=== PATIENT | female | born 1970 | race Caucasian/White ===

== ENCOUNTER 2019-04-02 00:47 | Inpatient (IN) | payer MEDICAID, SELFPAY | END 2019-04-04 20:04 | disposition home or self-care (01) | DRG 885 | LOC: NP 04-04 09:29 | DX: F25.0 Schizoaffective disorder, bipolar type (principal); Z23 Encounter for immunization | CPT/HCPCS: 99232 ==

== ENCOUNTER 2019-04-05 22:06 | Emergency (ER) | payer MEDICAID, SELFPAY ==
[2019-04-05 22:36] VITALS: BP 175/104; PULSE 77; RESP 18; TEMP 36.9; O2SAT 99; BMI 56.1
--- NOTE | 2019-04-06 00:50 | ED_ITS ---
Entered by Juanita Pacheco, acting as scribe for Apr 05, 2019 22:06 HPI - Extremity Problem General: Chief complaint: Extremity Problem,Nontraumatic Stated complaint: back/neck pain/hand pain Time Seen by Provider: 04/06/19 00:49 Source: patient Mode of arrival: ambulatory Limitations: no limitations History of Present Illness: HPI Narrative: 49 yo f came to the er for back, neck and hand pain. Onset was today. MD Complaint: extremity pain Onset (ago): day(s) (today) Pain Consistency: constant Radiation: none Relieving factors: nothing Exacerbating factors: nothing Associated symptoms: Deny chest pain, fever(s) or rash Review of Systems General: Reports: other (negative unless marked) Const: Denies: fever or chills Eyes: Denies: change in vision ENMT: Denies: throat pain or mouth pain Card: Denies: chest pain Resp: Denies: shortness of breath GI: Denies: abdominal pain, nausea, vomiting or diarrhea : Denies: difficulty urinating Musc: Reports: neck pain; Denies: back pain or joint pain Skin/Breast: Denies: rash Neuro: Denies: headache or behavioral changes Psych: Denies: depression Endo: Denies: excessive urination Dominic/Lymph: Denies: easy bruising All/Imm: Denies: hives PFSH ED PFSH: Statuses (acute, chronic, etc) shown below reflect problem list status as previously entered and may not be historically accurate Social History Smoking and tobacco status: former smoker Physical Exam Const: COMMON NORMALS: no apparent distress, oriented x3 and healthy appearing HENMT: COMMON NORMALS: normocephalic and external nose normal HEAD & SCALP: normocephalic NOSE: external nose normal Eye: COMMON NORMALS: PERRL PUPIL: Yes PERRL Neck/C-Spine: COMMON NORMALS: full ROM and no lymphadenopathy OTHER: slight tenderness to posterior neck Chest: COMMONS NORMALS: inspection of chest normal Resp: COMMON NORMALS: normal respiratory effort, no use of accessory muscles and clear to auscultation bilaterally AUSCULTATION: clear to auscultation bilaterally Cardio: COMMON NORMALS: regular rate and regular rhythm RATE: regular rate RHYTHM: regular rhythm GI: COMMON NORMALS: normal to inspection, nondistended, normoactive bowel sounds, soft to palpation, non-tender and no masses PALPATION: Yes soft Back/Pelvis: THORACIC SPINE/UPPER BACK: Yes normal to inspection Extremity: COMMON NORMALS: normal to inspection, full ROM and normal capillary refill Neuro: COMMON NORMALS: oriented x3 Psych: COMMON NORMALS: mental status grossly normal and cooperative Skin: COMMON NORMALS: no rashes or lesions noted GENERAL SKIN EXAM: no ra shes or lesions noted Course Vital Signs: Vital signs: Vital Signs Temperature 98.4 F 04/06/19 01:43 Pulse Rate 72 04/06/19 01:43 Respiratory Rate 18 04/06/19 01:43 Blood Pressure 159/97 04/06/19 01:43 Pulse Oximetry 96 04/06/19 01:43 MDM - Extremity (Nontraumatic) MDM Narrative: Medical decision making narrative: Patient presents here with neck pain is likely muscular. Patient is well-appearing here and is stable for discharge. Patient prescribed Naprosyn along with Robaxin. Discharge Plan Discharge Patient Disposition: Home, Self-Care Clinical Impression: Neck pain Condition: Stable Prescriptions: New EC-Naprosyn 500 mg tablet,delayed release (DR/EC) 500 mg PO BID PRN (Reason: pain) Qty: 20 RF: 0 Robaxin-750 750 mg tablet 750 mg PO Q6H Qty: 30 RF: 0 Discharge Orders: Discharge Order (Routine); Ordered 04/06/19 Ordered By: Jayashree Kirkland Referrals: [facility] [Other] Discharge Diet: Advance as tolerated Discharge Activity: Resume usual activity Patient Instructions: Methocarbamol (By mouth), Naproxen/Esomeprazole (By [facility]), Cervical Radiculopathy (ED) Discharge Date/Time: 04/06/19 01:45 Coding Level of Care Code ED Pen Tester for Chg Fwd The documentation recorded by the Junior gloria Stephanie Lyn, accurately reflects the service I personally performed and the decisions made by Isael ahmadi Korby, MD Apr 05, 2019 22:06
[2019-04-06 00:54] VITALS: BP 162/77; PULSE 90; RESP 18; O2SAT 96
[2019-04-06] MEDS: HYDROcodone-acetaminophen 5-325 mg Tablet 1 TAB PO (01:21)
[2019-04-06 01:43] VITALS: BP 159/97; PULSE 72; RESP 18; TEMP 36.9; O2SAT 96
== END 2019-04-06 01:45 | disposition home or self-care (01) ==
PROVIDERS: Emergency Provider Emergency Medicine
DX: M54.2 Cervicalgia (principal); Z87.891 Personal history of nicotine dependence
CPT/HCPCS: 99281

== ENCOUNTER 2019-04-07 21:53 | Emergency (ER) | payer MEDICAID, SELFPAY | END 2019-04-07 23:49 | disposition home or self-care (01) | LOC: ER 04-08 03:26 | PROVIDERS: Emergency Provider Emergency Medicine | DX: Z53.21 Procedure and treatment not carried out due to patient leaving prior to being seen by health care provider (principal) | CPT/HCPCS: 99281 ==

== ENCOUNTER 2019-04-26 12:51 | Emergency (ER) | payer MEDICAID, SELFPAY ==
[2019-04-25 15:07] VITALS: BP 170/101; BMI 55.8
== END 2019-04-26 15:53 | disposition admitted as inpatient to this hospital (09) ==
LOC: ER 06-28 14:04
PROVIDERS: Emergency Provider Physician Assistant; PCP Nurse Practitioner Family
DX: R45.851 Suicidal ideations (principal); F25.9 Schizoaffective disorder, unspecified; F31.9 Bipolar disorder, unspecified; Z87.891 Personal history of nicotine dependence
CPT/HCPCS: 80053; 80307; 84443; 85025; 96372; 99284; 99285; J1200; J2060; J3486; J3490

== ENCOUNTER 2019-04-26 12:51 | Inpatient (IN) | payer MEDICAID, SELFPAY ==
[2019-04-25 15:07] VITALS: BP 170/101; BMI 55.8
--- NOTE | 2019-04-26 11:55 | W.ED.GENADLT ---
HPI - General Adult General: Chief complaint: Psychiatric Symptoms Stated complaint: OUT OF MEDICATIONS Source: patient Mode of arrival: ambulatory Limitations: no limitations History of Present Illness: HPI narrative: Patient is a 49-year-old female presents to ED today after being brought by EMS for complaints that she is out of her medications; upon arrival patiently is acutely psychotic/manic; her speech is extremely pressured; she seems to bounce from topic to topic; no form of history could be performed due to patient's altered mental status Review of Systems General: Reports: ROS unobtainable due to mental status PFSH ED PFSH: Statuses (acute, chronic, etc) shown below reflect problem list status as previously entered and may not be historically accurate Social History Smoking and tobacco status: former smoker Second hand smoke exposure: Yes Alcohol intake: never Desire information about substance/drug rehabilitation?: No Adopted: No Lives independently: Yes Household members: significant other Marital status: Number of children: 1 Current occupational status: disabled Current gender identity: Female Female Reproductive History: Date of last menstrual period: 04/10/19 Para: 1 Spontaneous abortions: No Physical Exam Const: COMMON NORMALS: no apparent distress, oriented x3 and alert NUTRITIONAL APPEARANCE: obese morbidly obese Neuro: COMMON NORMALS: oriented x3 SENSORIUM/ORIENTATION: Yes alert Psych: APPEARANCE: Yes grossly normal ATTITUDE: Yes uncooperative SPEECH: Yes excessive and Yes pressured MOOD & AFFECT: Yes labile affect THOUGHT PROCESS: flight of ideas, loose associations and racing thoughts ATTENTION/CONCENTRATION: Yes attention grossly impaired and Yes concentration grossly impaired MEMORY/COGNITION: Yes cognition grossly impaired INSIGHT: poor JUDGEMENT: poor Course Consultations: Consultation #1: Dr. Mujica-accepts to NPU Time: 14:00 Vital Signs: Vital signs: Vital Signs Temperature 98.9 F 04/26/19 11:56 Pulse Rate 109 H 04/26/19 11:56 Respiratory Rate 22 H 04/26/19 11:56 Blood Pressure 171/109 04/26/19 11:56 Pulse Oximetry 97 04/26/19 11:56 MDM - General Adult MDM Narrative: Medical decision making narrative: pt arrives acutely psychotic; she was screaming at staff, being verbally assaultive, and tried to elope the ED several times; also tried to lock herself in the bathroom; she was given several medications to help with agitation; she will be admitted to NPU Lab Data: Labs: Lab Results 04/26/19 04/26/19 Range/Units 12:35 12:35 WBC 8.2 (4.0-10.0) 10^3/ uL RBC 4.48 (4.1-5.3) 10^6/u L Hgb 13.1 (11.5-15.3) g/dL Hct 39.7 (37.0-47.0) % MCV 88.6 (81-99) fL MCH 29.2 (28.0-34.0) pg MCHC 33.0 (30.0-36.0) g/dL RDW 12.8 (12.1-15.1) % Plt Count 284 (130-400) 10^3/c mm MPV 9.3 (7.4-10.4) fL Neut % (Auto) 62.0 % Lymph % (Auto) 26.7 % [place] % (Auto) 9.2 % Eos % (Auto) 1.0 % Baso % (Auto) 0.6 % Neut # (Auto) 5.1 (1.8-7.7) 10^3/u L Lymph # (Auto) 2.2 (0.8-4.8) 10^3/u L [place] # (Auto) 0.8 (0.2-0.9) 10^3/u L Eos # (Auto) 0.1 (0.0-0.8) 10^3/u L Baso # (Auto) 0.1 (0.0-0.1) 10^3/u L Nucleated RBC % (a uto) 0 % Nucleated RBCs # 0.0 /100WBC Sodium 137 (136-145) mmol/L Potassium 3.4 L (3.5-5.1) mmol/L Chloride 98 (98-107) mmol/L Carbon Dioxide 22 (22-29) mmol/L Anion Gap 20.4 H (5-19) BUN 13 (6-20) mg/dL Creatinine 0.8 (0.5-0.9) mg/dL GFR Calculation 76.6 L (90-130) mL/min Glucose 149 H (74-109) mg/dL Calcium 10.8 H (8.6-10.0) mg/Dl Total Bilirubin 0.7 (0.15-1.2) mg/dL AST 27 (0-32) U/L ALT 28 (0-33) U/L Alkaline Phosphata se 53 (35-105) IU/L Total Protein 7.7 (6.6-8.7) g/dL Albumin 4.5 (3.5-5.2) g/dL Globulin 3.2 (1.3-4.6) g/dL TSH 2.35 (0.27-4.20) uIU/ mL Salicylates < 0.3 L (3-10) mg/dL Acetaminophen < 5.0 L (10-30) ug/mL Ethyl Alcohol < 10 (0-10) mg/dL Discharge Plan Discharge Patient Disposition: Xfer Psychiatric Hosp Clinical Impression: Acute psychosis Condition: Stable Coding Level of Care Code ED Field Assistant for Mandie Wei Exam Problem Focused
[2019-04-26 11:56] VITALS: BP 171/109; PULSE 109; RESP 22; TEMP 37.2; O2SAT 97; BMI 43.0
[2019-04-26] MEDS: OLANZapine 10 mg VIAL 5 MG IM (12:42)
[2019-04-26 12:53] LABS: Basophils # 0.1 10^3/uL (0.0-0.1); Basophils % 0.6 %; Eosinophils # 0.1 10^3/uL (0.0-0.8); Hematocrit 39.7 % (37.0-47.0); Hemoglobin 13.1 g/dL (11.5-15.3); Lymphocytes # 2.2 10^3/uL (0.8-4.8); Lymphocytes % 26.7 %; Mean Corpuscular Hemoglobin 29.2 pg (28.0-34.0); Mean Corpuscular Volume 88.6 fL (81-99); Mean Platelet Volume 9.3 fL (7.4-10.4); Monocytes # 0.8 10^3/uL (0.2-0.9); Monocytes % 9.2 %; Neutrophils # 5.1 10^3/uL (1.8-7.7); Nucleated Red Blood Cells % 0 %; Platelet Count 284 10^3/cmm (130-400); Red Blood Count 4.48 10^6/uL (4.1-5.3); Red Cell Distribution Width 12.8 % (12.1-15.1); White Blood Count 8.2 10^3/uL (4.0-10.0)
[2019-04-26] MEDS: LORazepam 2 mg/mL INJ 1 mL (13:25)
[2019-04-26] MEDS: ziprasidone 20 mg/mL SDV (13:26)
[2019-04-26 13:36] LABS: Alanine Aminotransferase 28 U/L (0-33); Albumin Level 4.5 g/dL (3.5-5.2); Alkaline Phosphatase 53 IU/L (35-105); Anion Gap 20.4 (5-19); Aspartate Amino Transferase 27 U/L (0-32); Blood Urea Nitrogen 13 mg/dL (6-20); Calcium 10.8 mg/Dl (8.6-10.0); Carbon Dioxide 22 mmol/L (22-29); Chloride 98 mmol/L (98-107); Globulin 3.2 g/dL (1.3-4.6); Glomerular Filtration Rate 76.6 mL/min (90-130); Glucose 149 mg/dL (74-109); Potassium 3.4 mmol/L (3.5-5.1); Sodium 137 mmol/L (136-145); Thyroid Stimulating Hormone 2.35 uIU/mL (0.27-4.20); Total Bilirubin 0.7 mg/dL (0.15-1.2); Total Protein 7.7 g/dL (6.6-8.7)
[2019-04-26] MEDS: diphenhydrAMINE 50 mg/mL SDV 1mL IM (13:43)
[2019-04-26] MEDS: LORazepam 2 mg/mL INJ 1 mL IM ×2 (13:44→21:53)
[2019-04-26 13:49] LABS: Acetaminophen < 5.0 ug/mL (10-30); Alcohol Level < 10 mg/dL (0-10); Salicylate < 0.3 mg/dL (3-10)
[2019-04-26 14:59] VITALS: BP 164/94; PULSE 92; RESP 18; O2SAT 97
[2019-04-26 18:21] VITALS: BP 116/73; PULSE 92; RESP 18; TEMP 36.8
[2019-04-26] MEDS: blistex lip oint 7 gm Tube 1 APPLIC TOPICAL (19:27)
[2019-04-26] MEDS: naproxen 500 mg Tablet PO (19:38)
[2019-04-26] MEDS: amlodipine 10 mg Tablet PO (20:33)
[2019-04-26] MEDS: lurasidone 80 mg Tablet PO (20:33)
--- NOTE | 2019-04-26 22:06 | PC.NURSE ---
BEHAVIOR PT HAS BEEN YELLING AND CRYING AT THE NURSES STATION. SHE STATES NO ONE IS HELPING HER. PT STATES HER DAUGHTER IS HAVING A BABY AND NEEDS TO BE ADMITTED. PT IS HARD TO REDIRECT. PT GIVEN ATIVAN 2 MG LEFT DELTOID. WILL MONITOR FOR MEDICATION EFFECTIVENESS.
--- NOTE | 2019-04-26 23:46 | NUR.SHIFT ---
Nursing shift assessment note: Patient at nurses station yelling, screaming at staff. loud and demanding. insight and judgment is poor. Denied having any pain or discomfort. medication compliant . Denied suicidal ideations, denied feeling depressed, stressed, or wanting to harm self or others. Denied having hallucinations. Insight and judgment is poor. Stated she felt stressed, agitated and angry with her daughter. Took shower ate snack took her meds and went to bed. Will continue to monitor patient per 15 minute checks.
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
[2019-04-27] MEDS: pantoprazole DR 40 mg Tablet PO (09:31)
[2019-04-27] MEDS: hyDROXYzine 25 mg Capsule 50 MG PO (09:59)
--- NOTE | 2019-04-27 10:01 | PC.NURSE ---
PT NOTE: PT C/O FEELING ANXIOUS AND UPSET. PRN VISTARIL 50MG GIVEN FOR ANXIETY.
[2019-04-27 10:09] LABS: Amphetamines Screen Urine Negative (Negative); Barbiturates Screen Urine Negative (Negative); Benzodiazepines Screen Urine Negative (Negative); Cocaine Screen Urine Negative (Negative); Opiate Screen Urine Negative (Negative); PCP Screen Urine Negative (Negative); THC Screen Urine Negative (Negative)
[2019-04-27] MEDS: naproxen 500 mg Tablet PO (11:45)
[2019-04-27] MEDS: lurasidone 20 mg Tablet 40 MG PO (12:34)
[2019-04-27 14:00] VITALS: PULSE 92; RESP 18
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
[2019-04-27] MEDS: LORazepam 2 mg Tablet PO (15:24)
[2019-04-27 16:18] VITALS: BP 139/84; PULSE 97; RESP 20; TEMP 36.7; O2SAT 96
[2019-04-27] MEDS: amlodipine 10 mg Tablet PO (18:05)
[2019-04-27] MEDS: lurasidone 80 mg Tablet PO (19:30)
[2019-04-27] MEDS: acetaminophen 325 mg Tablet 650 MG PO (19:35)
[2019-04-27] MEDS: OLANZapine ODT 5 MG TABLET PO (19:40)
--- NOTE | 2019-04-27 19:48 | PC.NURSE ---
PRN ZYPREXA PT IN ROOM CRYING AND YELLING STATING SHE IS GOING TO FLIP OUT AND HURT SOMEONE. PT GIVEN ZYPREXA ZYDIS 5MG SUBLINGUAL. WILL MONITOR FOR MEDICATION EFFECTIVENESS.
[2019-04-27 21:18] VITALS: BP 136/88; PULSE 107; RESP 19; TEMP 36.9; O2SAT 94
[2019-04-28] MEDS: naproxen 500 mg Tablet PO ×2 (00:04→21:21)
[2019-04-28] MEDS: LORazepam 2 mg/mL INJ 1 mL IM (00:09)
--- NOTE | 2019-04-28 00:10 | PC.NURSE ---
PRN ATIVAN ATIVAN 2 MG IM GIVEN FOR INCREASING AGITATION. WILL MONITOR FOR MEDICATION EFFECTIVENESS.
[2019-04-28 06:17] VITALS: BP 138/94; PULSE 107; RESP 20; TEMP 36.8; O2SAT 93
[2019-04-28] MEDS: amlodipine 10 mg Tablet PO ×2 (08:45→18:10)
[2019-04-28] MEDS: pantoprazole DR 40 mg Tablet PO (08:45)
[2019-04-28] MEDS: lurasidone 80 mg Tablet PO ×2 (09:11→16:43)
[2019-04-28] MEDS: LORazepam 2 mg Tablet PO (09:11)
[2019-04-28 14:00] VITALS: BP 146/95; PULSE 83; RESP 19; TEMP 36.7; O2SAT 96
--- NOTE | 2019-04-28 15:47 | P.PN_ITS ---
Subjective NPU Subjective: Interval history: I want my Latuda. I only take 80 mg in the morning. If I take it with supper, it won't work. I won't take 40 mg. Only 80. That;s the only one that will work. . Medications: Medication Review Details: Mental Status Exam: The patient is an obese slovenly woman who appears older than her stated age. Eye contact is good. Psychomotoric activity is NOTABLY elevated. SHE IS LOUD, DEMANDING AND ILLOGICAL. Appearance: hygiene is Poor; no gross neurological deficits., gait is Waddling; AIMS=0 Speech: Speech is of Pressured rate and rhythm and Often difficult to understand Thought processes: Thought processes are Illogical. Judgment is not adequate for safety. Psychotic processes: There is no indication of guarding or paranoia. There is no attention to the internal stimuli. Auditory and visual hallucinations are denied. Judgment: Insight is fair. Problem solving skills are Not adequate for safety. Orientation: The patient is oriented to person, place time and situation. Memory: no deficits noted in immediate, intermediate, or remote spheres.However they were not formally tested Attention: The patient is alert and interpersonally engaged. Language: Verbalizations are coherent. Fund of knowledge: Fund of knowledge is Poor but adequate. Affect/Mood: Affect is consistent with a Manic mood. She denied suicidal ideation Affective range EXPANSIVE AND VOLATILE Psychosis: perception And reality testing Her severely impaired by her disorganized thinking and racing thoughts. Diagnoses:Bipolar disorder?currently manic Noncompliant Assessment:Patient became manic when she stopped taking her medication. Treatment plan: Due to the psychiatric conditions and treatment listed in the Assessment and Plan - the patient requires continued hospitalization. Will provide a safe and therapeutic environment for patient.. Will continue inpatient treatment to allow for medication adjustment and monitoring. Will continue q15 min safety checks. Patient became manic when she stopped taking her medication. Will Restart Latuda 80 mg at bedtime and monitor for medication side effects. Hospital day #3: Patient is becoming more irritable and demanding. She did not sleep well last night. There have been some staffing issues that resulted in abnormalities and how the medication was given. At this point, will put a loading dose Latuda and provide when necessary dosing of lorazepam and Robaxin. Will also provide doxepin at bedtime to help with sleep. Monitor patient's mood, sleep, appetite, and behavior closely. Encourage patient to participate in individual and group therapeutic sessions on the fleming. Estimated length of stay 5 days The expected benefits and potential side effects of patient's psychiatric medications were discussed with the patient. The patient understands and consents to treatment.CRITERIA FOR DISCHARGE: stable on medications and no l onger an im Vitals/I&O/Wt Last Vital Signs Temp 98.0 F 04/28/19 14:00 Pulse 83 04/28/19 14:00 Resp 19 H 04/28/19 14:00 BP 146/95 04/28/19 14:00 Pulse Ox 96 04/28/19 14:00 Data NPU : 04/26/19 12:35 04/26/19 12:35 Involuntary Hold Information 96 Hour Hold: 96 Hour Involuntary Admission: No Attestations NPU Medical Necessity Statement*: Patient will remain in the hospital another 5-6 nights while Concepcion is addressed Coding Level of Care Code Acute Tool Crib Supervisor for Mandie Wei
[2019-04-28] MEDS: OLANZapine ODT 5 MG TABLET PO (16:44)
[2019-04-28 20:55] VITALS: BP 109/69; PULSE 91; RESP 20; TEMP 37.1; O2SAT 93
[2019-04-28] MEDS: doxepin 50 mg Capsule PO (21:13)
[2019-04-28] MEDS: hyDROXYzine 25 mg Capsule 50 MG PO (21:16)
[2019-04-29] MEDS: pantoprazole DR 40 mg Tablet PO (08:43)
[2019-04-29] MEDS: amlodipine 10 mg Tablet PO ×2 (08:43→17:24)
--- NOTE | 2019-04-29 12:32 | P.PN_ITS ---
Subjective NPU Subjective: Interval history: I feel like I'm doing pretty good. I'm getting ready to go home.. . Medications: Medication Review Details: Mental Status Exam: The patient is an obese Woman with much improved hygiene.. Eye contact is good. Psychomotoric activity Has normalized. SHE IS No longer LOUD, DEMANDING AND ILLOGICAL. Appearance: hygiene is Improved; no gross neurological deficits., gait is Waddling; AIMS=0 Speech: Speech is of Normal rate and rhythm ; She is coherent and logical. Thought processes: Thought processes are logical. Judgment is adequate for safety. Psychotic processes: There is no indication of guarding or paranoia. There is no attention to the internal stimuli. Auditory and visual hallucinations are denied. Judgment: Insight is fair. Problem solving skills are adequate for safety. Orientation: The patient is oriented to person, place time and situation. Memory: no deficits noted in immediate, intermediate, or remote spheres.However they were not formally tested Attention: The patient is alert and interpersonally engaged. Language: Verbalizations are coherent. Fund of knowledge: Fund of knowledge is Poor but adequate. Affect/Mood: Affect is consistent with a Euthymic mood. She denied suicidal ideation Affective range Within normal limits Psychosis: perception And reality testing Her severely impaired Primarily by her concrete thinking and cognitive limitations. Diagnoses:Bipolar disorder?currently manic Noncompliant Assessment:Patient became manic when she stopped taking her medication. Treatment plan: Due to the psychiatric conditions and treatment listed in the Assessment and Plan - the patient requires continued hospitalization. Will provide a safe and therapeutic environment for patient.. Will continue inpatient treatment to allow for medication adjustment and monitoring. Will continue q15 min safety checks. Patient became manic when she stopped taking her medication. Will Restart Latuda 80 mg at bedtime and monitor for medication side effects. Hospital day #3: Patient is becoming more irritable and demanding. She did not sleep well last night. There have been some staffing issues that resulted in abnormalities and how the medication was given. At this point, will put a loading dose Latuda and provide when necessary dosing of lorazepam and Robaxin. Will also provide doxepin at bedtime to help with sleep. Hospital day #4: Patient is doing much better than yesterday. She didn't sleep last night. Manic symptoms have improved considerably. She feels as though she is ready to go home. This seems reasonable though the [place] to discharge successfully is discharge planning and we have no capacity to do that with [facility] staff. Monitor patient's mood, sleep, appetite, and behavior closely. Encourage patient to participate in individual and group therapeutic sessions on the fleming. Estimated length of stay 2 more days The expected benefits and potential side effects of patient's psychiatric medications were discussed with the patient. The patient understands and consents to treatment.CRITERIA FOR DISCHARGE: stable on medications and no longer an im Mental Status Exam Cognition: Patient Appearance: Appropriate Level of Consciousness: Restless Patient Cognition Impaired: Yes Ability to Follow Directions: Good Patient Orientation (long list): Person, Place and Time Comprehension Ability: No Impairment Hallucination Type: None Thought Process: Disorganized Affect: Affect Description: Appropriate Behavior: Patient Behavior: Demanding Speech Pattern: Clear Vitals/I&O/Wt Last Vital Signs Temp 98.7 F 04/28/19 20:55 Pulse 91 04/28/19 20:55 Resp 20 H 04/28/19 20:55 BP 109/69 04/28/19 20:55 Pulse Ox 93 04/28/19 20:55 Data NPU : 04/26/19 12:35 04/26/19 12:35 Involuntary Hold Information 96 Hour Hold: 96 Hour Involuntary Admission: No Attestations NPU Medical Necessity Statement*: Patient will remain in the hospital 2-3 more times for coordination of care following discharge. Coding Level of Care Code Acute Washer Engineer for Mandie Wei
[2019-04-29 14:00] VITALS: O2SAT 79
[2019-04-29] MEDS: blistex lip oint 7 gm Tube 1 APPLIC TOPICAL (14:57)
[2019-04-29] MEDS: acetaminophen 325 mg Tablet 650 MG PO ×2 (17:23→22:14)
[2019-04-29] MEDS: lurasidone 80 mg Tablet PO (17:23)
[2019-04-29] MEDS: doxepin 50 mg Capsule PO (20:56)
[2019-04-29 21:39] VITALS: BP 158/86; PULSE 111; RESP 20; TEMP 37.1; O2SAT 96
[2019-04-30] MEDS: naproxen 500 mg Tablet PO ×3 (00:58→22:42)
[2019-04-30] MEDS: methocarbamol 750 mg Tablet PO (02:36)
[2019-04-30] MEDS: acetaminophen 325 mg Tablet 650 MG PO ×2 (02:36→21:22)
[2019-04-30 06:00] VITALS: BP 159/93; PULSE 85; RESP 18; TEMP 36.3; O2SAT 97
--- NOTE | 2019-04-30 07:38 | PM.NPN ---
Subjective NPU Subjective: Interval history: The patient had a spooky night. She heard a knock on the window and that played right into her auditory hallucinations, which she still experiences, although mildly. She agrees that she is approaching discharge but she is right now too frightened by her hallucinations, even as they fade away. Medications: Reviewed: Yes Mental Status Exam MSE Comments: Patient presents in reasonably good body habitus. Mood is more upbeat than that described previously. Affect is appropriate. She seems rather nonchalant as she recounts her psychotic symptoms. I believe they are waning and she will indeed be able to go home in a couple of days. Thought processes are integrated and free of any racing blocking or looseness of association. Speech is of normal rate and volume, without pressure, blocking or aprosody. Cognitive functions seem to be reasonably good. She is oriented to time, place, and person. She seems to have decreasing impairment of insight and judgment. She has support at home. There are no behavioral oddities and she denies suicidal or homicidal ideation, plan or intent. Vitals/I&O/Wt Last Vital Signs Temp 97.4 F L 04/30/19 06:00 Pulse 85 04/30/19 06:00 Resp 18 04/30/19 06:00 BP 159/93 04/30/19 06:00 Pulse Ox 97 04/30/19 06:00 Weight last 48 hrs Weight 302 lb 6 oz Data NPU : 04/26/19 12:35 04/26/19 12:35 A&P Assessment and plan (1) Acute psychosis: Patient's psychotic symptoms are waning. Continuation of current pharmacotherapy and formulation of discharge planning tomorrow for later in the week. Status: Acute Code(s): F23 - Brief psychotic disorder Additional A&P Information Bipolar disorder type II most recent episode mixed with psychosis. Involuntary Hold Information 96 Hour Hold: 96 Hour Involuntary Admission: No Attestations NPU Medical Necessity Statement*: The patient is still hallucinating and actively psychotic, although less so with each passing day, according to the record and nursing staff. I anticipate 2-3 additional midnights stay. Time Spent in Patient Care: 16 - 35 minutes (Detailed review of her response to medicine and formulation of a possible discharge plan in the near future.) (>than 50% of time spent in counselling and/or direct pt care on unit). See above. Coding Level of Care Code Acute Metal Reclamation Kettle Tender for Chg Fwd Diagnoses Acute psychosis F23 Time Spent (min) 30
[2019-04-30] MEDS: amlodipine 10 mg Tablet PO ×2 (08:45→17:16)
[2019-04-30] MEDS: pantoprazole DR 40 mg Tablet PO (08:45)
[2019-04-30 13:04] VITALS: O2SAT 80
[2019-04-30] MEDS: blistex lip oint 7 gm Tube 1 APPLIC TOPICAL (14:26)
[2019-04-30] MEDS: lurasidone 80 mg Tablet PO (17:16)
[2019-04-30 20:37] VITALS: BP 139/89; PULSE 102; RESP 18; TEMP 36.6; O2SAT 96
[2019-04-30] MEDS: doxepin 50 mg Capsule PO (21:23)
[2019-05-01 06:52] VITALS: BP 144/97; PULSE 94; RESP 17; TEMP 36.7; O2SAT 95
[2019-05-01] MEDS: hyDROXYzine 25 mg Capsule 50 MG PO (07:48)
--- NOTE | 2019-05-01 07:48 | PC.NURSE ---
PRN VISTARIL VISTARIL 50MG PO PER PT C/O ANXIETY. PT AT THE NURSES STATION CRYING AND YELLING. WILL CONTINUE TO MONITOR FOR MEDICATION EFFECTIVENESS.
--- NOTE | 2019-05-01 08:50 | PC.NURSE ---
PRN VISTARIL FOLLOW UP MEDICATION EFFECTIVE. PT CALM AND COOPERATIVE.
[2019-05-01] MEDS: amlodipine 10 mg Tablet PO ×2 (09:40→17:00)
[2019-05-01] MEDS: pantoprazole DR 40 mg Tablet PO (09:40)
--- NOTE | 2019-05-01 12:24 | P.PN_ITS ---
Subjective NPU Subjective: Interval history: The patient has had increasing difficulty with her mother, to whom she had planned to return. She is now quite agitated and angry at her mother and feels overwhelmed at the prospect of having to deal with her. Medications: Reviewed: Yes Medication Review Details: Renewed benzodiazepines. Mental Status Exam MSE Comments: The patient is alert and oriented to person, place, time, and situation. Hygiene is good. Sensorium is clear. The patient maintains appropriate eye contact, is cooperative and relates well to me. Behavior, however, shows significant psychomotor agitation. Mood is distraught and dysphoric. Affect is tense and tearful, appropriate to her current mood. Thought processes are organized but mildly racing. There is no delusions blocking or looseness of association. Speech is of normal rate and volume, without dysarthria, aprosody or pressure. There is no inordinate latency of response. The patient denies auditory or visual hallucinations or delusions. Thought processes are integrated and free of any racing, blocking or looseness of association. The patient denies suicidal or homicidal ideation, plan or intent. Memory is intact for recent and remote events. The patient is cooperative and relates well to me. Fund of knowledge is limited. Insight and judgment have always been impaired. Vitals/I&O/Wt Last Vital Signs Temp 98.0 F 05/01/19 06:52 Pulse 94 05/01/19 06:52 Resp 17 05/01/19 06:52 BP 144/97 05/01/19 06:52 Pulse Ox 95 05/01/19 06:52 Weight last 48 hrs Weight 302 lb 6 oz Physical Exam Narrative: EXAM NARRATIVE: The patient is morbidly obese. Vital signs as do cumented. Head exam is unremarkable. No scleral icterus or corneal arcus noted. Neck is without jugular venous distension, thyromegaly, or carotid bruits. Lungs are clear to auscultation and percussion. Heart normal sinus rhythm, no murmurs. Abdomen bland. Extremities no limitation of motion, no lower extremity edema. Neurological cranial nerves II to XII intact. No cerebellar, sensory or motor deficit noted. Mental status as above. Data NPU : 04/26/19 12:35 04/26/19 12:35 Involuntary Hold Information 96 Hour Hold: 96 Hour Involuntary Admission: No Attestations NPU Medical Necessity Statement*: The patient is highly distraught and agitated. We have lost much headway in her conflict with her mother. Time Spent in Patient Care: Greater than 35 minutes (>than 50% of time spent in counselling and/or direct pt care on unit) . Coding Level of Care Code Acute Workforce Staffing Advisor for Mandie Wei
[2019-05-01] MEDS: OLANZapine ODT 5 MG TABLET PO (12:53)
--- NOTE | 2019-05-01 12:53 | PC.NURSE ---
PRN ZYPREXA ZYDIS ZYPREXA ZYDIS 5MG PO PER PT C/O AGITATION/ANXIETY. PATIENT AT THE NURSES STATION YELLING AND CRYING. WILL CONTINUE TO MONITOR FOR MEDICATION EFFECTIVENESS.
[2019-05-01 13:27] VITALS: BP 154/96; PULSE 98; RESP 20; TEMP 36.4; O2SAT 94
--- NOTE | 2019-05-01 14:00 | PC.NURSE ---
PRN ZYPREXA SheialYDIS FOLLOW UP MEDICATION EFFECTIVE.
[2019-05-01] MEDS: lurasidone 80 mg Tablet PO (16:57)
[2019-05-01] MEDS: LORazepam 2 mg/mL INJ 1 mL IM (17:49)
--- NOTE | 2019-05-01 17:49 | PC.NURSE ---
Addendum entered by Dottie Uribe LPN 05/01/19 18:45: MEDICATION EFFECTIVE. PT IS CALM AND COOPERATIVE. Original Note: PRN ATIVAN ONE TIME ORDER ATIVAN 2MG IM TO LEFT DELTOID PER DR. CHARLTON VERBAL ORDER FOR AGITATION/ANXIETY. PATIENT WILLINGLY TOOK MEDICATION. WILL CONTINUE TO MONITOR FOR MEDICATION EFFECTIVENESS.
[2019-05-01 19:41] VITALS: BP 124/77; PULSE 99; RESP 17; TEMP 37; O2SAT 96
[2019-05-01] MEDS: doxepin 50 mg Capsule PO (20:32)
[2019-05-01] MEDS: LORazepam 1 mg Tablet PO (20:32)
[2019-05-01] MEDS: methocarbamol 750 mg Tablet PO (20:32)
--- NOTE | 2019-05-01 22:24 | PC.NURSE ---
PT UP TO DESK YELLING AND CURSING LOUDLY AT 2031. PT DEMANDING TO GO HOME STATING THAT HER MOTHER HAD COMMITTED SUICIDE. VERY IRRITABLE AND RODRIGUE.NDING. MEDICATED WITH ATIVAN 1 MG PO FOR AGITATION. AT PRESENT PT IN HER ROOM RESTING WITH HER EYES CLOSED. WILL CONTINUE TO MONITOR
[2019-05-02 06:00] VITALS: BP 111/69; PULSE 102; RESP 17; TEMP 37.1; O2SAT 92
[2019-05-02] MEDS: pantoprazole DR 40 mg Tablet PO (08:14)
[2019-05-02] MEDS: amlodipine 10 mg Tablet PO (08:14)
[2019-05-02] MEDS: LORazepam 1 mg Tablet PO (11:12)
--- NOTE | 2019-05-02 13:35 | P.PN_ITS ---
Subjective NPU Subjective: Interval history: Patient returned once again in the wake of another psychosocial crisis, will maintain her unfortunate state and voicing suicidal ideation. Mental Status Exam MSE Comments: The patient is alert and oriented to person, place, time, and situation. Hygiene is disheveled. Sensorium is spotty but she actually understands what we tell her and what's going on around her. The patient maintains appropriate eye contact, is cooperative and relates well to me. Beha vior shows no psychomotor agitation. Mood is calm and euthymic. Affect is appropriate to his current mood. Thought processes are slightly scattered but they are free of racing, blocking or looseness of association. Speech is of normal rate and volume, without dysarthria, aprosody or pressure. There is no inordinate latency of response. The patient denies auditory or visual hallucinations or delusions. The patient denies suicidal or homicidal ideation, plan or intent. He exhibits no delete assaultive behavior this morning and seems not to have any recollection of the chaos he engendered over the last 2 to 3 days. Memory is intact for remote events. Fund of knowledge is adequate given vocabulary. Insight and judgment were deemed to be good given the recognition of problems and desire for treatment. Vitals/I&O/Wt Last Vital Signs Temp 98.8 F 05/02/19 06:00 Pulse 102 H 05/02/19 06:00 Resp 17 05/02/19 06:00 BP 111/69 05/02/19 06:00 Pulse Ox 92 05/02/19 06:00 Data NPU : 04/26/19 12:35 04/26/19 12:35 Involuntary Hold Information 96 Hour Hold: 96 Hour Involuntary Admission: No Attestations NPU Medical Necessity Statement*: Patient says she is ready to contend with the slings and arrows of outrageous fortune which await her [place]. No further hospital stay is required Time Spent in Patient Care: Greater than 35 minutes (>than 50% of time spent in counselling and/or direct pt care on unit) . Coding Level of Care Code Acute Faculty Research Physician for Mandie Wei
--- NOTE | 2019-05-02 13:39 | PM.NDC ---
Diagnoses at Discharge Discharge Diagnosis (1) Acute psychosis: Status: Acute Problem details: The patient presented once again and psychosocial crisis, lamenting her misfortune and affirming that her medications were not really working Reason for Visit Reason for Visit: Reason For Visit: OUT OF MEDICATIONS Hospital Course Hospital Course Patient was initially quite chaotic and is very codependent with her mother whom she constantly calls and at home she becomes repeatedly enraged. Today indicated that Latuda had been helpful to her in the past Blanca got her on that she seems calmer now but that may be lull in the storm. She said she wanted to go home today and there is no factual or clinical wherewithal to deny her [place] interest so we will discharge her at her request Involuntary Hold Information 96 Hour Hold: 96 Hour Involuntary Admission: No Mental Status Exam MSE Comments: The patient is alert and oriented to person, place, time, and situation. Hygiene is disheveled. Sensorium is spotty but he actually understands what we tell him and what's going on around him. The patient maintains appropriate eye contact, is cooperative and relates well to me. Behavior shows no psychomotor agitation. Mood is calm and euthymic. Affect is appropriate to his current mood. Thought processes are slightly scattered but they are free of racing, blocking or looseness of association. Speech is of normal rate and volume, without dysarthria, aprosody or pressure. There is no inordinate latency of response. The patient denies auditory or visual hallucinations or delusions. The patient denies suicidal or homicidal ideation, plan or intent. He exhibits no delete assaultive behavior this morning and seems not to have any recollection of the chaos he engendered over the last 2 to 3 days. Memory is intact for remote events. Fund of knowledge is adequate given vocabulary. Insight and judgment were deemed to be good given the recognition of problems and desire for treatment. Physical Exam Narrative: EXAM NARRATIVE: The patient appeared obese but normally developed. Vital signs as documented. Head exam is unremarkable. No scleral icterus or corneal arcus noted. Neck is without jugular venous distension, thyromegaly, or carotid bruits. Lungs are clear to auscultation and percussion. Heart normal sinus rhythm, no murmurs. Abdomen bland. Extremities no limitation of motion, no lower extremity edema. Neurological cranial nerves II to XII intact. No cerebellar, sensory or motor deficit noted. Mental status as above. Discharge Data Vitals: Last Vital Signs Temp 98.8 F 05/02/19 06:00 Pulse 102 H 05/02/19 06:00 Resp 17 05/02/19 06:00 BP 111/69 05/02/19 06:00 Pulse Ox 92 05/02/19 06:00 Discharge Plan Discharge Patient Disposition: Home, Self-Care Condition: Stable Prescriptions: Continued Latuda 80 mg tablet 80 mg PO QAM RF: 0 amlodipine 10 mg tablet 10 mg PO BID Qty: 60 RF: 1 Discontinued pantoprazole [Protonix] 40 mg tablet,delayed release (DR/EC) 40 mg PO ONCE RF: 0 EC-Naprosyn 500 mg tablet,delayed release (DR/EC) 500 mg PO BID PRN (Reason: pain) Qty: 20 RF: 0 Robaxin-750 750 mg tablet 750 mg PO Q6H Qty: 30 RF: 0 naproxen [EC-Naprosyn] 500 mg tablet,delayed release (DR/EC) 500 mg PO BID PRN (Reason: pain) Qty: 20 RF: 0 methocarbamol [Robaxin-750] 750 mg tablet 750 mg PO Q6H Qty: 30 RF: 0 Discharge Orders: Discharge Order (Routine); Ordered 05/02/19 Ordered By: Kenneth Cooper Referrals: Jo Ann Martin MD [Physician] - 05/22/19 9:15 am (New Patient Appointment) Syeda Clemens [Community Support Specilist] - (Follow up with Automation Qa Analyst as needed.) Shaye Grant MSW, DIRECTOR AUDIENCE MARKETING [Referring] - 05/10/19 10:45 am (Therapy Appointment) Evonne Vicente [Primary Care Provider] - (Follow up as needed.) Angelique Daugherty APRN [Nurse Practitioner] - 05/02/19 2:15 pm (Follow up for medications) Discharge Diet: Diabetic Discharge Activity: Resume usual activity Activity Restrictions/Additional Instructions: Be sure to be in touch with your nurse case management from [facility] upon discharge... Syeda Clemens [phone] # [id number] Discharge Attestations NPU Time Spent in Discharge Care*: greater than 30 min Coding Level of Care Code Acute Lab Systems Analyst for Chg Fwd Diagnoses Acute psychosis F23
[2019-05-02 14:01] VITALS: BP 111/69; PULSE 102; RESP 17; TEMP 37.1; O2SAT 92
[2019-05-02 14:23] VITALS: BP 111/69; PULSE 102; RESP 17; TEMP 37.1; O2SAT 92
--- NOTE | 2019-05-02 14:55 | PC.SOCIAL ---
Medicaid radha called, trip ID# [id number]
== END 2019-05-02 16:25 | disposition home or self-care (01) | DRG 885 ==
LOC: ER 14:11 → NP 14:43
PROVIDERS: Admitting Provider Psychiatry & Neurology Psychiatry; Emergency Provider Physician Assistant; PCP Nurse Practitioner Family; Visit Provider Psychiatry & Neurology Psychiatry
DX: F31.2 Bipolar disorder, current episode manic severe with psychotic features (principal); Z68.43 Body mass index [BMI] 50.0-59.9, adult; Z91.120 Patient's intentional underdosing of medication regimen due to financial hardship; E66.9 Obesity, unspecified
CPT/HCPCS: 12345; 80053; 80307; 84443; 85025; 96372; 99284; J1200; J2060; J3486; J3490

== ENCOUNTER 2019-05-04 04:50 | Inpatient (IN) | payer MEDICAID, SELFPAY ==
[2019-05-04 04:51] VITALS: BP 132/84; PULSE 100; RESP 18; TEMP 36.3; O2SAT 98; BMI 56.1
--- NOTE | 2019-05-04 05:01 | ECG_ITS ---
Measurements Intervals [place] Rate: 91 P: 49 MI: 175 QRS: 56 QRSD: 98 T: 26 QT: 370 QTc: 457 SINUS RHYTHM NONSPECIFIC T-WAVE ABNORMALITY No previous ECG available for comparison Electronically Signed On 05-04-2019 11:34:00 GLOBAL UPSTREAM MARKETING MANAGER by Eliceo Monroe M.D. [email or web address]
--- NOTE | 2019-05-04 05:03 | ED_ITS ---
Documented by User: Anastacia Whitman 05/04/19 06:14 HPI - Psych General: Chief Complaint: Psychiatric Symptoms Stated Complaint: DELUSIONAL BEHAVIOR Time Seen by Provider: 05/04/19 05:01 History of Present Illness: HPI Narrative: Joann is a 49-year-old female well known to me who comes in and what appears to be an acutely psychotic state. She has numerous rambling thoughts of harming persecution by her neighbors. The patient states she has worked up and ask upset and it is hard to track where she complains of. It appears as though she believes neighbors are trying to persecute her and there may be babies in her neighbor's house. Please see the affidavits placed by myself as well as law enforcement. Review of Systems General: Reports: ROS unobtainable due to mental status PFSH ED PFSH: Statuses (acute, chronic, etc) shown below reflect problem list status as previously entered and may not be historically accurate Social History Smoking and tobacco status: former smoker Physical Exam Const: COMMON NORMALS: no apparent distress, oriented x3, no limitations, healthy appearing and well nourished EXAM LIMITATIONS: no altered mental status GENERAL APPEARANCE: cooperative and well developed ORIENTATION/CONSCIOUSNESS: Yes awake HENMT: COMMON NORMALS: normocephalic, head/scalp atraumatic, hearing grossly normal bilaterally, external ears normal, EAC's normal, external nose normal and moist oral mucous membranes HEAD & SCALP: normal to inspection, normocephalic and atraumatic FACE & SINUS: normal facial exam and face symmetric NOSE: external nose normal and nares normal EXTERNAL EAR: Yes external ears normal EXTERNAL AUDITORY CANAL: EAC's normal MOUTH: oral and palatal mucosa normal and tongue normal Eye: COMMON NORMALS: PERRL, EOMs intact bilaterally, conjunctivae normal and no scleral icterus GENERAL EYE: normal appearance of both eyes and normal light reflex CONJUNCTIVA: Yes conjunctivae normal SCLERA: sclerae normal CORNEA: Yes corneas normal PUPIL: Yes PERRL DIRECT OPHTHALMOSCOPY: Yes normal light reflex Neck/C-Spine: COMMON NORMALS: full ROM, no lymphadenopathy, supple, no meningeal signs and no JVD GENERAL: Yes normal visual inspection and Yes trachea midline CERVICAL SPINE: Yes cervical ROM normal Chest: COMMONS NORMALS: inspection of chest normal and palpation of chest normal Resp: COMMON NORMALS: normal respiratory effort, no retractions, no use of accessory muscles and clear to auscultation bilaterally EFFORT & INSPECTION: Yes able to speak in complete sentences AUSCULTATION: clear to auscultation bilaterally Cardio: COMMON NORMALS: no JVD, regular rate, regular rhythm, S1 normal heart sound, S2 normal heart sound, no gallops, no clicks, no murmurs and no rub JUGULAR VENOUS DISTENTION: no JVD RATE: regular rate RHYTHM: regular rhythm HEART SOUNDS: S1 normal and S2 normal GI: COMMON NORMALS: soft to palpation, non-tender, no hepatosplenomegaly and no masses INSPECTION: Yes normal to inspection PALPATION: Yes soft and Yes no hepatosplenomegaly : COMMON NORMALS: Yes no CVA tenderness BLADDER/KIDNEY EXAM: Yes no CVA tenderness Back/Pelvis: COMMON NORMALS: no CVA tenderness, thoracic and lumbar spine normal to inspection, no thoracic nor lumbar tenderness and thoraco-lumbar ROM normal Extremity: COMMON NORMALS: normal to inspection, full ROM, normal capillary refill, no joint enlargement, no clubbing, cyanosis or edema and no calf tenderness Neuro: COMMON NORMALS: oriented x3, CN's II-XII intact bilaterally, moves all extremities, no focal motor deficits and no sensory deficits noted MENINGEAL SIGNS: Yes no meningeal signs Psych: APPEARANCE: Yes unkempt ATTITUDE: Yes paranoid, Yes agitated and Yes hostile ACTIVITY/MOTOR BEHAVIOR: Yes hyperactive, Yes disorganized, Yes restless and Yes avoids eye contact SPEECH: Yes rapid and Yes pressured MOOD & AFFECT: Yes anxious, Yes irritable, Yes tearful and Yes hostile affect THOUGHT PROCESS: flight of ideas, loose associations and racing thoughts THOUGHT CONTENT: Yes phobia(s) Skin: COMMON NORMALS: no rashes or lesions noted, skin turgor normal, no jaundice, no petechiae and no mottling GENERAL SKIN EXAM: no rashes or lesions noted and turgor normal MDM - Psych MDM Narrative: Medical decision making narrative: Patient appears acutely psychotic that I have placed her under 96-hour hold. Her labs and medical clearance are pending at this time. Lab Data: Labs: Lab Results 05/04/19 05/04/19 05/04/19 Range/Units 05:15 05:15 05:15 WBC 8.6 (4.0-10.0) 10^3/ uL RBC 4.26 (4.1-5.3) 10^6/u L Hgb 12.5 (11.5-15.3) g/dL Hct 37.7 (37.0-47.0) % MCV 88.5 (81-99) fL MCH 29.3 (28.0-34.0) pg MCHC 33.2 (30.0-36.0) g/dL RDW 13.0 (12.1-15.1) % Plt Count 246 (130-400) 10^3/c mm MPV 9.3 (7.4-10.4) fL Neut % (Auto) 70.9 % Lymph % (Auto) 17.6 % Parmer % (Auto) 8.3 % Eos % (Auto) 2.2 % Baso % (Auto) 0.4 % Neut # (Auto) 6.1 (1.8-7.7) 10^3/u L Lymph # (Auto) 1.5 (0.8-4.8) 10^3/u L Parmer # (Auto) 0.7 (0.2-0.9) 10^3/u L Eos # (Auto) 0.2 (0.0-0.8) 10^3/u L Baso # (Auto) 0.0 (0.0-0.1) 10^3/u L Nucleated RBC % (a uto) 0 % Nucleated RBCs # 0.0 /100WBC Sodium 139 (136-145) mmol/L Potassium 3.8 (3.5-5.1) mmol/L Chloride 99 (98-107) mmol/L Carbon Dioxide 23 (22-29) mmol/L Anion Gap 20.8 H (5-19) BUN 11 (6-20) mg/dL Creatinine 0.8 (0.5-0.9) mg/dL GFR Calculation 76.6 L (90-130) mL/min Glucose 166 H (74-109) mg/dL Calcium 10.1 (8.5-10.5) mg/dL Total Bilirubin 0.5 (0.15-1.2) mg/dL AST 34 H (0-32) U/L ALT 32 (0-33) U/L Alkaline Phosphata se 53 (35-105) IU/L Creatine Kinase 305 H (26-192) U/L Total Protein 8.2 (6.6-8.7) g/dL Albumin 4.3 (3.5-5.2) g/dL Globulin 3.9 (1.3-4.6) g/dL TSH 3.28 (0.27-4.20) uIU/ mL HCG, Qual (Negative) Urine Color (Yellow) Urine Appearance (CLEAR) Urine pH (5-7) Ur Specific Gravit y (1.005-1.030) Urine Protein (Negative) Urine Glucose (UA) (Normal) Urine Ketones (Negative) Urine Occult Blood (Negative) Urine Nitrate (Negative) Urine Bilirubin (NEGATIVE) Urine Urobilinogen (Negative) mg/dL Ur Leukocyte Michelle ase (Negative) Urine RBC (0-2) /hpf Urine WBC (0-5) /hpf Ur Squamous Epith Cells (0-5) Urine Bacteria (NONE) Hyaline Casts Salicylates < 0.3 L (3-10) mg/dL Urine Opiates Scre en (Negative) ng/mL Acetaminophen < 5.0 L (10-30) ug/mL Ur Barbiturates Sc reen (Negative) ng/mL Phenytoin < 0.8 L (10-20) ug/mL Valproic Acid < 2.8 L (50-100) mcg/mL Carbamazepine < 2.0 L (4.0-12.0) ug/mL Ur Phencyclidine S crn (Negative) ng/mL Ur Amphetamines Sc reen (Negative) ng/mL U Benzodiazepines Scrn (Negative) ng/mL Nolic 0.1 L (0.6-1.2) mmol/L Urine Cocaine Scre en (Negative) ng/mL U Marijuana (THC) Screen (Negative) ng/mL Ethyl Alcohol < 10 (0-10) mg/dL 05/04/19 05/04/19 05/04/19 Range/Units 05:55 05:55 05:55 WBC (4.0-10.0) 10^3/ uL RBC (4.1-5.3) 10^6/u L Hgb (11.5-15.3) g/dL Hct (37.0-47.0) % MCV (81-99) fL MCH (28.0-34.0) pg MCHC (30.0-36.0) g/dL RDW (12.1-15.1) % Plt Count (130-400) 10^3/c mm MPV (7.4-10.4) fL Neut % (Auto) % Lymph % (Auto) % Parmer % (Auto) % Eos % (Auto) % Baso % (Auto) % Neut # (Auto) (1.8-7.7) 10^3/u L Lymph # (Auto) (0.8-4.8) 10^3/u L Parmer # (Auto) (0.2-0.9) 10^3/u L Eos # (Auto) (0.0-0.8) 10^3/u L Baso # (Auto) (0.0-0.1) 10^3/u L Nucleated RBC % (a uto) % Nucleated RBCs # /100WBC Sodium (136-145) mmol/L Potassium (3.5-5.1) mmol/L Chloride (98-107) mmol/L Carbon Dioxide (22-29) mmol/L Anion Gap (5-19) BUN (6-20) mg/dL Creatinine (0.5-0.9) mg/dL GFR Calculation (90-130) mL/min Glucose (74-109) mg/dL Calcium (8.5-10.5) mg/dL Total Bilirubin (0.15-1.2) mg/dL AST (0-32) U/L ALT (0-33) U/L Alkaline Phosphata se (35-105) IU/L Creatine Kinase (26-192) U/L Total Protein (6.6-8.7) g/dL Albumin (3.5-5.2) g/dL Globulin (1.3-4.6) g/dL TSH (0.27-4.20) uIU/ mL HCG, Qual Negative (Negative) Urine Color Yellow (Yellow) Urine Appearance Clear (CLEAR) Urine pH 5 (5-7) Ur Specific Gravit y 1.025 (1.005-1.030) Urine Protein Trace (Negative) Urine Glucose (UA) Norm (Normal) Urine Ketones 1+ H (Negative) Urine Occult Blood Neg (Negative) Urine Nitrate Negative (Negative) Urine Bilirubin Neg (NEGATIVE) Urine Urobilinogen Norm (Negative) mg/dL Ur Leukocyte Michelle ase 1+ H (Negative) Urine RBC 0-4 H (0-2) /hpf Urine WBC 15-25 H (0-5) /hpf Ur Squamous Epith Cells 0-4 H (0-5) Urine Bacteria 1+ H (NONE) Hyaline Casts 10-15 H Salicylates (3-10) mg/dL Urine Opiates Scre en Negative (Negative) ng/mL Acetaminophen (10-30) ug/mL Ur Barbiturates Sc reen Negative (Negative) ng/mL Phenytoin (10-20) ug/mL Valproic Acid (50-100) mcg/mL Carbamazepine (4.0-12.0) ug/mL Ur Phencyclidine S crn Negative (Negative) ng/mL Ur Amphetamines Sc reen Negative (Negative) ng/mL U Benzodiazepines Scrn Negative (Negative) ng/mL Nolic (0.6-1.2) mmol/L Urine Cocaine Scre en Negative (Negative) ng/mL U Marijuana (THC) Screen Negative (Negative) ng/mL Ethyl Alcohol (0-10) mg/dL EKG Data^: EKG 1: Attestation: I personally reviewed and interpreted this EKG as follows: EKG interpretation date: 05/04/19 EKG interpretation time: 05:26 Interpretation: Normal sinus rhythm at 91 beats a minute, normal axis, normal intervals, normal QRS, nonspecific ST and T wave changes. Discharge Plan Discharge Prescriptions: No Action amlodipine 10 mg Tablet 10 mg PO BID RF: 0 lurasidone 80 mg Tablet 80 mg PO DAILY RF: 0 Sign Out Sign Out Data: Patient Sign Out occurred on 05/04/19 at 06:40. Patient's care was discussed, and care was transferred from Anastacia Whitman to Harshad Subramanian. Sign Out Comment: Case turned over to Dr. Thomson at change of shift Last updated by Anastacia Whitman at 05/04/19 06:15 Coding Level of Care Code ED Landscape Account Manager for Chg Fwd Exam Problem Focused Documented by User: Harshad Subramanian DO 05/04/19 07:52 HPI - Psych General: Chief Complaint: Psychiatric Symptoms Stated Complaint: DELUSIONAL BEHAVIOR Time Seen by Provider: 05/04/19 05:01 PFS ED PFSH: Statuses (acute, chronic, etc) shown below reflect problem list status as previously entered and may not be historically accurate Social History Smoking and tobacco status: former smoker MDM - Psych Lab Data: Labs: Lab Results 05/04/19 05/04/19 05/04/19 Range/Units 05:15 05:15 05:15 WBC 8.6 (4.0-10.0) 10^3/ uL RBC 4.26 (4.1-5.3) 10^6/u L Hgb 12.5 (11.5-15.3) g/dL Hct 37.7 (37.0-47.0) % MCV 88.5 (81-99) fL MCH 29.3 (28.0-34.0) pg MCHC 33.2 (30.0-36.0) g/dL RDW 13.0 (12.1-15.1) % Plt Count 246 (130-400) 10^3/c mm MPV 9.3 (7.4-10.4) fL Neut % (Auto) 70.9 % Lymph % (Auto) 17.6 % Parmer % (Auto) 8.3 % Eos % (Auto) 2.2 % Baso % (Auto) 0.4 % Neut # (Auto) 6.1 (1.8-7.7) 10^3/u L Lymph # (Auto) 1.5 (0.8-4.8) 10^3/u L Parmer # (Auto) 0.7 (0.2-0.9) 10^3/u L Eos # (Auto) 0.2 (0.0-0.8) 10^3/u L Baso # (Auto) 0.0 (0.0-0.1) 10^3/u L Nucleated RBC % (a uto) 0 % Nucleated RBCs # 0.0 /100WBC Sodium 139 (136-145) mmol/L Potassium 3.8 (3.5-5.1) mmol/L Chloride 99 (98-107) mmol/L Carbon Dioxide 23 (22-29) mmol/L Anion Gap 20.8 H (5-19) BUN 11 (6-20) mg/dL Creatinine 0.8 (0.5-0.9) mg/dL GFR Calculation 76.6 L (90-130) mL/min Glucose 166 H (74-109) mg/dL Calcium 10.1 (8.5-10.5) mg/dL Total Bilirubin 0.5 (0.15-1.2) mg/dL AST 34 H (0-32) U/L ALT 32 (0-33) U/L Alkaline Phosphata se 53 (35-105) IU/L Creatine Kinase 305 H (26-192) U/L Total Protein 8.2 (6.6-8.7) g/dL Albumin 4.3 (3.5-5.2) g/dL Globulin 3.9 (1.3-4.6) g/dL TSH 3.28 (0.27-4.20) uIU/ mL HCG, Qual (Negative) Urine Color (Yellow) Urine Appearance (CLEAR) Urine pH (5-7) Ur Specific Gravit y (1.005-1.030) Urine Protein (Negative) Urine Glucose (UA) (Normal) Urine Ketones (Negative) Urine Occult Blood (Negative) Urine Nitrate (Negative) Urine Bilirubin (NEGATIVE) Urine Urobilinogen (Negative) mg/dL Ur Leukocyte Michelle ase (Negative) Urine RBC (0-2) /hpf Urine WBC (0-5) /hpf Ur Squamous Epith Cells (0-5) Urine Bacteria (NONE) Hyaline Casts Salicylates < 0.3 L (3-10) mg/dL Urine Opiates Scre en (Negative) ng/mL Acetaminophen < 5.0 L (10-30) ug/mL Ur Barbiturates Sc reen (Negative) ng/mL Phenytoin < 0.8 L (10-20) ug/mL Valproic Acid < 2.8 L (50-100) mcg/mL Carbamazepine < 2.0 L (4.0-12.0) ug/mL Ur Phencyclidine S crn (Negative) ng/mL Ur Amphetamines Sc reen (Negative) ng/mL U Benzodiazepines Scrn (Negative) ng/mL Nolic 0.1 L (0.6-1.2) mmol/L Urine Cocaine Scre en (Negative) ng/mL U Marijuana (THC) Screen (Negative) ng/mL Ethyl Alcohol < 10 (0-10) mg/dL 05/04/19 05/04/19 05/04/19 Range/Units 05:55 05:55 05:55 WBC (4.0-10.0) 10^3/ uL RBC (4.1-5.3) 10^6/u L Hgb (11.5-15.3) g/dL Hct (37.0-47.0) % MCV (81-99) fL MCH (28.0-34.0) pg MCHC (30.0-36.0) g/dL RDW (12.1-15.1) % Plt Count (130-400) 10^3/c mm MPV (7.4-10.4) fL Neut % (Auto) % Lymph % (Auto) % Parmer % (Auto) % Eos % (Auto) % Baso % (Auto) % Neut # (Auto) (1.8-7.7) 10^3/u L Lymph # (Auto) (0.8-4.8) 10^3/u L Parmer # (Auto) (0.2-0.9) 10^3/u L Eos # (Auto) (0.0-0.8) 10^3/u L Baso # (Auto) (0.0-0.1) 10^3/u L Nucleated RBC % (a uto) % Nucleated RBCs # /100WBC Sodium (136-145) mmol/L Potassium (3.5-5.1) mmol/L Chloride (98-107) mmol/L Carbon Dioxide (22-29) mmol/L Anion Gap (5-19) BUN (6-20) mg/dL Creatinine (0.5-0.9) mg/dL GFR Calculation (90-130) mL/min Glucose (74-109) mg/dL Calcium (8.5-10.5) mg/dL Total Bilirubin (0.15-1.2) mg/dL AST (0-32) U/L ALT (0-33) U/L Alkaline Phosphata se (35-105) IU/L Creatine Kinase (26-192) U/L Total Protein (6.6-8.7) g/dL Albumin (3.5-5.2) g/dL Globulin (1.3-4.6) g/dL TSH (0.27-4.20) uIU/ mL HCG, Qual Negative (Negative) Urine Color Yellow (Yellow) Urine Appearance Clear (CLEAR) Urine pH 5 (5-7) Ur Specific Gravit y 1.025 (1.005-1.030) Urine Protein Trace (Negative) Urine Glucose (UA) Norm (Normal) Urine Ketones 1+ H (Negative) Urine Occult Blood Neg (Negative) Urine Nitrate Negative (Negative) Urine Bilirubin Neg (NEGATIVE) Urine Urobilinogen Norm (Negative) mg/dL Ur Leukocyte Michelle ase 1+ H (Negative) Urine RBC 0-4 H (0-2) /hpf Urine WBC 15-25 H (0-5) /hpf Ur Squamous Epith Cells 0-4 H (0-5) Urine Bacteria 1+ H (NONE) Hyaline Casts 10-15 H Salicylates (3-10) mg/dL Urine Opiates Scre en Negative (Negative) ng/mL Acetaminophen (10-30) ug/mL Ur Barbiturates Sc reen Negative (Negative) ng/mL Phenytoin (10-20) ug/mL Valproic Acid (50-100) mcg/mL Carbamazepine (4.0-12.0) ug/mL Ur Phencyclidine S crn Negative (Negative) ng/mL Ur Amphetamines Sc reen Negative (Negative) ng/mL U Benzodiazepines Scrn Negative (Negative) ng/mL Nolic (0.6-1.2) mmol/L Urine Cocaine Scre en Negative (Negative) ng/mL U Marijuana (THC) Screen Negative (Negative) ng/mL Ethyl Alcohol (0-10) mg/dL Discharge Plan Discharge Prescriptions: No Action amlodipine 10 mg Tablet 10 mg PO BID RF: 0 lurasidone 80 mg Tablet 80 mg PO DAILY RF: 0 Sign Out Sign Out Data: Patient Sign Out occurred on 05/04/19 at 06:40. Patient's care was discussed, and care was transferred from Anastacia Whitman to Harshad Subramanian. Sign Out Comment: Case turned over to Dr. Thomson at change of shift Last updated by Anastacia Whitman at 05/04/19 06:15 Coding Level of Care Code ED Landscape Account Manager for Chg Fwd Exam Problem Focused
[2019-05-04] MEDS: LORazepam 2 mg/mL INJ 1 mL IM (05:12)
[2019-05-04] MEDS: haloperidol inj 5 mg/mL INJ 1 mL IM (05:13)
--- NOTE | 2019-05-04 05:22 | PC.NURSE ---
patient placed in hospital gowns due to not having paper scrubs in patients size. patient is placed in psych safe room that has been cleared of all hazardous materials. patients belongings were placed in a ER safe.
[2019-05-04 05:24] LABS: Basophils % 0.4 %; Eosinophils # 0.2 10^3/uL (0.0-0.8); Eosinophils % 2.2 %; Hematocrit 37.7 % (37.0-47.0); Hemoglobin 12.5 g/dL (11.5-15.3); Lymphocytes # 1.5 10^3/uL (0.8-4.8); Lymphocytes % 17.6 %; Mean Corpuscular HGB Conc 33.2 g/dL (30.0-36.0); Mean Corpuscular Hemoglobin 29.3 pg (28.0-34.0); Mean Corpuscular Volume 88.5 fL (81-99); Mean Platelet Volume 9.3 fL (7.4-10.4); Monocytes # 0.7 10^3/uL (0.2-0.9); Monocytes % 8.3 %; Neutrophils # 6.1 10^3/uL (1.8-7.7); Neutrophils % 70.9 %; Nucleated Red Blood Cells % 0 %; Platelet Count 246 10^3/cmm (130-400); Red Blood Count 4.26 10^6/uL (4.1-5.3); White Blood Count 8.6 10^3/uL (4.0-10.0)
--- NOTE | 2019-05-04 05:45 | PC.NURSE ---
Patient arrived and gave registration a false last name, name updated to correct name in chart. Need this account merged with patient original account.
[2019-05-04 05:57] LABS: Alanine Aminotransferase 32 U/L (0-33); Albumin Level 4.3 g/dL (3.5-5.2); Alkaline Phosphatase 53 IU/L (35-105); Anion Gap 20.8 (5-19); Aspartate Amino Transferase 34 U/L (0-32); Blood Urea Nitrogen 11 mg/dL (6-20); Calcium 10.1 mg/dL (8.5-10.5); Carbon Dioxide 23 mmol/L (22-29); Chloride 99 mmol/L (98-107); Creatine Phosphokinase 305 U/L (26-192); Globulin 3.9 g/dL (1.3-4.6); Glomerular Filtration Rate 76.6 mL/min (90-130); Glucose 166 mg/dL (74-109); Potassium 3.8 mmol/L (3.5-5.1); Sodium 139 mmol/L (136-145); Thyroid Stimulating Hormone 3.28 uIU/mL (0.27-4.20); Total Bilirubin 0.5 mg/dL (0.15-1.2); Total Protein 8.2 g/dL (6.6-8.7)
[2019-05-04] MEDS: sodium chloride 0.9% 1,000 ML 999 ML IV (05:57)
[2019-05-04 06:07] LABS: HCG Qualitative Urine. Negative (Negative)
[2019-05-04 06:12] LABS: Lithium 0.1 mmol/L (0.6-1.2)
[2019-05-04 06:21] LABS: Specific Gravity, Urine 1.025 (1.005-1.030); Urine Appearance Clear (CLEAR); Urine Color Yellow (Yellow); pH Urine 5 (5-7)
[2019-05-04 06:22] LABS: Add Urine Microscopic? YES; Bilirubin Urine Neg (NEGATIVE); Blood Urine Neg (Negative); Glucose Urine UA Norm (Normal); Ketones Urine 1+ (Negative); Leukocyte Esterase Urine 1+ (Negative); Nitrate Urine Negative (Negative); Protein Urine Trace (Negative); Urobilinogen Urine Norm (Negative)
[2019-05-04] MEDS: acetaminophen 500 mg Tablet 1000 MG PO (06:23)
[2019-05-04 06:24] LABS: Acetaminophen < 5.0 ug/mL (10-30); Alcohol Level < 10 mg/dL (0-10); Salicylate < 0.3 mg/dL (3-10)
[2019-05-04 06:25] LABS: Phenytoin Dilantin < 0.8 ug/mL (10-20)
[2019-05-04 06:25] LABS: RBC Urine 0-4 /hpf (0-2)
[2019-05-04 06:26] LABS: Carbamazepine Tegretol < 2.0 ug/mL (4.0-12.0); Valproic Acid Level < 2.8 mcg/mL (50-100)
[2019-05-04 06:26] LABS: Add Urine Culture? Yes; Bacteria Urine 1+; Squamous Epithelial Cell Urine 0-4 (0-5); WBC Urine 15-25 /hpf (0-5)
[2019-05-04 06:37] LABS: Amphetamines Screen Urine Negative (Negative); Barbiturates Screen Urine Negative (Negative); Benzodiazepines Screen Urine Negative (Negative); Cocaine Screen Urine Negative (Negative); Opiate Screen Urine Negative (Negative); PCP Screen Urine Negative (Negative); THC Screen Urine Negative (Negative)
[2019-05-04] MEDS: ziprasidone 20 mg/mL SDV 10 MG IM (06:43)
[2019-05-04 09:31] VITALS: BP 169/99; PULSE 97; RESP 20; TEMP 36.4; O2SAT 96
[2019-05-04 13:31] VITALS: BP 138/89; PULSE 102; RESP 18; TEMP 36.8; O2SAT 96
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
[2019-05-04 20:26] VITALS: BP 140/98; PULSE 101; RESP 19; TEMP 36.9; O2SAT 95
[2019-05-05 06:00] VITALS: BP 143/76; PULSE 88; RESP 18; TEMP 36.5; O2SAT 96
[2019-05-05] MEDS: amlodipine 10 mg Tablet PO ×2 (08:35→17:28)
--- NOTE | 2019-05-05 09:58 | PM.NPN ---
Subjective NPU Subjective: Interval history: Joann presents with continued florid kiera sampling of whatever comes to mind in a hourly stream of consciousness to whoever will listen and even those trying to ignore. She is demonstrating an intermixture of anger and irritability followed by laughter back to anger and irritability. She is currently refusing Depakote and Clozaril which helped her tremendously previously, but she reports this is responsible for the 10 point increase in her BMI. There may be some issue with high disparity from last BMI but she has gained about 14 kg. We discussed the risks benefits and alternatives of restarting the previously effective medications and she refused. Mental Status Exam MSE Comments: This is a morbidly obese white female with adequate dress limiting grooming and eye contact. No abnormal movements except for psychomotor agitation. Cooperative with exam in occasional acute distress. Speech was increased rate and volume. Mood described as fine affect elevated. Thought process disorganized. Thought content: Patient denied any suicidal or homicidal ideation, no delusions reported, but paranoia clearly present and persecutory delusions starting to mount, she denied any auditory or visual hallucinations. Attention and concentration were limited and memory was unreliable but none were formally tested. She is alert and oriented ?3. Insight and judgment are impaired. Vitals/I&O/Wt Last Vital Signs Temperature 98.2, pulse 105, respirations 23, pulse oximetry 95%, blood pressure 149/93 Data NPU : 05/04/19 05:15 05/04/19 05:15 A&P Assessment and plan (1) Schizoaffective disorder, bipolar type: This is a 49-year-old white female with a long history of schizophrenia that is very difficult to treat who have been seen back in December with really good results with Clozaril who presents off of that medication all at to the frankly psychotic and coming off of a recent hospitalization and discharge which left her still having significant symptoms. 1. Continue current medication. 2. Need to explore the circumstances that led to her being off the Clozaril. Some notes report that the Clozaril created her morbid obesity that is not true she has been morbidly obese since this mortgage or loan underwriter has met her. She was also on Depakote during effective. We will explore whether we can get her to restart those previously effective medications. 3. Encourage individual group and milieu therapy. 4. Continue every 15 minute checks for safety. 5. Will work with social work team to try to get an idea of whether or not there've been any changes in her circumstances that led to her not maintaining the medication she was doing so well on. Status: Acute Code(s): F25.0 - Schizoaffective disorder, bipolar type Involuntary Hold Information 96 Hour Hold: 96 Hour Involuntary Admission: Yes 96 Hour Hold Ending Date: 04/09/19 96 Hour Hold Ending Time: 05:01 Attestations NPU Medical Necessity Statement*: Inpatient hospitalization is medically necessary and the clinically appropriate intervention at this time. We will attempt to get her to restart her old medications or consider something like Geodon. Likely stay 7-10 days. Coding Level of Care Code Acute Blood Bank Technician for Mandie Fw Diagnoses Schizoaffective disorder, bipolar type F25.0
[2019-05-05 14:00] VITALS: TEMP 36.4
[2019-05-05] MEDS: hyDROXYzine 25 mg Capsule 50 MG PO (14:18)
--- NOTE | 2019-05-05 14:20 | PC.NURSE ---
PRN VISTARIL 50 MG GIVEN PO PER PT C/O GENERALIZED ANXIETY. PT REQUEST SOMETHING FOR HER NERVES PT AGITATED, YELLINGT & CURSING IN GROUP. WILL CONT TO MONITOR.
--- NOTE | 2019-05-05 15:05 | NPU.GN ---
Neuropsych Unit Group Topic: General Mood of Group Client was saying fuck over and over in every sentence she spoke and was takend back to her side fo unit
[2019-05-05] MEDS: lurasidone 80 mg Tablet PO (16:47)
--- NOTE | 2019-05-05 17:37 | PC.NURSE ---
PRN VISTARIL EFFECTIVE NO FURTHER C/O ANXIETY
[2019-05-05 19:44] VITALS: BP 129/88; PULSE 100; RESP 21; TEMP 36.8; O2SAT 99
[2019-05-05] MEDS: acetaminophen 325 mg Tablet 650 MG PO (21:30)
[2019-05-06 06:00] VITALS: BP 149/93; PULSE 105; RESP 23; TEMP 36.8; O2SAT 95
--- NOTE | 2019-05-06 08:01 | PC.NURSE ---
Nursing Note; random room inspection completed no contraband found.
[2019-05-06] MEDS: amlodipine 10 mg Tablet PO ×2 (09:01→17:06)
--- NOTE | 2019-05-06 10:29 | PC.NURSE ---
NURSES NOTE; CLIENT IN DAYROOM PARTICIPATING IN GROUP.
[2019-05-06] MEDS: hyDROXYzine 25 mg Capsule 50 MG PO (11:48)
--- NOTE | 2019-05-06 11:48 | PC.NURSE ---
PRN VISTARIL VISTARIL 50MG PO PER PT C/O ANXIETY/AGITATION. WILL CONTINUE TO MONITOR FOR MEDICATION EFFECTIVENESS.
--- NOTE | 2019-05-06 13:00 | PC.NURSE ---
PRN VISTARIL FOLLOW UP MEDICATION EFFECTIVE. PATIENT IS IN THE DAYROOM PARTICIPATING IN GROUP.
[2019-05-06 13:22] VITALS: BP 135/73; PULSE 96; RESP 18; TEMP 36.7; O2SAT 97
--- NOTE | 2019-05-06 16:20 | PM.NPN ---
Subjective NPU Subjective: Interval history: Joann presents today continuing to be manic. He continues to resist the idea of starting the old medications. The Depakote and Clozaril which worked really well for her. Able to speak to her significant other's understand exactly what happened leading to the Depakote and Clozaril being discontinued I can glean some of it from the notes from [facility]. We discussed the risks benefits alternatives of starting Geodon and she appeared to understand and agree to proceed as documented in his note. Mental Status Exam MSE Comments: This is a morbidly obese white female with adequate dress limiting grooming and eye contact. No abnormal movements except for psychomotor agitation. Cooperative with exam in occasional acute distress. Speech was increased rate and volume. Mood described as angry affect elevated. Thought process disorganized. Thought content: Patient denied any suicidal or homicidal ideation, no delusions reported, but paranoia clearly present and persecutory delusions starting to mount, she denied any auditory or visual hallucinations. Attention and concentration were limited and memory was unreliable but none were formally tested. She is alert and oriented ?3. Insight and judgment are impaired. Vitals/I&O/Wt Last Vital Signs Temp 98.1 F 05/06/19 13:22 Pulse 96 05/06/19 13:22 Resp 18 05/06/19 13:22 BP 135/73 05/06/19 13:22 Pulse Ox 97 05/06/19 13:22 Data NPU : 05/04/19 05:15 05/04/19 05:15 A&P Additional A&P Information (1) Schizoaffective disorder, bipolar type: This is a 49-year-old white female with a long history of schizophrenia that is very difficult to treat who have been seen back in December with really good results with Clozaril who presents off of that medication all at to the frankly psychotic and coming off of a recent hospitalization and discharge which left her still having significant symptoms. 1. Continue current medication. 2. Would prefer to restart the Clozaril and Depakote again, the we will try an aggressive dosing of Geodon for stabilization of mood. 3. Encourage individual group and milieu therapy. 4. Continue every 15 minute checks for safety. 5. Will work with social work team to try to get an idea of whether or not there've been any changes in her circumstances that led to her not maintaining the medication she was doing so well on. Involuntary Hold Information 96 Hour Hold: 96 Hour Involuntary Admission: Yes 96 Hour Hold Ending Date: 04/09/19 96 Hour Hold Ending Time: 05:01 Attestations NPU Medical Necessity Statement*: Inpatient hospitalization is medically necessary and the clinically appropriate intervention at this time. We will attempt to start Geodon. Likely stay 7-10 days. Coding Level of Care Code Acute Sap Bw Bi Developer for Mandie Wei
[2019-05-06] MEDS: ziprasidone hcl 40 mg Capsule PO (17:06)
[2019-05-06] MEDS: lurasidone 80 mg Tablet PO (17:06)
[2019-05-06 19:42] VITALS: BP 140/94; PULSE 76; RESP 16; TEMP 37; O2SAT 97
[2019-05-07] MEDS: acetaminophen 325 mg Tablet 650 MG PO ×2 (02:47→11:37)
[2019-05-07 06:00] VITALS: BP 152/92; PULSE 96; RESP 18; TEMP 36.6; O2SAT 94
[2019-05-07] MEDS: ziprasidone hcl 40 mg Capsule PO ×2 (06:18→17:27)
[2019-05-07] MEDS: amlodipine 10 mg Tablet PO ×2 (09:31→17:26)
--- NOTE | 2019-05-07 12:14 | P.PN_ITS ---
Subjective NPU Subjective: Interval history: Joann presented today acknowledging that she was doing better when she saw me previously. She was unwilling to restart the Depakote which she had been on but was willing to try the Clozaril again as it we discussed the risks benefits and alternatives. She continues to struggle with clear florid kiera. Mental Status Exam MSE Comments: This is a morbidly obese white female with adequate dress limiting grooming and eye contact. No abnormal movements except for psychomotor agitation. Cooperative with exam in occasional acute distress. Speech was increased rate and volume. Mood described as wanting to go home affect elevated. Thought process disorganized. Thought content: Patient denied any suicidal or homicidal ideation, no delusions reported, but paranoia clearly present and persecutory delusions starting to mount, she denied any auditory or visual hallucinations. Attention and concentration were limited and memory was unreliable but none were formally tested. She is alert and oriented ?3. Insight and judgment are impaired. Vitals/I&O/Wt Last Vital Signs Temp 97.9 F 05/07/19 06:00 Pulse 96 05/07/19 06:00 Resp 18 05/07/19 06:00 BP 152/92 05/07/19 06:00 Pulse Ox 94 05/07/19 06:00 Weight last 48 hrs Weight 135.624 kg Data NPU : 05/04/19 05:15 05/04/19 05:15 Micro: Microbiology 05/04/19 17:45 Urine Culture - Final Urine,Clean Catch Strep agalactiae - (group b) Microbiology 05/04/19 17:45 Urine,Clean Catch Urine Culture - Final Strep agalactiae - (group b) A&P Additional A&P Information This is a 49-year-old white female with a long history of schizophrenia that is very difficult to treat who have been seen back in December with really good results with Clozaril who presents off of that medication all at to the frankly psychotic and coming off of a recent hospitalization and discharge which left her still having significant symptoms. 1. Continue current medication. 2. start clozaril 25mg po bid and decrease latuda 3. Encourage individual group and milieu therapy. 4. Continue every 15 minute checks for safety. 5. Will work with social work team to try to get an idea of whether or not there've been any changes in her circumstances that led to her not maintaining t he medication she was doing so well on. Involuntary Hold Information 96 Hour Hold: 96 Hour Involuntary Admission: Yes 96 Hour Hold Ending Date: 04/09/19 96 Hour Hold Ending Time: 05:01 Attestations NPU Medical Necessity Statement*: Inpatient hospitalization is medically necessary and the clinically appropriate intervention at this time. We will monitor medications and adjust accordingly. Likely stay 7-10 days. Coding Level of Care Code Acute Community Service Specialist for Mandie Wei
[2019-05-07 13:40] VITALS: O2SAT 99
[2019-05-07] MEDS: lurasidone 80 mg Tablet 40 MG PO (17:26)
[2019-05-07] MEDS: cloZAPine 25 mg Tablet PO (17:26)
[2019-05-07 22:00] VITALS: BP 125/85; PULSE 95; RESP 20; TEMP 36.4; O2SAT 94
[2019-05-08] MEDS: acetaminophen 325 mg Tablet 650 MG PO ×2 (05:05→17:43)
[2019-05-08 06:00] VITALS: BP 114/72; PULSE 93; RESP 20; TEMP 36.9; O2SAT 95
[2019-05-08] MEDS: ziprasidone hcl 40 mg Capsule PO ×2 (06:32→16:37)
--- NOTE | 2019-05-08 08:28 | PC.NURSE ---
REFUSED SCHEDULED CLOZARIL & NORVASC THIS MORNING
--- NOTE | 2019-05-08 10:11 | PM.NPN ---
Subjective NPU Subjective: Interval history: Joann presents today appearing to tolerate the Clozaril thus far. She is having less irritability and seeming much calmer. We were able to have a normal conversation with some [id number] to the dialogue. She reports she is eating and sleeping well. Mental Status Exam MSE Comments: This is a morbidly obese white female with adequate dress limiting grooming and eye contact. No abnormal movements, cooperative with exam in no acute distress. Speech was more normal rate and volume. Mood described as ok, affect slightly elevated. Thought process more organized. Thought content: Patient denied any suicidal or homicidal ideation, no delusions reported, but paranoia clearly present and persecutory delusions present, she denied any auditory or visual hallucinations. Attention and concentration were limited but improved and memory was unreliable but none were formally tested. She is alert and oriented ?3. Insight and judgment are impaired. Vitals/I&O/Wt Last Vital Signs Temp 98.1 F 05/08/19 21:08 Pulse 92 05/08/19 21:08 Resp 24 H 05/08/19 21:08 BP 141/92 05/08/19 21:08 Pulse Ox 95 05/08/19 21:08 Data NPU : 05/04/19 05:15 05/04/19 05:15 A&P Additional A&P Information This is a 49-year-old white female with a long history of schizophrenia that is very difficult to treat who have been seen back in December with really good results with Clozaril who presents off of that medication all at to the frankly psychotic and coming off of a recent hospitalization and discharge which left her still having significant symptoms. 1. Continue current medication. 2. will increase clozaril and d/c latuda tomorrow 3. Encourage individual group and milieu therapy. 4. Continue every 15 minute checks for safety. 5. Will work with social work team to try to get an idea of whether or not there've been any changes in her circumstances that led to her not maintaining the medication she was doing so well on. Involuntary Hold Information 96 Hour Hold: 96 Hour Involuntary Admission: Yes 96 Hour Hold Ending Date: 04/09/19 96 Hour Hold Ending Time: 05:01 Attestations NPU Medical Necessity Statement*: Inpatient hospitalization is medically necessary and the clinically appropriate intervention at this time. We will monitor medications and adjust accordingly. Likely stay 7-9 days. Coding Level of Care Code Acute Financial Reporting Advisor for g Fwd
[2019-05-08] MEDS: cloZAPine 25 mg Tablet PO ×2 (11:45→17:38)
[2019-05-08] MEDS: amlodipine 10 mg Tablet PO ×2 (11:46→17:38)
[2019-05-08 14:00] VITALS: BP 117/77; PULSE 88; RESP 20; TEMP 36.4; O2SAT 97
[2019-05-08] MEDS: lurasidone 80 mg Tablet 40 MG PO (16:35)
[2019-05-08] MEDS: hyDROXYzine 25 mg Capsule 50 MG PO (20:48)
[2019-05-08 21:08] VITALS: BP 141/92; PULSE 92; RESP 24; TEMP 36.7; O2SAT 95
[2019-05-09] MEDS: acetaminophen 325 mg Tablet 650 MG PO ×2 (00:49→21:44)
[2019-05-09] MEDS: OLANZapine ODT 5 MG TABLET PO (02:09)
[2019-05-09 06:00] VITALS: BP 151/95; PULSE 96; RESP 22; TEMP 36.4; O2SAT 96
[2019-05-09] MEDS: ziprasidone hcl 40 mg Capsule PO ×2 (07:50→17:22)
[2019-05-09] MEDS: amlodipine 10 mg Tablet PO ×2 (08:52→17:23)
[2019-05-09] MEDS: cloZAPine 25 mg Tablet PO (08:52)
[2019-05-09 13:46] VITALS: BP 140/90; PULSE 100; RESP 18; TEMP 36.6; O2SAT 97
[2019-05-09] MEDS: hyDROXYzine 25 mg Capsule 50 MG PO ×2 (14:09→20:22)
--- NOTE | 2019-05-09 14:09 | PC.NURSE ---
PRN VISTARIL 50 MG GIVEN PO PER PT C/O ANXIETY. PT UPSET YELLING & CURSING IN GROUP. WILL CONT TO MONITOR
--- NOTE | 2019-05-09 15:11 | NPU.GN ---
Neuropsych Unit Group Topic: General Mood of Group client became obsessed with another clients shirt. (yellow T shirt) during 1400 group. she was escorted back to her side by charge nurse and harbor tug captain. it was explained to her that it was not her shirt. she cursed and said that it was.
--- NOTE | 2019-05-09 15:38 | PM.NPN ---
Subjective NPU Subjective: Interval history: Joann continues to be less agitated overall but is still having some moments. She had a period of time of anger today wherein she was calling this process description writer yuan Anna and saying that none of the people here in [place] in the hospital likely because I am black. All of this was to the end of wanting to be discharged. She continues to have changed her opinions on what she wants to do like the wind. For saying she wants to have a medication then saying the medication is horrible for her at this point however she continues to take the medications that are prescribed. Mental Status Exam MSE Comments: This is a morbidly obese white female with adequate dress, grooming and eye contact. No abnormal movements, cooperative with exam in intermittent acute distress. Speech was more normal rate and volume. Mood described as pissed, affect slightly elevated. Thought process more organized. Thought content: Patient denied any suicidal or homicidal ideation, no delusions reported, but paranoia clearly present and persecutory delusions present, she denied any auditory or visual hallucinations. Attention and concentration were limited but improved and memory was unreliable but none were formally tested. She is alert and oriented ?3. Insight and judgment are impaired. Vitals/I&O/Wt Last Vital Signs Temperature 97.8 degrees, pulse 100, respirations 18, pulse ox 97%, blood pressure 140/90. Data NPU : 05/04/19 05:15 05/04/19 05:15 A&P Additional A&P Information This is a 49-year-old white female with a long history of schizophrenia that is very difficult to treat who have been seen back in December with really good results with Clozaril who presents off of that medication all at to the frankly psychotic and coming off of a recent hospitalization and discharge which left her still having significant symptoms. 1. Continue current medication. 2. will increase clozaril and continue decreased dose of Latuda as Joann continues to want currently. 3. Encourage individual group and milieu therapy. 4. Continue every 15 minute checks for safety. 5. Will work with social work team to try to get an idea of whether or not there've been any changes in her circumstances that led to her not maintaining the medication she was doing so well on. Involuntary Hold Information 96 Hour Hold: 96 Hour Involuntary Admission: Yes 96 Hour Hold Ending Date: 04/09/19 96 Hour Hold Ending Time: 05:01 Attestations NPU Medical Necessity Statement*: Inpatient hospitalization is medically necessary and the clinically appropriate intervention at this time. We will monitor medications and adjust accordingly. Likely stay 7-9 days. Coding Level of Care Code Acute Assistant Curator for Mandie Wei
[2019-05-09] MEDS: cloZAPine 25 mg Tablet 50 MG PO (17:23)
[2019-05-09] MEDS: lurasidone 80 mg Tablet 40 MG PO (17:23)
[2019-05-09] MEDS: LORazepam 2 mg/mL INJ 1 mL IM (21:44)
--- NOTE | 2019-05-09 21:47 | PC.NURSE ---
Patient was out in the hallway escalating and yelling at staff, accusing them of taking her belongings. Demanding to see all of her belongings. Patient is agitated and paranoid at this time. Requested prn ativan and tylenol. Patient received atian 2 mg IM in left deltoid muscle, tolerated IM well. Patient calmer after getting injection and is sitting quietly in her room.
[2019-05-09 22:25] VITALS: BP 150/93; PULSE 99; RESP 19; TEMP 36.8; O2SAT 96
[2019-05-10] MEDS: acetaminophen 325 mg Tablet 650 MG PO (05:00)
[2019-05-10 06:00] VITALS: BP 150/93; PULSE 98; RESP 19; TEMP 36.4; O2SAT 96
[2019-05-10] MEDS: ziprasidone hcl 40 mg Capsule PO (06:03)
[2019-05-10] MEDS: amlodipine 10 mg Tablet PO ×2 (09:14→17:19)
[2019-05-10] MEDS: cloZAPine 25 mg Tablet 50 MG PO ×2 (09:15→17:19)
--- NOTE | 2019-05-10 12:52 | PM.NPN ---
Subjective NPU Subjective: Interval history: Joann presented today very verbose, talkative, emotional, expresses reporting concerns about her mom, concerned about her medication, concerns about getting out etc. She continues to take her medication and is currently on a voluntary admission. However if necessary we discussed she may need to be put back on a 96 hour hold and ultimately a 21-day-old to get her to take medication to allow us to get her well again. She reported that she had issues with nurses and how they were treating her, issues with this information writer and now he is treating her, then reversed and said she loved everyone and everything was fine. I continue to discuss with her the plan is to increase the medication. She expressed a plan and desired to go to [facility] after discharge. Mental Status Exam MSE Comments: This is a morbidly obese white female with adequate dress, grooming and eye contact. No abnormal movements, cooperative with exam in intermittent acute distress. Speech was increased rate and volume. Mood described as upset, affect slightly elevated. Thought process more organized. Thought content: Patient denied any suicidal or homicidal ideation, no delusions reported, but paranoia clearly present and persecutory delusions present, she denied any auditory or visual hallucinations. Attention and concentration were limited but improved and memory was unreliable but none were formally tested. She is alert and oriented ?3. Insight and judgment are impaired. Vitals/I&O/Wt Last Vital Signs Temp 97.6 F 05/10/19 06:00 Pulse 98 05/10/19 06:00 Resp 19 H 05/10/19 06:00 BP 150/93 05/10/19 06:00 Pulse Ox 96 05/10/19 06:00 Data NPU : 05/04/19 05:15 05/04/19 05:15 A&P Additional A&P Information This is a 49-year-old white female with a long history of schizophrenia that is very difficult to treat who have been seen back in December with really good results with Clozaril who presents frankly psychotic and coming off of a recent hospitalization and discharge which left her still having significant symptoms currently adjusting to the restarting of the Clozaril. 1. Continue current medication. 2. will increase clozaril every other day or so and continue decreased dose of Latuda as Joann continues to want currently. 3. Encourage individual group and milieu therapy. 4. Continue every 15 minute checks for safety. 5. Will work with social work team to try to get an idea of whether or not there've been any changes in her circumstances that led to her not maintaining the medication she was doing so well on. Involuntary Hold Information 96 Hour Hold: 96 Hour Involuntary Admission: Yes 96 Hour Hold Ending Date: 04/09/19 96 Hour Hold Ending Time: 05:01 Attestations NPU Medical Necessity Statement*: Inpatient hospitalization is medically necessary and the clinically appropriate intervention at this time. We will monitor medications and adjust accordingly. Likely stay 7-9 days. Coding Level of Care Code Acute Public Works Technician for Mandie Wei
[2019-05-10 14:00] VITALS: BP 135/94; PULSE 100; RESP 18; TEMP 36.8; O2SAT 99
[2019-05-10] MEDS: lurasidone 80 mg Tablet 40 MG PO (17:18)
[2019-05-10] MEDS: cloZAPine 25 mg Tablet 75 MG PO (18:44)
[2019-05-10 22:00] VITALS: BP 151/88; PULSE 103; RESP 20; TEMP 36.7; O2SAT 95
[2019-05-11] MEDS: ondansetron 4 MG Tablet PO (00:51)
[2019-05-11] MEDS: ziprasidone hcl 40 mg Capsule PO ×2 (08:05→16:44)
[2019-05-11] MEDS: amlodipine 10 mg Tablet PO ×2 (08:06→21:24)
[2019-05-11] MEDS: cloZAPine 25 mg Tablet 75 MG PO ×2 (08:35→21:23)
[2019-05-11] MEDS: hyDROXYzine 25 mg Capsule 50 MG PO (10:43)
--- NOTE | 2019-05-11 11:32 | PC.NURSE ---
Patient was given Hydroxyzine for agitation at 1043. Patient has been irritable and yelling in the hallway near the nurse's station.
--- NOTE | 2019-05-11 12:16 | NPU.GN ---
Neuropsych Unit Group Topic: General Mood of Group Client and another male client began arguing back and forth and got loud. Both clients were taken back to rooms
[2019-05-11] MEDS: OLANZapine ODT 5 MG TABLET PO (12:21)
[2019-05-11] MEDS: LORazepam 2 mg/mL INJ 1 mL IM (13:26)
--- NOTE | 2019-05-11 13:48 | P.PN_ITS ---
Subjective NPU Subjective: Interval history: Joann presents today continuing to lament over her mother and whether she can go home. We were trying to avoid having to have her on a hold however for continued discussions about going home and fears she would actually attempt to sign out given her level of dysfunction and continued psychosis led to the 96-hour hold being levied. She continues to take her medication but threatens that she would stop but hopefully continued compliance will lead to more sustained and committed adherence shortly. Mental Status Exam MSE Comments: This is a morbidly obese white female with adequate dress, grooming and eye contact. No abnormal movements, cooperative with exam in intermittent acute distress. Speech was increased rate and volume. Mood described as upset, affect slightly elevated. Thought process more organized. Thought content: Patient denied any suicidal or homicidal ideation, no delusions reported, but paranoia clearly present and persecutory delusions present, she denied any auditory or visual hallucinations. Attention and concentration were limited but improved and memory was unreliable but none were formally tested. She is alert and oriented ?3. Insight and judgment are impaired. Vitals/I&O/Wt Last Vital Signs Temperature 97.8, pulse 98, respirations 20, pulse ox 97%, blood pressure 139/91. Data NPU : 05/04/19 05:15 05/04/19 05:15 A&P Additional A&P Information This is a 49-year-old white female with a long history of schizophrenia that is very difficult to treat who have been seen back in December with really good results with Clozaril who presents frankly psychotic and coming off of a recent hospitalization and discharge which left her still having significant symptoms currently adjusting to the restarting of the Clozaril. 1. Continue current medication. 2. will increase clozaril every other day or so and continue decreased dose of Latuda as Joann continues to want currently. 3. Encourage individual group and milieu therapy. 4. Continue every 15 minute checks for safety. 5. Will work with social work team to try to get an idea of whether or not there've been any changes in her circumstances that led to her not maintaining the medication she was doing so well on. Involuntary Hold Information 96 Hour Hold: 96 Hour Involuntary Admission: Yes 96 Hour Hold Ending Date: 04/09/19 96 Hour Hold Ending Time: 05:01 Attestations NPU Medical Necessity Statement*: Inpatient hospitalization is medically necessary and the clinically appropriate intervention at this time. We will monitor medications and adjust accordingly. Likely stay 7-9 days. Coding Level of Care Code Acute Parking Enforcer for Mandie Wei
[2019-05-11 14:00] VITALS: BP 139/91; PULSE 98; RESP 20; TEMP 36.6; O2SAT 97
[2019-05-11] MEDS: lurasidone 80 mg Tablet 40 MG PO (16:43)
[2019-05-11 20:36] VITALS: BP 141/91; PULSE 106; RESP 22; TEMP 37.1; O2SAT 99
[2019-05-11] MEDS: loperamide 2 mg Capsule PO (21:28)
[2019-05-12 05:23] VITALS: BP 139/93; PULSE 98; RESP 16; TEMP 36.6; O2SAT 95
[2019-05-12] MEDS: ziprasidone hcl 40 mg Capsule PO (08:45)
[2019-05-12] MEDS: amlodipine 10 mg Tablet PO ×2 (09:19→17:13)
[2019-05-12] MEDS: cloZAPine 25 mg Tablet 75 MG PO ×2 (09:20→17:13)
--- NOTE | 2019-05-12 11:37 | PM.NPN ---
Subjective NPU Subjective: Interval history: Joann continues to show slow improvement but had a fairly rough day today focused on wanting to go home, focused on wanting to take care of her mother. We discussed the risks, benefits and alternatives of making some changes including increasing the Clozaril, discontinuing Geodon and considering increasing Latuda and she understood and agreed to proceed as is documented in this note. Mental Status Exam MSE Comments: This is a morbidly obese white female with adequate dress, grooming and eye contact. No abnormal movements except for intermittent psychomotor agitation, cooperative with exam in intermittent acute distress. Speech was increased rate and volume. Mood described as angry, why can't i go home, affect congruent. Thought process more organized. Thought content: Patient denied any suicidal or homicidal ideation, no delusions reported, but paranoia clearly present and persecutory delusions present, she denied any auditory or visual hallucinations. Attention and concentration were limited but improved and memory was unreliable but none were formally tested. She is alert and oriented ?3. Insight and judgment are impaired. Vitals/I&O/Wt Last Vital Signs Temp 98 F 05/12/19 20:29 Pulse 101 H 05/12/19 20:29 Resp 23 H 05/12/19 20:29 BP 147/93 05/12/19 20:29 Pulse Ox 97 05/12/19 20:29 Data NPU : 05/04/19 05:15 05/04/19 05:15 A&P Additional A&P Information This is a 49-year-old white female with a long history of schizophrenia that is very difficult to treat who have been seen back in December with really good results with Clozaril who presents frankly psychotic and coming off of a recent hospitalization and discharge which left her still having significant symptoms currently adjusting to the restarting of the Clozaril. 1. Continue current medication. 2. will increase clozaril every other day or so. 3. Encourage individual group and milieu therapy. 4. Continue every 15 minute checks for safety. 5. Will work with social work team to try to find a placement options. Involuntary Hold Information 96 Hour Hold: 96 Hour Involuntary Admission: Yes 96 Hour Hold Ending Date: 04/09/19 96 Hour Hold Ending Time: 05:01 Attestations NPU Medical Necessity Statement*: Inpatient hospitalization is medically necessary and the clinically appropriate intervention at this time. We will monitor medications and adjust accordingly. Likely stay 7-9 days. Coding Level of Care Code Acute Race Car Driver for Mandie Wei
[2019-05-12 14:00] VITALS: BP 139/90; PULSE 93; RESP 18; TEMP 37.2; O2SAT 98
[2019-05-12] MEDS: lurasidone 80 mg Tablet 40 MG PO (17:13)
[2019-05-12 20:29] VITALS: BP 147/93; PULSE 101; RESP 23; TEMP 36.6; O2SAT 97
[2019-05-12] MEDS: acetaminophen 325 mg Tablet 650 MG PO (20:51)
[2019-05-13 06:00] VITALS: BP 116/72; PULSE 96; RESP 16; O2SAT 97
[2019-05-13] MEDS: amlodipine 10 mg Tablet PO ×2 (07:54→16:53)
[2019-05-13] MEDS: cloZAPine 100 mg Tablet PO ×2 (07:54→16:54)
[2019-05-13 14:00] VITALS: BP 128/74; PULSE 78
[2019-05-13] MEDS: lurasidone 80 mg Tablet 40 MG PO (16:54)
--- NOTE | 2019-05-13 18:28 | PM.NPN ---
Subjective NPU Subjective: Interval history: Joann presents today once again focused on going home. The truth is that she continues to demonstrate that she is improving by the mere fact that she is able to have a conversation and not lose control. She is not quite ready and she is having some lethargy likely to the recent increase in the Clozaril. She endorses wanting to go home with her . We discussed the importance of us collaborating with the [facility] team to make sure that her medications aren't changed so that she ends up back in the hospital. She truly needs to have her Clozaril as a basis of continuing to fight her psychosis and give her the best chance of a life that doesn't require frequent hospitalizations. She reports that she is eating and sleeping okay. Mental Status Exam MSE Comments: This is a morbidly obese white female with adequate dress, slightly disheveled and appropriate eye contact. No abnormal movements except for mild psychomotor retardation maybe from tiredness from medication increases, cooperative with exam in no acute distress. Speech was increased rate and normal volume. Mood described as angry at having mental illness, affect congruent. Thought process more organized. Thought content: Patient denied any suicidal or homicidal ideation, no delusions reported, but paranoia clearly present and persecutory delusions present but better, she denied any auditory or visual hallucinations. Attention and concentration were improved and memory was unreliable but none were formally tested. She is alert and oriented ?3. Insight and judgment are impaired but improving. Vitals/I&O/Wt Last Vital Signs Temp 98 F 05/12/19 20:29 Pulse 78 05/13/19 14:00 Resp 16 05/13/19 06:00 BP 128/74 05/13/19 14:00 Pulse Ox 97 05/13/19 06:00 Data NPU : 05/04/19 05:15 05/04/19 05:15 A&P Additional A&P Information This is a 49-year-old white female with a long history of schizophrenia that is very difficult to treat who have been seen back in December with really good results with Clozaril who presents frankly psychotic and coming off of a recent hospitalization and discharge which left her still having significant symptoms currently adjusting to the restarting of the Clozaril. 1. Continue current medication. 2. will increase clozaril every other day or so. 3. Encourage individual group and milieu therapy. 4. Continue every 15 minute checks for safety. 5. Will work with social work team to try to find a placement options. Involuntary Hold Information 96 Hour Hold: 96 Hour Involuntary Admission: Yes 96 Hour Hold Ending Date: 04/09/19 96 Hour Hold Ending Time: 05:01 Attestations NPU Medical Necessity Statement*: Inpatient hospitalization is medically necessary and the clinically appropriate intervention at this time. We will monitor medications and adjust accordingly. Likely stay 5-7 days. Coding Level of Care Code Acute Agricultural Economics Teacher for Mandie Wei
[2019-05-13 19:28] LABS: Basophils # 0.1 10^3/uL (0.0-0.1); Basophils % 0.7 %; Eosinophils # 0.2 10^3/uL (0.0-0.8); Eosinophils % 2.4 %; Lymphocytes # 1.6 10^3/uL (0.8-4.8); Lymphocytes % 23.5 %; Mean Corpuscular HGB Conc 32.4 g/dL (30.0-36.0); Mean Corpuscular Hemoglobin 29.5 pg (28.0-34.0); Mean Corpuscular Volume 91.2 fL (81-99); Mean Platelet Volume 9.4 fL (7.4-10.4); Monocytes # 0.6 10^3/uL (0.2-0.9); Monocytes % 8.4 %; Neutrophils # 4.3 10^3/uL (1.8-7.7); Neutrophils % 63.8 %; Nucleated Red Blood Cells % 0.3 %; Platelet Count 211 10^3/cmm (130-400); Red Blood Count 3.73 10^6/uL (4.1-5.3); Red Cell Distribution Width 12.9 % (12.1-15.1); White Blood Count 6.8 10^3/uL (4.0-10.0)
[2019-05-13 20:31] VITALS: BP 162/109; PULSE 108; RESP 23; TEMP 37.1; O2SAT 98
[2019-05-14 05:58] VITALS: BP 162/109; PULSE 108; RESP 23; TEMP 37.1; O2SAT 98; BMI 57.8
[2019-05-14] MEDS: cloZAPine 100 mg Tablet PO ×2 (08:47→17:11)
[2019-05-14] MEDS: amlodipine 10 mg Tablet PO ×2 (08:47→17:10)
[2019-05-14 12:09] VITALS: BP 123/83; O2SAT 98
[2019-05-14 13:59] VITALS: BP 115/68; PULSE 90; RESP 19; TEMP 37; O2SAT 96
--- NOTE | 2019-05-14 15:35 | P.PN_ITS ---
Subjective NPU Subjective: Interval history: Joann presents today much calmer much clear. Even though she focused on discharge she identified the people don't generally get discharged over the weekend and that maybe we can consider tomorrow. We discussed the importance of getting the social workers in treatment team involved to make sure that we know where she is going to get her blood draws and we know how they are to follow her medication. She identifies how much better she feels we discussed the importance of them sticking with the same medication and not making changes and then having her back in the hospital in this condition. She acknowledges that she is as must blame for the medication changes as she gets ideas in her head, the double side effects and then decides she doesn't want a certain medication. She reports that she is eating okay and sleeping fine looks forward to sleeping at home and getting on an exercise regimen and doing like a Weight [employer] program Mental Status Exam MSE Comments: This is a morbidly obese white female with adequate dress, slightly disheveled and appropriate eye contact. No abnormal movements except for mild psychomotor retardation maybe from tiredness from medication increases, cooperative with exam in no acute distress. Speech was normal rate and normal volume. Mood described as happy, affect congruent and calm. Thought process more organized. Thought content: Patient denied any suicidal or homicidal ideation, no delusions reported or noted, she denied any auditory or visual hallucinations. Attention and concentration were improved and memory was more reliable but none were formally tested. She is alert and oriented ?3. Insight and judgment are impaired but improving. Vitals/I&O/Wt Last Vital Signs Temp 98.6 F 05/14/19 13:59 Pulse 90 05/14/19 13:59 Resp 19 H 05/14/19 13:59 BP 115/68 05/14/19 13:59 Pulse Ox 96 05/14/19 13:59 Weight last 48 hrs Weight 138.799 kg Data NPU : 05/13/19 19:17 05/04/19 05:15 A&P Additional A&P Information This is a 49-year-old white female with a long history of schizophrenia that is very difficult to treat who have been seen back in December with really good results with Clozaril who presents frankly psychotic and coming off of a recent hospitalization and discharge which left her still having significant symptoms currently adjusting to the restarting of the Clozaril. 1. Continue current medication. 2. Will maintain the Clozaril dose for now and consider discharge. 3. Encourage individual group and milieu therapy. 4. Continue every 15 minute checks for safety. 5. Will work with social work team to try to make placement referrals if she still is interested but more importantly making the arrangements for her to make sure she getting her blood draws and there is appropriate follow-up for Clozaril. Involuntary Hold Information 96 Hour Hold: 96 Hour Involuntary Admission: Yes 96 Hour Hold Ending Date: 04/09/19 96 Hour Hold Ending Time: 05:01 Attestations NPU Medical Necessity Statement*: Inpatient hospitalization is medically necessary and the clinically appropriate intervention at this time. We will monitor medications and adjust accordingly. Likely stay 2-4 days. May consider discharge in next day or so. Coding Level of Care Code Acute Station Mechanic Helper for Mandie Wei
[2019-05-14] MEDS: lurasidone 80 mg Tablet 40 MG PO (17:11)
[2019-05-14 21:35] VITALS: BP 142/94; PULSE 104; RESP 20; TEMP 37.3; O2SAT 96
[2019-05-15 06:00] VITALS: BP 128/79; PULSE 89; RESP 21; TEMP 37.1; O2SAT 92
[2019-05-15] MEDS: cloZAPine 100 mg Tablet PO ×2 (09:36→17:48)
[2019-05-15] MEDS: amlodipine 10 mg Tablet PO ×2 (09:36→17:48)
--- NOTE | 2019-05-15 13:47 | P.PN_ITS ---
Subjective NPU Subjective: Interval history: Joann presents today continuing to show stabilization and improvement. We had a long discussion about the fact that we need to work with the outpatient providers at [facility] to make sure that she remains on Clozaril because that has been the medication that has stabilized her. Discontinuation of this medication has led to her rehospitalization and we got a figure out how to make sure that everyone understands that implicitly. She reports that she understands the arrangements were trying to make and we discussed a tentative discharge for tomorrow. Mental Status Exam MSE Comments: This is a morbidly obese white female with adequate dress, slightly disheveled and appropriate eye contact. No abnormal movements except for mild psychomotor retardation maybe from tiredness from medication increases, cooperative with exam in no acute distress. Speech was normal rate and normal volume. Mood described as tired and bored, affect congruent and calm. Thought process more organized. Thought content: Patient denied any suicidal or homicidal ideation, no delusions reported or noted, she denied any auditory or visual hallucinations. Attention and concentration were improved and memory was more reliable but none were formally tested. She is alert and oriented ?3. Insight and judgment are impaired but improving. Vitals/I&O/Wt Last Vital Signs Temp 99.8 F H 05/15/19 22:00 Pulse 100 05/15/19 22:00 Resp 18 05/15/19 22:00 BP 116/70 05/15/19 22:00 Pulse Ox 95 05/15/19 22:00 Weight last 48 hrs Weight 138.799 kg Data NPU : 05/13/19 19:17 05/04/19 05:15 A&P Additional A&P Information This is a 49-year-old white female with a long history of schizophrenia that is very difficult to treat who have been seen back in December with really good results with Clozaril who presents frankly psychotic and coming off of a recent hospitalization and discharge which left her still having significant symptoms currently adjusting to the restarting of the Clozaril. 1. Continue current medication. 2. Will maintain the Clozaril dose for now and consider discharge. 3. Encourage individual group and milieu therapy. 4. Continue every 15 minute checks for safety. 5. Will work with social work team to try to make placement referrals if she s till is interested but more importantly making the arrangements for her to make sure she getting her blood draws and there is appropriate follow-up for Clozaril. Involuntary Hold Information 96 Hour Hold: 96 Hour Involuntary Admission: Yes 96 Hour Hold Ending Date: 04/09/19 96 Hour Hold Ending Time: 05:01 Attestations NPU Medical Necessity Statement*: Inpatient hospitalization is medically necessary and the clinically appropriate intervention at this time. We will monitor medications and adjust accordingly. Likely stay 1-2 days. Will consider disch arge tomorrow. Coding Level of Care Code Acute Senior Net C Developer for Mandie Wei
[2019-05-15 14:00] VITALS: BP 138/83; PULSE 98; RESP 18; TEMP 37.1; O2SAT 97
[2019-05-15] MEDS: lurasidone 80 mg Tablet 40 MG PO (17:48)
[2019-05-15 22:00] VITALS: BP 116/70; PULSE 100; RESP 18; TEMP 37.7; O2SAT 95
[2019-05-16 06:00] VITALS: BP 116/72; PULSE 92; RESP 17; TEMP 36.7; O2SAT 97
[2019-05-16] MEDS: amlodipine 10 mg Tablet PO (08:37)
[2019-05-16] MEDS: cloZAPine 100 mg Tablet PO (08:37)
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
[2019-05-16 13:46] LABS: Hematocrit 38.3 % (37.0-47.0); Hemoglobin 12.2 g/dL (11.5-15.3); Mean Corpuscular HGB Conc 31.9 g/dL (30.0-36.0); Mean Corpuscular Hemoglobin 29.2 pg (28.0-34.0); Mean Corpuscular Volume 91.6 fL (81-99); Platelet Count 261 10^3/cmm (130-400); Red Blood Count 4.18 10^6/uL (4.1-5.3); White Blood Count 8.2 10^3/uL (4.0-10.0)
--- NOTE | 2019-05-16 14:19 | PC.SOCIAL ---
[address] [place] [id number] [address] where patient will be tranported to.
[2019-05-16 14:27] LABS: Absolute Segmented Neutrophil 5.9 10/cmm (1.6-7.1); Eosinophils 1 %; Lymphocytes 21 %; Lymphocytes Absolute 1.9 10^3/cmm (1.2-3.4); Monocytes Absolute 0.3 10^3/cmm (0.1-0.6); Segmented Neutrophils 72 %; Total Cells Counted 100 (0-100)
[2019-05-16 14:28] LABS: Platelet Estimate Normal (Normal)
[2019-05-16 14:51] VITALS: BP 116/72; PULSE 92; RESP 17; TEMP 36.7; O2SAT 97
== END 2019-05-16 15:02 | disposition home or self-care (01) | DRG 885 ==
LOC: ER 08:06 → NP 08:23
PROVIDERS: Emergency Medicine; Admitting Provider Psychiatry & Neurology Psychiatry; Emergency Provider Family Medicine; Visit Provider Psychiatry & Neurology Psychiatry
DX: F23 Brief psychotic disorder (principal); F25.0 Schizoaffective disorder, bipolar type; F41.8 Other specified anxiety disorders; E11.9 Type 2 diabetes mellitus without complications; Z87.891 Personal history of nicotine dependence
CPT/HCPCS: 12345; 36415; 80053; 80156; 80164; 80178; 80185; 80307; 81001; 81025; 82550; 84443; 85007; 85025; 85027; 87077; 87086; 93005; 96372; 99284; J1630; J2060; J3486; J7030; Q0162

== ENCOUNTER 2019-05-04 04:50 | Emergency (ER) | payer MEDICAID, SELFPAY ==
[2019-04-25 15:07] VITALS: BP 170/101; BMI 55.8
== END 2019-05-04 09:19 | disposition admitted as inpatient to this hospital (09) ==
LOC: ER 05-25 07:43
PROVIDERS: Emergency Provider Family Medicine; PCP Nurse Practitioner Family
DX: F22 Delusional disorders (principal); Z87.891 Personal history of nicotine dependence
CPT/HCPCS: 80053; 80156; 80164; 80178; 80185; 80307; 81001; 81025; 82550; 84443; 85025; 93005; 96360; 96361; 96372; 99284; 99285; J1630; J2060; J3486; J7030

== ENCOUNTER → 2019-05-25 08:31 | Outpatient (BNVA) | payer MEDICAID, SELFPAY | PROVIDERS: PCP Nurse Practitioner Family; Visit Provider Psychiatry & Neurology Psychiatry | DX: F25.0 Schizoaffective disorder, bipolar type (principal) | CPT/HCPCS: 99214 ==

== ENCOUNTER 2019-05-28 17:18 | Emergency (ER) | payer MEDICAID, SELFPAY ==
[2019-04-25 15:07] VITALS: BP 170/101; BMI 55.8
[2019-05-28 17:18] VITALS: BP 145/92; PULSE 106; RESP 18; TEMP 36.8; O2SAT 95; BMI 56.5
[2019-05-28 17:27] VITALS: O2SAT 96
--- NOTE | 2019-05-28 17:28 | ED_ITS ---
Entered by Lucina Bright, acting as scribe for Rashawn Choudhury MD, [facility] [place] HPI - SOB/Dyspnea General: Chief Complaint: Shortness of Breath/Dyspnea Stated Complaint: SOB; BLOODY STOOLS Time Seen by Provider: 05/28/19 17:25 Source: patient Mode of arrival: EMS Limitations: no limitations History of Present Illness: HPI Narrative: 49 yo Female presents to ED with co mplaint of shortness of breath, vomiting, and diarrhea. Pt states that her shortness of breath started about a week ago. Pt states that her vomiting and diarrhea started just prior to arrival. Pt states that she had something to eat and laid down and threw up. MD elicited complaint: shortness of breath Onset (ago): week(s) Timing: intermittent Severity: mild Exacerbating factors: nothing Relieving factors: nothing Associated symptoms: Reports cough and vomiting; Deny chest pain, fever(s), palpitations, polydipsia or polyuria Treatment prior to arrival: none Related Data: Home oxygen amount: none Review of Systems General: Reports: 10 or more systems reviewed and unremarkable except in HPI and below Const: Denies: fever, chills or body aches Eyes: Denies: change in vision or blurry vision ENMT: Denies: throat pain, enlarged tonsils, painful swallowing, hoarseness, mouth pain or swelling of lips/tongue Card: Denies: chest pain, palpitations, irregular heart rhythm, edema or swelling of feet/ankles Resp: Reports: shortness of breath and non-productive cough; Denies: productive cough GI: Reports: vomiting and diarrhea : Denies: flank pain, difficulty urinating, painful urination, urinary frequency, urinary urgency or urinary hesitancy Musc: Denies: neck pain, back pain or extremity swelling Skin/Breast: Denies: rash, itching or redness Neuro: Denies: headache, numbness in extremities or weakness in extremities Endo: Denies: excessive urination, excessive thirst or tired all the time [facility] ED PFSH: Family History Mother Hypertension Hyperlipidemia Diabetes Grandmother Diabetes Grandfather Diabetes Father , due to complications of colon cancer Cancer Colon Social History Smoking and tobacco status: former smoker Quit status (tobacco): has quit using tobacco Year quit tobacco: 2017 Second hand smoke exposure: Yes Smoking risk assessment/counseling performed?: Yes Tobacco counseling given: counseling >3 minutes Alcohol intake: never Desire information about substance/drug rehabilitation?: No Adopted: No Lives independently: Yes Household members: significant other Marital status: Number of children: 1 Current occupational status: disabled Current gender identity: Female Female Reproductive History: Date of last menstrual period: 04/10/19 Para: 1 Spontaneous abortions: No Physical Exam Const: COMMON NORMALS: no apparent distress, average body habitus, oriented x3, no limitations, healthy appearing, alert and well nourished HENMT: COMMON NORMALS: normocephalic, head/scalp atraumatic and moist oral mucous membranes HEAD & SCALP: normocephalic and atraumatic Eye: COMMON NORMALS: PERRL, EOMs intact bilaterally, conjunctivae normal and no scleral icterus CONJUNCTIVA: Yes conjunctivae normal PUPIL: Yes PERRL Neck/C-Spine: COMMON NORMALS: full ROM, supple, no meningeal signs, no JVD and no carotid bruits Chest: COMMONS NORMALS: inspection of chest normal and palpation of chest normal Resp: COMMON NORMALS: normal respiratory effort, no retractions, no use of accessory muscles, clear to auscultation bilaterally and percussion normal AUSCULTATION: clear to auscultation bilaterally PERCUSSION: percussion normal Cardio: COMMON NORMALS: no JVD, regular rate, regular rhythm, S1 normal heart sound, S2 normal heart sound, no gallops, no clicks, no murmurs, no rub and peripheral pulses 2+ throughout RATE: regular rate RHYTHM: regular rhythm HEART SOUNDS: S1 normal and S2 normal PERIPHERAL PULSES: pulses 2+ throughout GI: COMMON NORMALS: normal to inspection, nondistended, normoactive bowel sounds, soft to palpation, non-tender, no hepatosplenomegaly, no masses and no bruits PALPATION: Yes soft and Yes no hepatosplenomegaly : COMMON NORMALS: Yes no CVA tenderness BLADDER/KIDNEY EXAM: Yes no CVA tenderness Back/Pelvis: COMMON NORMALS: no CVA tenderness Extremity: COMMON NORMALS: normal to inspection, full ROM, normal capillary refill, no calf tenderness and no pedal edema Neuro: COMMON NORMALS: oriented x3 SENSORIUM/ORIENTATION: Yes alert MENINGEAL SIGNS: Yes no meningeal signs Skin: COMMON NORMALS: no rashes or lesions noted, no wounds, skin turgor normal, no jaundice, no petechiae and no mottling GENERAL SKIN EXAM: no rashes or lesions noted and turgor normal Course Vital Signs: Vital signs: Vital Signs Temperature 98.3 F 05/28/19 17:18 Pulse Rate 104 H 05/28/19 18:44 Respiratory Rate 22 H 05/28/19 18:44 Blood Pressure 121/95 05/28/19 18:44 Pulse Oximetry 98 05/28/19 18:44 MDM - SOB/Dyspnea MDM Narrative: Medical decision making narrative: Patient who presents with features of upper respiratory tract infection. She was also noted to have Trichomonas in her urine. She is managed conservatively for the URI and given Flagyl for trichomonas. She is to follow-up with her primary care provider Medical Records: Attestation: I reviewed the patient's medical records. Lab Data: Attestation: I reviewed the patient's lab results. Labs: Lab Results 05/28/19 05/28/19 05/28/19 Range/Units 17:40 17:54 17:54 WBC 8.1 (4.0-10.0) 10^3/ uL RBC 4.07 L (4.1-5.3) 10^6/u L Hgb 12.2 (11.5-15.3) g/dL Hct 37.8 (37.0-47.0) % MCV 92.9 (81-99) fL MCH 30.0 (28.0-34.0) pg MCHC 32.3 (30.0-36.0) g/dL RDW 13.2 (12.1-15.1) % Plt Count 258 (130-400) 10^3/c mm MPV 9.1 (7.4-10.4) fL Neut % (Auto) 78.8 % Lymph % (Auto) 12.0 % Placer % (Auto) 6.3 % Eos % (Auto) 2.0 % Baso % (Auto) 0.4 % Neut # (Auto) 6.4 (1.8-7.7) 10^3/u L Lymph # (Auto) 1.0 (0.8-4.8) 10^3/u L Placer # (Auto) 0.5 (0.2-0.9) 10^3/u L Eos # (Auto) 0.2 (0.0-0.8) 10^3/u L Baso # (Auto) 0.0 (0.0-0.1) 10^3/u L Nucleated RBC % (a uto) 0 % Nucleated RBCs # 0.0 /100WBC Sodium 137 (136-145) mmol/L Potassium 4.0 (3.5-5.1) mmol/L Chloride 98 (98-107) mmol/L Carbon Dioxide 25 (22-29) mmol/L Anion Gap 18.0 (5-19) BUN 10 (6-20) mg/dL Creatinine 0.7 (0.5-0.9) mg/dL GFR Calculation 89.3 L (90-130) mL/min Glucose 147 H (65-115) mg/dL Calcium 10.2 (8.5-10.5) mg/dL Total Bilirubin 0.3 (0.15-1.2) mg/dL AST 16 (0-32) U/L ALT 16 (0-33) U/L Alkaline Phosphata se 58 (35-105) IU/L Total Protein 7.1 (6.6-8.7) g/dL Albumin 4.0 (3.5-5.2) g/dL Globulin 3.1 (1.3-4.6) g/dL Urine Color (Yellow) Urine Appearance (CLEAR) Urine pH (5-7) Ur Specific Gravit y (1.005-1.030) Urine Protein (Negative) Urine Glucose (UA) (Normal) Urine Ketones (Negative) Urine Blood (Negative) Urine Nitrate (Negative) Urine Bilirubin (NEGATIVE) Urine Urobilinogen (Negative) mg/dL Ur Leukocyte Michelle ase (Negative) Urine RBC (0-2) /hpf Urine WBC (0-5) /hpf Ur Squamous Epith Cells (0-5) Urine Bacteria (NONE) Urine Mucus Urine Trichomonas Influenza Type A A g Negative (Negative) POC Influenza B Ag Negative (Negative) 05/28/19 Range/Units 18:36 WBC (4.0-10.0) 10^3/ uL RBC (4.1-5.3) 10^6/u L Hgb (11.5-15.3) g/dL Hct (37.0-47.0) % MCV (81-99) fL MCH (28.0-34.0) pg MCHC (30.0-36.0) g/dL RDW (12.1-15.1) % Plt Count (130-400) 10^3/c mm MPV (7.4-10.4) fL Neut % (Auto) % Lymph % (Auto) % Placer % (Auto) % Eos % (Auto) % Baso % (Auto) % Neut # (Auto) (1.8-7.7) 10^3/u L Lymph # (Auto) (0.8-4.8) 10^3/u L Placer # (Auto) (0.2-0.9) 10^3/u L Eos # (Auto) (0.0-0.8) 10^3/u L Baso # (Auto) (0.0-0.1) 10^3/u L Nucleated RBC % (a uto) % Nucleated RBCs # /100WBC Sodium (136-145) mmol/L Potassium (3.5-5.1) mmol/L Chloride (98-107) mmol/L Carbon Dioxide (22-29) mmol/L Anion Gap (5-19) BUN (6-20) mg/dL Creatinine (0.5-0.9) mg/dL GFR Calculation (90-130) mL/min Glucose (65-115) mg/dL Calcium (8.5-10.5) mg/dL Total Bilirubin (0.15-1.2) mg/dL AST (0-32) U/L ALT (0-33) U/L Alkaline Phosphata se (35-105) IU/L Total Protein (6.6-8.7) g/dL Albumin (3.5-5.2) g/dL Globulin (1.3-4.6) g/dL Urine Color Yellow (Yellow) Urine Appearance Hazy A (CLEAR) Urine pH 5 (5-7) Ur Specific Gravit y 1.020 (1.005-1.030) Urine Protein Neg (Negative) Urine Glucose (UA) Norm (Normal) Urine Ketones Negative (Negative) Urine Blood Trace H (Negative) Urine Nitrate Negative (Negative) Urine Bilirubin Neg (NEGATIVE) Urine Urobilinogen Norm (Negative) mg/dL Ur Leukocyte Michelle ase 2+ H (Negative) Urine RBC Rare (0-2) /hpf Urine WBC 55-80 H (0-5) /hpf Ur Squamous Epith Cells 25-40 H (0-5) Urine Bacteria 2+ H (NONE) Urine Mucus 1+ Urine Trichomonas 1+ H Influenza Type A A g (Negative) POC Influenza B Ag (Negative) Discharge Plan Discharge Patient Disposition: Home, Self-Care Clinical Impression: Viral URI, Trichomonas vaginitis Condition: Stable Prescriptions: New metronidazole 500 mg tablet 500 mg PO BID 7 Days Qty: 14 RF: 0 Continued Latuda 80 mg tablet 80 mg PO BID Qty: 30 RF: 0 amlodipine 10 mg tablet 10 mg PO BID Qty: 60 RF: 1 Discharge Orders: Discharge Order (Routine); Ordered 05/28/19 Ordered By: Rashawn Choudhury Referrals: [facility] [Other] Evonne Vicente [Primary Care Provider] - 1-3 days Patient Instructions: Trichomoniasis (ED), Upper Respiratory Infection (ED) Activity Restrictions/Additional Instructions: Return for any new or worsening symptoms. Follow-up with your primary care provider within 3 days. Take the antibiotic as prescribed. Discharge Date/Time: 05/28/19 20:04 Coding Level of Care Code ED Screed Operator for Chg Fwd Exam Comprehensive The documentation recorded by the Deangelo gloria Carmen, accurately reflects the service I personally performed and the decisions made by Kei ahmadi Adegoke I, MD, [facility] [place] May 28, 2019 17:18
--- NOTE | 2019-05-28 17:33 | XR_ITS ---
WS: [id number] CHEST 2 VIEWS HISTORY: shortness of breath COMPARISON: 03/22/2019 Lungs: Mild hyperexpansion with haziness over both lungs. Mild stranding and atelectasis at the lingu la. Lateral radiograph is limited by motion. Cardiac size: Normal. Mediastinum/Aorta: Normal mediastinum. Bones: Normal. XR/XR chest 2V* 96160 IMPRESSION: 1. No pneumonia. 2. Atelectasis at the lingula.
[2019-05-28 18:06] LABS: Basophils % 0.4 %; Eosinophils # 0.2 10^3/uL (0.0-0.8); Hematocrit 37.8 % (37.0-47.0); Hemoglobin 12.2 g/dL (11.5-15.3); Mean Corpuscular HGB Conc 32.3 g/dL (30.0-36.0); Mean Corpuscular Volume 92.9 fL (81-99); Mean Platelet Volume 9.1 fL (7.4-10.4); Monocytes # 0.5 10^3/uL (0.2-0.9); Monocytes % 6.3 %; Neutrophils # 6.4 10^3/uL (1.8-7.7); Neutrophils % 78.8 %; Nucleated Red Blood Cells % 0 %; Platelet Count 258 10^3/cmm (130-400); Red Blood Count 4.07 10^6/uL (4.1-5.3); Red Cell Distribution Width 13.2 % (12.1-15.1); White Blood Count 8.1 10^3/uL (4.0-10.0)
[2019-05-28 18:16] LABS: Influenza A by IFA Negative (Negative); Influenza B by IFA Negative (Negative)
[2019-05-28 18:25] LABS: Alanine Aminotransferase 16 U/L (0-33); Alkaline Phosphatase 58 IU/L (35-105); Aspartate Amino Transferase 16 U/L (0-32); Blood Urea Nitrogen 10 mg/dL (6-20); Calcium 10.2 mg/dL (8.5-10.5); Carbon Dioxide 25 mmol/L (22-29); Chloride 98 mmol/L (98-107); Globulin 3.1 g/dL (1.3-4.6); Glomerular Filtration Rate 89.3 mL/min (90-130); Glucose 147 mg/dL (65-115); Sodium 137 mmol/L (136-145); Total Bilirubin 0.3 mg/dL (0.15-1.2); Total Protein 7.1 g/dL (6.6-8.7)
[2019-05-28 18:44] VITALS: BP 121/95; PULSE 104; RESP 22; O2SAT 98
[2019-05-28 18:57] LABS: Add Urine Microscopic? YES; Bilirubin Urine Neg (NEGATIVE); Blood Urine Trace (Negative); Glucose Urine UA Norm (Normal); Ketones Urine Negative (Negative); Leukocyte Esterase Urine 2+ (Negative); Nitrate Urine Negative (Negative); Protein Urine Neg (Negative); Urine Appearance Hazy (CLEAR); Urine Color Yellow (Yellow); Urobilinogen Urine Norm (Negative); pH Urine 5 (5-7)
[2019-05-28 19:00] LABS: RBC Urine RARE /hpf (0-2); WBC Urine 55-80 /hpf (0-5)
[2019-05-28 19:01] LABS: Add Urine Culture? No; Bacteria Urine 2+; Mucus Urine 1+; Squamous Epithelial Cell Urine 25-40 (0-5)
[2019-05-28 19:03] LABS: Trichomonas Urine 1+
[2019-05-28] MEDS: metroNIDAZOLE 500 MG Tablet PO (20:00)
== END 2019-05-28 20:04 | disposition home or self-care (01) ==
PROVIDERS: Emergency Provider Family Medicine; PCP Nurse Practitioner Family
DX: J06.9 Acute upper respiratory infection, unspecified (principal); A59.01 Trichomonal vulvovaginitis; Z87.891 Personal history of nicotine dependence
CPT/HCPCS: 71046; 80053; 81001; 85025; 87804; 99283; A9270

== ENCOUNTER 2019-06-09 23:04 | Emergency (ER) | payer MEDICAID, SELFPAY ==
[2019-04-25 15:07] VITALS: BP 170/101; BMI 55.8
[2019-06-09 23:07] VITALS: BP 125/80; PULSE 111; RESP 26; TEMP 36.4; O2SAT 95; BMI 37.8
[2019-06-09 23:10] VITALS: BP 125/80; PULSE 96; RESP 16; O2SAT 100
--- NOTE | 2019-06-09 23:12 | ED_ITS ---
Entered by Juanita Pacheco, acting as scribe for Jun 09, 2019 23:04 HPI - Nausea/Vomiting/Diarrhea General: Chief complaint: Nausea/Vomiting/Diarrhea Stated complaint: n/v Time Seen by Provider: 06/09/19 23:12 Source: patient Mode of arrival: ambulatory Limitations: no limitations History of Present Illness: HPI Narrative: 49 yo f came to the er pov for aurelia sea and vomiting. Onset was 1 month ago. Pt states that she has bronchitis and has been throwing up at this time. Pt states that she has been diagnosed with trick and she has been put on some medicine that may have been causing her to throw up pt states. Pt states that she only throws up when she gets into a coughing fit. MD elicited complaint: nausea and vomiting Onset (ago): month(s) (1 month ago) Description of vomiting: food contents Associated nausea: Yes Associated abdominal pain: No Location of pain: Chest Pain consistency: intermittent Severity: mild Exacerbating factors: none Relieving factors: none Context: sick contacts Associated symtoms: Reports cough and nausea; Denies change in vision, chest pain, dizziness, dysuria, headache(s) or palpitations Review of Systems General: Reports: other (negative unless marked) Eyes: Denies: change in vision or blurry vision ENMT: Denies: enlarged tonsils Card: Reports: shortness of breath on exertion; Denies: chest pain, palpitations or pre-syncope Resp: Reports: non-productive cough GI: Reports: nausea : Denies: flank pain, painful urination or blood in urine Musc: Reports: back pain Skin/Breast: Denies: rash Neuro: Denies: headache, changes in sensation, dizziness or confusion PFSH ED PFSH: Social History Smoking and tobacco status: former smoker Quit status (tobacco): has quit using tobacco Year quit tobacco: 2017 Second hand smoke exposure: Yes Smoking risk assessment/counseling performed?: Yes Tobacco counseling given: counseling >3 minutes Alcohol intake: never Desire information about substance/drug rehabilitation?: No Adopted: No Lives independently: Yes Household members: significant other Marital status: Number of children: 1 Current occupational status: disabled Current gender identity: Female Female Reproductive History: Date of last menstrual period: 04/10/19 Para: 1 Spontaneous abortions: No Physical Exam Const: GENERAL APPEARANCE: well developed and other (obese); not ill appearing ORIENTATION/CONSCIOUSNESS: Yes oriented to person, Yes oriented to place and Yes oriented to time HENMT: COMMON NORMALS: normocephalic, external ears normal and external nose normal HEAD & SCALP: normocephalic; no scalp tenderness FACE & SINUS: normal facial exam NOSE: external nose normal and no nasal discharge EXTERNAL EAR: Yes external ears normal MOUTH: tongue normal THROAT: posterior oropharynx normal; no peritonsillar mass Eye: COMMON NORMALS: PERRL, EOMs intact bilaterally and conjunctivae normal EYELID: eyelids normal CONJUNCTIVA: Yes conjunctivae normal PUPIL: Yes PERRL Chest: COMMONS NORMALS: inspection of chest normal CHEST: No tenderness Resp: COMMON NORMALS: clear to auscultation bilaterally EFFORT & INSPECTION: No tachypneic, No respiratory distress, No retractions, No uses accessory muscles and No tracheal deviation AUSCULTATION: clear to auscultation bilaterally, no rhonchi, no wheezes and lung sounds not diminished Cardio: COMMON NORMALS: regular rate and regular rhythm RATE: regular rate RHYTHM: regular rhythm HEART SOUNDS: no murmurs PERIPHERAL PULSES: radial pulses present GI: INSPECTION: No abdominal distension AUSCULTATION: No hyperactive bowel sounds and No hypoactive bowel sounds PALPATION: No guarding and No rigid PERCUSSION: no dullness to percussion and no tympanic to percussion Neuro: SENSORIUM/ORIENTATION: Yes oriented to person, Yes oriented to place and Yes oriented to time Psych: COMMON NORMALS: mental status grossly normal Skin: COMMON NORMALS: no rashes or lesions noted GENERAL SKIN EXAM: no rashes or lesions noted Course Vital Signs: Vital signs: Vital Signs Temperature 97.6 F 06/09/19 23:07 Pulse Rate 96 06/09/19 23:10 Respiratory Rate 16 06/09/19 23:10 Blood Pressure 125/80 06/09/19 23:10 Pulse Oximetry 100 06/09/19 23:10 MDM - Nausea/Vomiting/Diarrhea Lab Data: Labs: Lab Results 06/09/19 Range/Units 23:44 Urine Color Yellow (Yellow) Urine Appearance Clear (CLEAR) Urine pH 5 (5-7) Ur Specific Gravit y 1.015 (1.005-1.030) Urine Protein Neg (Negative) Urine Glucose (UA) Norm (Normal) Urine Ketones Negative (Negative) Urine Blood 2+ H (Negative) Urine Nitrate Negative (Negative) Urine Bilirubin Neg (NEGATIVE) Urine Urobilinogen Norm (Negative) mg/dL Ur Leukocyte Michelle ase Negative (Negative) Urine RBC 0-4 H (0-2) /hpf Urine WBC 0-4 H (0-5) /hpf Ur Squamous Epith Cells 5-10 H (0-5) Urine Bacteria Trace (NONE) Urine Mucus Trace Discharge Plan Discharge Patient Disposition: Home, Self-Care Clinical Impression: Bronchitis Condition: Stable Prescriptions: New Zofran 4 mg tablet 4 mg PO Q6H Qty: 10 RF: 0 albuterol sulfate 90 mcg/actuation aero powdr breath act w/sensor 2 inh INHALATION QID PRN (Reason: shortness of breath or wheezing) Qty: 1 RF: 0 No Action Latuda 80 mg tablet 80 mg PO BID Qty: 30 RF: 0 amlodipine 10 mg tablet 10 mg PO BID Qty: 60 RF: 1 Discharge Orders: Discharge Order (Routine); Ordered 06/10/19 Ordered By: Oliver Shelby Referrals: [facility] [Other] Evonne Vicente [Primary Care Provider] - Discharge Diet: Advance as tolerated Discharge Activity: Increase activity as tolerated Patient Instructions: Acute Bronchitis (ED), Acute Nausea and Vomiting (ED) Activity Restrictions/Additional Instructions: Take the nausea pill every 6 hours scheduled for 24 hours, then as needed. Return for worsening symptoms. Continue your previous medications. Discharge Date/Time: 06/10/19 00:40 Coding Level of Care Code ED Geospatial Applications Developer for Chg Fwd Exam Comprehensive The documentation recorded by the Junior gloria Stephanie Lyn, accurately reflects the service I personally performed and the decisions made by Heron ahmadi Jeremy John, DO Jun 09, 2019 23:04
--- NOTE | 2019-06-09 23:26 | PC.NURSE ---
Received patient to er with complaint of N/V that start 2 hours ago. Patient states she is on abx for bronchitus and also being tx for trichomonus.
--- NOTE | 2019-06-09 23:37 | XR_ITS ---
WS: [id number] XR chest 2V* [id number] REASON FOR EXAM: cough FINDINGS: The heart and mediastinum normal. The atelectasis in the lingula segment has cleared. There is no pneumonia, pleural effusion, pulmonary edema, pneumothorax, or mass effect. There is degenerate changes along the apophyseal joints of the thoracic spine. The hilum and apices normal. XR/XR chest 2V* [id number] IMPRESSION: Negative chest for active pathology.
[2019-06-10 00:03] LABS: Add Urine Culture? No; Add Urine Microscopic? YES; Bacteria Urine TRACE; Bilirubin Urine Neg (NEGATIVE); Blood Urine 2+ (Negative); Glucose Urine UA Norm (Normal); Ketones Urine Negative (Negative); Leukocyte Esterase Urine Negative (Negative); Mucus Urine TRACE; Nitrate Urine Negative (Negative); Protein Urine Neg (Negative); RBC Urine 0-4 /hpf (0-2); Specific Gravity, Urine 1.015 (1.005-1.030); Urine Appearance Clear (CLEAR); Urine Color Yellow (Yellow); Urobilinogen Urine Norm (Negative); WBC Urine 0-4 /hpf (0-5); pH Urine 5 (5-7)
--- NOTE | 2019-06-10 00:41 | PC.NURSE ---
Patient dc'd home in stable condition via ambulation refusing wheelchair. Discharge Papers and rx given and explained to patient with all questions asked and answered.
== END 2019-06-10 00:40 | disposition home or self-care (01) ==
PROVIDERS: Emergency Provider Emergency Medicine; PCP Nurse Practitioner Family
DX: J40 Bronchitis, not specified as acute or chronic (principal); Z87.891 Personal history of nicotine dependence
CPT/HCPCS: 12345; 71046; 81001; 99282; 99283

== ENCOUNTER → 2019-06-14 10:38 | Outpatient (BNVA) | payer MEDICAID, SELFPAY | PROVIDERS: PCP Nurse Practitioner Family; Visit Provider Psychiatry & Neurology Psychiatry | DX: F25.0 Schizoaffective disorder, bipolar type (principal) | CPT/HCPCS: 99213 ==

== ENCOUNTER 2019-06-16 22:30 | Emergency (ER) | payer MEDICAID, SELFPAY ==
[2019-04-25 15:07] VITALS: BP 170/101; BMI 55.8
[2019-06-16 22:49] VITALS: BP 170/101; PULSE 85; RESP 18; TEMP 37; O2SAT 97; BMI 54.8
[2019-06-16 23:14] VITALS: O2SAT 96
--- NOTE | 2019-06-16 23:23 | W.ED.GENADLT ---
HPI - General Adult General: Chief complaint: General Medical Stated complaint: flu like sympyoms/wants checked for caronavirus Time Seen by Provider: 06/16/19 23:02 History of Present Illness: HPI narrative: Patient comes in with complaints about nausea and vomiting diarrhea last couple days. Has not had a fever. Was treated for trichomonas and also bronchitis over the last couple weeks. Says she feels nauseous has not taken Zofran that was prescribed for her. Diarrhea seen what bothers her most. Vomited 2 times yesterday MD complaint: Stomach flu Onset (ago): day(s) Relieving factors: none Exacerbating factors: none Associated symptoms: Reports nausea and vomiting; Deny chest pain, dyspnea, headache(s) or rash Review of Systems Const: Denies: fever, chills or body aches Eyes: Denies: change in vision or blurry vision ENMT: Denies: throat pain or nasal congestion Card: Denies: chest pain or shortness of breath on exertion Resp: Denies: shortness of breath, productive cough or non-productive cough GI: Reports: nausea and vomiting Musc: Denies: extremity pain Skin/Breast: Denies: rash Neuro: Denies: headache Psych: Denies: anxiety or depression Dominic/Lymph: Denies: easy bruising PFSH ED PFSH: Social History Smoking and tobacco status: never smoked Quit status (tobacco): has quit using tobacco Year quit tobacco: 2017 Second hand smoke exposure: Yes Smoking risk assessment/counseling performed?: Yes Tobacco counseling given: counseling >3 minutes Alcohol intake: never Desire information about substance/drug rehabilitation?: No Adopted: No Lives independently: Yes Household members: significant other Marital status: Number of children: 1 Current occupational status: disabled Current gender identity: Female Female Reproductive History: Date of last menstrual period: 05/02/19 Para: 1 Spontaneous abortions: No Physical Exam Const: COMMON NORMALS: no apparent distress, average body habitus and oriented x3 HENMT: COMMON NORMALS: normocephalic HEAD & SCALP: normal to inspection and normocephalic FACE & SINUS: normal facial exam Eye: COMMON NORMALS: conjunctivae normal GENERAL EYE: normal appearance of both eyes CONJUNCTIVA: Yes conjunctivae normal Neck/C-Spine: COMMON NORMALS: no JVD Chest: COMMONS NORMALS: inspection of chest normal Resp: COMMON NORMALS: normal respiratory effort and clear to auscultation bilaterally AUSCULTATION: clear to auscultation bilaterally Cardio: COMMON NORMALS: no JVD, regular rate and regular rhythm RATE: regular rate RHYTHM: regular rhythm GI: COMMON NORMALS: normal to inspection, nondistended, normoactive bowel sounds Extremity: COMMON NORMALS: normal to inspection and full ROM Neuro: COMMON NORMALS: oriented x3 Course Vital Signs: Vital signs: Vital Signs Temperature 98.6 F 06/16/19 22:49 Pulse Rate 85 06/16/19 22:49 Respiratory Rate 18 06/16/19 22:49 Blood Pressure 170/101 06/16/19 22:49 Pulse Oximetry 96 06/16/19 23:14 Discharge Plan Discharge Prescriptions: No Action Latuda 80 mg tablet 80 mg PO BID Qty: 60 RF: 2 amlodipine 10 mg tablet 10 mg PO BID Qty: 60 RF: 1 Zofran 4 mg tablet 4 mg PO Q6H Qty: 10 RF: 0 albuterol sulfate 90 mcg/actuation aero powdr breath act w/sensor 2 inh INHALATION QID PRN (Reason: shortness of breath or wheezing) Qty: 1 RF: 0 Coding Level of Care Code ED Logger Driving Horses for Chg Fwshahana
[2019-06-16 23:36] LABS: Add Urine Culture? No; Add Urine Microscopic? YES; Bacteria Urine 1+; Bilirubin Urine Neg (NEGATIVE); Blood Urine Neg (Negative); Glucose Urine UA Norm (Normal); Ketones Urine Negative (Negative); Leukocyte Esterase Urine Negative (Negative); Nitrate Urine Negative (Negative); Protein Urine Neg (Negative); Squamous Epithelial Cell Urine 15-25 (0-5); Urine Appearance Cloudy (CLEAR); Urine Color Yellow (Yellow); Urobilinogen Urine Norm (Negative); pH Urine 5 (5-7)
[2019-06-16] MEDS: ondansetron 4 MG Tablet 8 MG PO (23:53)
[2019-06-16] MEDS: diphenoxylate/atropine Tablet 2 TAB PO (23:53)
== END 2019-06-17 00:01 | disposition home or self-care (01) ==
PROVIDERS: Emergency Provider Nurse Practitioner Family; PCP Nurse Practitioner Family
DX: R11.2 Nausea with vomiting, unspecified (principal); R19.7 Diarrhea, unspecified; Z87.891 Personal history of nicotine dependence
CPT/HCPCS: 12345; 81001; 99282; 99283; A9270; Q0162

== ENCOUNTER 2019-06-22 21:18 | Inpatient (IN) | payer MEDICAID, SELFPAY ==
[2019-04-25 15:07] VITALS: BP 170/101; BMI 55.8
[2019-06-22 21:19] VITALS: BP 153/99; PULSE 79; RESP 16; TEMP 36.8; O2SAT 95; BMI 54.8
[2019-06-22 21:50] LABS: Basophils # 0.1 10^3/uL (0.0-0.1); Basophils % 0.9 %; Eosinophils # 0.2 10^3/uL (0.0-0.8); Eosinophils % 2.7 %; Hematocrit 41.5 % (37.0-47.0); Hemoglobin 13.2 g/dL (11.5-15.3); Lymphocytes # 2.8 10^3/uL (0.8-4.8); Lymphocytes % 35.9 %; Mean Corpuscular HGB Conc 31.8 g/dL (30.0-36.0); Mean Corpuscular Hemoglobin 29.5 pg (28.0-34.0); Mean Corpuscular Volume 92.6 fL (81-99); Mean Platelet Volume 9.7 fL (7.4-10.4); Monocytes # 0.7 10^3/uL (0.2-0.9); Monocytes % 9.4 %; Neutrophils % 50.8 %; Nucleated Red Blood Cells % 0 %; Platelet Count 280 10^3/cmm (130-400); Red Blood Count 4.48 10^6/uL (4.1-5.3); Red Cell Distribution Width 12.9 % (12.1-15.1); White Blood Count 7.8 10^3/uL (4.0-10.0)
[2019-06-22 21:56] LABS: Urine Appearance Hazy (CLEAR); Urine Color Yellow (Yellow); pH Urine 5 (5-7)
[2019-06-22 21:57] LABS: Add Urine Microscopic? YES; Bilirubin Urine Neg (NEGATIVE); Blood Urine Neg (Negative); Glucose Urine UA Norm (Normal); Ketones Urine Negative (Negative); Leukocyte Esterase Urine Negative (Negative); Nitrate Urine Negative (Negative); Protein Urine Neg (Negative); Specific Gravity, Urine 1.025 (1.005-1.030); Urobilinogen Urine Norm (Negative)
[2019-06-22 22:03] LABS: Amphetamines Screen Urine Negative (Negative); Barbiturates Screen Urine Negative (Negative); Benzodiazepines Screen Urine Negative (Negative); Cocaine Screen Urine Negative (Negative); Opiate Screen Urine Negative (Negative); PCP Screen Urine Negative (Negative); THC Screen Urine Negative (Negative)
[2019-06-22 22:04] LABS: Add Urine Culture? No; Bacteria Urine 1+; RBC Urine 0-4 /hpf (0-2); Squamous Epithelial Cell Urine 25-40 (0-5)
[2019-06-22 22:06] LABS: Alanine Aminotransferase 25 U/L (0-33); Albumin Level 3.6 g/dL (3.5-5.2); Alkaline Phosphatase 48 IU/L (35-105); Anion Gap 15.9 (5-19); Aspartate Amino Transferase 24 U/L (0-32); Blood Urea Nitrogen 10 mg/dL (6-20); Calcium 9.9 mg/dL (8.5-10.5); Carbon Dioxide 26 mmol/L (22-29); Chloride 101 mmol/L (98-107); Globulin 3.6 g/dL (1.3-4.6); Glomerular Filtration Rate 76.6 mL/min (90-130); Glucose 183 mg/dL (65-115); Osmolality Calculated 289 mOsm/kg (285-295); Potassium 3.9 mmol/L (3.5-5.1); Sodium 139 mmol/L (136-145); Total Bilirubin 0.3 mg/dL (0.15-1.2); Total Protein 7.2 g/dL (6.6-8.7)
--- NOTE | 2019-06-22 22:11 | ED_ITS ---
HPI - Psych General: Chief Complaint: Psychiatric Symptoms Stated Complaint: DEPRESSION Time Seen by Provider: 06/22/19 21:24 History of Present Illness: HPI Narrative: 49-year-old female comes in complaining of life stressors causing suicidal ideation he has no specific plan. Does not do anything to harm herself at this point. Review of Systems Const: Denies: fever, chills, body aches, change in appetite, fatigue or malaise ENMT: Denies: throat pain, ear pain, nasal discharge or nasal congestion Card: Denies: chest pain, edema, shortness of breath on exertion or shortness of breath when lying down Resp: Denies: shortness of breath, productive cough or non-productive cough GI: Denies: abdominal pain, nausea, vomiting, vomiting blood, coffee grounds in vomit, diarrhea, constipation, bloating, blood in stool or black tarry stool : Denies: flank pain, difficulty urinating, painful urination, urinary frequency or urinary urgency Skin/Breast: Denies: rash or itching PFSH ED PFSH: Social History Smoking and tobacco status: former smoker Quit status (tobacco): has quit using tobacco Year quit tobacco: 2017 Second hand smoke exposure: Yes Smoking risk assessment/counseling performed?: Yes Tobacco counseling given: counseling >3 minutes Alcohol intake: never Desire information about substance/drug rehabilitation?: No Adopted: No Lives independently: Yes Household members: significant other Marital status: Number of children: 1 Current occupational status: disabled Current gender identity: Female Female Reproductive History: Date of last menstrual period: 05/02/19 Para: 1 Spontaneous abortions: No Physical Exam Const: COMMON NORMALS: no apparent distress GENERAL APPEARANCE: cooperative and comfortable ORIENTATION/CONSCIOUSNESS: Yes awake, Yes oriented to person, Yes oriented to place and Yes oriented to time HENMT: COMMON NORMALS: normocephalic, head/scalp atraumatic, hearing grossly normal bilaterally, external ears normal, EAC's normal, TM's normal bilaterally, nasal mucous membranes and turbinates normal, moist oral mucous membranes and oropharynx normal HEAD & SCALP: normocephalic and atraumatic NOSE: nasal mucous membranes and turbinates normal EXTERNAL EAR: Yes external ears normal EXTERNAL AUDITORY CANAL: EAC's normal TYMPANIC MEMBRANE: TM's normal bilaterally Eye: COMMON NORMALS: PERRL, EOMs intact bilaterally, conjunctivae normal and no scleral icterus CONJUNCTIVA: Yes conjunctivae normal PUPIL: Yes PERRL Neck/C-Spine: COMMON NORMALS: full ROM, no lymphadenopathy, supple and no JVD Lymph: LYMPHATIC: no lymphadenopathy noted and no lymphedema noted Resp: COMMON NORMALS: normal respiratory effort, no retractions, no use of accessory muscles and clear to auscultation bilaterally AUSCULTATION: clear to auscultation bilaterally Cardio: COMMON NORMALS: no JVD, regular rate, regular rhythm and no murmurs RATE: regular rate RHYTHM: regular rhythm GI: COMMON NORMALS: soft to palpation and no hepatosplenomegaly AUSCULTATION: Yes normoactive bowel sounds PALPATION: Yes soft, No tender, No guarding and Yes no hepatosplenomegaly Extremity: COMMON NORMALS: normal to inspection, normal capillary refill, no clubbing, cyanosis or edema, no calf tenderness and no pedal edema Neuro: SENSORIUM/ORIENTATION: Yes oriented to person, Yes oriented to place and Yes oriented to time Skin: COMMON NORMALS: no rashes or lesions noted GENERAL SKIN EXAM: no rashes or lesions noted MDM - Psych MDM Narrative: Medical decision making narrative: Reviewed findings with the patient discussed with Dr. aviles he will admit the patient to the MPU. Lab Data: Labs: Lab Results 06/22/19 06/22/19 06/22/19 Range/Units 21:40 21:40 21:43 WBC 7.8 (4.0-10.0) 10^3/ uL RBC 4.48 (4.1-5.3) 10^6/u L Hgb 13.2 (11.5-15.3) g/dL Hct 41.5 (37.0-47.0) % MCV 92.6 (81-99) fL MCH 29.5 (28.0-34.0) pg MCHC 31.8 (30.0-36.0) g/dL RDW 12.9 (12.1-15.1) % Plt Count 280 (130-400) 10^3/c mm MPV 9.7 (7.4-10.4) fL Neut % (Auto) 50.8 % Lymph % (Auto) 35.9 % Throckmorton % (Auto) 9.4 % Eos % (Auto) 2.7 % Baso % (Auto) 0.9 % Neut # (Auto) 4.0 (1.8-7.7) 10^3/u L Lymph # (Auto) 2.8 (0.8-4.8) 10^3/u L Throckmorton # (Auto) 0.7 (0.2-0.9) 10^3/u L Eos # (Auto) 0.2 (0.0-0.8) 10^3/u L Baso # (Auto) 0.1 (0.0-0.1) 10^3/u L Nucleated RBC % (a uto) 0 % Nucleated RBCs # 0.0 /100WBC Sodium (136-145) mmol/L Potassium (3.5-5.1) mmol/L Chloride (98-107) mmol/L Carbon Dioxide (22-29) mmol/L Anion Gap (5-19) BUN (6-20) mg/dL Creatinine (0.5-0.9) mg/dL GFR Calculation (90-130) mL/min Glucose (65-115) mg/dL Calculated Osmolal ity (285-295) mOsm/k g Calcium (8.5-10.5) mg/dL Total Bilirubin (0.15-1.2) mg/dL AST (0-32) U/L ALT (0-33) U/L Alkaline Phosphata se (35-105) IU/L Total Protein (6.6-8.7) g/dL Albumin (3.5-5.2) g/dL Globulin (1.3-4.6) g/dL Urine Color Yellow (Yellow) Urine Appearance Hazy A (CLEAR) Urine pH 5 (5-7) Ur Specific Gravit y 1.025 (1.005-1.030) Urine Protein Neg (Negative) Urine Glucose (UA) Norm (Normal) Urine Ketones Negative (Negative) Urine Blood Neg (Negative) Urine Nitrate Negative (Negative) Urine Bilirubin Neg (NEGATIVE) Urine Urobilinogen Norm (Negative) mg/dL Ur Leukocyte Michelle ase Negative (Negative) Urine RBC 0-4 H (0-2) /hpf Urine WBC None (0-5) /hpf Ur Squamous Epith Cells 25-40 H (0-5) Urine Bacteria 1+ H (NONE) Salicylates (3-10) mg/dL Urine Opiates Scre en Negative (Negative) ng/mL Acetaminophen (10-30) ug/mL Ur Barbiturates Sc reen Negative (Negative) ng/mL Ur Phencyclidine S crn Negative (Negative) ng/mL Ur Amphetamines Sc reen Negative (Negative) ng/mL U Benzodiazepines Scrn Negative (Negative) ng/mL Urine Cocaine Scre en Negative (Negative) ng/mL U Marijuana (THC) Screen Negative (Negative) ng/mL Ethyl Alcohol (0-10) mg/dL 06/22/19 Range/Units 21:43 WBC (4.0-10.0) 10^3/ uL RBC (4.1-5.3) 10^6/u L Hgb (11.5-15.3) g/dL Hct (37.0-47.0) % MCV (81-99) fL MCH (28.0-34.0) pg MCHC (30.0-36.0) g/dL RDW (12.1-15.1) % Plt Count (130-400) 10^3/c mm MPV (7.4-10.4) fL Neut % (Auto) % Lymph % (Auto) % Throckmorton % (Auto) % Eos % (Auto) % Baso % (Auto) % Neut # (Auto) (1.8-7.7) 10^3/u L Lymph # (Auto) (0.8-4.8) 10^3/u L Th[place]morton # (Auto) (0.2-0.9) 10^3/u L Eos # (Auto) (0.0-0.8) 10^3/u L Baso # (Auto) (0.0-0.1) 10^3/u L Nucleated RBC % (a uto) % Nucleated RBCs # /100WBC Sodium 139 (136-145) mmol/L Potassium 3.9 (3.5-5.1) mmol/L Chloride 101 (98-107) mmol/L Carbon Dioxide 26 (22-29) mmol/L Anion Gap 15.9 (5-19) BUN 10 (6-20) mg/dL Creatinine 0.8 (0.5-0.9) mg/dL GFR Calculation 76.6 L (90-130) mL/min Glucose 183 H (65-115) mg/dL Calculated Osmolal ity 289 (285-295) mOsm/k g Calcium 9.9 (8.5-10.5) mg/dL Total Bilirubin 0.3 (0.15-1.2) mg/dL AST 24 (0-32) U/L ALT 25 (0-33) U/L Alkaline Phosphata se 48 (35-105) IU/L Total Protein 7.2 (6.6-8.7) g/dL Albumin 3.6 (3.5-5.2) g/dL Globulin 3.6 (1.3-4.6) g/dL Urine Color (Yellow) Urine Appearance (CLEAR) Urine pH (5-7) Ur Specific Gravit y (1.005-1.030) Urine Protein (Negative) Urine Glucose (UA) (Normal) Urine Ketones (Negative) Urine Blood (Negative) Urine Nitrate (Negative) Urine Bilirubin (NEGATIVE) Urine Urobilinogen (Negative) mg/dL Ur Leukocyte Michelle ase (Negative) Urine RBC (0-2) /hpf Urine WBC (0-5) /hpf Ur Squamous Epith Cells (0-5) Urine Bacteria (NONE) Salicylates < 0.3 L (3-10) mg/dL Urine Opiates Scre en (Negative) ng/mL Acetaminophen < 5.0 L (10-30) ug/mL Ur Barbiturates Sc reen (Negative) ng/mL Ur Phencyclidine S crn (Negative) ng/mL Ur Amphetamines Sc reen (Negative) ng/mL U Benzodiazepines Scrn (Negative) ng/mL Urine Cocaine Scre en (Negative) ng/mL U Marijuana (THC) Screen (Negative) ng/mL Ethyl Alcohol < 10 (0-10) mg/dL Discharge Plan Discharge Admit Provider: Alex Mujica Clinical Impression: Suicidal ideation, Schizoaffective disorder, bipolar type Condition: Stable Discharge Orders: Discharge Order (Routine); Ordered 06/24/19 Ordered By: Alex Mujica Interventions: ED Discharge Assessment Last Done: 06/22/19 23:37 Discharge Date/Time: 06/23/19 00:45 Coding Level of Care Code ED Security Threat Analyst for Mandie Wei
[2019-06-22 22:27] LABS: Acetaminophen < 5.0 ug/mL (10-30); Alcohol Level < 10 mg/dL (0-10); Salicylate < 0.3 mg/dL (3-10)
[2019-06-22] MEDS: LORazepam 1 mg Tablet PO (23:17)
[2019-06-22] MEDS: acetaminophen 325 mg Tablet 650 MG PO (23:17)
[2019-06-23 00:59] VITALS: BP 124/88; PULSE 81; RESP 20; TEMP 36.8; O2SAT 96
--- NOTE | 2019-06-23 03:03 | PC.ADMIT ---
NO [id number] Admission Note: The patient,Joann Villavicencio,49 y/o, was given written information regarding hospital policies, unit procedures and contact persons. Patient's smoking status: former smoker. Vital Signs - 8 hr 06/22/19 21:19 06/23/19 00:59 Temperature 98.2 F 98.3 F Pulse Rate 81 Pulse Rate [Monitor] 79 Respiratory Rate 16 20 H Blood Pressure 124/88 Blood Pressure [Right Arm] 153/99 Pulse Oximetry 95 96
--- NOTE | 2019-06-23 03:04 | PC.NURSE ---
49 y/o obese WF, with hx of multiple hospitalizations. Hx of Schizoaffective disorder, bipolar type. Sister 2 weeks ago, from brain aneurysm. verbalizes she has increased depression. Pt called EMS, reporting she needed to come to the hospital, reported SI, without plan. reports she does not think her medication is working. Reports feelings sadness, low energy, fatigue. admits she has not been taking her Latuda as prescribed, missing doses because she sleeps a big part of the day. pt is calm and cooperative. Denies SI/HI/AVH. Continue to monitor. [ End ]
[2019-06-23 06:00] VITALS: BP 101/61; PULSE 74; RESP 17; TEMP 36.6; O2SAT 92
[2019-06-23] MEDS: acetaminophen 325 mg Tablet 650 MG PO ×2 (07:07→13:01)
[2019-06-23] MEDS: lurasidone 80 mg Tablet PO ×2 (07:55→16:50)
[2019-06-23] MEDS: lisinopril 10 mg Tablet PO (13:01)
[2019-06-23] MEDS: sertraline 50 mg Tablet PO (13:01)
[2019-06-23 13:47] VITALS: BP 124/84; PULSE 87; RESP 18; TEMP 36.6; O2SAT 97
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
[2019-06-23 22:00] VITALS: BP 106/68; PULSE 77; RESP 16; TEMP 36.9; O2SAT 93
[2019-06-24] MEDS: acetaminophen 325 mg Tablet 650 MG PO (00:56)
[2019-06-24 06:00] VITALS: BP 126/82; PULSE 72; RESP 17; TEMP 36.7; O2SAT 95
[2019-06-24] MEDS: lisinopril 10 mg Tablet PO (08:37)
[2019-06-24] MEDS: lurasidone 80 mg Tablet PO (08:37)
[2019-06-24] MEDS: sertraline 50 mg Tablet PO (08:37)
[2019-06-24 11:30] VITALS: BP 126/82; PULSE 72; RESP 17; TEMP 36.7; O2SAT 95
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
== END 2019-06-24 11:56 | disposition home or self-care (01) | DRG 885 ==
LOC: ER 21:34 → NP 23:14
PROVIDERS: Admitting Provider Psychiatry & Neurology Psychiatry; Emergency Provider Family Medicine; PCP Nurse Practitioner Family; Visit Provider Psychiatry & Neurology Psychiatry
DX: F32.0 Major depressive disorder, single episode, mild (principal); R45.851 Suicidal ideations; F20.9 Schizophrenia, unspecified; Z87.891 Personal history of nicotine dependence; Z79.811 Long term (current) use of aromatase inhibitors; Z79.84 Long term (current) use of oral hypoglycemic drugs
CPT/HCPCS: 12345; 80053; 80306; 80307; 81001; 85025; 99284

== ENCOUNTER 2019-06-22 21:18 | Emergency (ER) | payer MEDICAID, SELFPAY ==
[2019-04-25 15:07] VITALS: BP 170/101; BMI 55.8
== END 2019-06-23 00:45 | disposition admitted as inpatient to this hospital (09) ==
LOC: ER 06-29 16:09
PROVIDERS: Emergency Provider Family Medicine; PCP Nurse Practitioner Family
DX: Z01.89 Encounter for other specified special examinations (principal)
CPT/HCPCS: 80053; 80306; 80307; 81001; 85025; 99284; 99285

== ENCOUNTER → 2019-06-29 12:00 | Outpatient (BNVA) | payer MEDICAID, SELFPAY | PROVIDERS: PCP Nurse Practitioner Family; Visit Provider Psychiatry & Neurology Psychiatry | DX: F25.0 Schizoaffective disorder, bipolar type (principal); F33.2 Major depressive disorder, recurrent severe without psychotic features | CPT/HCPCS: 99213 ==

== ENCOUNTER → 2019-07-10 09:11 | Outpatient (BNVA) | payer MEDICAID, SELFPAY | PROVIDERS: PCP Nurse Practitioner Family; Visit Provider Psychiatry & Neurology Psychiatry | DX: F25.0 Schizoaffective disorder, bipolar type (principal) | CPT/HCPCS: 99213 ==

== ENCOUNTER 2019-07-11 21:33 | Emergency (ER) | payer MEDICAID, SELFPAY ==
[2019-04-25 15:07] VITALS: BP 170/101; BMI 55.8
[2019-07-11 21:39] VITALS: BP 137/104; PULSE 81; RESP 20; TEMP 36.7; O2SAT 96; BMI 54.8
--- NOTE | 2019-07-11 22:32 | W.ED.HA ---
HPI - Headache General: Chief Complaint: Headache Stated Complaint: migraine Time Seen by Provider: 07/11/19 22:32 Source: patient Mode of arrival: ambulatory Limitations: no limitations History of Present Illness: HPI Narrative: Patient comes in for concerns of headache. Patient states that she gets headaches daily and she believes it is from her Latuda. Patient usually takes Aleve for her headache but did not take it today. Patient appears well. Patient appears in no acute distress. Patient does report some posterior neck discomfort with her headache. Review of Systems General: Reports: 10 or more systems reviewed and unremarkable except in HPI and below Neuro: Reports: headache PFSH ED PFSH: Social History Smoking and tobacco status: never smoked Quit status (tobacco): has quit using tobacco Year quit tobacco: 2017 Second hand smoke exposure: Yes Smoking risk assessment/counseling performed?: Yes Tobacco counseling given: counseling >3 minutes Alcohol intake: never Desire information about substance/drug rehabilitation?: No Adopted: No Lives independently: Yes Household members: significant other Marital status: Number of children: 1 Current occupational status: disabled Current gender identity: Female Female Reproductive History: Date of last menstrual period: 05/02/19 Para: 1 Spontaneous abortions: No Physical Exam Const: COMMON NORMALS: no apparent distress and oriented x3 GENERAL APPEARANCE: cooperative HENMT: COMMON NORMALS: normocephalic, TM's normal bilaterally and external nose normal HEAD & SCALP: normal to inspection and normocephalic NOSE: external nose normal TYMPANIC MEMBRANE: TM's normal bilaterally MOUTH: oral and palatal mucosa normal THROAT: posterior oropharynx normal Eye: GENERAL EYE: normal appearance of both eyes Neck/C-Spine: COMMON NORMALS: full ROM CERVICAL SPINE: Yes paracervical muscle tenderness Lymph: LYMPHATIC: no lymphadenopathy noted Chest: COMMONS NORMALS: inspection of chest normal Resp: COMMON NORMALS: normal respiratory effort EFFORT & INSPECTION: Yes able to speak in complete sentences Cardio: COMMON NORMALS: regular rate and regular rhythm RATE: regular rate RHYTHM: regular rhythm GI: COMMON NORMALS: non-tender : COMMON NORMALS: Yes no CVA tenderness BLADDER/KIDNEY EXAM: Yes no CVA tenderness Back/Pelvis: COMMON NORMALS: no CVA tenderness and thoracic and lumbar spine normal to inspection Extremity: COMMON NORMALS: normal to inspection Neuro: COMMON NORMALS: oriented x3 and moves all extremities Psych: COMMON NORMALS: mental status grossly normal and cooperative Skin: COMMON NORMALS: no rashes or lesions noted GENERAL SKIN EXAM: no rashes or lesions noted Course Vital Signs: Vital signs: Vital Signs Temperature 98.0 F 07/11/19 21:39 Pulse Rate 81 07/11/19 21:39 Respiratory Rate 20 H 07/11/19 21:39 Blood Pressure 137/104 07/11/19 21:39 Pulse Oximetry 96 07/11/19 21:39 MDM - Headache MDM Narrative: Medical decision making narrative: Patient comes in today with complaints of headache. This is not new for patient she usually has headaches. Patient thinks that her headache is due to her Latuda. On exam patient has some muscle tenderness to the posterior neck. Respirations are even lungs are clear to auscultation. Skin is warm and dry. Differential diagnosis includes migraine, tension headache, adverse drug effect. Patient was treated for her headache with Toradol and orphenadrine. Encourage plenty of fluids and continue medication. Recommend patient talk with her psychiatrist regarding her concerns for headache caused by her Latuda. Patient reports understanding and well discussed this further with her psychiatrist. Discharge Plan Discharge Patient Disposition: Home, Self-Care Clinical Impression: Headache Qualifiers: Headache type: unspecified Headache chronicity pattern: episodic headache Intractability: not intractable Qualified Code(s): R51 - Headache Condition: Stable Prescriptions: No Action loratadine [Claritin] 10 mg tablet 10 mg PO DAILY RF: 0 geriatric [id number] Tablet 1 tab PO DAILY RF: 0 Latuda 80 mg tablet 80 mg PO BID Qty: 60 RF: 2 ondansetron HCl [Zofran] 4 mg tablet 4 mg PO Q6H Qty: 10 RF: 0 lisinopril See Rx Instructions .ROUTE .COMPLEX RF: 0 Discharge Orders: Discharge Order (Routine); Ordered 07/11/19 Ordered By: Dileep Cano Referrals: [facility] [Other] Evonne Vicente [Primary Care Provider] - Discharge Diet: Usual diet Discharge Activity: Increase activity as tolerated Patient Instructions: Acute Headache (ED) Activity Restrictions/Additional Instructions: Drink plenty of fluids Discuss with psychiatrist regarding you concerns that Latuda is causing your headaches Return to ER for worsening symptoms Coding Level of Care Code ED Bench Hand Machine for Chg Fwd Exam Comprehensive
[2019-07-11] MEDS: ketorolac 30 mg/mL INJ IM (23:41)
[2019-07-11] MEDS: orphenadrine 30 mg/mL Inj 2 mL 60 MG IM (23:41)
[2019-07-12 00:04] VITALS: BP 128/88; PULSE 86; RESP 16; O2SAT 97
== END 2019-07-12 00:05 | disposition home or self-care (01) ==
PROVIDERS: Emergency Provider Nurse Practitioner Family; PCP Nurse Practitioner Family
DX: G44.219 Episodic tension-type headache, not intractable (principal); F25.0 Schizoaffective disorder, bipolar type; Z87.891 Personal history of nicotine dependence
CPT/HCPCS: 12345; 96372; 99281; 99283; J1885; J2360

== ENCOUNTER 2019-07-25 20:17 | Emergency (ER) | payer MEDICAID, SELFPAY ==
[2019-04-25 15:07] VITALS: BP 170/101; BMI 55.8
[2019-07-25 20:26] VITALS: BP 160/105; PULSE 80; RESP 20; TEMP 36.8; O2SAT 96; BMI 55.7
[2019-07-25 21:30] LABS: Basophils % 0.6 %; Eosinophils # 0.2 10^3/uL (0.0-0.8); Eosinophils % 2.5 %; Hematocrit 37.6 % (37.0-47.0); Hemoglobin 12.3 g/dL (11.5-15.3); Lymphocytes # 2.3 10^3/uL (0.8-4.8); Lymphocytes % 33.7 %; Mean Corpuscular HGB Conc 32.7 g/dL (30.0-36.0); Mean Corpuscular Hemoglobin 29.6 pg (28.0-34.0); Mean Corpuscular Volume 90.4 fL (81-99); Mean Platelet Volume 9.8 fL (7.4-10.4); Monocytes # 0.7 10^3/uL (0.2-0.9); Neutrophils # 3.6 10^3/uL (1.8-7.7); Neutrophils % 52.8 %; Nucleated Red Blood Cells % 0 %; Platelet Count 265 10^3/cmm (130-400); Red Blood Count 4.16 10^6/uL (4.1-5.3); Red Cell Distribution Width 13.2 % (12.1-15.1); White Blood Count 6.8 10^3/uL (4.0-10.0)
--- NOTE | 2019-07-25 21:32 | ED_ITS ---
HPI - Abdominal Pain General: Chief Complaint: Abdominal Pain Stated Complaint: ABD PAIN Time Seen by Provider: 07/25/19 20:55 Source: patient Mode of arrival: ambulatory Limitations: no limitations History of Present Illness: HPI narrative: Patient is a 49-year-old female who is well-known to the ED states she has had abdominal pain along with vomiting and diarrhea for the last week. States the diarrhea and vomiting is watery in nature and she has diffuse abdominal cramping with the worst being in the right upper quadrant. She denies any fevers. Patient is in minimal pain currently. MD elicited complaint: abdominal pain Pain Consistency: constant Location: RUQ Severity: mild Radiation: none Exacerbating factors: nothing Relieving factors: nothing Associated Symptoms: Reports nausea and vomiting; Denies chills, diarrhea, dysuria and fever(s) Related Data: Date of Last Menstrual Period: 05/02/19 Review of Systems Const: Denies: fever, chills, body aches or change in appetite Eyes: Denies: blurry vision or eye discomfort ENMT: Denies: throat pain or dental pain Card: Denies: chest pain Resp: Denies: shortness of breath GI: Reports: abdominal pain, nausea and vomiting; Denies: diarrhea : Denies: painful urination Musc: Denies: neck pain or back pain Skin/Breast: Denies: rash Neuro: Denies: headache Psych: Denies: depression Dominic/Lymph: Denies: easy bruising All/Imm: Denies: hives PFSH ED PFSH: Family History Mother Hypertension Hyperlipidemia Diabetes Grandmother Diabetes Grandfather Diabetes Father , due to complications of colon cancer Cancer Colon Social History Smoking and tobacco status: never smoked Quit status (tobacco): has quit using tobacco Year quit tobacco: 2017 Second hand smoke exposure: Yes Smoking risk assessment/counseling performed?: Yes Tobacco counseling given: counseling >3 minutes Alcohol intake: never Desire information about substance/drug rehabilitation?: No Adopted: No Lives independently: Yes Household members: significant other Marital status: Number of children: 1 Current occupational status: disabled Current gender identity: Female Female Reproductive History: Date of last menstrual period: 05/02/19 Para: 1 Spontaneous abortions: No Physical Exam Const: COMMON NORMALS: no apparent distress, oriented x3 and healthy appearing HENMT: COMMON NORMALS: normocephalic and head/scalp atraumatic HEAD & SCALP: normocephalic and atraumatic Eye: COMMON NORMALS: PERRL and EOMs intact bilaterally PUPIL: Yes PERRL Neck/C-Spine: COMMON NORMALS: full ROM and supple Chest: COMMONS NORMALS: inspection of chest normal and palpation of chest normal Resp: COMMON NORMALS: normal respiratory effort, no retractions, no use of accessory muscles and clear to auscultation bilaterally AUSCULTATION: clear to auscultation bilaterally Cardio: COMMON NORMALS: regular rate, regular rhythm and no murmurs RATE: regular rate RHYTHM: regular rhythm GI: COMMON NORMALS: normal to inspection, nondistended, normoactive bowel sounds, soft to palpation, non-tender and no masses PALPATION: Yes soft Extremity: COMMON NORMALS: normal to inspection and full ROM Neuro: COMMON NORMALS: oriented x3, moves all extremities and no focal motor deficits Psych: COMMON NORMALS: mental status grossly normal, thought process normal and cooperative THOUGHT PROCESS: normal thought process Skin: COMMON NORMALS: no rashes or lesions noted and no wounds GENERAL SKIN EXAM: no rashes or lesions noted Course Vital Signs: Vital signs: Vital Signs Temperature 98.3 F 07/25/19 20:26 Pulse Rate 80 07/25/19 20:26 Respiratory Rate 16 07/25/19 21:39 Blood Pressure 160/105 07/25/19 20:26 Pulse Oximetry 96 07/25/19 20:26 MDM - Abdominal Pain MDM Narrative: Medical decision making narrative: Patient presents here with vomiting along with diffuse abdominal cramping. Her lab work is normal and she has no signs of cholecystitis. Abdominal exam here is benign with no tenderness. She has had no vomiting here. Will prescribe her Zofran for home and she is stable for discharge. Lab Data: Labs: Lab Results 07/25/19 07/25/19 07/25/19 Range/Units 21:18 21:18 21:18 WBC 6.8 (4.0-10.0) 10^3/ uL RBC 4.16 (4.1-5.3) 10^6/u L Hgb 12.3 (11.5-15.3) g/dL Hct 37.6 (37.0-47.0) % MCV 90.4 (81-99) fL MCH 29.6 (28.0-34.0) pg MCHC 32.7 (30.0-36.0) g/dL RDW 13.2 (12.1-15.1) % Plt Count 265 (130-400) 10^3/c mm MPV 9.8 (7.4-10.4) fL Neut % (Auto) 52.8 % Lymph % (Auto) 33.7 % [place] % (Auto) 10.0 % Eos % (Auto) 2.5 % Baso % (Auto) 0.6 % Neut # (Auto) 3.6 (1.8-7.7) 10^3/u L Lymph # (Auto) 2.3 (0.8-4.8) 10^3/u L [place] # (Auto) 0.7 (0.2-0.9) 10^3/u L Eos # (Auto) 0.2 (0.0-0.8) 10^3/u L Baso # (Auto) 0.0 (0.0-0.1) 10^3/u L Nucleated RBC % (a uto) 0 % Nucleated RBCs # 0.0 /100WBC Sodium 139 (136-145) mmol/L Potassium 4.2 (3.5-5.1) mmol/L Chloride 99 (98-107) mmol/L Carbon Dioxide 28 (22-29) mmol/L Anion Gap 16.2 (5-19) BUN 10 (6-20) mg/dL Creatinine 0.9 (0.5-0.9) mg/dL GFR Calculation 66.8 L (90-130) mL/min Glucose 137 H (65-115) mg/dL Calculated Osmolal ity 286 (285-295) mOsm/k g Calcium 10.4 (8.5-10.5) mg/dL Total Bilirubin 0.4 (0.15-1.2) mg/dL AST 23 (0-32) U/L ALT 23 (0-33) U/L Alkaline Phosphata se 53 (35-105) IU/L Total Protein 7.0 (6.6-8.7) g/dL Albumin 4.0 (3.5-5.2) g/dL Globulin 3.0 (1.3-4.6) g/dL Lipase 30 (13-60) U/L HCG, Qual Negative (Negative) Urine Color (Yellow) Urine Appearance (CLEAR) Urine pH (5-7) Ur Specific Gravit y (1.005-1.030) Urine Protein (Negative) Urine Glucose (UA) (Normal) Urine Ketones (Negative) Urine Blood (Negative) Urine Nitrate (Negative) Urine Bilirubin (NEGATIVE) Urine Urobilinogen (Negative) mg/dL Ur Leukocyte Michelle ase (Negative) Urine RBC (0-2) /hpf Urine WBC (0-5) /hpf Ur Squamous Epith Cells (0-5) Urine Bacteria (NONE) 07/25/19 Range/Units 21:30 WBC (4.0-10.0) 10^3/ uL RBC (4.1-5.3) 10^6/u L Hgb (11.5-15.3) g/dL Hct (37.0-47.0) % MCV (81-99) fL MCH (28.0-34.0) pg MCHC (30.0-36.0) g/dL RDW (12.1-15.1) % Plt Count (130-400) 10^3/c mm MPV (7.4-10.4) fL Neut % (Auto) % Lymph % (Auto) % [place] % (Auto) % Eos % (Auto) % Baso % (Auto) % Neut # (Auto) (1.8-7.7) 10^3/u L Lymph # (Auto) (0.8-4.8) 10^3/u L [place] # (Auto) (0.2-0.9) 10^3/u L Eos # (Auto) (0.0-0.8) 10^3/u L Baso # (Auto) (0.0-0.1) 10^3/u L Nucleated RBC % (a uto) % Nucleated RBCs # /100WBC Sodium (136-145) mmol/L Potassium (3.5-5.1) mmol/L Chloride (98-107) mmol/L Carbon Dioxide (22-29) mmol/L Anion Gap (5-19) BUN (6-20) mg/dL Creatinine (0.5-0.9) mg/dL GFR Calculation (90-130) mL/min Glucose (65-115) mg/dL Calculated Osmolal ity (285-295) mOsm/k g Calcium (8.5-10.5) mg/dL Total Bilirubin (0.15-1.2) mg/dL AST (0-32) U/L ALT (0-33) U/L Alkaline Phosphata se (35-105) IU/L Total Protein (6.6-8.7) g/dL Albumin (3.5-5.2) g/dL Globulin (1.3-4.6) g/dL Lipase (13-60) U/L HCG, Qual (Negative) Urine Color Yellow (Yellow) Urine Appearance Clear (CLEAR) Urine pH 6 (5-7) Ur Specific Gravit y 1.015 (1.005-1.030) Urine Protein Neg (Negative) Urine Glucose (UA) Norm (Normal) Urine Ketones Negative (Negative) Urine Blood Neg (Negative) Urine Nitrate Negative (Negative) Urine Bilirubin Neg (NEGATIVE) Urine Urobilinogen Norm (Negative) mg/dL Ur Leukocyte Michelle ase Negative (Negative) Urine RBC 5-10 H (0-2) /hpf Urine WBC 5-10 H (0-5) /hpf Ur Squamous Epith Cells 10-15 H (0-5) Urine Bacteria 1+ H (NONE) Discharge Plan Discharge Patient Disposition: Home, Self-Care Clinical Impression: Abdominal pain Qualifiers: Abdominal location: generalized Qualified Code(s): R10.84 - Generalized abdominal pain Vomiting Qualifiers: Vomiting type: unspecified Vomiting Intractability: non-intractable Nausea presence: with nausea Qualified Code(s): R11.2 - Nausea with vomiting, unspecified Condition: Stable Prescriptions: New Zofran 4 mg tablet 4 mg PO QID PRN (Reason: nausea and vomiting) Qty: 14 RF: 0 No Action geriatric [id number]-ipmj-[id number] Tablet 1 tab PO DAILY RF: 0 lisinopril 10 mg tablet 10 mg PO DAILY RF: 0 Latuda 80 mg tablet 80 mg PO BID Qty: 60 RF: 2 Tylenol 325 mg Tablet 325 mg PO QID PRN (Reason: Pain) RF: 0 ondansetron HCl [Zofran] 4 mg tablet 4 mg PO Q6H Qty: 10 RF: 0 Discharge Orders: Discharge Order (Routine); Ordered 07/25/19 Ordered By: Jayashree iKrkland Referrals: [facility] [Other] Evonne Vicente [Primary Care Provider] - Discharge Diet: Advance as tolerated Discharge Activity: Resume usual activity Patient Instructions: Abdominal Pain (ED) Coding Level of Care Code ED Photo Equipment Technician for Chg Fwd Exam Comprehensive
[2019-07-25] MEDS: sodium chloride 0.9% 1,000 ML 999 ML IV (21:37)
[2019-07-25] MEDS: diphenoxylate/atropine Tablet 1 TAB PO (21:38)
[2019-07-25 21:39] VITALS: RESP 16
[2019-07-25] MEDS: ondansetron 2 mg/ML SDV 2 mL 4 MG IVP (21:39)
[2019-07-25] MEDS: morphine 4 mg/mL SDV 1 mL IVP (21:39)
[2019-07-25 21:58] LABS: Bilirubin Urine Neg (NEGATIVE); Blood Urine Neg (Negative); Glucose Urine UA Norm (Normal); Ketones Urine Negative (Negative); Leukocyte Esterase Urine Negative (Negative); Nitrate Urine Negative (Negative); Protein Urine Neg (Negative); Specific Gravity, Urine 1.015 (1.005-1.030); Urine Appearance Clear (CLEAR); Urine Color Yellow (Yellow); Urobilinogen Urine Norm (Negative); pH Urine 6 (5-7)
--- NOTE | 2019-07-25 22:05 | PC.NURSE ---
I agree with Koki, Manager Emergency assessment
[2019-07-25 22:06] LABS: Bacteria Urine 1+
[2019-07-25 22:07] LABS: HCG, Serum Qual Negative (Negative)
[2019-07-25 22:14] LABS: Alanine Aminotransferase 23 U/L (0-33); Alkaline Phosphatase 53 IU/L (35-105); Anion Gap 16.2 (5-19); Aspartate Amino Transferase 23 U/L (0-32); Blood Urea Nitrogen 10 mg/dL (6-20); Calcium 10.4 mg/dL (8.5-10.5); Carbon Dioxide 28 mmol/L (22-29); Chloride 99 mmol/L (98-107); Glomerular Filtration Rate 66.8 mL/min (90-130); Glucose 137 mg/dL (65-115); Lipase 30 U/L (13-60); Osmolality Calculated 286 mOsm/kg (285-295); Potassium 4.2 mmol/L (3.5-5.1); Sodium 139 mmol/L (136-145); Total Bilirubin 0.4 mg/dL (0.15-1.2)
[2019-07-25 22:36] VITALS: BP 143/81; PULSE 70; RESP 16; O2SAT 96
== END 2019-07-25 22:37 | disposition home or self-care (01) ==
PROVIDERS: Emergency Medicine; Emergency Provider Emergency Medicine; PCP Nurse Practitioner Family
DX: R10.84 Generalized abdominal pain (principal); R11.2 Nausea with vomiting, unspecified; Z87.891 Personal history of nicotine dependence
CPT/HCPCS: 12345; 80053; 81001; 83690; 84703; 85025; 96360; 96361; 96374; 96375; 99283; J2270; J2405; J7030

== ENCOUNTER → 2019-07-26 08:37 | Outpatient (BNVA) | payer MEDICAID, SELFPAY | PROVIDERS: PCP Nurse Practitioner Family; Visit Provider Psychiatry & Neurology Psychiatry | DX: F25.0 Schizoaffective disorder, bipolar type (principal) | CPT/HCPCS: 99213 ==

== ENCOUNTER 2019-08-01 21:55 | Emergency (ER) | payer MEDICAID, SELFPAY ==
[2019-04-25 15:07] VITALS: BP 170/101; BMI 55.8
[2019-08-01 21:56] VITALS: BP 152/109; PULSE 85; RESP 18; TEMP 36.4; O2SAT 96; BMI 55.3
--- NOTE | 2019-08-01 22:12 | ED_ITS ---
HPI - Psych General: Chief Complaint: Psychiatric Symptoms Stated Complaint: MHE Time Seen by Provider: 08/01/19 21:58 History of Present Illness: HPI Narrative: Joann came via ambulance with complaint of just being very anxious tonight and getting mad with Manish who she lives with. Joann is well-known to me. Joann told nurses she was suicidal after further questioning patient says she is not suicidal she has had suicidal thoughts but she has had those a good part of her life she is not going to kill her self she just got mad because her stimulus checks have not come in and are starting to run out of money and they spent their disability money and food stamps thinking they are going get her stimulus checks and so she is frustrated complaint: feels depressed Onset (ago): year(s) Duration: changing over time History of same: Yes Relieving factors: none Exacerbating factors: none Context: significant life stressor (Not receiving stimulus check) Associated psychiatric symptoms: depression Associated symptoms: Reports no associated symptoms and depression Treatments prior to arrival: none If self harm: admits thoughts of self harm Review of Systems Const: Denies: fever, chills or body aches Eyes: Denies: change in vision or blurry vision ENMT: Denies: throat pain or nasal congestion Card: Denies: chest pain or shortness of breath on exertion Resp: Denies: shortness of breath, productive cough or non-productive cough GI: Denies: abdominal pain, nausea or vomiting Musc: Denies: extremity pain Skin/Breast: Denies: rash Neuro: Denies: headache Psych: Reports: anxiety, depression, mood swings and panic attacks Dominic/Lymph: Denies: easy bruising [facility] ED PFSH: Social History Smoking and tobacco status: never smoked Quit status (tobacco): has quit using tobacco Year quit tobacco: 2017 Second hand smoke exposure: Yes Smoking risk assessment/counseling performed?: Yes Tobacco counseling given: counseling >3 minutes Alcohol intake: never Desire information about substance/drug rehabilitation?: No Adopted: No Lives independently: Yes Household members: significant other Marital status: Number of children: 1 Current occupational status: disabled Current gender identity: Female Female Reproductive History: Date of last menstrual period: 05/02/19 Para: 1 Spontaneous abortions: No Physical Exam Const: COMMON NORMALS: no apparent distress, average body habitus and oriented x3 HENMT: COMMON NORMALS: normocephalic HEAD & SCALP: normal to inspection and normocephalic FACE & SINUS: normal facial exam Eye: COMMON NORMALS: conjunctivae normal GENERAL EYE: normal appearance of both eyes CONJUNCTIVA: Yes conjunctivae normal Neck/C-Spine: COMMON NORMALS: no JVD Chest: COMMONS NORMALS: inspection of chest normal Resp: COMMON NORMALS: normal respiratory effort and clear to auscultation bilaterally AUSCULTATION: clear to auscultation bilaterally Cardio: COMMON NORMALS: no JVD, regular rate and regular rhythm RATE: regular rate RHYTHM: regular rhythm GI: COMMON NORMALS: normal to inspection, nondistended, normoactive bowel sounds Extremity: COMMON NORMALS: normal to inspection and full ROM Neuro: COMMON NORMALS: oriented x3 Psych: OTHER: I talked with Joann at length feel very comfortable visiting with Joann and she feels comfortable visiting with me. Not suicidal. She said she has had thoughts about suicide her whole life and this is no different. She said she would never really hurt her self. She just feels she needs something to help her with her anxiety that she is feeling right now because of money issues she also has questions about her medication she is on. She actually feels fine she feels like she can go home just have something to help with anxiety and she has been on Ativan at one time MDM - Psych 2 MDM Narrative: Medical decision making narrative: Discussed case with Dr. Shea and we agreed on a plan patient will follow-up with [facility] as scheduled sees Dr. Ariza at 1045 him Discharge Plan Discharge Prescriptions: No Action geriatric [id number]-[id number]-[id number] Tablet 1 tab PO DAILY RF: 0 lisinopril 10 mg tablet 10 mg PO DAILY RF: 0 Latuda 80 mg tablet 80 mg PO BID Qty: 60 RF: 2 acetaminophen [Tylenol] 325 mg Tablet 325 mg PO QID PRN (Reason: Pain) RF: 0 ondansetron HCl [Zofran] 4 mg tablet 4 mg PO QID PRN (Reason: nausea and vomiting) Qty: 14 RF: 0 ondansetron HCl [Zofran] 4 mg tablet 4 mg PO Q6H Qty: 10 RF: 0 Coding Level of Care Code ED Tank Welder for Chg Fwd Exam Comprehensive
[2019-08-01 22:30] VITALS: RESP 18
[2019-08-01] MEDS: LORazepam 1 mg Tablet PO (22:32)
== END 2019-08-01 22:30 | disposition home or self-care (01) ==
LOC: ER 22:32
PROVIDERS: Emergency Provider Nurse Practitioner Family; PCP Nurse Practitioner Family
DX: F41.9 Anxiety disorder, unspecified (principal); Z87.891 Personal history of nicotine dependence
CPT/HCPCS: 12345; 99281; 99283

== ENCOUNTER → 2019-08-02 07:51 | Outpatient (BNVA) | payer MEDICAID, SELFPAY | PROVIDERS: PCP Nurse Practitioner Family; Visit Provider Psychiatry & Neurology Psychiatry | DX: F25.0 Schizoaffective disorder, bipolar type (principal); F60.9 Personality disorder, unspecified | CPT/HCPCS: 99214 ==

== ENCOUNTER 2019-08-05 22:17 | Emergency (ER) | payer MEDICAID, SELFPAY ==
[2019-04-25 15:07] VITALS: BP 170/101; BMI 55.8
[2019-08-05 22:20] VITALS: BP 123/84; PULSE 81; RESP 18; TEMP 36.5; O2SAT 80; BMI 55.3
--- NOTE | 2019-08-05 22:27 | W.ED.GENADLT ---
HPI - General Adult General: Chief complaint: General Medical Stated complaint: HEAD PAIN Time Seen by Provider: 08/05/19 22:23 History of Present Illness: HPI narrative: Patient is a 49-year-old female who comes to the ED via ambulance with headache and blood pressure concerns. Patient says tonight she started getting headache at was a 10 out of 10 and the pain was located in the forehead. She took naproxen before coming to the ED and she now states her headache is probably 2-3 out of 10. She does not want any treatment or med for her headache. Patient also said she felt like her blood pressure was elevated at home but did not take her own blood pressure. Patient said that while in the ambulance her blood pressure was approximately 150/100. Patient also said she is pre-diabetic and is concerned about her blood sugar. She says she has a little bit of nausea. Denies fever, shortness of breath, chest pain, abdominal pain, bladder or bowel symptoms. Associated symptoms: Reports headache(s) and nausea; Deny chest pain, dyspnea, rash, palpitations or vomiting Review of Systems Const: Denies: fever, chills or fatigue Eyes: Denies: change in vision or eye discomfort ENMT: Reports: nasal discharge (due to allergies) and nasal congestion (due to allergies); Denies: throat pain or painful swallowing Card: Denies: chest pain, palpitations, edema, swelling of feet/ankles, shortness of breath on exertion or shortness of breath when lying down Resp: Denies: shortness of breath, productive cough or non-productive cough GI: Reports: nausea; Denies: abdominal pain, vomiting, diarrhea, constipation or blood in stool : Denies: flank pain, painful urination or blood in urine Musc: Denies: neck pain, back pain or extremity swelling Skin/Breast: Denies: rash or new lesion Neuro: Reports: headache; Denies: numbness in extremities or weakness in extremities PFS ED PFSH: Family History Mother Hypertension Hyperlipidemia Diabetes Grandmother Diabetes Grandfather Diabetes Father , due to complications of colon cancer Cancer Colon Social History Smoking and tobacco status: former smoker Quit status (tobacco): has quit using tobacco Year quit tobacco: 2017 Second hand smoke exposure: Yes Smoking risk assessment/counseling performed?: Yes Tobacco counseling given: counseling >3 minutes Alcohol intake: never Desire information about substance/drug rehabilitation?: No Adopted: No Lives independently: Yes Household members: significant other Marital status: Number of children: 1 Current occupational status: disabled Current gender identity: Female Female Reproductive History: Date of last menstrual period: 05/02/19 Para: 1 Spontaneous abortions: No Physical Exam Const: COMMON NORMALS: oriented x3 HENMT: COMMON NORMALS: normocephalic HEAD & SCALP: normocephalic MOUTH: oral and palatal mucosa normal THROAT: posterior oropharynx normal and uvula midline Neck/C-Spine: COMMON NORMALS: supple GENERAL: Yes normal visual inspection Resp: COMMON NORMALS: normal respiratory effort, no retractions, no use of accessory muscles and clear to auscultation bilaterally AUSCULTATION: clear to auscultation bilaterally Cardio: COMMON NORMALS: regular rate, regular rhythm, S1 normal heart sound, S2 normal heart sound, no gallops, no clicks, no murmurs and peripheral pulses 2+ throughout RATE: regular rate RHYTHM: regular rhythm HEART SOUNDS: S1 normal and S2 normal PERIPHERAL PULSES: pulses 2+ throughout GI: COMMON NORMALS: normal to inspection, nondistended, normoactive bowel sounds, soft to palpation, non-tender and no masses PALPATION: Yes soft : COMMON NORMALS: Yes no CVA tenderness BLADDER/KIDNEY EXAM: Yes no CVA tenderness Back/Pelvis: COMMON NORMALS: no CVA tenderness Neuro: COMMON NORMALS: oriented x3, CN's II-XII intact bilaterally, moves all extremities, no focal motor deficits and no sensory deficits noted SENSORY EXAM: Yes extremities (intact) MOTOR EXAM: strength 5/5 throughout Course Vital Signs: Vital signs: Vital Signs Temperature 97.7 F 08/05/19 22:20 Pulse Rate 78 08/06/19 00:07 Respiratory Rate 16 08/06/19 00:07 Blood Pressure 128/74 08/06/19 00:07 Pulse Oximetry 99 08/06/19 00:07 MDM - General Adult MDM Narrative: Medical decision making narrative: Patient is a 49-year-old female who comes to the ED via ambulance for headache and elevated blood pressure and nausea. Patient said her blood pressure was approximately 150/100 when the ambulance arrived. Patient took Aleve before coming to the ED and her headache greatly improved. Physical exam was normal and showed patient in no acute distress or pain. Neurological exam was normal as well. Patient's blood pressure on arriving to the unit was 123/84 with a pulse of 81. Patient was given Zofran while on the unit and nausea improved. Patient had no other pain or symptoms while here in the ED. CBC, CMP were unremarkable. Patient was discharged and told to follow-up PCP in 7 to 10 days for reevaluation. Patient understood and agreed with plan. Lab Data: Attestation: I reviewed the patient's lab results. Labs: Lab Results 08/05/19 08/05/19 Range/Units 22:30 22:30 WBC 7.8 (4.0-10.0) 10^3/ uL RBC 4.01 L (4.1-5.3) 10^6/u L Hgb 12.1 (11.5-15.3) g/dL Hct 37.5 (37.0-47.0) % MCV 93.5 (81-99) fL MCH 30.2 (28.0-34.0) pg MCHC 32.3 (30.0-36.0) g/dL RDW 13.8 (12.1-15.1) % Plt Count 250 (130-400) 10^3/c mm MPV 10.1 (7.4-10.4) fL Neut % (Auto) 47.2 % Lymph % (Auto) 39.3 % [place] % (Auto) 10.2 % Eos % (Auto) 2.2 % Baso % (Auto) 0.5 % Neut # (Auto) 3.7 (1.8-7.7) 10^3/u L Lymph # (Auto) 3.1 (0.8-4.8) 10^3/u L [place] # (Auto) 0.8 (0.2-0.9) 10^3/u L Eos # (Auto) 0.2 (0.0-0.8) 10^3/u L Baso # (Auto) 0.0 (0.0-0.1) 10^3/u L Nucleated RBC % (a uto) 0 % Nucleated RBCs # 0.0 /100WBC Sodium 139 (136-145) mmol/L Potassium 4.2 (3.5-5.1) mmol/L Chloride 100 (98-107) mmol/L Carbon Dioxide 25 (22-29) mmol/L Anion Gap 18.2 (5-19) BUN 11 (6-20) mg/dL Creatinine 0.8 (0.5-0.9) mg/dL GFR Calculation 76.6 L (90-130) mL/min Glucose 159 H (65-115) mg/dL Calculated Osmolal ity 287 (285-295) mOsm/k g Calcium 10.1 (8.5-10.5) mg/dL Total Bilirubin 0.3 (0.15-1.2) mg/dL AST 26 (0-32) U/L ALT 27 (0-33) U/L Alkaline Phosphata se 47 (35-105) IU/L Total Protein 7.3 (6.6-8.7) g/dL Albumin 4.3 (3.5-5.2) g/dL Globulin 3.0 (1.3-4.6) g/dL Discharge Plan Discharge Patient Disposition: Home, Self-Care Clinical Impression: Nausea Headache Qualifiers: Headache type: unspecified Headache chronicity pattern: acute headache Intractability: not intractable Qualified Code(s): R51 - Headache Condition: Stable Prescriptions: No Action geriatric [id number] Tablet 1 tab PO DAILY RF: 0 lisinopril 10 mg tablet 10 mg PO DAILY RF: 0 Latuda 80 mg tablet 80 mg PO BID Qty: 60 RF: 2 buspirone 5 mg tablet 5 mg PO TID Qty: 90 RF: 2 acetaminophen [Tylenol] 325 mg Tablet 325 mg PO QID PRN (Reason: Pain) RF: 0 ondansetron HCl [Zofran] 4 mg tablet 4 mg PO QID PRN (Reason: nausea and vomiting) Qty: 14 RF: 0 Ativan 1 mg tablet 1 mg PO DAILY PRN (Reason: anxiety) Qty: 7 RF: 0 ondansetron HCl [Zofran] 4 mg tablet 4 mg PO Q6H Qty: 10 RF: 0 Discharge Orders: Discharge Order (Routine); Ordered 08/05/19 Ordered By: Mike Collins Referrals: [facility] [Other] Eovnne Vicente [Primary Care Provider] - Discharge Diet: Diabetic Discharge Activity: Resume usual activity Activity Restrictions/Additional Instructions: Follow-up with your PCP in 7 to 10 days for reevaluation. Continue taking all home medications as previously prescribed. Drink plenty of fluids and stay hydrated. Try to limit eating foods that are high in sugar and carbohydrates. Take ibuprofen or Tylenol for any headaches. Discharge Date/Time: 08/06/19 00:07 Coding Level of Care Code ED Chief Technical Officer for Mandie Fwd Exam Comprehensive
[2019-08-05] MEDS: ondansetron 4 MG Tablet PO (22:51)
[2019-08-05 22:55] LABS: Basophils % 0.5 %; Eosinophils # 0.2 10^3/uL (0.0-0.8); Eosinophils % 2.2 %; Hematocrit 37.5 % (37.0-47.0); Hemoglobin 12.1 g/dL (11.5-15.3); Lymphocytes # 3.1 10^3/uL (0.8-4.8); Lymphocytes % 39.3 %; Mean Corpuscular HGB Conc 32.3 g/dL (30.0-36.0); Mean Corpuscular Hemoglobin 30.2 pg (28.0-34.0); Mean Corpuscular Volume 93.5 fL (81-99); Mean Platelet Volume 10.1 fL (7.4-10.4); Monocytes # 0.8 10^3/uL (0.2-0.9); Monocytes % 10.2 %; Neutrophils # 3.7 10^3/uL (1.8-7.7); Neutrophils % 47.2 %; Nucleated Red Blood Cells % 0 %; Platelet Count 250 10^3/cmm (130-400); Red Blood Count 4.01 10^6/uL (4.1-5.3); Red Cell Distribution Width 13.8 % (12.1-15.1); White Blood Count 7.8 10^3/uL (4.0-10.0)
[2019-08-05 23:04] LABS: Alanine Aminotransferase 27 U/L (0-33); Albumin Level 4.3 g/dL (3.5-5.2); Alkaline Phosphatase 47 IU/L (35-105); Anion Gap 18.2 (5-19); Aspartate Amino Transferase 26 U/L (0-32); Blood Urea Nitrogen 11 mg/dL (6-20); Calcium 10.1 mg/dL (8.5-10.5); Carbon Dioxide 25 mmol/L (22-29); Chloride 100 mmol/L (98-107); Glomerular Filtration Rate 76.6 mL/min (90-130); Glucose 159 mg/dL (65-115); Osmolality Calculated 287 mOsm/kg (285-295); Potassium 4.2 mmol/L (3.5-5.1); Sodium 139 mmol/L (136-145); Total Bilirubin 0.3 mg/dL (0.15-1.2); Total Protein 7.3 g/dL (6.6-8.7)
[2019-08-06 00:07] VITALS: BP 128/74; PULSE 78; RESP 16; O2SAT 99
== END 2019-08-06 00:07 | disposition home or self-care (01) ==
PROVIDERS: Emergency Provider Physician Assistant; PCP Nurse Practitioner Family
DX: R51 Headache (principal); R11.0 Nausea; Z87.891 Personal history of nicotine dependence
CPT/HCPCS: 12345; 80053; 85025; 99282; 99283; Q0162

== ENCOUNTER → 2019-08-11 08:56 | Outpatient (BNVA) | payer MEDICAID, SELFPAY | PROVIDERS: PCP Nurse Practitioner Family; Visit Provider Psychiatry & Neurology Psychiatry | DX: F60.9 Personality disorder, unspecified (principal); F25.0 Schizoaffective disorder, bipolar type | CPT/HCPCS: 99214 ==

== ENCOUNTER 2019-08-13 23:49 | Emergency (ER) | payer MEDICAID, SELFPAY ==
[2019-04-25 15:07] VITALS: BP 170/101; BMI 55.8
[2019-08-14 00:05] VITALS: BP 143/64; PULSE 95; RESP 18; TEMP 36.8; O2SAT 96; BMI 55.7
--- NOTE | 2019-08-14 00:40 | W.ED.GENADLT ---
HPI - General Adult General: Chief complaint: Abdominal Pain Stated complaint: N/V/ HEADACHE Time Seen by Provider: 08/13/19 23:50 History of Present Illness: HPI narrative: Patient complains again sick after eating some chicken earlier night and feels better now came in via ambulance would like some nausea medicine and patient wanted to discuss her medication she is on for her bipolar intermittent headache for the last month or 2 MD complaint: Nausea Onset (ago): hour(s) Radiation: non-radiation Severity: mild Pain Consistency: now resolved Relieving factors: none Exacerbating factors: other (Possible food) Associated symptoms: Reports headache(s) (Now resolved) and nausea; Deny chest pain, dyspnea or rash Review of Systems Const: Denies: fever, chills or body aches Eyes: Denies: change in vision or blurry vision ENMT: Denies: throat pain or nasal congestion Card: Denies: chest pain or shortness of breath on exertion Resp: Denies: shortness of breath, productive cough or non-productive cough GI: Reports: nausea Musc: Denies: extremity pain Skin/Breast: Denies: rash Neuro: Reports: headache (Now resolved) Psych: Denies: anxiety or depression Dominic/Lymph: Denies: easy bruising PFSH ED PFSH: Social History Smoking and tobacco status: never smoked Quit status (tobacco): has quit using tobacco Year quit tobacco: 2017 Second hand smoke exposure: Yes Smoking risk assessment/counseling performed?: Yes Tobacco counseling given: counseling >3 minutes Alcohol intake: never Desire information about substance/drug rehabilitation?: No Adopted: No Lives independently: Yes Household members: significant other Marital status: Number of children: 1 Current occupational status: disabled Current gender identity: Female Female Reproductive History: Date of last menstrual period: 05/02/19 Para: 1 Spontaneous abortions: No Physical Exam Const: COMMON NORMALS: no apparent distress, average body habitus and oriented x3 HENMT: COMMON NORMALS: normocephalic HEAD & SCALP: normal to inspection and normocephalic FACE & SINUS: normal facial exam Eye: COMMON NORMALS: conjunctivae normal GENERAL EYE: normal appearance of both eyes CONJUNCTIVA: Yes conjunctivae normal Neck/C-Spine: COMMON NORMALS: no JVD Chest: COMMONS NORMALS: inspection of chest normal Resp: COMMON NORMALS: normal respiratory effort and clear to auscultation bilaterally AUSCULTATION: clear to auscultation bilaterally Cardio: COMMON NORMALS: no JVD, regular rate and regular rhythm RATE: regular rate RHYTHM: regular rhythm GI: COMMON NORMALS: normal to inspection, nondistended, normoactive bowel sounds Extremity: COMMON NORMALS: normal to inspection and full ROM Neuro: COMMON NORMALS: oriented x3 Course Vital Signs: Vital signs: Vital Signs Temperature 98.2 F 08/14/19 00:05 Pulse Rate 95 08/14/19 00:05 Respiratory Rate 18 08/14/19 00:05 Blood Pressure 143/64 08/14/19 00:05 Pulse Oximetry 96 08/14/19 00:05 Discharge Plan Discharge Patient Disposition: Home, Self-Care Clinical Impression: Nausea Condition: Stable Prescriptions: No Action geriatric sikxnsti-lwdj-eegt Tablet 1 tab PO DAILY RF: 0 lisinopril 10 mg tablet 10 mg PO DAILY RF: 0 sertraline [Zoloft] 50 mg tablet 50 mg PO DAILY Qty: 30 RF: 2 Latuda 80 mg tablet 80 mg PO BID Qty: 60 RF: 2 acetaminophen [Tylenol] 325 mg Tablet 325 mg PO QID PRN (Reason: Pain) RF: 0 ondansetron HCl [Zofran] 4 mg tablet 4 mg PO QID PRN (Reason: nausea and vomiting) Qty: 14 RF: 0 ondansetron HCl [Zofran] 4 mg tablet 4 mg PO Q6H Qty: 10 RF: 0 Referrals: Evonne Vicente [Primary Care Provider] - Coding Level of Care Code ED Shoe Repair Supervisor for Chg Fwd Exam Comprehensive
[2019-08-14] MEDS: promethazine 25 mg/mL SDV 1 mL IM (00:51)
[2019-08-14 00:58] VITALS: BP 147/75; PULSE 89; RESP 16; O2SAT 97
== END 2019-08-14 00:59 | disposition home or self-care (01) ==
PROVIDERS: Emergency Provider Nurse Practitioner Family; PCP Nurse Practitioner Family
DX: R11.0 Nausea (principal); Z87.891 Personal history of nicotine dependence
CPT/HCPCS: 12345; 96372; 99281; 99283; J2550

== ENCOUNTER → 2019-08-17 08:25 | Outpatient (BNVA) | payer MEDICAID, SELFPAY ==
[2019-04-25 15:07] VITALS: BP 170/101; BMI 55.8
== END ==
PROVIDERS: Visit Provider Psychiatry & Neurology Psychiatry
DX: F25.0 Schizoaffective disorder, bipolar type (principal); F60.9 Personality disorder, unspecified
CPT/HCPCS: 99214

== ENCOUNTER → 2019-09-06 07:59 | Outpatient (BNVA) | payer MEDICAID, SELFPAY ==
[2019-04-25 15:07] VITALS: BP 170/101; BMI 55.8
== END ==
PROVIDERS: Visit Provider Psychiatry & Neurology Psychiatry
DX: F60.9 Personality disorder, unspecified (principal); F25.0 Schizoaffective disorder, bipolar type
CPT/HCPCS: 99214

== ENCOUNTER 2019-09-11 00:45 | Emergency (ER) | payer MEDICAID, SELFPAY ==
[2019-04-25 15:07] VITALS: BP 170/101; BMI 55.8
[2019-09-11 00:50] VITALS: BP 144/109; PULSE 80; RESP 18; O2SAT 94; BMI 56.7
[2019-09-11 01:00] VITALS: BP 146/92; PULSE 79; RESP 14; O2SAT 94
--- NOTE | 2019-09-11 01:08 | ED_ITS ---
HPI - General Adult General: Chief complaint: General Medical Stated complaint: CHEST PAIN/ PSYCH Time Seen by Provider: 09/11/19 00:47 History of Present Illness: HPI narrative: Patient comes in by ambulance because that time we should get a ride in here she was taken off her Latuda medicine by [facility] and was not given anything and replacement and she is got today and she is feeling anxious and would like some medication patient is not suicidal she is not homicidal she is not having chest pain MD complaint: Anxiety Onset (ago): year(s) Associated symptoms: Deny chest pain, dyspnea, headache(s), nausea, rash or vomiting Review of Systems Const: Denies: fever(s), chills or body aches Eyes: Denies: change in vision or blurry vision ENMT: Denies: throat pain or nasal congestion Card: Denies: chest pain or dyspnea on exertion Resp: Denies: dyspnea, productive cough or non-productive cough GI: Denies: abdominal pain, nausea or vomiting Musc: Denies: extremity pain Skin/Breast: Denies: rash Neuro: Denies: headache(s) Psych: Reports: anxiety and depression Dominic/Lymph: Denies: easy bruising PFSH ED PFSH: Family History Mother Hypertension Hyperlipidemia Diabetes Grandmother Diabetes Grandfather Diabetes Father , due to complications of colon cancer Cancer Colon Social History Smoking and tobacco status: current some day smoker Quit status (tobacco): has quit using tobacco Year quit tobacco: 2017 Second hand smoke exposure: Yes Smoking risk assessment/counseling performed?: Yes Tobacco counseling given: counseling >3 minutes Alcohol intake: never Desire information about substance/drug rehabilitation?: No Adopted: No Lives independently: Yes Household members: significant other Marital status: Number of children: 1 Current occupational status: disabled Current gender identity: Female Female Reproductive History: Date of last menstrual period: 05/02/19 Para: 1 Spontaneous abortions: No Physical Exam Const: COMMON NORMALS: no acute distress, average body habitus and patient oriented x3 HENMT: COMMON NORMALS: normocephalic HEAD & SCALP: normal to inspection and normocephalic FACE & SINUS: normal facial exam Eye: COMMON NORMALS: conjunctivae normal GENERAL EYE: appearance normal, both eyes and all related structures CONJUNCTIVA: Yes conjunctivae normal Neck/C-Spine: COMMON NORMALS: no JVD Chest: COMMONS NORMALS: normal inspection of the chest Resp: COMMON NORMALS: normal respiratory effort and clear to auscultation bilaterally AUSCULTATION: clear to auscultation bilaterally Cardio: COMMON NORMALS: no JVD, regular rate and regular rhythm RATE: regular rate RHYTHM: regular rhythm GI: COMMON NORMALS: Normal to inspection, nondistended, normoactive bowel sounds present Extremity: COMMON NORMALS: normal to inspection and full ROM Neuro: COMMON NORMALS: patient oriented x3 Course Vital Signs: Vital signs: Vital Signs Pulse Rate 79 09/11/19 01:00 Respiratory Rate 14 09/11/19 01:00 Blood Pressure 146/92 09/11/19 01:00 Pulse Oximetry 94 09/11/19 01:00 Discharge Plan Discharge Patient Disposition: Home, Self-Care Clinical Impression: Schizoaffective disorder, bipolar type, Anxiety Condition: Stable Prescriptions: New Ativan 0.5 mg tablet 0.5 mg PO BID PRN (Reason: anxiety) Qty: 10 RF: 0 No Action geriatric prhndivc-fpun-xxla Tablet 1 tab PO DAILY RF: 0 lisinopril 10 mg tablet 10 mg PO DAILY RF: 0 sertraline [Zoloft] 50 mg tablet 50 mg PO DAILY Qty: 30 RF: 2 Discharge Orders: Discharge Order (Routine); Ordered 09/11/19 Ordered By: Javi Galarza Discharge Diet: Usual diet Discharge Activity: Resume usual activity Patient Instructions: Bipolar Disorder (ED) Activity Restrictions/Additional Instructions: ollow-up with [facility] as soon as possible follow-up with medical provider as directed. Take medications as prescribed. Return to the ER or your medical provider if condition worsens. Please read and understand discharge instructions. If any questions ask please. Coding Level of Care Code ED Television Cabinet Finisher for Mandie Wei
[2019-09-11] MEDS: LORazepam 1 mg Tablet 0.5 MG PO (01:14)
[2019-09-11 01:15] VITALS: BP 165/107; PULSE 80; RESP 16; O2SAT 94
== END 2019-09-11 01:18 | disposition home or self-care (01) ==
PROVIDERS: Emergency Provider Nurse Practitioner Family
DX: F25.0 Schizoaffective disorder, bipolar type (principal); F41.9 Anxiety disorder, unspecified; F17.210 Nicotine dependence, cigarettes, uncomplicated
CPT/HCPCS: 12345; 99281; 99283

== ENCOUNTER → 2019-09-13 08:05 | Outpatient (BNVA) | payer MEDICAID, SELFPAY ==
[2019-04-25 15:07] VITALS: BP 170/101; BMI 55.8
== END ==
PROVIDERS: Visit Provider Psychiatry & Neurology Psychiatry
DX: F60.9 Personality disorder, unspecified (principal); F25.0 Schizoaffective disorder, bipolar type
CPT/HCPCS: 99214

== ENCOUNTER 2019-10-02 22:21 | Inpatient (IN) | payer MEDICAID, SELFPAY ==
[2019-04-25 15:07] VITALS: BP 170/101; BMI 55.8
[2019-10-02 22:22] VITALS: BP 176/91; PULSE 76; RESP 18; TEMP 36.8; O2SAT 97; BMI 56.7
--- NOTE | 2019-10-02 22:38 | ED_ITS ---
HPI - Psych General: Chief Complaint: Psychiatric Symptoms Stated Complaint: SI Time Seen by Provider: 10/02/19 22:26 Source: patient Mode of arrival: ambulatory Limitations: no limitations History of Present Illness: HPI Narrative: Patient comes in today with complaints fighting with her daughter which is caused her a lot of stress and increasing suicidal thoughts. Patient states that she is worried she may harm her self. Patient reports no set plan. Patient reports not taking her meds as prescribed. Last admission to [facility] was June 23, 2019. complaint: suicidal ideation and feels depressed Associated symptoms: Reports suicidal ideation Review of Systems General: Reports: 10 or more systems reviewed and unremarkable except in HPI and below Psych: Reports: suicidal ideation PFSH ED PFSH: Family History Mother Hypertension Hyperlipidemia Diabetes Grandmother Diabetes Grandfather Diabetes Father , due to complications of colon cancer Cancer Colon Social History Smoking and tobacco status: never smoked Quit status (tobacco): has quit using tobacco Year quit tobacco: 2017 Second hand smoke exposure: Yes Smoking risk assessment/counseling performed?: Yes Tobacco counseling given: counseling >3 minutes Alcohol intake: never Desire information about substance/drug rehabilitation?: No Adopted: No Lives independently: Yes Household members: significant other Marital status: Number of children: 1 Current occupational status: disabled Current gender identity: Female Female Reproductive History: Date of last menstrual period: 05/02/19 Para: 1 Spontaneous abortions: No Physical Exam Const: COMMON NORMALS: no acute distress and patient oriented x3 GENERAL APPEARANCE: cooperative and well kempt HENMT: COMMON NORMALS: normocephalic and Normal external nose present HEAD & SCALP: normal to inspection and normocephalic NOSE: Normal external nose present MOUTH: Normal oral and palatal mucosa present Eye: GENERAL EYE: appearance normal, both eyes and all related structures Neck/C-Spine: COMMON NORMALS: full ROM Lymph: LYMPHATIC: no lymphadenopathy noted Chest: COMMONS NORMALS: normal inspection of the chest Resp: COMMON NORMALS: normal respiratory effort EFFORT & INSPECTION: Yes able to speak in complete sentences Cardio: COMMON NORMALS: regular rate and regular rhythm RATE: regular rate RHYTHM: regular rhythm GI: COMMON NORMALS: non-tender Back/Pelvis: COMMON NORMALS: thoracic and lumbar spine normal to inspection Extremity: COMMON NORMALS: normal to inspection Neuro: COMMON NORMALS: patient oriented x3 and moves all extremities Psych: COMMON NORMALS: cooperative and speech normal APPEARANCE: Yes well kempt ATTITUDE: Yes calm ACTIVITY/MOTOR BEHAVIOR: Yes appropriate eye contact SPEECH: Yes normal speech MOOD & AFFECT: Yes depressed mood THOUGHT PROCESS: Circumstantial thought process present THOUGHT CONTENT: Yes Suicidality present ATTENTION/CONCENTRATION: Yes attention grossly intact INSIGHT: Fair insight present (Psych) JUDGEMENT: Fair judgement present (Psych) Skin: COMMON NORMALS: no rashes or lesions noted GENERAL SKIN EXAM: no rashes or lesions noted MDM - Psych MDM Narrative: Medical decision making narrative: Patient comes in today for complaints of suicidal ideation. Patient has a history of depression schizoaffective disorder. Patient reports poor compliance with medication. Ex am notes a cooperative patient. Patient is waiting for admission to the neuropsychiatric unit. Differential diagnosis includes but not limited to anxiety, depression, suicidal ideation, malingering. Laboratory values were insignificant. Discussed with Dr. Shea who agreed to admission to the neuropsychiatric unit for suicidal ideation. Patient needs admission to the neuropsychiatric unit for further evaluation and treatment along with protection for self from self-harm. Lab Data: Labs: Lab Results 10/02/19 10/02/19 10/02/19 Range/Units 22:47 22:47 22:58 WBC 8.1 (4.0-10.0) 10^3/ uL RBC 4.30 (4.1-5.3) 10^6/u L Hgb 12.8 (11.5-15.3) g/dL Hct 39.9 (37.0-47.0) % MCV 92.8 (81-99) fL MCH 29.8 (28.0-34.0) pg MCHC 32.1 (30.0-36.0) g/dL RDW 13.9 (12.1-15.1) % Plt Count 255 (130-400) 10^3/c mm MPV 10.1 (7.4-10.4) fL Neut % (Auto) 61.0 % Lymph % (Auto) 27.7 % Carbon % (Auto) 7.6 % Eos % (Auto) 2.1 % Baso % (Auto) 0.6 % Neut # (Auto) 4.9 (1.8-7.7) 10^3/u L Lymph # (Auto) 2.2 (0.8-4.8) 10^3/u L Carbon # (Auto) 0.6 (0.2-0.9) 10^3/u L Eos # (Auto) 0.2 (0.0-0.8) 10^3/u L Baso # (Auto) 0.1 (0.0-0.1) 10^3/u L Nucleated RBC % (a uto) 0 % Nucleated RBCs # 0.0 /100WBC Sodium 138 (136-145) mmol/L Potassium 4.2 (3.5-5.1) mmol/L Chloride 100 (98-107) mmol/L Carbon Dioxide 25 (22-29) mmol/L Anion Gap 17.2 (5-19) BUN 11 (6-20) mg/dL Creatinine 0.6 (0.5-0.9) mg/dL GFR Calculation 106.7 (90-130) mL/min Glucose 159 H (65-115) mg/dL Calculated Osmolal ity 285 (285-295) mOsm/k g Calcium 10.0 (8.5-10.5) mg/dL Total Bilirubin 0.3 (0.15-1.2) mg/dL AST 34 H (0-32) U/L ALT 32 (0-33) U/L Alkaline Phosphata se 52 (35-105) IU/L Total Protein 7.5 (6.6-8.7) g/dL Albumin 4.4 (3.5-5.2) g/dL Globulin 3.1 (1.3-4.6) g/dL TSH 2.14 (0.27-4.20) uIU/ mL HCG, Qual Negative (Negative) Urine Color (Yellow) Urine Appearance (CLEAR) Urine pH (5-7) Ur Specific Gravit y (1.005-1.030) Urine Protein (Negative) Urine Glucose (UA) (Normal) Urine Ketones (Negative) Urine Blood (Negative) Urine Nitrate (Negative) Urine Bilirubin (NEGATIVE) Urine Urobilinogen (Negative) mg/dL Ur Leukocyte Michelle ase (Negative) Salicylates < 0.3 L (3-10) mg/dL Urine Opiates Scre en (Negative) ng/mL Acetaminophen < 5.0 L (10-30) ug/mL Ur Barbiturates Sc reen (Negative) ng/mL Ur Phencyclidine S crn (Negative) ng/mL Ur Amphetamines Sc reen (Negative) ng/mL U Benzodiazepines Scrn (Negative) ng/mL Urine Cocaine Scre en (Negative) ng/mL U Marijuana (THC) Screen (Negative) ng/mL Ethyl Alcohol < 10 (0-10) mg/dL 10/02/19 10/02/19 Range/Units 22:58 22:58 WBC (4.0-10.0) 10^3/ uL RBC (4.1-5.3) 10^6/u L Hgb (11.5-15.3) g/dL Hct (37.0-47.0) % MCV (81-99) fL MCH (28.0-34.0) pg MCHC (30.0-36.0) g/dL RDW (12.1-15.1) % Plt Count (130-400) 10^3/c mm MPV (7.4-10.4) fL Neut % (Auto) % Lymph % (Auto) % Carbon % (Auto) % Eos % (Auto) % Baso % (Auto) % Neut # (Auto) (1.8-7.7) 10^3/u L Lymph # (Auto) (0.8-4.8) 10^3/u L Carbon # (Auto) (0.2-0.9) 10^3/u L Eos # (Auto) (0.0-0.8) 10^3/u L Baso # (Auto) (0.0-0.1) 10^3/u L Nucleated RBC % (a uto) % Nucleated RBCs # /100WBC Sodium (136-145) mmol/L Potassium (3.5-5.1) mmol/L Chloride (98-107) mmol/L Carbon Dioxide (22-29) mmol/L Anion Gap (5-19) BUN (6-20) mg/dL Creatinine (0.5-0.9) mg/dL GFR Calculation (90-130) mL/min Glucose (65-115) mg/dL Calculated Osmolal ity (285-295) mOsm/k g Calcium (8.5-10.5) mg/dL Total Bilirubin (0.15-1.2) mg/dL AST (0-32) U/L ALT (0-33) U/L Alkaline Phosphata se (35-105) IU/L Total Protein (6.6-8.7) g/dL Albumin (3.5-5.2) g/dL Globulin (1.3-4.6) g/dL TSH (0.27-4.20) uIU/ mL HCG, Qual (Negative) Urine Color Yellow (Yellow) Urine Appearance Clear (CLEAR) Urine pH 5 (5-7) Ur Specific Gravit y 1.020 (1.005-1.030) Urine Protein Neg (Negative) Urine Glucose (UA) Norm (Normal) Urine Ketones Negative (Negative) Urine Blood Neg (Negative) Urine Nitrate Negative (Negative) Urine Bilirubin Neg (NEGATIVE) Urine Urobilinogen Norm (Negative) mg/dL Ur Leukocyte Michelle ase Negative (Negative) Salicylates (3-10) mg/dL Urine Opiates Scre en Negative (Negative) ng/mL Acetaminophen (10-30) ug/mL Ur Barbiturates Sc reen Negative (Negative) ng/mL Ur Phencyclidine S crn Negative (Negative) ng/mL Ur Amphetamines Sc reen Negative (Negative) ng/mL U Benzodiazepines Scrn Negative (Negative) ng/mL Urine Cocaine Scre en Negative (Negative) ng/mL U Marijuana (THC) Screen Negative (Negative) ng/mL Ethyl Alcohol (0-10) mg/dL Discharge Plan Discharge Patient Disposition: Psych Hosp/Unit w Plan Readm Clinical Impression: Suicidal ideation, Schizoaffective disorder, bipolar type, Unspecified personality disorder Condition: Stable Referrals: Evonne Vicente FNP [Primary Care Provider] - Coding Level of Care Code ED Etcher Apprentice Photoengraving for [facility] Fwd Exam Comprehensive
[2019-10-02 22:52] LABS: Basophils # 0.1 10^3/uL (0.0-0.1); Basophils % 0.6 %; Eosinophils # 0.2 10^3/uL (0.0-0.8); Eosinophils % 2.1 %; Hematocrit 39.9 % (37.0-47.0); Hemoglobin 12.8 g/dL (11.5-15.3); Lymphocytes # 2.2 10^3/uL (0.8-4.8); Lymphocytes % 27.7 %; Mean Corpuscular HGB Conc 32.1 g/dL (30.0-36.0); Mean Corpuscular Hemoglobin 29.8 pg (28.0-34.0); Mean Corpuscular Volume 92.8 fL (81-99); Mean Platelet Volume 10.1 fL (7.4-10.4); Monocytes # 0.6 10^3/uL (0.2-0.9); Monocytes % 7.6 %; Neutrophils # 4.9 10^3/uL (1.8-7.7); Nucleated Red Blood Cells % 0 %; Platelet Count 255 10^3/cmm (130-400); Red Cell Distribution Width 13.9 % (12.1-15.1); White Blood Count 8.1 10^3/uL (4.0-10.0)
[2019-10-02 23:08] LABS: Add Urine Microscopic? NO
[2019-10-02 23:11] LABS: HCG Qualitative Urine. Negative (Negative)
[2019-10-02 23:15] LABS: Bilirubin Urine Neg (NEGATIVE); Blood Urine Neg (Negative); Glucose Urine UA Norm (Normal); Ketones Urine Negative (Negative); Leukocyte Esterase Urine Negative (Negative); Nitrate Urine Negative (Negative); Protein Urine Neg (Negative); Urine Appearance Clear (CLEAR); Urine Color Yellow (Yellow); Urobilinogen Urine Norm (Negative); pH Urine 5 (5-7)
[2019-10-02 23:17] LABS: Alanine Aminotransferase 32 U/L (0-33); Albumin Level 4.4 g/dL (3.5-5.2); Alkaline Phosphatase 52 IU/L (35-105); Anion Gap 17.2 (5-19); Aspartate Amino Transferase 34 U/L (0-32); Blood Urea Nitrogen 11 mg/dL (6-20); Carbon Dioxide 25 mmol/L (22-29); Chloride 100 mmol/L (98-107); Creatinine Clr Calc Pharmacy 150.4467; Globulin 3.1 g/dL (1.3-4.6); Glomerular Filtration Rate 106.7 mL/min (90-130); Glucose 159 mg/dL (65-115); Osmolality Calculated 285 mOsm/kg (285-295); Potassium 4.2 mmol/L (3.5-5.1); Sodium 138 mmol/L (136-145); Thyroid Stimulating Hormone 2.14 uIU/mL (0.27-4.20); Total Bilirubin 0.3 mg/dL (0.15-1.2); Total Protein 7.5 g/dL (6.6-8.7)
[2019-10-02 23:19] LABS: Amphetamines Screen Urine Negative (Negative); Barbiturates Screen Urine Negative (Negative); Benzodiazepines Screen Urine Negative (Negative); Cocaine Screen Urine Negative (Negative); Opiate Screen Urine Negative (Negative); PCP Screen Urine Negative (Negative); THC Screen Urine Negative (Negative)
[2019-10-02 23:20] LABS: Acetaminophen < 5.0 ug/mL (10-30); Alcohol Level < 10 mg/dL (0-10); Salicylate < 0.3 mg/dL (3-10)
[2019-10-02] MEDS: acetaminophen 500 mg Tablet 1000 MG PO (23:50)
[2019-10-03 00:15] VITALS: BP 137/94; PULSE 98; RESP 18; TEMP 36.7; O2SAT 94
[2019-10-03 06:00] VITALS: BP 119/72; PULSE 80; RESP 16; TEMP 36.5; O2SAT 93
[2019-10-03] MEDS: acetaminophen 325 mg Tablet 650 MG PO ×2 (07:54→12:23)
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
[2019-10-03 13:11] VITALS: BP 119/72; PULSE 80; RESP 16; TEMP 36.5; O2SAT 93
== END 2019-10-03 14:37 | disposition home or self-care (01) | DRG 885 ==
LOC: ER 23:29 → NP 10-03 08:49
PROVIDERS: Admitting Provider Psychiatry & Neurology Psychiatry; Emergency Provider Nurse Practitioner Family; PCP Nurse Practitioner Family; Visit Provider Psychiatry & Neurology Psychiatry
DX: F25.0 Schizoaffective disorder, bipolar type (principal); R45.851 Suicidal ideations; Z68.43 Body mass index [BMI] 50.0-59.9, adult; F60.9 Personality disorder, unspecified; E66.01 Morbid (severe) obesity due to excess calories; Z87.891 Personal history of nicotine dependence
CPT/HCPCS: 12345; 36415; 80053; 80306; 80307; 81003; 81025; 84443; 85025; 99284; 99285

== ENCOUNTER 2019-10-02 22:21 | Emergency (ER) | payer MEDICAID, SELFPAY ==
[2019-04-25 15:07] VITALS: BP 170/101; BMI 55.8
== END 2019-10-03 00:02 | disposition admitted as inpatient to this hospital (09) ==
LOC: ER 10-08 16:50
PROVIDERS: Emergency Provider Nurse Practitioner Family; PCP Nurse Practitioner Family
DX: R45.851 Suicidal ideations (principal); F25.0 Schizoaffective disorder, bipolar type; F60.9 Personality disorder, unspecified; Z79.899 Other long term (current) drug therapy
CPT/HCPCS: 12345; 36415; 80053; 80306; 80307; 81003; 81025; 84443; 85025; 99284; 99285

== ENCOUNTER → 2019-10-09 07:41 | Outpatient (BNVA) | payer MEDICAID, SELFPAY ==
[2019-04-25 15:07] VITALS: BP 170/101; BMI 55.8
== END ==
PROVIDERS: PCP Nurse Practitioner Family; Visit Provider Psychiatry & Neurology Psychiatry
DX: F60.9 Personality disorder, unspecified (principal); F25.0 Schizoaffective disorder, bipolar type
CPT/HCPCS: 99213

== ENCOUNTER → 2019-10-12 07:52 | Outpatient (BNVA) | payer MEDICAID, SELFPAY ==
[2019-04-25 15:07] VITALS: BP 170/101; BMI 55.8
== END ==
PROVIDERS: PCP Nurse Practitioner Family; Visit Provider Psychiatry & Neurology Psychiatry
DX: F60.9 Personality disorder, unspecified (principal); F25.0 Schizoaffective disorder, bipolar type
CPT/HCPCS: 99213

== ENCOUNTER 2019-10-25 09:59 | Inpatient (IN) | payer MEDICAID, SELFPAY ==
[2019-10-12 09:30] VITALS: BP 170/101; BMI 55.8
[2019-10-25 10:03] VITALS: RESP 18; BMI 56.7
[2019-10-25] MEDS: water for injection-sterile 10 ML (10:12)
[2019-10-25] MEDS: ziprasidone 20 mg/mL SDV IM (10:12)
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
[2019-10-25] MEDS: LORazepam 2 mg/mL INJ 1 mL IM ×3 (10:25→11:51)
[2019-10-25 10:44] LABS: Glucose Point of Care 159 mg/dL (70-110)
--- NOTE | 2019-10-25 10:45 | PC.NURSE ---
Lab in room to obtain patients blood. Patient slipped her right hand out of the soft wrist restraint at this time. Right restrained applied. 2 fingers fit under the restraint. No injury noted at this time. Circulation present in finger tips.
[2019-10-25 10:51] LABS: Basophils # 0.1 10^3/uL (0.0-0.1); Basophils % 0.7 %; Eosinophils # 0.2 10^3/uL (0.0-0.8); Eosinophils % 2.1 %; Lymphocytes # 2.1 10^3/uL (0.8-4.8); Lymphocytes % 27.5 %; Mean Corpuscular HGB Conc 31.6 g/dL (30.0-36.0); Mean Platelet Volume 9.5 fL (7.4-10.4); Monocytes # 0.8 10^3/uL (0.2-0.9); Monocytes % 10.8 %; Neutrophils % 58.6 %; Nucleated Red Blood Cells % 0 %; Platelet Count 244 10^3/cmm (130-400); Red Cell Distribution Width 13.4 % (12.1-15.1); White Blood Count 7.5 10^3/uL (4.0-10.0)
--- NOTE | 2019-10-25 11:05 | PC.NURSE ---
REPORT RECEIVED FROM ELOINA RODRÍGUEZ [facility].
[2019-10-25 11:06] LABS: Alanine Aminotransferase 27 U/L (0-33); Albumin Level 4.7 g/dL (3.5-5.2); Alkaline Phosphatase 50 IU/L (35-105); Anion Gap 18.7 (5-19); Aspartate Amino Transferase 32 U/L (0-32); Blood Urea Nitrogen 12 mg/dL (6-20); Calcium 9.6 mg/dL (8.5-10.5); Carbon Dioxide 22 mmol/L (22-29); Chloride 103 mmol/L (98-107); Globulin 2.8 g/dL (1.3-4.6); Glomerular Filtration Rate 76.6 mL/min (90-130); Glucose 155 mg/dL (65-115); Osmolality Calculated 289 mOsm/kg (285-295); Potassium 3.7 mmol/L (3.5-5.1); Salicylate 0.4 mg/dL (3-10); Sodium 140 mmol/L (136-145); Total Bilirubin 0.5 mg/dL (0.15-1.2); Total Protein 7.5 g/dL (6.6-8.7)
--- NOTE | 2019-10-25 11:06 | PC.NURSE ---
WHILE AT BESIDE PT IS AGITATED AND INCOMPREHENSIBLE. PT IS SPEAKING LOUDLY AND USING PROFANITY. VERBAL DEESCALATION ATTEMPTED.
[2019-10-25 11:07] LABS: Acetaminophen < 5.0 ug/mL (10-30); Alcohol Level < 10 mg/dL (0-10)
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
--- NOTE | 2019-10-25 11:30 | PC.NURSE ---
PT IS UNCOOPERATIVE AND WILL ANSWER SOME QUESTIONS BUT NOT OTHERS.
--- NOTE | 2019-10-25 11:30 | PC.NURSE ---
WHILE AT BEDSIDE PT HAS BECOME MORE CALM BUT IS STILL HAVING WORD SALAD AND SPEECH IS INAPPROPRIATE. PT OFFERED TOILETING AND POSITIONING CHANGES PT REFUSES. LIGHTS DIMMED TV TURNED ON.
[2019-10-25 12:05] VITALS: BP 128/79; PULSE 98; RESP 16; O2SAT 93
[2019-10-25 12:30] VITALS: BP 144/91; PULSE 99; RESP 20; O2SAT 93
--- NOTE | 2019-10-25 12:40 | PC.NURSE ---
REPORT CALLED TO REINIER Red RN
--- NOTE | 2019-10-25 13:10 | PC.NURSE ---
UPON ARRIVING AT NPU REQUESTED BY REINIER RODRÍGUEZ TO REMOVE 4 POINT RESTRAINTS. PT IS BECOMING MORE CALM AND COOPERATIVE. WHILE NPU DR. JIMENEZ WAS PRESENT AND NOTIFIED OF SITUATION.
[2019-10-25 13:25] VITALS: BP 150/91; PULSE 105; RESP 20; O2SAT 93
[2019-10-25 14:22] VITALS: PULSE 108; RESP 20; TEMP 36.9; O2SAT 94
[2019-10-25] MEDS: OLANZapine 5 mg ODT PO (15:28)
[2019-10-25] MEDS: hyDROXYzine 25 mg Capsule 50 MG PO ×2 (15:29→21:41)
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
[2019-10-25 16:09] LABS: Add Urine Microscopic? YES; Bilirubin Urine Neg (NEGATIVE); Blood Urine Neg (Negative); Glucose Urine UA Norm (Normal); Ketones Urine Negative (Negative); Leukocyte Esterase Urine Negative (Negative); Nitrate Urine Negative (Negative); Protein Urine Trace (Negative); Urine Appearance Clear (CLEAR); Urine Color Yellow (Yellow); Urobilinogen Urine Norm (Negative); pH Urine 5 (5-7)
[2019-10-25 16:12] LABS: Add Urine Culture? No; Bacteria Urine 1+; Calcium Oxalate Crystals Urine 0-4 /hpf; RBC Urine 0-4 /hpf (0-2)
[2019-10-25 16:18] LABS: Amphetamines Screen Urine Negative (Negative); Barbiturates Screen Urine Negative (Negative); Benzodiazepines Screen Urine Positive (Negative); Cocaine Screen Urine Negative (Negative); Opiate Screen Urine Negative (Negative); PCP Screen Urine Negative (Negative); THC Screen Urine Negative (Negative)
[2019-10-25 21:31] VITALS: BP 147/94; PULSE 69; RESP 24; TEMP 36.6; O2SAT 96
--- NOTE | 2019-10-25 22:36 | PC.NURSE ---
Staff offered patients 1:1 a break at [id number]. Patients 1:1 declined break at this time.
[2019-10-25] MEDS: quetiapine 100 mg Tablet 200 MG PO (23:24)
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
[2019-10-26] MEDS: LORazepam 2 mg/mL INJ 1 mL IM ×2 (00:58→14:38)
[2019-10-26] MEDS: diphenhydrAMINE 50 mg/mL SDV 1mL IM ×2 (00:58→14:38)
[2019-10-26] MEDS: ziprasidone 20 mg/mL SDV (01:43)
--- NOTE | 2019-10-26 01:47 | PC.NURSE ---
Im injection of 20mg Geodon, 50mg Benadryl, 2mg atavan as ordered for severe agitation given at 0035.
[2019-10-26 06:00] VITALS: RESP 17
[2019-10-26] MEDS: lisinopril 10 mg Tablet PO (09:25)
[2019-10-26] MEDS: cloZAPine 25 mg Tablet PO ×2 (10:11→18:30)
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
[2019-10-26 14:00] VITALS: PULSE 122; RESP 18; TEMP 37.1; O2SAT 94
--- NOTE | 2019-10-26 14:30 | PC.NURSE ---
PRN GEODON, ATIVAN AND BENADRYL GEODON 20MG IM TO LEFT DELTOID, ATIVAN 2MG IM TO RIGHT DELTOID AND BENADRYL 50MG IM TO RIGHT DELTOID PER FOR SEVERE AGITATION/PSYCHOSIS PER DR. JIMENEZ ORDERS. PATIENT CONTINUES TO YELL AT STAFF AND OTHER PATIENTS AND HAS DELUSIONAL THOUGHT PROCESS. PATIENT TALKING ABOUT DEMONS. PATIENT THOUGHT BED IN HER ROOM WAS A COFFIN. PATIENT HAS RAMBLING SPEECH. WILL CONTINUE TO MONITOR FOR MEDICATION EFFECTIVENESS.
[2019-10-26] MEDS: ziprasidone 20 mg/mL SDV IM (14:38)
--- NOTE | 2019-10-26 15:45 | PC.NURSE ---
PRN RONNA ALVAREZ, AND FABBY FOLLOW UP MEDICATION EFFECTIVE, PATIENT IS LYING IN BED RESTING RESPIRATIONS EVEN AND UNLABORED.
[2019-10-26 20:33] VITALS: RESP 19
--- NOTE | 2019-10-26 20:34 | PC.NURSE ---
Patient was agitated and yelling and refused vitals. Respirations were taken.
[2019-10-26] MEDS: hyDROXYzine 25 mg Capsule 50 MG PO ×2 (21:27→23:17)
[2019-10-26] MEDS: OLANZapine 5 mg ODT PO ×2 (21:29→23:16)
[2019-10-26] MEDS: cetylpyridinium Lozenge 1 EACH MUCOUS MEM ×2 (21:33→23:17)
[2019-10-27] MEDS: LORazepam 2 mg/mL INJ 1 mL IM (00:09)
--- NOTE | 2019-10-27 00:20 | PC.NURSE ---
Pt given Ativan 2mg IM due to pt constantly yelling, crying and voicing profanities at staff and other pts.
--- NOTE | 2019-10-27 03:57 | PC.NURSE ---
pt has had a very rough night this night. from time of shift change, (7pm) until around 0230am, pt was back and forth from her room, to nurses desk, to bench in hallway to dayroom. pt constantly yelling, and crying. refused to take any PRN meds for anxiety. at around 2315, pt agreed to take PRN vistaril and zyprexa if she could have a cough drop . cepacol lozenge. pt continued to yell and cry at staff and other pt's, upsetting said pts. Ativan 2mg im given in left deltoid.
[2019-10-27 06:00] VITALS: RESP 20
[2019-10-27] MEDS: lisinopril 10 mg Tablet PO (09:02)
[2019-10-27] MEDS: cloZAPine 25 mg Tablet PO ×2 (09:02→17:44)
[2019-10-27] MEDS: cetylpyridinium Lozenge 1 EACH MUCOUS MEM ×2 (09:43→20:21)
[2019-10-27] MEDS: LORazepam 2 mg Tablet PO (13:10)
[2019-10-27 14:00] VITALS: PULSE 60; RESP 18; TEMP 37.1; O2SAT 99
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
[2019-10-27] MEDS: hyDROXYzine 25 mg Capsule 50 MG PO (20:20)
[2019-10-27] MEDS: OLANZapine 5 mg ODT PO (20:21)
[2019-10-27 20:31] VITALS: BP 133/90; PULSE 111; RESP 19; TEMP 35.1; O2SAT 95
--- NOTE | 2019-10-27 21:12 | PC.NURSE ---
pt given PRN vistaril, zyprexa, and cepacol per request.
[2019-10-27 22:00] VITALS: BP 133/90; PULSE 111; RESP 19; TEMP 36.7; O2SAT 95
[2019-10-28] MEDS: LORazepam 2 mg/mL INJ 1 mL IM ×3 (01:13→22:07)
--- NOTE | 2019-10-28 02:15 | PC.NURSE ---
pt has been very loud this night. yelling, crying, demanding something to eat. pt has been given cottage cheese, fruit cups, whole milk, chocolate milk, crackers and peanut butter, popcorn, salad, fruit bars, juices. pt keeps yelling i'm starving to .
[2019-10-28 06:00] VITALS: RESP 19
[2019-10-28] MEDS: lisinopril 10 mg Tablet PO (08:25)
[2019-10-28] MEDS: cloZAPine 25 mg Tablet 50 MG PO ×2 (08:26→19:02)
--- NOTE | 2019-10-28 09:15 | P.PN_ITS ---
Subjective NPU Subjective: Interval history: Joann presents today reporting that she is unable to take the medication because she is allergic to it. We had a fairly lengthy discussion about the weeks that she was in the hospital and had no side effects reported outside of some tiredness, at one point, in relation to the Clozaril; she clearly had improvement on the medication and was able to be discharged, when nothing else was allowing for that. She, in her current state, can not remember or receive this information. But I continued to reinforce with her that the path to a quick discharge is through taking her medications. At this point, it is the only psychiatric medication she is on. At this point, she is continuing to endorse the persecutory thinking, about her and his ill intent towards her, and continues to be intrusive and volatile, in her interactions with staff and other patients. Mental Status Exam MSE Comments: This is a morbidly obese, white female, with limited dress, grooming, and eye contact. No abnormal movements, except for extreme psychomotor agitation. Semi-cooperative with exam in moderate to extreme distress. Speech was increased rate and volume. Mood described as my throat hurts; affect appears manic. Thought process, disorganized. Thought content: patient endorsed suicidal and, at times, homicidal ideation; there were no delusions reported but clear paranoid, persecutory, and at times hyper-hoahaoism and somatic delusions endorsed; she does report hearing and seeing things but does not appear to be attending to internal stimuli. Attention and concentration were impaired, and memory was unreliable, but none were formally tested. He is alert and oriented times person and place. Insight and judgment are impaired. Impulse control is impaired. Vitals/I&O/Wt Last Vital Signs Temp 98.1 F 10/27/19 22:00 Pulse 111 H 10/27/19 22:00 Resp 19 H 10/28/19 06:00 BP 133/90 10/27/19 22:00 Pulse Ox 95 10/27/19 22:00 Weight last 48 hrs Weight 147.134 kg Data NPU : 10/25/19 10:45 10/25/19 10:45 A&P Additional A&P Information (1) Acute psychosis: (2) Unspecified personality disorder: (3) Schizoaffective disorder, bipolar type: This is a 49 year old, white female, with bipolar disorder versus schizoaffective disorder, bipolar type, who presents with florid psychosis and appearing quite manic, off of her medication, and mostly confused. Continue current medication. Continue q 15 minute checks for safety Encourage individual, group, and milieu therapy. Will work with treatment team and outpatient team, to see if we can manage her on Clozaril, so that she does not have these frequent hospitalizations. Involuntary Hold Information 96 Hour Hold: 96 Hour Involuntary Admission: Yes 96 Hour Hold Ending Date: 10/31/19 96 Hour Hold Ending Time: 09:59 Attestations NPU Medical Necessity Statement*: Inpatient hospitalization is medically necessary and the clinically appropriate intervention, at this time. We will monitor medications and make adjustments as indicated, using Clozaril as the primary medication. Likely length of stay is 7-10 days. Coding Level of Care Code Acute Fabric Separator Operator for Mandie Wei
[2019-10-28 14:00] VITALS: BP 137/87; PULSE 108; RESP 19; TEMP 36.9
[2019-10-28] MEDS: diphenhydrAMINE 50 mg/mL SDV 1mL IM (17:46)
--- NOTE | 2019-10-28 17:47 | PC.NURSE ---
atavan and benadryl given for severe agitation.
[2019-10-28] MEDS: hyDROXYzine 25 mg Capsule 50 MG PO (21:10)
[2019-10-28] MEDS: OLANZapine 5 mg ODT PO (21:10)
[2019-10-28 22:00] VITALS: PULSE 114; RESP 19; TEMP 36.4; O2SAT 91
--- NOTE | 2019-10-28 22:20 | PC.NURSE ---
Patient refused to have blood pressure taken. All other vitals were taken.
--- NOTE | 2019-10-29 01:09 | PC.NURSE ---
pt given PRN vistaril and zyprexa per request. At 2207, pt was given ativan IM for increased anxiety.
[2019-10-29 06:00] VITALS: BP 134/93; PULSE 106; RESP 18; TEMP 36.8; O2SAT 95
[2019-10-29] MEDS: lisinopril 10 mg Tablet PO (09:15)
[2019-10-29] MEDS: OLANZapine 5 mg ODT PO (10:01)
[2019-10-29] MEDS: hyDROXYzine 25 mg Capsule 50 MG PO (10:01)
[2019-10-29] MEDS: ondansetron 4 MG Tablet PO (10:01)
--- NOTE | 2019-10-29 10:16 | P.PN_ITS ---
Subjective NPU Subjective: Interval history: Joann presents today reporting that she can not eat all of the food on her tray, but then was talking about maybe saving it for her mom, when her mom comes. She was much calmer and was asking what medications had been given to her. We discussed the fact that we are only giving her the Clozaril right now. She was complaining that she was getting ?lots of medication, every fifteen minutes.? However, I assured her that the only thing she is getting from us, from a psychiatric standpoint, is Clozaril. She was able to have a give and take conversation, and even stated that she did not like the Clozaril, at first, but that she feels like it is working. I assured her that there are no signs, in our time together, that she has any allergy to it, and it continued to be the most effective medication that I have seen her on, generally having a fairly robust response, quickly. She reports that she is eating okay. She is sleeping a little better. She endorsed a plan to try to take the medication without resistance. Mental Status Exam MSE Comments: This is a morbidly obese, white female, with limited dress, grooming, and eye contact. No abnormal movements, except for resolving psychomotor agitation. More cooperative with exam in no acute distress. Speech was increased rate and volume. Mood described as a little better; affect appears less manic. Thought process, more organized. Thought content: patient denied suicidal or homicidal ideation; there were no delusions reported were noted except for some paranoia; she denied auditory or visual hallucinations.. Attention and concentration were improved, and memory was unreliable, but none were formally tested. She is alert and oriented times person and place. Insight and judgment are impaired, but improving. Impulse control is impaired, but improving. Vitals/I&O/Wt Last Vital Signs Temp 98.3 F 10/29/19 06:00 Pulse 106 H 10/29/19 06:00 Resp 18 10/29/19 06:00 BP 134/93 10/29/19 06:00 Pulse Ox 95 10/29/19 06:00 Weight last 48 hrs Weight 147.134 kg Data NPU : 10/25/19 10:45 10/25/19 10:45 A&P Additional A&P Information (1) Acute psychosis: (2) Unspecified personality disorder: (3) Schizoaffective disorder, bipolar type: This is a 49 year old, white female, with bipolar disorder versus schizoaffective disorder, bipolar type, who presents with florid psychosis and appearing quite manic, off of her medication, and mostly confused. Continue current medication. Will increase nighttime Clozaril tomorrow. Continue q 15 minute checks for safety Encourage individual, group, and milieu therapy. Will work with treatment team and outpatient team, to see if we can manage her on Clozaril, so that she does not have these frequent hospitalizations. Involuntary Hold Information 96 Hour Hold: 96 Hour Involuntary Admission: Yes 96 Hour Hold Ending Date: 10/31/19 96 Hour Hold Ending Time: 09:59 Attestations NPU Medical Necessity Statement*: Inpatient hospitalization is medically necessary and the clinically appropriate intervention, at this time. We will monitor medications and make adjustments as indicated, using Clozaril as the primary medication. Likely length of stay is 6-9 days. Coding Level of Care Code Acute Management Trainee Program Stores for Mandie Wei
[2019-10-29] MEDS: cetylpyridinium Lozenge 1 EACH MUCOUS MEM (13:44)
[2019-10-29 14:00] VITALS: BP 148/89; PULSE 98; TEMP 36.9
[2019-10-29] MEDS: diphenhydrAMINE 50 mg/mL SDV 1mL IM (14:54)
[2019-10-29] MEDS: LORazepam 2 mg/mL INJ 1 mL IM (14:54)
[2019-10-29] MEDS: nicotine 2 mg Gum BUCCAL (17:13)
[2019-10-29] MEDS: cloZAPine 25 mg Tablet PO (18:48)
--- NOTE | 2019-10-29 18:49 | PC.NURSE ---
Received verbal order for clozapine 100 mg now,gave patient 4- 25 mg tablets PO
[2019-10-29 20:41] VITALS: BP 114/78; PULSE 105; RESP 24; TEMP 36.6; O2SAT 96
[2019-10-30] MEDS: ondansetron 4 MG Tablet PO (01:53)
[2019-10-30 06:00] VITALS: BP 132/84; PULSE 107; RESP 23; TEMP 36.9; O2SAT 95
[2019-10-30] MEDS: lisinopril 10 mg Tablet PO (08:41)
[2019-10-30] MEDS: cloZAPine 25 mg Tablet 50 MG PO ×2 (08:41→18:02)
[2019-10-30] MEDS: LORazepam 2 mg/mL INJ 1 mL IM ×2 (13:39→22:03)
--- NOTE | 2019-10-30 13:39 | PC.NURSE ---
PRN ATIVAN ATIVAN 2MG IM TO RIGHT DELTOID FOR SEVERE AGITATION/ANXIETY. PATIENT TOOK INJECTIONS WILLINGLY. WILL CONTINUE TO MONITOR FOR MEDICATION EFFECTIVENESS.
[2019-10-30 14:00] VITALS: BP 164/94; PULSE 107; RESP 20; TEMP 36.8; O2SAT 94
--- NOTE | 2019-10-30 14:40 | PC.NURSE ---
PRN ATIVAN FOLLOW UP MEDICATION EFFECTIVE. PATIENT IS CALM AND COOPERATIVE. NO FURTHER S/S OF AGITATION.
--- NOTE | 2019-10-30 15:40 | PM.NPN ---
Subjective NPU Subjective: Interval history: Joann presents today having a fairly poor day. She was very irritable and aggressive, finding herself slamming the windows of the nurse?s unit multiple times, cussing people out, and continuing to have this issue of saying that her mother is , anytime she can not reach her. She was very aggressive towards this specifications writer verbally, making racial slurs, and saying that she hates me and things of that nature. We discussed the importance of getting her Clozaril at an appropriate dose, and she was advised that we did file for a 21 day hold. She is eating okay and sleeping fairly well. Mental Status Exam MSE Comments: This is a morbidly obese, white female, with limited dress, grooming, and eye contact. No abnormal movements, except for psychomotor agitation. Less cooperative with exam in moderate to severe distress. Speech was increased rate and volume. Mood described as shitty; affect manic and agitated. Thought process, more organized. Thought content: patient denied suicidal or homicidal ideation; there were no delusions reported, but paranoid and persecutory delusions noted; she denied auditory or visual hallucinations. Attention and concentration were impaired, and memory was unreliable, but none were formally tested. She is alert and oriented times person and place. Insight and judgment are impaired. Impulse control is impaired. Vitals/I&O/Wt Last Vital Signs Temp 98.4 F 10/30/19 20:24 Pulse 101 H 10/30/19 20:24 Resp 16 10/30/19 20:24 BP 151/106 10/30/19 20:24 Pulse Ox 95 10/30/19 20:24 Weight last 48 hrs Weight 147.134 kg Data NPU : 10/25/19 10:45 10/25/19 10:45 A&P Additional A&P Information (1) Acute psychosis: (2) Unspecified personality disorder: (3) Schizoaffective disorder, bipolar type: This is a 49 year old, white female, with bipolar disorder versus schizoaffective disorder, bipolar type, who presents with florid psychosis and appearing quite manic, off of her medication, and mostly confused. Continue current medication. Increase night time Clozaril to 100 mg po qhs. Continue q 15 minute checks for safety Encourage individual, group, and milieu therapy. Will work with treatment team and outpatient team, to see if we can manage her on Clozaril, so that she does not have these frequent hospitalizations. Submitted 21 day hold paperwork. Involuntary Hold Information 96 Hour Hold: 96 Hour Involuntary Admission: Yes 96 Hour Hold Ending Date: 10/31/19 96 Hour Hold Ending Time: 09:59 Attestations NPU Medical Necessity Statement*: Inpatient hospitalization is medically necessary and the clinically appropriate intervention, at this time. We will monitor medications and make adjustments as indicated, using Clozaril as the primary medication. Likely length of stay is 6-9 days. Coding Level of Care Code Acute Petroleum Blending Plant Operator for Mandie Wei
[2019-10-30 20:24] VITALS: BP 151/106; PULSE 101; RESP 16; TEMP 36.9; O2SAT 95
[2019-10-30] MEDS: cloZAPine 100 mg Tablet PO (22:42)
[2019-10-30] MEDS: trazodone 50 mg Tablet PO (22:43)
[2019-10-30] MEDS: hyDROXYzine 25 mg Capsule 50 MG PO (22:43)
--- NOTE | 2019-10-31 04:00 | PC.NURSE ---
At HS, attempt was made to give pt scheduled clozaril, but pt refused med. at 2200, pt was noted with increased agitation, yelling, screaming and crying at staff, slamming the phone down. Security and scalehouse attendant was called to assist with ativan IM. 2mg ativan IM given by scalehouse attendant in left deltoid. At 2242, pt requested scheduled HS med and PRN med for anxiety and sleep. PRN trazodone and vistaril was given at that time.
[2019-10-31 06:00] VITALS: RESP 18
[2019-10-31] MEDS: blistex lip oint 7 gm Tube 1 APPLIC TOPICAL (11:04)
[2019-10-31] MEDS: lisinopril 10 mg Tablet PO (11:05)
[2019-10-31] MEDS: cloZAPine 25 mg Tablet 50 MG PO (11:05)
[2019-10-31 14:00] VITALS: BP 138/86; PULSE 93; RESP 22; TEMP 36.4; O2SAT 93
--- NOTE | 2019-10-31 14:50 | P.PN_ITS ---
Subjective NPU Subjective: Interval history: Joann presents today in a much better mood apparently. She did get frustrated because right after we had a conversation, they served her with her paperwork for her 21-day hold with the court. She was telling me that she cannot read and had wanted me to read it to her and talked about not wanting to go to correction or court. We discussed the fact that in fact she does not have to go if she does not want to. If she wants to go there and fight it or prevent us from keeping her longer, that she can, but if she acknowledges the best thing is to stay and let us continue to treat her and help her get better, she can also do that. We had a brief issue as she continues to occasionally talk about the Clozaril not working, which I keep talking to her about the fact that all the evidence is contrary to that. Also, she tries to say and did at this moment, that the doctor?s took her off of it, which I have spoken to the doctors and they take her off of it because she requested to come off of it because she really does not like getting the blood draws, but again it is the one effective medication that we witnessed get her well again and again when she comes in here. She reports she is eating okay and sleeping fine. Mental Status Exam MSE Comments: This is a morbidly obese, white female, with limited dress, grooming, and eye contact. No abnormal movements, except for psychomotor agitation. Less cooperative with exam in moderate to severe distress. Speech was increased rate and volume. Mood described as bad; affect manic and agitated. Thought process, more organized. Thought content: patient denied suicidal or homicidal ideation; there were no delusions reported, but paranoid and persecutory delusions noted; she denied auditory or visual hallucinations. Attention and concentration were impaired, and memory was unreliable, but none were formally tested. She is alert and oriented times person and place. Insight and judgment are impaired. Impulse control is impaired. Vitals/I&O/Wt Last Vital Signs Temp 98.2 F 10/31/19 20:54 Pulse 98 10/31/19 20:54 Resp 16 10/31/19 20:54 BP 129/92 10/31/19 20:54 Pulse Ox 94 10/31/19 20:54 Data NPU : 10/25/19 10:45 10/25/19 10:45 A&P Additional A&P Information (1) Acute psychosis: (2) Unspecified personality disorder: (3) Schizoaffective disorder, bipolar type: This is a 49 year old, white female, with bipolar disorder versus sc hizoaffective disorder, bipolar type, who presents with florid psychosis and appearing quite manic, off of her medication, and mostly confused. Continue current medication. Increase night time Clozaril tomorrow. Continue q 15 minute checks for safety Encourage individual, group, and milieu therapy. Will work with treatment team and outpatient team, to see if we can manage her on Clozaril, so that she does not have these frequent hospitalizations. Involuntary Hold Information 96 Hour Hold: 96 Hour Involuntary Admission: Yes 96 Hour Hold Ending Date: 10/31/19 96 Hour Hold Ending Time: 09:59 Attestations NPU Medical Necessity Statement*: Inpatient hospitalization is medically necessary and the clinically appropriate intervention, at this time. We will monitor medications and make adjustments as indicated, using Clozaril as the primary medication. Likely length of stay is 6-9 days. Coding Level of Care Code Acute Customer Service Attendant for Mandie Wei
[2019-10-31 20:54] VITALS: BP 129/92; PULSE 98; RESP 16; TEMP 36.8; O2SAT 94
[2019-10-31] MEDS: hyDROXYzine 25 mg Capsule 50 MG PO (21:10)
[2019-10-31] MEDS: trazodone 50 mg Tablet PO (21:10)
[2019-10-31] MEDS: cloZAPine 100 mg Tablet PO (21:10)
[2019-10-31] MEDS: OLANZapine 5 mg ODT PO (21:10)
[2019-10-31] MEDS: acetaminophen 325 mg Tablet 650 MG PO (23:29)
[2019-11-01 06:00] VITALS: BP 120/79; PULSE 97; RESP 18; TEMP 36.7; O2SAT 93
[2019-11-01] MEDS: cloZAPine 25 mg Tablet 50 MG PO (08:13)
[2019-11-01] MEDS: lisinopril 10 mg Tablet PO (08:13)
--- NOTE | 2019-11-01 13:50 | P.PN_ITS ---
Subjective NPU Subjective: Interval history: Joann presented today doing fairly well with her aggression initially, but then she had some really volatile moments. She had been told not to use the shower when she used the bathroom on the one side and went ahead and used the shower, which had not been repaired so it was leaking. She had some other moments that she was explosive. She also had some better moments, so we continue to feel like the medication is going well. We are holding an additional day because she was reporting a little bit of dizziness, but I do not know that it really has anything to do with the medication. She was really fired up at one point, and think she got herself out of breath with her obesity, but otherwise we discussed increasing the nighttime dose again tomorrow trying to assist her with the medication and also trying to get to a point where she is sleeping well, which will certainly assist in her improvement. She continues to have reports of thinking her mother is , and when her mom does not answer the phone, and thinking that Romie is somewhere strange because he does not answer the phone and a lot of time it is because she is just overwhelming him with calls. This feature writer attended her hearing which she stipulated to and she was placed on a 21-day hold. Mental Status Exam MSE Comments: This is a morbidly obese, white female, with adequate dress, grooming, and eye contact. No abnormal movements, except for psychomotor agitation. Less cooperative with exam in moderate to severe distress. Speech was increased rate and volume. Mood described as OK; affect manic and agitated. Thought process, more organized. Thought content: patient denied suicidal or homicidal ideation; there were no delusions reported, but paranoid and persecutory delusions noted; she denied auditory or visual hallucinations. Attention and concentration were impaired, and memory was unreliable, but none were formally tested. She is alert and oriented times person and place. Insight and judgment are impaired. Impulse control is impaired. Vitals/I&O/Wt Last Vital Signs Temp 98.1 F 11/01/19 06:00 Pulse 97 11/01/19 06:00 Resp 19 H 11/01/19 20:52 BP 120/79 11/01/19 06:00 Pulse Ox 93 11/01/19 06:00 Data NPU : 10/25/19 10:45 10/25/19 10:45 A&P Additional A&P Information (1) Acute psychosis: (2) Unspecified personality disorder: (3) Schizoaffective disorder, bipolar type: This is a 49 year old, white female, with bipolar disorder versus schizoaffective disorder, bipolar type, who presents with florid psychosis and appearing quite manic, off of her medication, and mostly confused. Continue current medication. Increase Clozaril tomorrow by 25 mg po bid. Continue q 15 minute checks for safety Encourage individual, group, and milieu therapy. Will work with treatment team and outpatient team, to see if we can manage her on Clozaril, so that she does not have these frequent hospitalizations. 21 day hold approved Involuntary Hold Information 96 Hour Hold: 96 Hour Involuntary Admission: Yes 96 Hour Hold Ending Date: 10/31/19 96 Hour Hold Ending Time: 09:59 Attestations NPU Medical Necessity Statement*: Inpatient hospitalization is medically necessary and the clinically appropriate intervention, at this time. We will monitor medications and make adjustments as indicated, using Clozaril as the primary medication. Likely length of stay is 6-9 days. Coding Level of Care Code Acute Overhead Crane Inspector for Mandie Wei
[2019-11-01 14:00] VITALS: RESP 16
[2019-11-01] MEDS: LORazepam 2 mg Tablet PO (16:18)
[2019-11-01] MEDS: LORazepam 2 mg/mL INJ 1 mL IM (18:35)
--- NOTE | 2019-11-01 18:35 | PC.NURSE ---
BEHAVIOR-PRN ATIVAN PT BEHAVIOR ESCALATING, CURSING AT NURSING STAFF. USED THE PHONE AT THE NURSES STATION, CALLED 911 WITHOUT STAFF KNOWLEDGE. WHEN STAFF TOOK PHONE AWAY FROM PT, SHE ATTEMPTED TO THROW THE PHONE, SECURITY ON UNIT DURING THIS TIME. ATTEMPTED TO DE-ESCALATE PT WITH LITTLE SUCCESS. ADMINISTERED ATIVAN INJECTION IN LEFT DELTOID, PT TOOK SHOT WILLINGLY. WILL CONT TO MONITOR FOR DESIRED MED EFFECTIVENESS.
--- NOTE | 2019-11-01 18:35 | PC.NURSE ---
Patient behavior Patient yelling at nurses station that we are holding her hostage. She then called the police [id number] and got mad and threw the phone behind the nurses desk. Security was already present and assisted in verbal de escalation, patient also agreed to an Ativan inj to help with agitation.
--- NOTE | 2019-11-01 18:54 | PC.NURSE ---
patient refused vitals.
[2019-11-01 20:52] VITALS: RESP 19
--- NOTE | 2019-11-01 22:46 | PC.NURSE ---
pt's HS meds attempted to be given, pt asleep. Will attempt to given meds prior to midnight.
[2019-11-02 06:00] VITALS: RESP 18
[2019-11-02] MEDS: lisinopril 10 mg Tablet PO (08:36)
[2019-11-02] MEDS: cloZAPine 25 mg Tablet 75 MG PO (08:36)
--- NOTE | 2019-11-02 09:21 | PC.NURSE ---
Joann was resting in her room and took her medication without incident. She stated she wants to go home and that she needs clothing that fits her. Overall her affect is correct for mood. Very easy to talk to this morning. This is a big improvement from the last time that I cared for her one week ago.
[2019-11-02] MEDS: cetylpyridinium Lozenge 1 EACH MUCOUS MEM (13:55)
[2019-11-02 14:00] VITALS: BP 108/63; PULSE 90; RESP 20; TEMP 36.3; O2SAT 92
--- NOTE | 2019-11-02 14:03 | PM.NPN ---
Subjective NPU Subjective: Interval history: Joann presents today seeming to do a little better than yesterday. She continues to have outbursts but had seemingly more moments of calmness and being reasonable today. She actually talked about going to a senior living or kind of controlled living arrangement that would not be her mother and would not be Romie. She was calm in discussing that. We had a fairly lengthy discussion about Clozaril with what the current dose was and the goal and the fact that again there has been no indication at any level that she has any kind of allergy to that, but truly not evidence that she has allergies to any of the things that she declared in her assessment. Otherwise she is eating fine and sleeping a little better, and also doing better in the sense of managing her ADL?s. Mental Status Exam MSE Comments: This is a morbidly obese, white female, with adequate dress, grooming, and eye contact. No abnormal movements, except for psychomotor agitation. Less cooperative with exam in moderate to severe distress. Speech was increased rate and volume. Mood described as i want to go to some other care home facility; affect manic and agitated. Thought process, more organized. Thought content: patient denied suicidal or homicidal ideation; there were no delusions reported, but paranoid and persecutory delusions noted; she denied auditory or visual hallucinations. Attention and concentration were impaired, and memory was unreliable, but none were formally tested. She is alert and oriented times person and place. Insight and judgment are impaired. Impulse control is impaired. Vitals/I&O/Wt Last Vital Signs Temp 98.6 F 11/02/19 20:28 Pulse 91 11/02/19 20:28 Resp 19 H 11/02/19 20:28 BP 119/73 11/02/19 20:28 Pulse Ox 95 11/02/19 20:28 Data NPU : 10/25/19 10:45 10/25/19 10:45 A&P Additional A&P Information (1) Acute psychosis: (2) Unspecified personality disorder: (3) Schizoaffective disorder, bipolar type: This is a 49 year old, white female, with bipolar disorder versus schizoaffective disorder, bipolar type, who presents with florid psychosis and appearing quite manic, off of her medication, and mostly confused. Continue current medication. Continue q 15 minute checks for safety Encourage individual, group, and milieu therapy. Will work with treatment team and outpatient team, to see if we can manage her on Clozaril, so that she does not have these frequent hospitalizations. Involuntary Hold Information 96 Hour Hold: 96 Hour Involuntary Admission: Yes 96 Hour Hold Ending Date: 10/31/19 96 Hour Hold Ending Time: 09:59 Attestations NPU Medical Necessity Statement*: Inpatient hospitalization is medically necessary and the clinically appropriate intervention, at this time. We will monitor medications and make adjustments as indicated, using Clozaril as the primary medication. Likely length of stay is 6-9 days. Coding Level of Care Code Acute Research And Development Tester for Mandie Wei
[2019-11-02 20:28] VITALS: BP 119/73; PULSE 91; RESP 19; TEMP 37; O2SAT 95
[2019-11-02] MEDS: cloZAPine 100 mg Tablet PO (20:28)
[2019-11-02] MEDS: cloZAPine 25 mg Tablet PO (20:28)
[2019-11-02] MEDS: hyDROXYzine 25 mg Capsule 50 MG PO (20:28)
--- NOTE | 2019-11-02 20:39 | PC.NURSE ---
PRN VISTARIL PT IN ROOM YELLING AND BECOMING VERY ANXIOUS. ADMINISTERED VISTARIL 50MG PO. WILL MONITOR FOR MEDICATION EFFECTIVENESS.
[2019-11-03] MEDS: OLANZapine 5 mg ODT PO (00:13)
--- NOTE | 2019-11-03 00:29 | PC.NURSE ---
ZYPREXA ZYDIS ADMINISTERED ZYPREXA ZYDIS 5MG SUBLINGUAL FOR INCREASING AGITATION. WILL MONITOR FOR MEDICATION EFFECTIVENESS.
[2019-11-03 06:00] VITALS: BP 129/87; PULSE 92; RESP 19; TEMP 36.8; O2SAT 95
[2019-11-03] MEDS: lisinopril 10 mg Tablet PO (08:18)
[2019-11-03] MEDS: cloZAPine 25 mg Tablet 75 MG PO (08:19)
--- NOTE | 2019-11-03 10:50 | PC.NURSE ---
Unprovoked patient outburst and meltdown in the patient room. She was yelling and verbally assaultive to HALEY Kothari. She was redirected and was not able to be reasoned with. She tends to target the FINANCE ASSOCIATE
[2019-11-03 12:14] VITALS: BP 83/50; PULSE 102; RESP 20; TEMP 36.9; O2SAT 95
--- NOTE | 2019-11-03 16:43 | P.PN_ITS ---
Subjective NPU Subjective: Interval history: Joann presents today seeming to do a little better than yesterday. She continues to have outbursts but they tend to be less often and generally relate do her delusional thinking about her mother or significant other. She talked about going home to [place] after days of vilifying him. We had a fairly lengthy discussion about Clozaril again, today her reporting it isn't helpful. Otherwise she is eating fine and sleeping a little better, and also doing better in the sense of managing her ADL?s. Mental Status Exam MSE Comments: This is a morbidly obese, white female, with adequate dress, grooming, and eye contact. No abnormal movements, except for psychomotor agitation. semicooperative with exam in moderate to severe distress intermittently. Speech was increased rate and volume. Mood described as good; affect manic and agitated. Thought process, more organized. Thought content: patient denied suicidal or homicidal ideation; there were no delusions reported, but paranoid and persecutory delusions noted; she denied auditory or visual hallucinations. Attention and concentration were impaired, and memory was unreliable, but none were formally tested. She is alert and oriented times person and place. Insight and judgment are impaired. Impulse control is impaired. Vitals/I&O/Wt Last Vital Signs Temp 98.4 F 11/03/19 12:14 Pulse 102 H 11/03/19 12:14 Resp 20 H 11/03/19 12:14 BP 83/50 11/03/19 12:14 Pulse Ox 95 11/03/19 12:14 Data NPU : 10/25/19 10:45 10/25/19 10:45 A&P Additional A&P Information (1) Acute psychosis: (2) Unspecified personality disorder: (3) Schizoaffective disorder, bipolar type: This is a 49 year old, white female, with bipolar disorder versus schiz oaffective disorder, bipolar type, who presents with florid psychosis and appearing quite manic, off of her medication, and mostly confused. Continue current medication. Increase Clozaril to 100 mg qam and 150mg qhs tomorrow. Continue q 15 minute checks for safety Encourage individual, group, and milieu therapy. Will work with treatment team and outpatient team, to see if we can manage her on Clozaril, so that she does not have these frequent hospitalizations. Involuntary Hold Information 96 Hour Hold: 96 Hour Involuntary Admission: Yes 96 Hour Hold Ending Date: 10/31/19 96 Hour Hold Ending Time: 09:59 Attestations NPU Medical Necessity Statement*: Inpatient hospitalization is medically necessary and the clinically appropriate intervention, at this time. We will monitor medications and make adjustments as indicated, using Clozaril as the primary medication. Likely length of stay is 6-9 days. Coding Level of Care Code Acute Button Reclaimer for Mandie Wei
[2019-11-03] MEDS: cloZAPine 100 mg Tablet PO (20:35)
[2019-11-03] MEDS: cloZAPine 25 mg Tablet PO (20:35)
[2019-11-03] MEDS: hyDROXYzine 25 mg Capsule 50 MG PO (20:35)
[2019-11-03 21:43] VITALS: BP 138/89; PULSE 100; RESP 23; TEMP 37; O2SAT 95
[2019-11-03] MEDS: acetaminophen 325 mg Tablet 650 MG PO (21:51)
[2019-11-04 06:00] VITALS: RESP 18
[2019-11-04] MEDS: lisinopril 10 mg Tablet PO (10:58)
[2019-11-04] MEDS: cloZAPine 25 mg Tablet 75 MG PO (10:58)
[2019-11-04] MEDS: cloZAPine 25 mg Tablet PO (13:32)
[2019-11-04 14:00] VITALS: BP 128/65; PULSE 74; RESP 18; TEMP 36.6
--- NOTE | 2019-11-04 14:38 | P.PN_ITS ---
Subjective NPU Subjective: Interval history: Joann presents today continuing to do a little better each day. She is having ;ess outbursts and she and I spoke with her mother and she seemed to agree with her mother that she should consider Lamplight and not return to her significant other. We had a fairly lengthy discussion about Clozaril again, today with her reporting it is helpful. Other jacinto she is eating fine and sleeping a little better, and also doing better in the sense of managing her ADL?s. Mental Status Exam MSE Comments: This is a morbidly obese, white female, with adequate dress, grooming, and eye contact. No abnormal movements, with resolving psychomotor agitation. More cooperative with exam in no acute distress. Speech was increased rate and normal volume. Mood described as better; affect less agitated. Thought process, more organized. Thought content: patient denied suicidal or homicidal ideation; there were no delusions reported, with paranoid and persecutory delusions noted, but resolving; she denied auditory or visual hallucinations. Attention and concentration were improving, and memory was unreliable, but none were formally tested. She is alert and oriented times three. Insight and judgment are improving. Impulse control is limited. Vitals/I&O/Wt Last Vital Signs Temp 98.4 F 11/04/19 06:00 Pulse 95 11/04/19 06:00 Resp 23 H 11/04/19 06:00 BP 142/81 11/04/19 06:00 Pulse Ox 96 11/04/19 06:00 Weight last 48 hrs Weight 139.525 kg Data NPU : 10/25/19 10:45 10/25/19 10:45 A&P Additional A&P Information (1) Acute psychosis: (2) Unspecified personality disorder: (3) Schizoaffective disorder, bipolar type: This is a 49 year old, white female, with bipolar disorder versus schizoaffective disorder, bipolar type, who presents with florid psychosis and appearing less manic. Continue current medication. Increase Clozaril to 100 mg qam and 150mg qhs. Continue q 15 minute checks for safety Encourage individual, group, and milieu therapy. Will work with treatment team and outpatient team, to see if we can manage her on Clozaril, so that she does not have these frequent hospitalizations. Involuntary Hold Information 96 Hour Hold: 96 Hour Involuntary Admission: Yes 96 Hour Hold Ending Date: 10/31/19 96 Hour Hold Ending Time: 09:59 Attestations NPU Medical Necessity Statement*: Inpatient hospitalization is medically necessary and the clinically appropriate intervention, at this time. We will monitor med ications and make adjustments as indicated, using Clozaril as the primary medication. Likely length of stay is 6-9 days. Coding Level of Care Code Acute Coding Support Specialist for Mandie Wei
[2019-11-04] MEDS: OLANZapine 5 mg ODT PO (15:30)
--- NOTE | 2019-11-04 15:32 | PC.NURSE ---
PT NOTE: PATIENT GIVEN ZYPREXA ZYDIS 5MG PO FOR ANXIETY.
[2019-11-04] MEDS: LORazepam 2 mg/mL INJ 1 mL IM (16:00)
--- NOTE | 2019-11-04 16:01 | PC.NURSE ---
PT NOTE: PATIENT GIVEN 2MG ATIVAN IM TO LEFT DELTOID FOR AGITATION.
[2019-11-04] MEDS: cloZAPine 25 mg Tablet 150 MG PO (20:50)
--- NOTE | 2019-11-04 20:54 | PC.NURSE ---
PRN VISTARIL PT REFUSED VISTARIL AFTER PACKAGES HAVE BEEN OPENED, WASTED PER PROTOCOL.
[2019-11-04 22:00] VITALS: BP 119/69; PULSE 97; RESP 22; TEMP 36.9; O2SAT 95
[2019-11-05 06:00] VITALS: BP 142/81; PULSE 95; RESP 23; TEMP 36.9; O2SAT 96
[2019-11-05] MEDS: lisinopril 10 mg Tablet PO (08:05)
[2019-11-05] MEDS: cloZAPine 100 mg Tablet PO (08:06)
[2019-11-05 14:00] VITALS: BP 137/84; PULSE 103; RESP 21; TEMP 36.9; O2SAT 95
--- NOTE | 2019-11-05 16:38 | P.PN_ITS ---
Subjective NPU Subjective: Interval history: Joann presents today continuing to do a little better each day. She is having less outbursts and she and I spoke about Romie using her and other women and she identified her inability to conceive a child at her age per her understanding. She wants to consider Lamplight and not return to her significant other. Otherwise she is eating fine and sleeping a little better, and also doing better in the sense of managing her ADL?s. Mental Status Exam MSE Comments: This is a morbidly obese, white female, with adequate dress, grooming, and eye contact. No abnormal movements, with mild psychomotor retardation. More cooperative with exam in no acute distress. Speech was normal rate and normal volume. Mood described as i feel better; affect congruent. Thought process, more organized. Thought content: patient denied suicidal or homicidal ideation; there were no delusions reported, with limited paranoid or persecutory thinking noted; she denied auditory or visual hallucinations. Attention and concentration were improving, and memory was more reliable, but none were formally tested. She is alert and oriented times three. Insight and judgment are improving. Impulse control is limited. Vitals/I&O/Wt Last Vital Signs Temp 98.4 F 11/05/19 06:00 Pulse 95 11/05/19 06:00 Resp 23 H 11/05/19 06:00 BP 142/81 11/05/19 06:00 Pulse Ox 96 11/05/19 06:00 Weight last 48 hrs Weight 139.525 kg Data NPU : 10/25/19 10:45 10/25/19 10:45 A&P Additional A&P Information (1) Acute psychosis: (2) Unspecified personality disorder: (3) Schizoaffective disorder, bipolar type: This is a 49 year old, white female, with bipolar disorder versus schizoaffective disorder, bipolar type, who presents with florid psychosis and appearing less manic. Continue current medication. Will consider increase Clozaril to 100 mg qam and 200 mg qhs in a couple days. Continue q 15 minute checks for safety Encourage individual, group, and milieu therapy. Will work with treatment team and outpatient team, to see if we can manage her on Clozaril, so that she does not have these frequent hospitalizations. Involuntary Hold Information 96 Hour Hold: 96 Hour Involuntary Admission: Yes 96 Hour Hold Ending Date: 10/31/19 96 Hour Hold Ending Time: 09:59 Attestations NPU Medical Necessity Statement*: Inpatient hospitalization is medically necessary and the clinically appropriate intervention, at this time. We will monitor medications and make adjustments as indicated, using Clozaril as the primary medication. Likely length of stay is 6-9 days. Coding Level of Care Code Acute Quotation Checker for Mandie Wei
[2019-11-05] MEDS: hyDROXYzine 25 mg Capsule 50 MG PO (20:35)
[2019-11-05] MEDS: OLANZapine 5 mg ODT PO ×2 (20:35→23:02)
[2019-11-05] MEDS: cloZAPine 25 mg Tablet 150 MG PO (20:35)
--- NOTE | 2019-11-05 20:43 | PC.NURSE ---
pt given scheduledclozaril and PRN vistaril per request.
[2019-11-05 21:51] VITALS: BP 132/89; PULSE 99; RESP 18; TEMP 36.7; O2SAT 96
[2019-11-06 06:00] VITALS: RESP 18
[2019-11-06] MEDS: cloZAPine 100 mg Tablet PO (09:46)
[2019-11-06] MEDS: lisinopril 10 mg Tablet PO (09:46)
[2019-11-06 12:21] VITALS: BP 126/83; PULSE 99; RESP 20; TEMP 36.4; O2SAT 98
--- NOTE | 2019-11-06 14:26 | P.PN_ITS ---
Subjective NPU Subjective: Interval history: Patient is demanding to leave. She needs to attend a . Her mother hates her. Her mother has dementia and runs around outside in the sun and the patient is required to supervise her. She accurately gives a list of medications that she has been on in the past that have been helpful for her. However she is consumed by grief over the of someone but cannot make clear who that person was. Mental Status Exam MSE Comments: Mental Status Exam: This is a morbidly obese woman who is cooperative until lead into the interview room. Then she becomes increasingly irritable, angry, and demanding. Appearance: hygiene is fair; no gross neurological deficits., gait is waddling; AIMS=0 Speech: Speech is of normal rate and rhythm and easily understood. Thought processes: Thought processes are concrete and illogical. Judgment is not adequate for safety. She demonstrates flight of ideas and is not able to engage in any specific topic due to her inability to attend to that topic long enough to discuss it. Psychotic processes: There is no indication of guarding or paranoia. There is no attention to the internal stimuli. Auditory and visual hallucinations are denied. Judgment: Insight is poor. Problem solving skills are adequate for safety. Orientation: The patient is oriented to person, place time and situation. Memory: no deficits noted in immediate, intermediate, or remote spheres. Attention: The patient is alert and interpersonally engaged. Language: Verbalizations are coherent. Fund of knowledge: Fund of knowledge is adequate. Affect/Mood: Affect is consistent with a agitated manic mood. Denies suicidal ideation Affective range is labile Psychosis: perception and reality testing impaired by inability to focus her a ttention on any specific topic long enough to test reality and obsessive attention to perception of persecution. Vitals/I&O/Wt Last Vital Signs Temp 97.6 F 11/06/19 12:21 Pulse 99 11/06/19 12:21 Resp 20 H 11/06/19 12:21 BP 126/83 11/06/19 12:21 Pulse Ox 98 11/06/19 12:21 Weight last 48 hrs Weight 139.525 kg Data NPU : 10/25/19 10:45 10/25/19 10:45 A&P Assessment and plan (1) Acute psychosis: Status: Acute (2) Unspecified personality disorder: Status: Acute (3) Schizoaffective disorder, bipolar type: Status: Acute Additional A&P Information (1) Acute psychosis: (2) Unspecified personality disorder: (3) Schizoaffective disorder, bipolar type: This is a 49 year old, white female, with bipolar disorder versus schizoaffective disorder, bipolar type, who presents with florid psychosis and appearing quite manic, off of her medication, and mostly confused. HD#12 Joann presents today seeming to do a little better than yesterday. She continues to have outbursts but they tend to be less often and generally relate do her delusional thinking about her mother or significant other. She talked about going home to bobbi after days of vilifying him. We had a fairly lengthy discussion about Clozaril again, today her reporting it isn't helpful. Otherwise she is eating fine and sleeping a little better, and also doing better in the sense of managing her ADL?s. Continue current medication. Increase Clozaril to 100 mg qam and 150mg qhs tomorrow. Continue q 15 minute checks for safety Encourage individual, group, and milieu therapy. Will work with treatment team and outpatient team, to see if we can manage her on Clozaril, so that she does not have these frequent hospitalizations. HD#13 patient continues to be irritable and consistent with an agitated kiera. She has been seen in this state multiple other times by this physician and staff. She responds well over time to antipsychotic medication. However in the. Leading up to that response, she is typically agitated and illogical. We will continue Clozaril 100 mg in the morning and 150 mg at bedtime. This is hospital day #2 on this regimen. Involuntary Hold Information 96 Hour Hold: 96 Hour Involuntary Admission: Yes 96 Hour Hold Ending Date: 10/31/19 96 Hour Hold Ending Time: 09:59 Attestations NPU Medical Necessity Statement*: Patient will remain in the hospital another 14 nights for the duration of her 21-day involuntary commitment. Coding Level of Care Code Acute Instrument Lens Grinder for Mandie Wei Diagnoses Acute psychosis F23 Unspecified personality disorder F60.9 Schizoaffective disorder, bipolar type F25.0
[2019-11-06] MEDS: OLANZapine 5 mg ODT PO ×2 (18:05→21:06)
--- NOTE | 2019-11-06 18:05 | PC.NURSE ---
Addendum entered by Dottie Uribe LPN 11/06/19 18:42: medication effective. no further c/o anxiety/agitation. patient lying in room resting. Original Note: PRN ZYPREXA ZYDIS ZYPREXA ZYDIS 5MG PO PER PATIENT C/O AGITATION/ANXIETY. WILL CONTINUE TO MONITOR FOR MEDICATION EFFECTIVENESS.
[2019-11-06] MEDS: hyDROXYzine 25 mg Capsule 50 MG PO (21:04)
[2019-11-06] MEDS: cloZAPine 25 mg Tablet 150 MG PO (21:04)
[2019-11-06 22:00] VITALS: BP 126/85; PULSE 99; RESP 18; TEMP 36.4; O2SAT 96
--- NOTE | 2019-11-06 23:55 | PC.NURSE ---
pt given scheduled clozoril as well as PRN zyprexa, and vistaril per request.
[2019-11-07 06:00] VITALS: BP 121/80; PULSE 97; RESP 18; TEMP 36.4; O2SAT 96
--- NOTE | 2019-11-07 11:39 | PM.NPN ---
Subjective NPU Subjective: Interval history: No complaints except demanding to be discharged. Mental Status Exam MSE Comments: Mental Status Exam: Appearance: hygiene is fair; no gross neurological deficits., gait is waddling; AIMS=0 Speech: Speech is of normal rate and rhythm and easily understood. Thought processes: Thought processes are concrete and illogical. Judgment is not adequate for safety. She demonstrates flight of ideas and is not able to engage in any specific topic due to her inability to attend to that topic long enough to discuss it. Psychotic processes: There is no indication of guarding or paranoia. There is no attention to the internal stimuli. Auditory and visual hallucinations are denied. Judgment: Insight is poor. Problem solving skills are adequate for safety. Orientation: The patient is oriented to person, place time and situation. Memory: no deficits noted in immediate, intermediate, or remote spheres. Attention: The patient is alert and interpersonally engaged. Language: Verbalizations are coherent. Fund of knowledge: Fund of knowledge is adequate. Affect/Mood: Affect is consistent with a manic mood. Denies suicidal ideation Affective range is labile Psychosis: perception and reality testing improved Cognition: Patient Appearance: Appears Older than Age Level of Consciousness: Combative and Disoriented Patient Cognition Impaired: Yes Ability to Follow Directions: Fair Patient Orientation (long list): Person and Place Comprehension Ability: Mild Impairment Hallucination Type: None Delusion Description: Not Present Thought Process: Confused, Disorganized, Flight of Ideas and Indecisive Affect: Affect Description: Anxious Behavior: Patient Behavior: Cooperative Speech Pattern: Pressured and Rambling Vitals/I&O/Wt Last Vital Signs Temp 97.6 F 11/07/19 06:00 Pulse 97 11/07/19 06:00 Resp 18 11/07/19 06:00 BP 121/80 11/07/19 06:00 Pulse Ox 96 11/07/19 06:00 Data NPU : 10/25/19 10:45 10/25/19 10:45 A&P Assessment and plan (1) Acute psychosis: Status: Acute (2) Unspecified personality disorder: Status: Acute (3) Schizoaffective disorder, bipolar type: Status: Acute Additional A&P Information (1) Acute psychosis: (2) Unspecified personality disorder: (3) Schizoaffective disorder, bipolar type: This is a 49 year old, white female, with bipolar disorder versus schizoaffective disorder, bipolar type, who presents with florid psychosis and appearing less manic. HD#12 Joann presents today seeming to do a little better than yesterday. She continues to have outbursts but they tend to be less often and generally relate do her delusional thinking about her mother or significant other. She talked about going home to bobbi after days of vilifying him. We had a fairly lengthy discussion about Clozaril again, today her reporting it isn't helpful. Otherwise she is eating fine and sleeping a little better, and also doing better in the sense of managing her ADL?s. Continue current medication. Increase Clozaril to 100 mg qam and 150mg qhs tomorrow. Continue q 15 minute checks for safety Encourage individual, group, and milieu therapy. Will work with treatment team and outpatient team, to see if we can manage her on Clozaril, so that she does not have these frequent hospitalizations. HD#13 patient continues to be irritable and consistent with an agitated kiera. She has been seen in this state multiple other times by this physician and staff. She responds well over time to antipsychotic medication. However in the. Leading up to that response, she is typically agitated and illogical. We will continue Clozaril 100 mg in the morning and 150 mg at bedtime. This is hospital day #2 on this regimen. Hospital day #14: Patient has been compliant with medication. She slept through the night last night. She is showing some benefit today on treatment day #3 of 250 mg of Clozaril daily. Continue q 15 minute checks for safety Encourage individual, group, and milieu therapy. Will work with treatment team and outpatient team, to see if we can manage her on Clozaril, so that she does not have these frequent hospitalizations. Involuntary Hold Information 96 Hour Hold: 96 Hour Involuntary Admission: Yes 96 Hour Hold Ending Date: 10/31/19 96 Hour Hold Ending Time: 09:59 Attestations NPU Medical Necessity Statement*: Patient to remain in the hospital another 10 to 12 days on her 21-day commitment. Coding Level of Care Code Acute Brake Press Operator for Mandie Wei Diagnoses Acute psychosis F23 Unspecified personality disorder F60.9 Schizoaffective disorder, bipolar type F25.0
[2019-11-07] MEDS: lisinopril 10 mg Tablet PO (11:40)
[2019-11-07] MEDS: cloZAPine 100 mg Tablet PO ×2 (11:40→20:27)
[2019-11-07 14:00] VITALS: BP 119/89; PULSE 103; RESP 20; TEMP 36.6; O2SAT 93
[2019-11-07 20:12] VITALS: BP 140/102; PULSE 102; RESP 18; TEMP 36.9; O2SAT 95
[2019-11-07] MEDS: cloZAPine 25 mg Tablet 50 MG PO (20:27)
[2019-11-07] MEDS: hyDROXYzine 25 mg Capsule 50 MG PO (20:27)
[2019-11-07] MEDS: OLANZapine 5 mg ODT PO (20:27)
--- NOTE | 2019-11-07 21:47 | PC.NURSE ---
PT OFFERED PRN SLEEP AND ANXIETY MED. SCHEDULED CLOZARIL AND PRN ZYPREXA AND VISTARIL GIVEN.
[2019-11-08 06:00] VITALS: BP 131/91; PULSE 93; RESP 18; TEMP 36.6; O2SAT 96
[2019-11-08] MEDS: acetaminophen 325 mg Tablet 650 MG PO (06:25)
[2019-11-08] MEDS: cloZAPine 100 mg Tablet PO (08:38)
[2019-11-08] MEDS: lisinopril 10 mg Tablet PO (08:38)
--- NOTE | 2019-11-08 10:54 | PM.NPN ---
Subjective NPU Subjective: Interval history: I talked to my mother and I want ot go home. No complaints re medication effects or side effects. Mental Status Exam MSE Comments: Mental Status Exam: Appearance: hygiene is fair; no gross neurological deficits., gait is waddling; AIMS=0 Speech: Speech is of normal rate and rhythm and easily understood. Thought processes: Thought processes are concrete and illogical. Judgment is not adequate for safety. She demonstrates flight of ideas and is not able to engage in any specific topic due to her inability to attend to that topic long enough to discuss it. Psychotic processes: There is no indication of guarding or paranoia. There is no attention to the internal stimuli. Auditory and visual hallucinations are denied. Judgment: Insight is poor. Problem solving skills are adequate for safety. Orientation: The patient is oriented to person, place time and situation. Memory: no deficits noted in immediate, intermediate, or remote spheres. Attention: The patient is alert and interpersonally engaged. Language: Verbalizations are coherent. Fund of knowledge: Fund of knowledge is adequate. Affect/Mood: Affect is consistent with a minimally manic mood. Denies suicidal ideation Affective range is within normal limits Psychosis: perception and reality testing improved Vitals/I&O/Wt Last Vital Signs Temp 97.8 F 11/08/19 06:00 Pulse 93 11/08/19 06:00 Resp 18 11/08/19 06:00 BP 131/91 11/08/19 06:00 Pulse Ox 96 11/08/19 06:00 Data NPU : 10/25/19 10:45 10/25/19 10:45 A&P Assessment and plan (1) Acute psychosis: Status: Acute (2) Unspecified personality disorder: Status: Acute (3) Schizoaffective disorder, bipolar type: Status: Acute Additional A&P Information (1) Acute psychosis: (2) Unspecified personality disorder: (3) Schizoaffective disorder, bipolar type: This is a 49 year old, white female, with bipolar disorder versus schizoaffective disorder, bipolar type, who presents with florid psychosis and appearing less manic. HD#12 Joann presents today seeming to do a little better than yesterday. She continues to have outbursts but they tend to be less often and generally relate do her delusional thinking about her mother or significant other. She talked about going home to bobbi after days of vilifying him. We had a fairly lengthy discussion about Clozaril again, today her reporting it isn't helpful. Otherwise she is eating fine and sleeping a little better, and also doing better in the sense of managing her ADL?s. Continue current medication. Increase Clozaril to 100 mg qam and 150mg qhs tomorrow. Continue q 15 minute checks for safety Encourage individual, group, and milieu therapy. Will work with treatment team and outpatient team, to see if we can manage her on Clozaril, so that she does not have these frequent hospitalizations. HD#13 patient continues to be irritable and consistent with an agitated kiera. She has been seen in this state multiple other times by this physician and staff. She responds well over time to antipsychotic medication. However in the. Leading up to that response, she is typically agitated and illogical. We will continue Clozaril 100 mg in the morning and 150 mg at bedtime. This is hospital day #2 on this regimen. Hospital day #14: Patient has no compliant with medication. She slept through the night last night. She is showing some benefit today on treatment day #3 of 250 mg of Clozaril daily. Hospital day #15. Patient is demanding to go home. Patient is doing much better. Situation was discussed with her mother and the intention is for her to go back and live with her boyfriend. It was explained to the patient that when her boyfriend is ready to come pick her up and is willing to have her come home, discharge will be considered. Plan: Change Clozaril to 100 mg every morning and 200 mg nightly Continue q 15 minute checks for safety Encourage individual, group, and milieu therapy. Involuntary Hold Information 96 Hour Hold: 96 Hour Involuntary Admission: Yes 96 Hour Hold Ending Date: 10/31/19 96 Hour Hold Ending Time: 09:59 Attestations NPU Medical Necessity Statement*: Patient will remain in the hospital another 5-6 nights for her 96-hour involuntary commitment. Coding Level of Care Code Acute Scallop Cutter Machine for Mandie Wei Diagnoses Acute psychosis F23 Unspecified personality disorder F60.9 Schizoaffective disorder, bipolar type F25.0
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
[2019-11-08 12:58] VITALS: BP 131/91; PULSE 93; RESP 18; TEMP 36.6; O2SAT 96
== END 2019-11-08 13:24 | disposition home or self-care (01) | DRG 885 ==
LOC: ER 11:23 → NP 12:39
PROVIDERS: Family Medicine; Admitting Provider Psychiatry & Neurology Psychiatry; PCP Nurse Practitioner Family; Visit Provider Psychiatry & Neurology Psychiatry
DX: F23 Brief psychotic disorder (principal); R45.851 Suicidal ideations; Z68.43 Body mass index [BMI] 50.0-59.9, adult; F25.0 Schizoaffective disorder, bipolar type; E66.01 Morbid (severe) obesity due to excess calories; I10 Essential (primary) hypertension; E78.5 Hyperlipidemia, unspecified; E11.9 Type 2 diabetes mellitus without complications; Z87.891 Personal history of nicotine dependence
CPT/HCPCS: 12345; 36415; 36416; 80053; 80306; 80307; 81001; 81003; 82962; 85025; 96372; 99285; J1200; J2060; J3486; Q0162

== ENCOUNTER 2019-11-09 22:11 | Inpatient (IN) | payer MEDICAID, SELFPAY ==
[2019-10-12 09:30] VITALS: BP 170/101; BMI 55.8
--- NOTE | 2019-11-09 22:14 | W.ED.PSYCH ---
HPI - Psych General: Chief Complaint: Psychiatric Symptoms Stated Complaint: MENTAL HEALTH Time Seen by Provider: 11/09/19 22:12 Source: patient and police Mode of arrival: other (police) Limitations: no limitations History of Present Illness: HPI Narrative: 49-year-old female who presents here with police. Patient is well-known to the ED. She supposedly been using drugs. Patient is currently acutely psychotic and has severe flight of ideas. Unable to get any significant history from her. Patient is making wildly statements like Mike Cervantes since her father and she feels like something is trying to crawl of her abdomen. She has pressured speech. Patient denies any acute suicidality or homicidality. She does have a history of bipolar disorder. Review of Systems Const: Denies: fever(s), chills, body aches or change in appetite Eyes: Denies: blurry vision or eye discomfort ENMT: Denies: throat pain or dental pain Card: Denies: chest pain Resp: Denies: dyspnea GI: Denies: abdominal pain, nausea, vomiting or diarrhea : Denies: dysuria Musc: Denies: neck pain or back pain Skin/Breast: Denies: rash Neuro: Denies: headache(s) Psych: Reports: mood swings, paranoia and difficulty concentrating Dominic/Lymph: Denies: easy bruising All/Imm: Denies: urticaria PFSH ED PFSH: Family History Mother Hypertension Hyperlipidemia Diabetes Grandmother Diabetes Grandfather Diabetes Father , due to complications of colon cancer Cancer Colon Social History Smoking and tobacco status: never smoked Quit status (tobacco): has quit using tobacco Year quit tobacco: 2017 Second hand smoke exposure: Yes Smoking risk assessment/counseling performed?: Yes Tobacco counseling given: counseling >3 minutes Alcohol intake: never Desire information about substance/drug rehabilitation?: No Adopted: No Lives independently: Yes Household members: significant other Marital status: Number of children: 1 Current occupational status: disabled Current gender identity: Female Female Reproductive History: Date of last menstrual period: 05/02/19 Para: 1 Spontaneous abortions: No Physical Exam Const: GENERAL APPEARANCE: anxious, combative and disheveled HENMT: COMMON NORMALS: normocephalic and atraumatic HEAD & SCALP: normocephalic and atraumatic Eye: COMMON NORMALS: Equal, round and reactive pupils present and EOMs intact bilaterally PUPIL: Yes Equal, round and reactive pupils present Neck/C-Spine: COMMON NORMALS: full ROM and supple Chest: COMMONS NORMALS: normal inspection of the chest and normal palpation of entire chest wall Resp: COMMON NORMALS: normal respiratory effort, No retractions, No use of accessory muscles and clear to auscultation bilaterally AUSCULTATION: clear to auscultation bilaterally Cardio: COMMON NORMALS: regular rate, regular rhythm and No murmurs present (Cardio) RATE: regular rate RHYTHM: regular rhythm GI: COMMON NORMALS: Normal to inspection, nondistended, normoactive bowel sounds present, Soft to palpation, non-tender and no masses PALPATION: Yes Soft to palpation Extremity: COMMON NORMALS: normal to inspection and full ROM Neuro: COMMON NORMALS: moves all extremities and no focal motor deficits Psych: ATTITUDE: Yes paranoid, Yes Belligerent attititude/behavior present and Yes agitated ACTIVITY/MOTOR BEHAVIOR: Yes fidgeting and Yes hyperactivity SPEECH: Yes excessive and Yes rapid MOOD & AFFECT: Yes elevated mood and Yes irritable Skin: COMMON NORMALS: no rashes or lesions noted and no wounds GENERAL SKIN EXAM: no rashes or lesions noted MDM - Psych MDM Narrative: Medical decision making narrative: Joann presents here with acute psychosis and has not been taking her medicines. Patient is medically cleared I spoke to the psychiatrist and will admit to the psychiatric unit under 96-hour hold. Lab Data: Labs: Lab Results 11/09/19 Range/Units 22:32 WBC 10.0 (4.0-10.0) 10^3/ uL RBC 3.87 L (4.1-5.3) 10^6/u L Hgb 11.9 (11.5-15.3) g/dL Hct 36.9 L (37.0-47.0) % MCV 95.3 (81-99) fL MCH 30.7 (28.0-34.0) pg MCHC 32.2 (30.0-36.0) g/dL RDW 13.0 (12.1-15.1) % Plt Count 291 (130-400) 10^3/c mm MPV 9.5 (7.4-10.4) fL Neut % (Auto) 59.2 % Lymph % (Auto) 28.9 % Harmon % (Auto) 8.0 % Eos % (Auto) 2.7 % Baso % (Auto) 0.7 % Neut # (Auto) 5.89 (1.8-7.7) 10^3/u L Lymph # (Auto) 2.9 (0.8-4.8) 10^3/u L Harmon # (Auto) 0.8 (0.2-0.9) 10^3/u L Eos # (Auto) 0.3 (0.0-0.8) 10^3/u L Baso # (Auto) 0.1 (0.0-0.1) 10^3/u L Nucleated RBC % (a uto) 0 % Nucleated RBCs # 0.0 /100WBC Discharge Plan Discharge Patient Disposition: Admitted As Inpatient Clinical Impression: Acute psychosis Condition: Stable Referrals: Evonne Vicente FNP [Primary Care Provider] - Coding Level of Care Code ED Dietary Services Manager for Chg Fwd Exam Comprehensive
[2019-11-09 22:15] VITALS: BP 168/92; PULSE 110; RESP 22; TEMP 37.1; O2SAT 99; BMI 56.7
[2019-11-09] MEDS: LORazepam 2 mg/mL INJ 1 mL IM (22:34)
[2019-11-09] MEDS: ziprasidone 20 mg/mL SDV IM (22:42)
[2019-11-09 22:54] LABS: Basophils # 0.1 10^3/uL (0.0-0.1); Basophils % 0.7 %; Eosinophils # 0.3 10^3/uL (0.0-0.8); Eosinophils % 2.7 %; Hematocrit 36.9 % (37.0-47.0); Hemoglobin 11.9 g/dL (11.5-15.3); Lymphocytes # 2.9 10^3/uL (0.8-4.8); Lymphocytes % 28.9 %; Mean Corpuscular HGB Conc 32.2 g/dL (30.0-36.0); Mean Corpuscular Hemoglobin 30.7 pg (28.0-34.0); Mean Corpuscular Volume 95.3 fL (81-99); Mean Platelet Volume 9.5 fL (7.4-10.4); Monocytes # 0.8 10^3/uL (0.2-0.9); Neutrophils # 5.89 10^3/uL (1.8-7.7); Neutrophils % 59.2 %; Nucleated Red Blood Cells % 0 %; Platelet Count 291 10^3/cmm (130-400); Red Blood Count 3.87 10^6/uL (4.1-5.3)
[2019-11-09 23:13] LABS: Alanine Aminotransferase 32 U/L (0-33); Albumin Level 4.5 g/dL (3.5-5.2); Alkaline Phosphatase 55 IU/L (35-105); Anion Gap 14.9 (5-19); Aspartate Amino Transferase 30 U/L (0-32); Blood Urea Nitrogen 15 mg/dL (6-20); Calcium 9.7 mg/dL (8.5-10.5); Carbon Dioxide 24 mmol/L (22-29); Chloride 102 mmol/L (98-107); Globulin 2.6 g/dL (1.3-4.6); Glomerular Filtration Rate 89.3 mL/min (90-130); Glucose 130 mg/dL (65-115); Osmolality Calculated 282 mOsm/kg (285-295); Potassium 3.9 mmol/L (3.5-5.1); Sodium 137 mmol/L (136-145); Total Bilirubin 0.4 mg/dL (0.15-1.2); Total Protein 7.1 g/dL (6.6-8.7)
[2019-11-09 23:24] LABS: Acetaminophen < 5.0 ug/mL (10-30); Alcohol Level < 10 mg/dL (0-10); Salicylate < 0.3 mg/dL (3-10)
--- NOTE | 2019-11-09 23:31 | PC.NURSE ---
called report to Jonatan in NPU
[2019-11-09 23:48] VITALS: BP 129/85; PULSE 105; RESP 16; TEMP 36.9; O2SAT 96
--- NOTE | 2019-11-10 00:09 | PC.NURSE ---
Patient reports bug bites right side of left breast and right cheek on face.
[2019-11-10 00:34] LABS: Amphetamines Screen Urine Negative (Negative); Barbiturates Screen Urine Negative (Negative); Benzodiazepines Screen Urine Negative (Negative); Cocaine Screen Urine Negative (Negative); Opiate Screen Urine Negative (Negative); PCP Screen Urine Negative (Negative); THC Screen Urine Negative (Negative)
[2019-11-10 06:00] VITALS: RESP 18
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
--- NOTE | 2019-11-10 08:21 | PC.NURSE ---
Pharmacy called to clarify medication order. I spoke with Dr. GRANT and he said he wants this patient to have 300 mg Clozaril this morning and that he would be changing this medication to 200 mg BID.
[2019-11-10] MEDS: lisinopril 10 mg Tablet PO (08:24)
[2019-11-10] MEDS: cloZAPine 100 mg Tablet 200 MG PO ×2 (08:56→16:44)
[2019-11-10 14:00] VITALS: BP 106/71; PULSE 90; RESP 18; TEMP 37.2; O2SAT 96
[2019-11-10 22:00] VITALS: BP 132/90; PULSE 101; RESP 21; TEMP 37.1; O2SAT 96
[2019-11-11 06:00] VITALS: RESP 21
[2019-11-11] MEDS: lisinopril 10 mg Tablet PO (08:53)
[2019-11-11] MEDS: cloZAPine 100 mg Tablet 200 MG PO ×2 (08:53→16:50)
--- NOTE | 2019-11-11 11:02 | PM.NPN ---
Subjective NPU Subjective: Interval history: Patient is without complaint. She is somnolent due to the recent of medication increased. Mental Status Exam Cognition: Level of Consciousness: Awake and Alert Patient Cognition Impaired: No Ability to Follow Directions: Good Patient Orientation (long list): Person, Place and Time Comprehension Ability: No Impairment Hallucination Type: None Delusion Description: Not Present Thought Process: Disorganized and Flight of Ideas Affect: Affect Description: Flat and Sad Behavior: Patient Behavior: Withdrawn Speech Pattern: Appropriate Vitals/I&O/Wt Last Vital Signs Temp 98.7 F 11/10/19 22:00 Pulse 101 H 11/10/19 22:00 Resp 21 H 11/11/19 06:00 BP 132/90 11/10/19 22:00 Pulse Ox 96 11/10/19 22:00 Weight last 48 hrs Weight 136.078 kg Physical Exam Narrative: EXAM NARRATIVE: Mental Status Exam: Patient is an obese ambulatory woman appearing approximately her stated age. Eye contact is good. She is not believed to be a reliable informant as many of the information that she provides tends to exchange mechanic time as to suit her intended need. Appearance: hygiene is good; no gross neurological deficits., She is in no apparent distress. Breathing is even and unlabored. Patient is otherwise asleep. She is arousable by verbal stimuli. However she immediately goes back to sleep. Data NPU : 11/09/19 22:32 11/09/19 22:32 A&P Additional A&P Information From her psychiatric evaluation from 26 October 2019: 1) Acute psychosis: (2) Unspecified personality disorder: (3) Schizoaffective disorder, bipolar type: This is a 49 year old, white female, with bipolar disorder versus schizoaffective disorder, bipolar type, who presents with florid psychosis and appearing less manic. HD#12 Joann presents today seeming to do a little better than yesterday. She continues to have outbursts but they tend to be less often and generally relate do her delusional thinking about her mother or significant other. She talked about going home to bobbi after days of vilifying him. We had a fairly lengthy discussion about Clozaril again, today her reporting it isn't helpful. Otherwise she is eating fine and sleeping a little better, and also doing better in the sense of managing her ADL?s. Continue current medication. Increase Clozaril to 100 mg qam and 150mg qhs tomorrow. Continue q 15 minute checks for safety Encourage individual, group, and milieu therapy. Will work with treatment team and outpatient team, to see if we can manage her on Clozaril, so that she does not have these frequent hospitalizations. HD#13 patient continues to be irritable and consistent with an agitated kiera. She has been seen in this state multiple other times by this physician and staff. She responds well over time to antipsychotic medication. However in the. Leading up to that response, she is typically agitated and illogical. We will continue Clozaril 100 mg in the morning and 150 mg at bedtime. This is hospital day #2 on this regimen. Hospital day #14: Patient has no compliant with medication. She slept through the night last night. She is showing some benefit today on treatment day #3 of 250 mg of Clozaril daily. Hospital day #15. Patient is demanding to go home. Patient is doing much better. Situation was discussed with her mother and the intention is for her to go back and live with her boyfriend. It was explained to the patient that when her boyfriend is ready to come pick her up and is willing to have her come home, discharge will be considered. Plan: Change Clozaril to 100 mg every morning and 200 mg nightly Hospital day #16. Patient was discharged briefly to home under the advisement from family who stated that they could manage her while her medications continued to provide improvement. She went home, was noncompliant, and came back into the hospital psychotic plan: Increase Clozaril to 200 mg every morning and nightly. Hospital day #17: Day #2 on Clozaril 200 mg twice daily. Continue q 15 minute checks for safety Encourage individual, group, and milieu therapy. Involuntary Hold Information 96 Hour Hold: 96 Hour Involuntary Admission: Yes 96 Hour Hold Ending Date: 11/15/19 96 Hour Hold Ending Time: 22:11 Attestations NPU Medical Necessity Statement*: Patient will remain in the hospital another 5-6 nights under a 96-hour involuntary commitment. Coding Level of Care Code Acute Apprentice Plant Attendant for Mandie Wei
[2019-11-11 13:29] VITALS: BP 116/75; PULSE 86; RESP 18; TEMP 36.9; O2SAT 93
[2019-11-11 21:23] VITALS: BP 136/81; PULSE 92; RESP 20; TEMP 37.2; O2SAT 94
[2019-11-12 06:00] VITALS: BP 113/76; PULSE 82; RESP 20; TEMP 36.9; O2SAT 95
[2019-11-12] MEDS: cloZAPine 100 mg Tablet 200 MG PO (09:40)
[2019-11-12] MEDS: lisinopril 10 mg Tablet PO (09:41)
[2019-11-12 13:42] VITALS: BP 139/74; PULSE 91; RESP 18; TEMP 37.1; O2SAT 94
[2019-11-12] MEDS: acetaminophen 325 mg Tablet 650 MG PO (14:32)
--- NOTE | 2019-11-12 15:00 | P.PN_ITS ---
Subjective NPU Subjective: Interval history: It would appear that the patient has deteriorated since last we met. She is almost incoherent, her speech is still slurred. I was able to make out the repeated sentence, It's making me worse. I finally understood that she was referring to the Clozaril. We now have 2 accounts, one ascribing her deterioration to the absence of Clozaril and her pe rception that it has caused significant deterioration. Medications: Reviewed: Yes Medication Review Details: Current Medications Acetaminophen (Tylenol) 650 mg PO Q4H PRN PRN Reason: MILD PAIN Last Admin: 11/12/19 14:32 Dose: 650 mg Documented by: Benztropine Mesylate (Cogentin) 1 mg PO BID PRN PRN Reason: Mild Extrapyramidal symptoms Camphor/Menthol/Phenol (Blistex) 1 applic TOPICAL Q1H PRN PRN Reason: DRYNESS Diphenhydramine HCl (Benadryl) 50 mg IM ONCE PRN PRN Reason: Severe Extrapyramidal Symptoms Diphenhydramine HCl (Benadryl) 50 mg IM Q4H PRN PRN Reason: Severe Aggression Hydroxyzine Pamoate (Vistaril) 50 mg PO Q6H PRN PRN Reason: ANXIETY Lisinopril (Prinivil) 10 mg PO DAILY ABDOULAYE Last Admin: 11/12/19 09:41 Dose: 10 mg Documented by: Loperamide HCl (Imodium Capsule) 2 mg PO Q6H PRN PRN Reason: DIARRHEA Lorazepam (Ativan) 2 mg IM Q4H PRN PRN Reason: Severe Aggression Nicotine (Nicoderm 21 Mg Patch) 1 patch TRANSDERMA DAILY PRN PRN Reason: NICOTINE WITHDRAWAL Nicotine Polacrilex (Nicorette) 2 mg BUCCAL Q2H PRN PRN Reason: NICOTINE WITHDRAWAL Olanzapine (Zyprexa Zydis) 5 mg PO Q4H PRN PRN Reason: Agitation/Psychosis Ondansetron HCl (Zofran) 4 mg PO Q6H PRN PRN Reason: NAUSEA AND VOMITING The Clozaril has been discontinued based on what I see before me without any disrespect to my colleagues. Mental Status Exam MSE Comments: This is a 49-year-old morbidly obese female who sits on her bed and talks to herself. When she talks to me she is agitated and so inarticulate that I have a great deal of difficulty understanding her. Mood is agitated and affect is tearful and wide swinging. Thought processes are disorganized and speech is slurred and incoherent. She denies any suicidal or homicidal ideation but who can say in her current condition? Vitals/I&O/Wt Last Vital Signs Temp 98.7 F 11/12/19 13:42 Pulse 91 11/12/19 13:42 Resp 18 11/12/19 13:42 BP 139/74 11/12/19 13:42 Pulse Ox 94 11/12/19 13:42 Weight last 48 hrs Weight 316 lb 12.8 oz Data NPU : 11/09/19 22:32 11/09/19 22:32 A&P Assessment and plan (1) Acute psychosis: Patients often understand what medicines are doing to them and I tend to listen. I may be wrong in this case but I am discontinuing the Clozaril, particularly since it was increased and she now is clinically quite disorganized. May be incorrect but it is worth giving her a drug holiday to see what she looks like after a few days. Status: Acute (2) Schizoaffective disorder, bipolar type: Right now treatment considerations are none eczema wrapped in a conundrum lost in a riddle. Status: Chronic Involuntary Hold Information 96 Hour Hold: 96 Hour Involuntary Admission: Yes 96 Hour Hold Ending Date: 11/15/19 96 Hour Hold Ending Time: 22:11 Attestations NPU Medical Necessity Statement*: This is a complicated unstable major mental disorder. I anticipate 5 to 7 midnights additional stay. Time Spent in Patient Care: Greater than 35 minutes (>than 50% of time spent in counselling and/or direct pt care on unit) . Coding Level of Care Code Acute Fuel Efficient Aircraft Designer for Mandie Wei Diagnoses Acute psychosis F23 Schizoaffective disorder, bipolar type F25.0
[2019-11-12] MEDS: OLANZapine 5 mg ODT PO (21:56)
[2019-11-12] MEDS: hyDROXYzine 25 mg Capsule 50 MG PO (21:56)
[2019-11-12 21:58] VITALS: BP 141/92; PULSE 85; RESP 18; TEMP 36.4; O2SAT 97
--- NOTE | 2019-11-12 23:35 | PC.NURSE ---
pt given prn vistaril and zyprexa per request.
[2019-11-13 06:00] VITALS: RESP 18
[2019-11-13] MEDS: lisinopril 10 mg Tablet PO (08:28)
[2019-11-13 13:30] VITALS: BP 137/81; PULSE 88; RESP 20; TEMP 36.6; O2SAT 95
--- NOTE | 2019-11-13 13:37 | P.PN_ITS ---
Subjective NPU Subjective: Interval history: The patient has calmed down considerably since last I saw her. She is formulated discharge plan will allow her to equilibrate, namely, placement in a skilled nursing. She and her have decided to stay together. Interestingly, she says he is her legal guardian Medications: Medication Review Details: Current Medications Acetaminophen (Tylenol) 650 mg PO Q4H PRN PRN Reason: MILD PAIN Last Admin: 11/12/19 14:32 Dose: 650 mg Documented by: Benztropine Mesylate (Cogentin) 1 mg PO BID PRN PRN Reason: Mild Extrapyramidal symptoms Camphor/Menthol/Phenol (Blistex) 1 applic TOPICAL Q1H PRN PRN Reason: DRYNESS Diphenhydramine HCl (Benadryl) 50 mg IM ONCE PRN PRN Reason: Severe Extrapyramidal Symptoms Diphenhydramine HCl (Benadryl) 50 mg IM Q4H PRN PRN Reason: Severe Aggression Hydroxyzine Pamoate (Vistaril) 50 mg PO Q6H PRN PRN Reason: ANXIETY Last Admin: 11/12/19 21:56 Dose: 50 mg Documented by: Lisinopril (Prinivil) 10 mg PO DAILY ABDOULAYE Last Admin: 11/13/19 08:28 Dose: 10 mg Documented by: Loperamide HCl (Imodium Capsule) 2 mg PO Q6H PRN PRN Reason: DIARRHEA Lorazepam (Ativan) 2 mg IM Q4H PRN PRN Reason: Severe Aggression Nicotine (Nicoderm 21 Mg Patch) 1 patch TRANSDERMA DAILY PRN PRN Reason: NICOTINE WITHDRAWAL Nicotine Polacrilex (Nicorette) 2 mg BUCCAL Q2H PRN PRN Reason: NICOTINE WITHDRAWAL Olanzapine (Zyprexa Zydis) 5 mg PO Q4H PRN PRN Reason: Agitation/Psychosis Last Admin: 11/12/19 21:56 Dose: 5 mg Documented by: Ondansetron HCl (Zofran) 4 mg PO Q6H PRN PRN Reason: NAUSEA AND VOMITING Mental Status Exam MSE Comments: This is a 49-year-old female who presents at her stated age. Mood is mildly anxious. The patient seems to be reintegrating. Affect is less tense. Thought processes are integrated and free of any blocking or looseness of association. They are a bit racy but there is no flight of ideas. Speech is of normal rate and volume, without aprosody or pressure. Her dysarthria is almost gone and I can actually make sense of what she says. There is no evidence of psychosis, such as but not limited to hallucinations, delusions and ideas of reference. Cognitive functions are limited as usual and she has little insight or judgment. She denies suicidal or homicidal ideation, plan or intent. Vitals/I&O/Wt Last Vital Signs Temp 97.9 F 11/13/19 13:30 Pulse 88 11/13/19 13:30 Resp 20 H 11/13/19 13:30 BP 137/81 11/13/19 13:30 Pulse Ox 95 11/13/19 13:30 Weight last 48 hrs Weight 316 lb 12.8 oz Physical Exam Narrative: EXAM NARRATIVE: Const: COMMON NORMALS: modest distress, patient oriented x3 and morbidly obese. HENMT: COMMON NORMALS: normocephalic and atraumatic HEAD & SCALP: normocephalic and atraumatic Eye: COMMON NORMALS: Equal, round and reactive pupils present and EOMs intact bilaterally PUPIL: Yes Equal, round and reactive pupils present Neck/C-Spine: COMMON NORMALS: full ROM and supple Chest: COMMONS NORMALS: Limited inspection of the chest due to abdominal contents Resp: COMMON NORMALS: Limited respiratory effort for the same reason. Clear to auscultation bilaterally Cardio: COMMON NORMALS: regular rate, regular rhythm and No murmurs present (Cardio) GI: COMMON NORMALS: Very limited inspection. No tenderness. Extremity: COMMON NORMALS: normal to inspection and full ROM Neuro: COMMON NORMALS: patient oriented x3, moves all extremities and no focal motor deficits Psych: COMMON NORMALS: mental status grossly normal, Normal thought process present and cooperative Depressed mood Normal thought process. Skin: COMMON NORMALS: no rashes or lesions noted and no wounds GENERAL SKIN EXAM: no rashes or lesions noted Data NPU : 11/09/19 22:32 11/09/19 22:32 A&P Assessment and plan (1) Unspecified personality disorder: Status: Chronic Involuntary Hold Information 96 Hour Hold: 96 Hour Involuntary Admission: Yes 96 Hour Hold Ending Date: 11/15/19 96 Hour Hold Ending Time: 22:11 Attestations NPU Medical Necessity Statement*: I anticipate 5-6 midnights Time Spent in Patient Care: 16 - 35 minutes (>than 50% of time spent in counselling and/or direct pt care on unit) . Coding Level of Care Code Acute Bag Making Machine Tender for Chg Fwd Diagnoses Unspecified personality disorder F60.9
[2019-11-13 20:22] VITALS: BP 103/69; PULSE 102; RESP 19; TEMP 36.9; O2SAT 97
[2019-11-13] MEDS: hyDROXYzine 25 mg Capsule 50 MG PO (20:45)
[2019-11-13] MEDS: OLANZapine 5 mg ODT PO (20:45)
--- NOTE | 2019-11-13 21:30 | PC.NURSE ---
pt requested meds for anxiety and sleep. prn zyprexa and visteril given.
[2019-11-14] MEDS: ondansetron 4 MG Tablet PO (01:40)
--- NOTE | 2019-11-14 01:42 | PC.NURSE ---
pt given zofran per request for upset stomach.
[2019-11-14 06:00] VITALS: RESP 17
[2019-11-14] MEDS: lisinopril 10 mg Tablet PO (07:57)
[2019-11-14 13:53] VITALS: BP 124/74; PULSE 72; RESP 18; TEMP 36.6; O2SAT 98
[2019-11-14] MEDS: hyDROXYzine 25 mg Capsule 50 MG PO (20:40)
[2019-11-14] MEDS: OLANZapine 5 mg ODT PO (20:40)
--- NOTE | 2019-11-14 20:54 | PM.NPN ---
Subjective NPU Subjective: Interval history: The patient is much calmer now. She is groggy without her CPAP, which is at her mom's house. Also she is so morbidly obese she no doubt has [place] syndrome. She plans to go home and is requesting discharge. She is still under a 96-hour hold but we can rescind that as, in my opinion, she is much improved and stabilized. We will get this going tomorrow. Medications: Reviewed: Yes Medication Review Details: Current Medications Acetaminophen (Tylenol) 650 mg PO Q4H PRN PRN Reason: MILD PAIN Last Admin: 11/12/19 14:32 Dose: 650 mg Documented by: Benztropine Mesylate (Cogentin) 1 mg PO BID PRN PRN Reason: Mild Extrapyramidal symptoms Camphor/Menthol/Phenol (Blistex) 1 applic TOPICAL Q1H PRN PRN Reason: DRYNESS Diphenhydramine HCl (Benadryl) 50 mg IM ONCE PRN PRN Reason: Severe Extrapyramidal Symptoms Diphenhydramine HCl (Benadryl) 50 mg IM Q4H PRN PRN Reason: Severe Aggression Hydroxyzine Pamoate (Vistaril) 50 mg PO Q6H PRN PRN Reason: ANXIETY Last Admin: 11/14/19 20:40 Dose: 50 mg Documented by: Lisinopril (Prinivil) 10 mg PO DAILY ABDOULAYE Last Admin: 11/14/19 07:57 Dose: 10 mg Documented by: Loperamide HCl (Imodium Capsule) 2 mg PO Q6H PRN PRN Reason: DIARRHEA Lorazepam (Ativan) 2 mg IM Q4H PRN PRN Reason: Severe Aggression Nicotine (Nicoderm 21 Mg Patch) 1 patch TRANSDERMA DAILY PRN PRN Reason: NICOTINE WITHDRAWAL Nicotine Polacrilex (Nicorette) 2 mg BUCCAL Q2H PRN PRN Reason: NICOTINE WITHDRAWAL Olanzapine (Zyprexa Zydis) 5 mg PO Q4H PRN PRN Reason: Agitation/Psychosis Last Admin: 11/14/19 20:40 Dose: 5 mg Documented by: Ondansetron HCl (Zofran) 4 mg PO Q6H PRN PRN Reason: NAUSEA AND VOMITING Last Admin: 11/14/19 01:40 Dose: 4 mg Documented by: Mental Status Exam MSE Comments: This is a 49-year-old female who presents at her stated age. Mood remains mildly anxious. The patient continues to reintegrate. Affect is less tense. Thought processes are integrated and free of any blocking, racing or looseness of association. There is no flight of ideas. Speech is of normal rate and volume, without aprosody or pressure. Her dysarthria is gone and I can definitely make sense of what she says. There is no evidence of psychosis, such as but not limited to hallucinations, delusions and ideas of reference. Cognitive functions are limited and she has little insight or judgment. She denies suicidal or homicidal ideation, plan or intent. Vitals/I&O/Wt Last Vital Signs Temp 97.8 F 11/14/19 13:53 Pulse 72 11/14/19 13:53 Resp 18 11/14/19 13:53 BP 124/74 11/14/19 13:53 Pulse Ox 98 11/14/19 13:53 Physical Exam Narrative: EXAM NARRATIVE: Const: COMMON NORMALS: Calmer, patient oriented x3 and morbidly obese. HENMT: COMMON NORMALS: normocephalic and atraumatic Eye: COMMON NORMALS: Equal, round and reactive pupils present and EOMs intact bilaterally Neck/C-Spine: COMMON NORMALS: full ROM and supple Chest: COMMONS NORMALS: Limited inspection of the chest due to abdominal contents Resp: COMMON NORMALS: Limited respiratory effort for the same reason. Clear to auscultation bilaterally Cardio: COMMON NORMALS: regular rate, regular rhythm and No murmurs present (Cardio) GI: COMMON NORMALS: Very limited inspection. No tenderness. Extremity: COMMON NORMALS: normal to inspection and full ROM Neuro: COMMON NORMALS: patient oriented x3, moves all extremities and no focal motor deficits Psych: COMMON NORMALS: mental status grossly normal. Depressed mood Normal thought process. Skin: COMMON NORMALS: no rashes or lesions noted and no wounds Data NPU : 11/09/19 22:32 11/09/19 22:32 A&P Assessment and plan (1) Unspecified personality disorder: Status: Chronic (2) Schizoaffective disorder, bipolar type: Status: Chronic Involuntary Hold Information 96 Hour Hold: 96 Hour Involuntary Admission: Yes 96 Hour Hold Ending Date: 11/15/19 96 Hour Hold Ending Time: 22:11 Attestations NPU Medical Necessity Statement*: We will rescind her 96-hour paperwork and discharge this patient tomorrow. Time Spent in Patient Care: Greater than 35 minutes (>than 50% of time spent in counselling and/or direct pt care on unit). 45 minutes Coding Level of Care Code Acute Human Resources Manager Manufacturing for Mandie Fwd Diagnoses Unspecified personality disorder F60.9 Schizoaffective disorder, bipolar type F25.0
--- NOTE | 2019-11-14 21:15 | PC.NURSE ---
pt requested meds for sleep and anxiety, trazodone and zyprexa given.
[2019-11-14 22:00] VITALS: BP 121/72; PULSE 97; RESP 19; TEMP 36.9; O2SAT 94
[2019-11-15] MEDS: ondansetron 4 MG Tablet PO (04:20)
[2019-11-15 06:00] VITALS: BP 105/63; PULSE 86; RESP 18; TEMP 36.6; O2SAT 93
[2019-11-15] MEDS: lisinopril 10 mg Tablet PO (07:32)
--- NOTE | 2019-11-15 09:48 | P.DS_ITS ---
Diagnoses at Discharge Discharge Diagnosis (1) Unspecified personality disorder: Status: Chronic Problem details: Patient goes in the crisis quite easily, as is often the case with borderlines. (2) Schizoaffective disorder, bipolar type: Status: Chronic Problem details: The patient is now off clozapine. She said she did very well on lurasidone 120 mg p.o. at 1700, which has been ordered. She has follow-up scheduled Reason for Visit Reason for Visit: MENTAL HEALTH Hospital Course Hospital Course Right now the course ahead is not clear. On the following day the patient is calmer and her words are not slurred such that I cannot understand her. She has a rational plan for disposition problem within the limitations of her cognitive impairment. The next day the patient continued to improve. Her speech was absolutely free of dysarthria and she had decided to return to her mom's house, where her CPAP machine is. She says she has been pretty groggy without it. Now that she is off the clozapine she is much calmer and more organized. She said she did very well on lurasidone 120 mg p.o. at 1700 daily. She will be discharged on a prescription for this. Involuntary Hold Information 96 Hour Hold: 96 Hour Involuntary Admission: No Comments: Rescission effectuated prior to discharge. Mental Status Exam MSE Comments: This is a 49-year-old female who presents at her sta araseli age. Mood remains calm. The patient continues to reintegrate. Affect is less tense. Thought processes are integrated and free of blocking, racing or looseness of association. There is no flight of ideas. Speech is of normal rate and volume, without aprosody or pressure. Her dysarthria is gone and I can definitely make sense of what she says. There is no evidence of psychosis, such as but not limited to hallucinations, delusions and ideas of reference. Cognitive functions are limited and she has little insight or judgment. She denies suicidal or homicidal ideation, plan or intent. Physical Exam Narrative: EXAM NARRATIVE: Const: COMMON NORMALS: Calmer, patient oriented x3 and morbidly obese. HENMT: COMMON NORMALS: normocephalic and atraumatic Eye: COMMON NORMALS: Equal, round and reactive pupils present and EOMs intact bilaterally Neck/C-Spine: COMMON NORMALS: full ROM and supple Chest: COMMONS NORMALS: Limited inspection of the chest due to abdominal contents Resp: COMMON NORMALS: Limited respiratory effort for the same reason. Clear to auscultation bilaterally Cardio: COMMON NORMALS: regular rate, regular rhythm and No murmurs present (Cardio) GI: COMMON NORMALS: Very limited inspection. No tenderness. Extremity: COMMON NORMALS: normal to inspection and full ROM Neuro: COMMON NORMALS: patient oriented x3, moves all extremities and no focal motor deficits Psych: See mental status Skin: COMMON NORMALS: no rashes or lesions noted and no wounds Discharge Data Vitals: Last Vital Signs Temp 97.9 F 11/15/19 06:00 Pulse 86 11/15/19 06:00 Resp 18 11/15/19 06:00 BP 105/63 11/15/19 06:00 Pulse Ox 93 11/15/19 06:00 Discharge Plan Discharge Patient Disposition: Home Condition: Stable Prescriptions: New ondansetron HCl 4 mg Tablet 4 mg PO Q6H PRN (Reason: Nausea And Vomiting) 30 Days Qty: 60 RF: 3 Latuda 80 mg Tablet 120 mg PO 1700 30 Days Qty: 45 RF: 3 Continued lisinopril 10 mg Tablet 10 mg PO DAILY Qty: 30 RF: 4 Discontinued clozapine 100 mg Tablet 100 mg PO QAM Qty: 30 RF: 8 clozapine 100 mg Tablet 200 mg PO BEDTIME Qty: 30 RF: 8 Discharge Orders: Discharge Order (Routine); Ordered 11/15/19 Ordered By: Kenneth Cooper Referrals: Syeda Clemens [Brush Polisher] - (Preparation Plant Supervisor will follow up with you.) Evonne Vicente FNP [Primary Care Provider] - Shadi Khanna MD [Emergency Provider] - 12/01/19 12:30 pm () Discharge Diet: As Directed Discharge Activity: Resume usual activity Patient Instructions: Ondansetron (By mouth), Lurasidone (By mouth), Schizoaffective Disorder (DC) Discharge Attestations NPU Time Spent in Discharge Care*: greater than 30 min Specific Discharge Activities: Specific discharge activities: educating patient, discussing with case worker/social workers/dc planners, documenting/other paperwork and evaluating patient/reviewing data Other discharge activites (optional): Pharmacotherapy revision Status at Discharge: Cognitive status at discharge: cognitively intact , Behavioral status at discharge: cooperative , Functional status at discharge: independent ambulation Overall status at discharge: patient is back to baseline Coding Level of Care Code Acute Associate Sales for g Fwd Diagnoses Unspecified personality disorder F60.9 Schizoaffective disorder, bipolar type F25.0
[2019-11-15 09:49] VITALS: BP 105/63; PULSE 86; RESP 18; TEMP 36.6; O2SAT 93
--- NOTE | 2019-12-06 11:00 | P.PN_ITS ---
Subjective NPU Subjective: Interval history: Patient pleads to be allowed to leave even if to go home and live with danna rm the [facility] will accept her. Medications: Medication Review Details: Current Medications Acetaminophen (Tylenol) 650 mg PO Q4H PRN PRN Reason: MILD PAIN Last Admin: 11/12/19 14:32 Dose: 650 mg Documented by: Benztropine Mesylate (Cogentin) 1 mg PO BID PRN PRN Reason: Mild Extrapyramidal symptoms Camphor/Menthol/Phenol (Blistex) 1 applic TOPICAL Q1H PRN PRN Reason: DRYNESS Diphenhydramine HCl (Benadryl) 50 mg IM ONCE PRN PRN Reason: Severe Extrapyramidal Symptoms Diphenhydramine HCl (Benadryl) 50 mg IM Q4H PRN PRN Reason: Severe Aggression Hydroxyzine Pamoate (Vistaril) 50 mg PO Q6H PRN PRN Reason: ANXIETY Last Admin: 11/14/19 20:40 Dose: 50 mg Documented by: Lisinopril (Prinivil) 10 mg PO DAILY ABDOULAYE Last Admin: 11/14/19 07:57 Dose: 10 mg Documented by: Loperamide HCl (Imodium Capsule) 2 mg PO Q6H PRN PRN Reason: DIARRHEA Lorazepam (Ativan) 2 mg IM Q4H PRN PRN Reason: Severe Aggression Nicotine (Nicoderm 21 Mg Patch) 1 patch TRANSDERMA DAILY PRN PRN Reason: NICOTINE WITHDRAWAL Nicotine Polacrilex (Nicorette) 2 mg BUCCAL Q2H PRN PRN Reason: NICOTINE WITHDRAWAL Olanzapine (Zyprexa Zydis) 5 mg PO Q4H PRN PRN Reason: Agitation/Psychosis Last Admin: 11/14/19 20:40 Dose: 5 mg Documented by: Ondansetron HCl (Zofran) 4 mg PO Q6H PRN PRN Reason: NAUSEA AND VOMITING Last Admin: 11/14/19 01:40 Dose: 4 mg Documented by: Mental Status Exam MSE Comments: This is a 49-year-old female who presents at her stated age. Mood remains calm. The patient continues to reintegrate. Affect is less tense. Thought processes are integrated and free of blocking, racing or looseness of association. There is no flight of ideas. Speech is of normal rate and volume, without aprosody or pressure. Her dysarthria is gone and I can definitely make sense of what she says. There is no evidence of psychosis, such as but not limited to hallucinations, delusions and ideas of reference. Cognitive functions are limited and she has little insight or judgment. She denies suicidal or homicidal ideation, plan or intent. Cognition: Patient Appearance: Appropriate Level of Consciousness: Awake, Alert, Appropriate and Follows Commands Patient Cognition Impaired: No Ability to Follow Directions: Good Patient Orientation (long list): Person, Place and Time Comprehension Ability: No Impairment Hallucination Type: None Delusion Description: Not Present Thought Process: Appropriate Affect: Affect Description: Appropriate Behavior: Patient Behavior: Cooperative Speech Pattern: Clear Vitals/I&O/Wt Last Vital Signs Temp 97.9 F 11/15/19 09:49 Pulse 86 11/15/19 09:49 Resp 18 11/15/19 09:49 BP 105/63 11/15/19 09:49 Pulse Ox 93 11/15/19 09:49 Physical Exam Narrative: EXAM NARRATIVE: Mental Status Exam: Patient is an obese ambulatory woman appearing approximately her stated age. Eye contact is good. She is not believed to be a reliable informant as many of the information that she provides tends to knife changer time as to suit her intended need. Appearance: hygiene is good; no gross neurological deficits., She is in no ap parent distress. Breathing is even and unlabored. Patient is otherwise asleep. She is arousable by verbal stimuli. However she immediately goes back to sleep. Data NPU : 11/09/19 22:32 11/09/19 22:32 A&P Assessment and plan (1) Unspecified personality disorder: Status: Chronic (2) Schizoaffective disorder, bipolar type: Right now treatment considerations are none eczema wrapped in a conundrum lost in a riddle. Status: Resolved Additional A&P Information From her psychiatric evaluation from 26 October 2019: 1) Acute psychosis: (2) Unspecified personality disorder: (3) Schizoaffective disorder, bipolar type: This is a 49 year old, white female, with bipolar disorder versus schizoaffective disorder, bipolar type, who presents with florid psychosis and appearing less manic. HD#12 Joann presents today seeming to do a little better than yesterday. She continues to have outbursts but they tend to be less often and generally relate do her delusional thinking about her mother or significant other. She talked about going home to bobbi after days of vilifying him. We had a fairly lengthy discussion about Clozaril again, today her reporting it isn't helpful. Otherwise she is eating fine and sleeping a little better, and also doing better in the sense of managing her ADL?s. Continue current medication. Increase Clozaril to 100 mg qam and 150mg qhs tomorrow. Continue q 15 minute checks for safety Encourage individual, group, and milieu therapy. Will work with treatment team and outpatient team, to see if we can manage her on Clozaril, so that she does not have these frequent hospitalizations. HD#13 patient continues to be irritable and consistent with an agitated kiera. She has been seen in this state multiple other times by this physician and sta ff. She responds well over time to antipsychotic medication. However in the. Leading up to that response, she is typically agitated and illogical. We will continue Clozaril 100 mg in the morning and 150 mg at bedtime. This is hospital day #2 on this regimen. Hospital day #14: Patient has no compliant with medication. She slept through the night last night. She is showing some benefit today on treatment day #3 of 250 mg of Clozaril daily. Hospital day #15. Patient is demanding to go home. Patient is doing much better. Situation was discussed with her mother and the intention is for her to go back and live with her boyfriend. It was explained to the patient that when her boyfriend is ready to come pick her up and is willing to have her come home, discharge will be considered. Plan: Change Clozaril to 100 mg every morning and 200 mg nightly Hospital day #16. Patient was discharged briefly to home under the advisement from family who stated that they could manage her while her medications continued to provide improvement. She went home, was noncompliant, and came back into the hospital psychotic plan: Increase Clozaril to 200 mg every morning and nightly. Hospital day #17: Day #2 on Clozaril 200 mg twice daily. HD#18: will explore other discharge options. Continue q 15 minute checks for safety Encourage individual, group, and milieu therapy. Involuntary Hold Information 96 Hour Hold: 96 Hour Involuntary Admission: No Attestations NPU Medical Necessity Statement*: Will discharge after on more night in hospital Coding Level of Care Code Acute Shuttle Operator for [facility] Fwd Diagnoses Unspecified personality disorder F60.9 Schizoaffective disorder, bipolar type F25.0
--- NOTE | 2019-12-07 09:50 | P.PN_ITS ---
Subjective NPU Subjective: Interval history: EMR claims that I am deficient for a progress not on this day. the patient was discharged and there is a discharge summary for this day. It is easier to just write in a filler note with explanation than to explain to the EMR its error. Vitals/I&O/Wt Last Vital Signs Temp 97.9 F 11/15/19 09:49 Pulse 86 11/15/19 09:49 Resp 18 11/15/19 09:49 BP 105/63 11/15/19 09:49 Pulse Ox 93 11/15/19 09:49 Data NPU : 11/09/19 22:32 11/09/19 22:32 Involuntary Hold Information 96 Hour Hold: 96 Hour Involuntary Admission: No Attestations NPU Medical Necessity Statement*: Patient to be dischargged today. Coding Level of Care Code Acute Automotive Software Engineer for [facility]
== END 2019-11-15 10:27 | disposition home or self-care (01) | DRG 885 ==
LOC: ER 22:37 → NP 23:07
PROVIDERS: Emergency Medicine; Admitting Provider Psychiatry & Neurology Psychiatry; Emergency Provider Psychiatry & Neurology Psychiatry; PCP Nurse Practitioner Family; Visit Provider Psychiatry & Neurology Psychiatry
DX: F25.0 Schizoaffective disorder, bipolar type (principal); F60.9 Personality disorder, unspecified; Z87.891 Personal history of nicotine dependence
CPT/HCPCS: 12345; 80053; 80306; 80307; 85025; 96372; 99284; 99285; J2060; J3486; Q0162

== ENCOUNTER 2019-11-17 00:55 | Inpatient (IN) | payer MEDICAID, SELFPAY ==
[2019-10-12 09:30] VITALS: BP 170/101; BMI 55.8
[2019-11-17 00:56] VITALS: BMI 58.6
[2019-11-17 01:14] VITALS: BP 168/96; PULSE 112; RESP 20; TEMP 36.6; O2SAT 94
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
[2019-11-17 01:35] LABS: Basophils # 0.1 10^3/uL (0.0-0.1); Basophils % 0.5 %; Eosinophils # 0.2 10^3/uL (0.0-0.8); Eosinophils % 2.4 %; Lymphocytes # 2.4 10^3/uL (0.8-4.8); Lymphocytes % 24.1 %; Mean Corpuscular HGB Conc 31.6 g/dL (30.0-36.0); Mean Corpuscular Hemoglobin 30.4 pg (28.0-34.0); Mean Corpuscular Volume 96.2 fL (81-99); Mean Platelet Volume 9.4 fL (7.4-10.4); Monocytes # 0.9 10^3/uL (0.2-0.9); Neutrophils # 6.36 10^3/uL (1.8-7.7); Neutrophils % 63.6 %; Nucleated Red Blood Cells % 0 %; Platelet Count 263 10^3/cmm (130-400); Red Blood Count 3.95 10^6/uL (4.1-5.3); Red Cell Distribution Width 12.9 % (12.1-15.1)
[2019-11-17 01:55] LABS: Alanine Aminotransferase 34 U/L (0-33); Albumin Level 4.4 g/dL (3.5-5.2); Alkaline Phosphatase 50 IU/L (35-105); Anion Gap 15.8 (5-19); Aspartate Amino Transferase 32 U/L (0-32); Blood Urea Nitrogen 17 mg/dL (6-20); Calcium 9.3 mg/dL (8.5-10.5); Carbon Dioxide 23 mmol/L (22-29); Chloride 101 mmol/L (98-107); Globulin 3.2 g/dL (1.3-4.6); Glomerular Filtration Rate 76.6 mL/min (90-130); Glucose 147 mg/dL (65-115); Osmolality Calculated 281 mOsm/kg (285-295); Potassium 3.8 mmol/L (3.5-5.1); Sodium 136 mmol/L (136-145); Total Bilirubin 0.4 mg/dL (0.15-1.2); Total Protein 7.6 g/dL (6.6-8.7)
[2019-11-17] MEDS: ziprasidone 20 mg/mL SDV 10 MG IM (02:05)
[2019-11-17] MEDS: LORazepam 2 mg/mL INJ 1 mL IM ×2 (02:05→17:49)
[2019-11-17 02:09] LABS: Acetaminophen < 5.0 ug/mL (10-30); Alcohol Level < 10 mg/dL (0-10); Salicylate < 0.3 mg/dL (3-10)
--- NOTE | 2019-11-17 02:12 | PC.NURSE ---
pt states she can not provide urine sample due to being full of amniotic fluid
[2019-11-17 02:54] VITALS: RESP 20
[2019-11-17 03:03] VITALS: BP 146/93; PULSE 103; RESP 23; TEMP 36.8; O2SAT 95
[2019-11-17 06:00] VITALS: RESP 18
[2019-11-17] MEDS: acetaminophen 325 mg Tablet 650 MG PO (09:12)
[2019-11-17 09:46] LABS: Amphetamines Screen Urine Negative (Negative); Barbiturates Screen Urine Negative (Negative); Benzodiazepines Screen Urine Positive (Negative); Cocaine Screen Urine Negative (Negative); Opiate Screen Urine Negative (Negative); PCP Screen Urine Negative (Negative); THC Screen Urine Negative (Negative)
--- NOTE | 2019-11-17 09:50 | PC.NURSE ---
Patient has been up to the phone a couple of times and is tearful when she speaks to her family. She is not able to calm herself easily. She did attend group but she is not happy today. Her eyes are swollen from crying and bloodshot. She seems very confused today and says that she is hearing voices. She believes that her is cheating on her and she just does not want to live like this any more'
[2019-11-17] MEDS: hyDROXYzine 25 mg Capsule 50 MG PO ×2 (12:01→14:25)
--- NOTE | 2019-11-17 13:10 | NPU.GN ---
Joann presents with flight of speech and is agitated/irritable; however, she responds to redirection. She was agreeable to take psycho-educational handouts but only engaged for a short time
--- NOTE | 2019-11-17 13:31 | PC.NURSE ---
Patient is upset about her and has been on the phone all day. She has called the ICU thinking that he is admitted there. He is not there. She is worried about him taking medications and hurting himself and calls him with those concerns. She has not made contact with her and is increasingly upset with each call. She is tearful.
[2019-11-17 14:00] VITALS: BP 137/89; PULSE 92; RESP 17; TEMP 36.5; O2SAT 92
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
--- NOTE | 2019-11-17 14:25 | PC.NURSE ---
PRN VISTARIL VISTARIL 50MG PO PER PATIENT C/O ANXIETY. WILL CONTINUE TO MONITOR FOR MEDICATION EFFECTIVENESS.
--- NOTE | 2019-11-17 15:20 | PC.NURSE ---
PRN VISTARIL FOLLOW UP MEDICATION SOMEWHAT EFFECTIVE. PATIENT IS STILL ANXIOUS AND IRRITABLE.
[2019-11-17] MEDS: OLANZapine 10 mg VIAL IM (17:50)
[2019-11-17] MEDS: diphenhydrAMINE 50 mg/mL SDV 1mL IM (17:50)
--- NOTE | 2019-11-17 17:50 | PC.NURSE ---
Addendum entered by Dottie Uribe LPN 11/17/19 18:44: MEDICATION NOT EFFECTIVE. PATIENT IS STILL VERY IRRITABLE. Original Note: PRN ZYPREXA, BENADRYL, ATIVAN ZYPREXA 10MG IM TO RIGHT DELTOID, BENADRYL 50MG IM TO RIGHT DELTOID, AND ATIVAN 2MG IM TO LEFT DELTOID PER DR. JIMENEZ VERBAL ORDER FOR SEVERE AGITATION. PATIENT YELLING AT THE NURSES STATION AND BANGING FIST ON THE NURSES STATION GLASS. STAFF WALKED WITH PATIENT TO HER ROOM. PATIENT WILLINGLY TOOK MEDICATIONS. WILL CONTINUE TO MONITOR FOR MEDICATION EFFECTIVENESS.
[2019-11-17 20:16] VITALS: BP 140/95; PULSE 103; RESP 20; TEMP 36.3; O2SAT 94
[2019-11-17] MEDS: cloZAPine 100 mg Tablet 200 MG PO (21:07)
[2019-11-18 06:00] VITALS: RESP 18
[2019-11-18] MEDS: OLANZapine 5 mg ODT PO ×2 (09:14→13:38)
[2019-11-18 13:56] VITALS: BP 138/91; PULSE 99; RESP 19; TEMP 36.9
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
[2019-11-18 20:22] VITALS: BP 110/69; PULSE 87; RESP 19; TEMP 37.1; O2SAT 93
[2019-11-18] MEDS: cloZAPine 100 mg Tablet 200 MG PO (20:33)
[2019-11-19 06:00] VITALS: RESP 19
[2019-11-19] MEDS: acetaminophen 325 mg Tablet 650 MG PO (08:24)
[2019-11-19 14:00] VITALS: BP 134/97; PULSE 102; RESP 18; TEMP 36.3
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
[2019-11-19] MEDS: cloZAPine 100 mg Tablet 200 MG PO (20:34)
[2019-11-19] MEDS: OLANZapine 5 mg ODT PO (20:34)
[2019-11-19] MEDS: hyDROXYzine 25 mg Capsule 50 MG PO (20:34)
[2019-11-19 20:41] VITALS: BP 156/91; PULSE 87; RESP 23; TEMP 36.8; O2SAT 98
[2019-11-20 06:00] VITALS: BP 140/88; PULSE 76; RESP 16; TEMP 36.6; O2SAT 94
[2019-11-20] MEDS: cloZAPine 25 mg Tablet 50 MG PO (08:21)
--- NOTE | 2019-11-20 11:23 | P.PN_ITS ---
Subjective NPU Subjective: Interval history: Joann presented today reporting that she really wants to work with us to get to one of these placements. We discussed the fact that we were working on consideration of guardianship which at that time she wasn't expressing an issue with that. She had a first dose of morning Clozaril this morning and she denied that it made her overly tired which made her happy. She continues to ask about being able to cande which we continue to report that we don't feel comfortable allowing her to do that in here. Spoke with her mother who is very supportive of the idea of guardianship and placement. Mental Status Exam MSE Comments: This is a morbidly obese white female with adequate dress, but limited grooming and eye contact. No abnormal movements except for resolving psychomotor agitation , Cooperative with exam in mild distress. Speech was more normal rate and volume. Mood described as bored, I wish I could go home, affect more calm. Thought process more organized. Thought content: Patient denied suicidal or homicidal ideation, no delusions reported but decreasing presence of persecutory, paranoid, hyperreligious delusions, she denied auditory or visual hallucinations. Attention and concentration were improving and memory was unreliable but none were formally tested. She is alert and oriented times 3. Insight and judgment were improving and impulse control was impaired. Vitals/I&O/Wt Last Vital Signs Temp 98.1 F 11/20/19 20:09 Pulse 86 11/20/19 20:09 Resp 19 H 11/20/19 20:09 BP 161/104 11/20/19 20:09 Pulse Ox 99 11/20/19 20:09 Weight last 48 hrs Weight 137.212 kg Data NPU : 11/17/19 01:25 11/17/19 01:25 A&P Additional A&P Information (1) Acute psychosis: (2) Unspecified personality disorder: (3) Schizoaffective disorder: This is a 49-year-old white female with florid psychosis lives schizoaffective disorder bipolar type versus bipolar disorder fresh off of her second discharge in a week's time and her fourth admission since 10/03/2019 with no signs of stability and limited continuity of care and no real sense that her home support scan assist her in getting back on track. 1. Continue current medication. Clozaril increase to 50 mg in the morning to go to 200 mg at night. 2. Continue every 15 minutes exercising. 3. Encourage individual group and milieu therapy. 4. Obtained The Interrogatory papers and will fill out tomorrow.. Involuntary Hold Information 96 Hour Hold: 96 Hour Involuntary Admission: No Attestations NPU Medical Necessity Statement*: Inpatient hospitalization is medically necessary and the clinically appropriate intervention at this time. We will monitor medications and make changes as indicated. Likely length of stay 7-10 days. But with consideration of placement likely much longer. Coding Level of Care Code Acute Adult Daycare Coordinator for Mandie Wei
[2019-11-20 13:20] VITALS: BP 137/94; PULSE 91; RESP 18; TEMP 36.6; O2SAT 96
[2019-11-20 20:09] VITALS: BP 161/104; PULSE 86; RESP 19; TEMP 36.7; O2SAT 99
[2019-11-20] MEDS: hyDROXYzine 25 mg Capsule 50 MG PO (21:31)
[2019-11-20] MEDS: OLANZapine 5 mg ODT PO (21:31)
[2019-11-20] MEDS: benztropine 1 mg Tablet PO (21:32)
[2019-11-20] MEDS: ondansetron 4 MG Tablet PO (21:32)
[2019-11-20] MEDS: cloZAPine 100 mg Tablet 200 MG PO (21:32)
[2019-11-21 06:00] VITALS: RESP 17
[2019-11-21] MEDS: acetaminophen 325 mg Tablet 650 MG PO (06:36)
[2019-11-21] MEDS: cloZAPine 25 mg Tablet 50 MG PO (08:16)
[2019-11-21 13:46] VITALS: BP 140/93; PULSE 89; RESP 18; TEMP 37.1; O2SAT 96
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
[2019-11-21] MEDS: hyDROXYzine 25 mg Capsule 50 MG PO (20:22)
[2019-11-21] MEDS: OLANZapine 5 mg ODT PO (20:23)
[2019-11-21] MEDS: cloZAPine 100 mg Tablet 200 MG PO (20:23)
[2019-11-21 21:13] VITALS: BP 117/82; PULSE 88; RESP 15; TEMP 36.6; O2SAT 97
[2019-11-22 06:00] VITALS: RESP 19
[2019-11-22] MEDS: cloZAPine 25 mg Tablet 50 MG PO (08:35)
[2019-11-22] MEDS: ondansetron 4 MG Tablet PO (08:39)
[2019-11-22] MEDS: loperamide 2 mg Capsule PO (09:47)
[2019-11-22] MEDS: acetaminophen 325 mg Tablet 650 MG PO (09:47)
--- NOTE | 2019-11-22 11:20 | PC.SOCIAL ---
Mom called and expressed her concerns with her daughter. She said that her daughter has called her and said that she wants to leave. Mom agreed that she does not seem ready to be discharged. However, she did say that she has multiple concerns. She talked about possible housing options, her need to get an account for her check to be deposited, her need for getting her belongings, her need to getting her check not deposited in the account with [facility]. Mom had a lot to say. Basically, it was concluded that patient needs to accept the treatment here and take care of things as she is able to. Mom was updated that [facility] still needs to reply for possible admission.
[2019-11-22 14:00] VITALS: BP 148/84; PULSE 93; RESP 20; TEMP 36.9; O2SAT 94
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
[2019-11-22 20:26] VITALS: BP 150/104; PULSE 84; RESP 16; TEMP 36.6; O2SAT 97
[2019-11-22] MEDS: hyDROXYzine 25 mg Capsule 50 MG PO (20:28)
[2019-11-22] MEDS: cloZAPine 100 mg Tablet 200 MG PO (20:28)
[2019-11-22] MEDS: OLANZapine 5 mg ODT PO (20:28)
[2019-11-23 06:00] VITALS: RESP 19
[2019-11-23] MEDS: cloZAPine 100 mg Tablet PO (11:05)
[2019-11-23 14:00] VITALS: BP 160/93; PULSE 97; RESP 20; TEMP 36.8; O2SAT 96
--- NOTE | 2019-11-23 16:49 | PM.NPN ---
Subjective NPU Subjective: Interval history: Joann presents today continuing to show improvement over her initial presentation, but still really struggling with the idea of having insight into her situation regarding her significant other who is getting a divorce. Additionally, with her mom who she fluctuates between this love/hate relationship as well, when mom gets frustrated with her, but certainly is desiring the best for her. She is commonly stating things that are her wishes and not what is in reality, like that her mom wants her to come home with her, but her would be happy with her and want to be together if it was not for her mom or if was not for this, or if it was not for us putting her on medication, and things like that. She continues to not have a basis in reality for much of what she says, though she is showing significant improvement. There was no mention of any hyper-anabaptist things or comments. She continues to feel like people are out to get her, but mostly related to having to stay in the hospital which she continues to endorse that she does not want to do. Otherwise, she is eating okay, and she is sleeping much better. Mental Status Exam MSE Comments: This is a morbidly obese white female with adequate dress, but limited grooming and eye contact. No abnormal movements except for psychomotor agitation, Cooperative with exam in intermittent distress. Speech was increased rate and volume. Mood described as you don't like me, affect irritable. Thought process more organized. Thought content: Patient denied suicidal or homicidal ideation, no delusions reported but presence of persecutory, paranoid, hyperreligious delusions continues, she denied auditory or visual hallucinations. Attention and concentration were improving and memory was unreliable but none were formally tested. She is alert and oriented times 3. Insight and judgment were impaired and impulse control was impaired. Vitals/I&O/Wt Last Vital Signs Temp 97.9 F 11/23/19 20:48 Pulse 88 11/23/19 20:48 Resp 23 H 11/23/19 20:48 BP 169/91 11/23/19 20:48 Pulse Ox 95 11/23/19 20:48 Data NPU : 11/17/19 01:25 11/17/19 01:25 A&P Additional A&P Information (1) Acute psychosis: (2) Unspecified personality disorder: (3) Schizoaffective disorder: This is a 49-year-old white female with florid psychosis lives schizoaffective disorder bipolar type versus bipolar disorder fresh off of her second discharge in a week's time and her fourth admission since 10/03/2019 with no signs of stability and limited continuity of care and no real sense that her home support scan assist her in getting back on track. 1. Continue current medication. We will continue titrating Clozaril to affect. 2. Continue every 15 minutes exercising. 3. Encourage individual group and milieu therapy. 4. Filled out the interrogatory papors Involuntary Hold Information 96 Hour Hold: 96 Hour Involuntary Admission: No Attestations NPU Medical Necessity Statement*: Inpatient hospitalization is medically necessary and the clinically appropriate intervention at this time. We will monitor medications and make changes as indicated. Likely length of stay 7-10 days. But with consideration of placement likely much longer. Coding Level of Care Code Acute Assistant Grocery Store Manager for Mandie Wei
[2019-11-23] MEDS: acetaminophen 325 mg Tablet 650 MG PO (17:36)
[2019-11-23 20:48] VITALS: BP 169/91; PULSE 88; RESP 23; TEMP 36.6; O2SAT 95
[2019-11-23] MEDS: OLANZapine 5 mg ODT PO (20:53)
[2019-11-23] MEDS: hyDROXYzine 25 mg Capsule 50 MG PO (20:53)
[2019-11-23] MEDS: cloZAPine 100 mg Tablet 200 MG PO (20:53)
[2019-11-24 06:00] VITALS: RESP 17
[2019-11-24] MEDS: cloZAPine 100 mg Tablet PO (08:10)
[2019-11-24 14:00] VITALS: BP 147/94; PULSE 97; RESP 18; TEMP 37; O2SAT 96
--- NOTE | 2019-11-24 15:14 | P.PN_ITS ---
Subjective NPU Subjective: Interval history: Joann presents today continuing the general theme of wanting to leave and not having a clear understanding of why she can't. Vacillating between home with mom, home with Romie and home with some fdc like lamp light. We discussed the importance of her being stable on the medication and is having some oversight that is not her mom and not Romie to help her. She doesn't seem to be that angry with that idea she is just angry with the idea of having to stay here longer because she reports it is boring and that people don't like her. She is eating okay and sleeping fine and we explained to her that we had filed for guardianship. She didn't really didn't seem to catch what I was saying. Mental Status Exam MSE Comments: This is a morbidly obese white female with adequate dress, but limited grooming and eye contact. No abnormal movements except for intermittent psychomotor agitation, Cooperative with exam in intermittent distress. Speech was occasional rate and volume, but improving. Mood described as I'm okay I just don't want to stay here, affect intermittently irritable. Thought process more organized. Thought content: Patient denied suicidal or homicidal ideation, no delusions reported but presence of persecutory, paranoid, hyperreligious delusions continues, she denied auditory or visual hallucinations. Attention and concentration were improving and memory was unreliable but none were formally tested. She is alert and oriented times 3. Insight and judgment were impaired and impulse control was impaired. Vitals/I&O/Wt Last Vital Signs Temp 98.6 F 11/24/19 14:00 Pulse 97 11/24/19 14:00 Resp 18 11/24/19 14:00 BP 147/94 11/24/19 14:00 Pulse Ox 96 11/24/19 14:00 Data NPU : 11/17/19 01:25 11/17/19 01:25 A&P Additional A&P Information (1) Acute psychosis: (2) Unspecified personality disorder: (3) Schizoaffective disorder: This is a 49-year-old white female with florid psychosis lives schizoaffective disorder bipolar type versus bipolar disorder fresh off of her second discharge in a week's time and her fourth admission since 10/03/2019 with no signs of stability and limited continuity of care and no real sense that her home support scan assist her in getting back on track. 1. Continue current medication. 2. Continue every 15 minutes exercising. 3. Encourage individual group and milieu therapy. 4. Filled out the interrogatory papers Involuntary Hold Information 96 Hour Hold: 96 Hour Involuntary Admission: No Attestations NPU Medical Necessity Statement*: Inpatient hospitalization is medically necessary and the clinically appropriate intervention at this time. We will monitor medications and make changes as indicated. Likely length of stay 7-10 days. But with consideration of placement likely much longer. Coding Level of Care Code Acute Sweeper Operator Highways for Mandie Wei
[2019-11-24] MEDS: cloZAPine 100 mg Tablet 200 MG PO (21:06)
[2019-11-24 21:57] VITALS: BP 149/103; PULSE 94; RESP 18; TEMP 36.4; O2SAT 95
[2019-11-25 06:00] VITALS: BP 113/71; PULSE 76; RESP 16; TEMP 36.4; O2SAT 90
[2019-11-25] MEDS: cloZAPine 100 mg Tablet PO (09:47)
--- NOTE | 2019-11-25 09:48 | PM.NPN ---
Subjective NPU Subjective: Interval history: Joann presents today reporting that she is doing okay, and that her mom wants her to come home for a couple of weeks, and then she can go to the program that we discovered. We discussed the fact that our greatest concern is that she schmidt a bridge by going to any place too early, or gets off track by going home with her mother, for any period of time, before we really feel she is ready to proceed. We talked about the fact that we were pursing guardianship, and she took all that in stride and certainly was, for the first day thus far, having much less decompensation. And even with this agreement, she was able to mange the information in a less volatile way. She was clear, as usual, that she would like to leave as soon as she can because she is bored. Otherwise, there were no complaints. Mental Status Exam MSE Comments: This is a morbidly obese white female with adequate dress, but limited grooming and improving eye contact. No abnormal movements except for mild psychomotor retardation, Cooperative with exam in no acute distress. Speech was slightly increased rate and decreased volume, but improving. Mood described as a little better, affect calmer. Thought process more organized. Thought content: Patient denied suicidal or homicidal ideation, no delusions reported but presence of persecutory, paranoid, hyperreligious delusions continues, but diminishing, she denied auditory or visual hallucinations. Attention and concentration were improving and memory was unreliable but none were formally tested. She is alert and oriented times 3. Insight and judgment were impaired, but improving and impulse control was improving. Vitals/I&O/Wt Last Vital Signs Temp 97.6 F 11/24/19 21:57 Pulse 94 11/24/19 21:57 Resp 18 11/24/19 21:57 BP 149/103 11/24/19 21:57 Pulse Ox 95 11/24/19 21:57 Data NPU : 11/17/19 01:25 11/17/19 01:25 A&P Additional A&P Information (1) Acute psychosis: (2) Unspecified personality disorder: (3) Schizoaffective disorder: This is a 49-year-old white female with florid psychosis lives schizoaffective disorder bipolar type versus bipolar disorder fresh off of her second discharge in a week's time and her fourth admission since 10/03/2019 with no signs of stability and limited continuity of care and no real sense that her home support scan assist her in getting back on track. 1. Continue current medication. Consider increasing clozaril evening dose. 2. Continue every 15 minutes exercising. 3. Encourage individual group and milieu therapy. 4. awaiting guardianship Involuntary Hold Information 96 Hour Hold: 96 Hour Involuntary Admission: No Attestations NPU Medical Necessity Statement*: Inpatient hospitalization is medically necessary and the clinically appropriate intervention at this time. We will monitor medications and make changes as indicated. Likely length of stay 7-10 days. But with consideration of placement likely much longer. Coding Level of Care Code Acute Passenger Relations Representative for Mandie Wei
[2019-11-25] MEDS: ondansetron 4 MG Tablet PO (09:50)
[2019-11-25 13:40] VITALS: BP 130/82; PULSE 94; RESP 18; TEMP 36.4; O2SAT 93
[2019-11-25] MEDS: cloZAPine 100 mg Tablet 200 MG PO (21:30)
[2019-11-25 22:00] VITALS: BP 136/93; PULSE 94; RESP 18; TEMP 36.4; O2SAT 97
[2019-11-26 06:00] VITALS: BP 135/88; PULSE 85; RESP 17; TEMP 36.5; O2SAT 92
[2019-11-26] MEDS: cloZAPine 100 mg Tablet PO (09:08)
[2019-11-26] MEDS: pantoprazole DR 40 mg Tablet PO (09:08)
--- NOTE | 2019-11-26 12:01 | PM.NPN ---
Subjective NPU Subjective: Interval history: Joann presents today showing significant improvement per staff reports. She is much more easily redirectable, asking some of the same questions about discharge or whether she can stay with her mom, but much more accepting of answers about what we are trying to do, was able to articulate in reflection that we are working on getting her guardianship. She even said at some point that her mom had even entertained the idea of being the guardian, though her mom is older she acknowledged, but she said she hopes her mom is going to be around for a long time. She was less needy at the window, much more independent, and seeming to have turned the corner from a standpoint of having a full day of calmer behavior and not having the outbursts. She reports she is eating fine and sleeping well. Mental Status Exam MSE Comments: This is a morbidly obese white female with adequate dress, but limited grooming and improving eye contact. No abnormal movements except for mild psychomotor retardation, Cooperative with exam in no acute distress. Speech was more normal rate and volume. Mood described as okay, affect calmer. Thought process more organized. Thought content: Patient denied suicidal or homicidal ideation, no delusions reported but presence of persecutory, paranoid, hyperreligious delusions continues, but diminishing, she denied auditory or visual hallucinations. Attention and concentration were improving and memory was more reliable but none were formally tested. She is alert and oriented times 3. Insight and judgment were impaired, but improving and impulse control was improving. Vitals/I&O/Wt Last Vital Signs Temp 98.1 F 11/26/19 20:40 Pulse 103 H 11/26/19 20:40 Resp 15 11/26/19 20:40 BP 154/108 11/26/19 20:40 Pulse Ox 96 11/26/19 20:40 Weight last 48 hrs Weight 138.799 kg Data NPU : 11/17/19 01:25 11/17/19 01:25 A&P Additional A&P Information (1) Acute psychosis: (2) Unspecified personality disorder: (3) Schizoaffective disorder: This is a 49-year-old white female with florid psychosis lives schizoaffective disorder bipolar type versus bipolar disorder fresh off of her second discharge in a week's time and her fourth admission since 10/03/2019 with no signs of stability and limited continuity of care and no real sense that her home support scan assist her in getting back on track. 1. Continue current medication. Consider increasing clozaril evening dose. 2. Continue every 15 minutes exercising. 3. Encourage individual group and milieu therapy. 4. awaiting guardianship Involuntary Hold Information 96 Hour Hold: 96 Hour Involuntary Admission: No Attestations NPU Medical Necessity Statement*: Inpatient hospitalization is medically necessary and the clinically appropriate intervention at this time. We will monitor medications and make changes as indicated. Likely length of stay 7-10 days. But with consideration of placement likely much longer. Coding Level of Care Code Acute Baked Goods Stock Clerk for Mandie Wei
[2019-11-26 14:00] VITALS: BP 142/89; PULSE 83; RESP 18; TEMP 37; O2SAT 94
[2019-11-26] MEDS: OLANZapine 5 mg ODT PO (20:32)
[2019-11-26] MEDS: hyDROXYzine 25 mg Capsule 50 MG PO (20:32)
[2019-11-26] MEDS: cloZAPine 100 mg Tablet 200 MG PO (20:33)
--- NOTE | 2019-11-26 20:33 | PC.NURSE ---
pt requested prn zyprexa and hydroxyzine be given with scheduled HS clozaril.
[2019-11-26 20:40] VITALS: BP 154/108; PULSE 103; RESP 15; TEMP 36.7; O2SAT 96
[2019-11-27 06:00] VITALS: BP 157/109; PULSE 88; RESP 15; TEMP 36; O2SAT 97
[2019-11-27] MEDS: pantoprazole DR 40 mg Tablet PO (09:12)
[2019-11-27] MEDS: cloZAPine 100 mg Tablet PO (09:12)
[2019-11-27 10:42] LABS: Basophils # 0.1 10^3/uL (0.0-0.1); Basophils % 0.7 %; Eosinophils # 0.2 10^3/uL (0.0-0.8); Eosinophils % 2.5 %; Hematocrit 37.8 % (37.0-47.0); Hemoglobin 12.4 g/dL (11.5-15.3); Lymphocytes # 2.3 10^3/uL (0.8-4.8); Lymphocytes % 26.5 %; Mean Corpuscular HGB Conc 32.8 g/dL (30.0-36.0); Mean Corpuscular Hemoglobin 30.7 pg (28.0-34.0); Mean Corpuscular Volume 93.6 fL (81-99); Mean Platelet Volume 9.8 fL (7.4-10.4); Monocytes # 0.8 10^3/uL (0.2-0.9); Monocytes % 9.4 %; Neutrophils # 5.23 10^3/uL (1.8-7.7); Neutrophils % 59.9 %; Nucleated Red Blood Cells % 0 %; Platelet Count 269 10^3/cmm (130-400); Red Blood Count 4.04 10^6/uL (4.1-5.3); Red Cell Distribution Width 12.4 % (12.1-15.1); White Blood Count 8.7 10^3/uL (4.0-10.0)
[2019-11-27 14:00] VITALS: BP 160/96; PULSE 101; RESP 18; TEMP 37; O2SAT 95
--- NOTE | 2019-11-27 16:27 | P.PN_ITS ---
Subjective NPU Subjective: Interval history: Joann presents today continuing to show stability and ability to deal with the uncertainty of her situation, and the fact that she is wanting to leave, but it is our assessment that she needs to be here for the best chance of success. We discussed the fact that, based on this past year, without some oversight, she will undoubtedly return on a different medication and need the intervention of Clozaril to insure that she wards off psychosis. We discussed the options ahead of us and that our concerns are that if we send her somewhere now, we will ruin her chance to have somewhere longwall headgate operator. But she is continuing to improve and we are exploring the options. She is eating better and sleeping fine. We discussed the possibility of looking at a n utritional consult and try to figure out how to assist her with her morbid obesity. Mental Status Exam MSE Comments: This is a morbidly obese white female with adequate dress, but limited grooming and improving eye contact. No abnormal movements except for mild psychomotor retardation, Cooperative with exam in no acute distress. Speech was more normal rate and volume. Mood described as good, affect calmer. Thought process more organized. Thought content: Patient denied suicidal or homicidal ideation, no delusions reported and none noted, she denied auditory or visual hallucinations. Attention and concentration were improving and memory was more reliable but none were formally tested. She is alert and oriented times 3. Insight and judgment were impaired, but improving and impulse control was improving. Vitals/I&O/Wt Last Vital Signs Temp 96.8 F L 11/27/19 06:00 Pulse 88 11/27/19 06:00 Resp 15 11/27/19 06:00 BP 157/109 11/27/19 06:00 Pulse Ox 97 11/27/19 06:00 Weight last 48 hrs Weight 138.799 kg Data NPU : 11/27/19 10:05 11/17/19 01:25 A&P Additional A&P Information (1) Acute psychosis: (2) Unspecified personality disorder: (3) Schizoaffective disorder: This is a 49-year-old white female with florid psychosis lives schizoaffective disorder bipolar type versus bipolar disorder fresh off of her second discharge in a week's time and her fourth admission since 10/03/2019 with no signs of stability and limited continuity of care and no real sense that her home support scan assist her in getting back on track. 1. Continue current medication. Consider increasing clozaril evening dose. 2. Continue every 15 minutes exercising. 3. Encourage individual group and milieu therapy. 4. awaiting guardianship. We have significant concerns that not understanding the logistics of guardianship will make discharge decision making too ambiguous. Awaiting court date. Involuntary Hold Information 96 Hour Hold: 96 Hour Involuntary Admission: No Attestations NPU Medical Necessity Statement*: Inpatient hospitalization is medically necessary and the clinically appropriate intervention at this time. We will monitor medications and make changes as indicated. Likely length of stay 5-7 days. Coding Level of Care Code Acute Lathe Puller for Mandie Wei
[2019-11-27] MEDS: cloZAPine 100 mg Tablet 200 MG PO (20:17)
--- NOTE | 2019-11-27 20:34 | PC.NURSE ---
pt given scheduled clozaril.
[2019-11-27 20:55] VITALS: BP 121/82; PULSE 100; RESP 23; TEMP 36.9; O2SAT 97
[2019-11-28 06:00] VITALS: BP 134/75; PULSE 82; RESP 20; TEMP 36.8; O2SAT 95
[2019-11-28] MEDS: pantoprazole DR 40 mg Tablet PO (07:55)
[2019-11-28] MEDS: cloZAPine 100 mg Tablet PO (07:55)
[2019-11-28] MEDS: OLANZapine 5 mg ODT PO (12:17)
--- NOTE | 2019-11-28 12:17 | PC.NURSE ---
PRN ZYPREXA ZYDIS 5 MG GIVEN PO PER PT C/O AGITATION/ANXIETY. PT VERY TEARFUL, YELLING ON THE PHONE AT HER MOTHER. WILL CONT TO MONITOR.
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
[2019-11-28 13:25] VITALS: BP 134/83; PULSE 69; RESP 18; TEMP 36.8; O2SAT 96
[2019-11-28] MEDS: cloZAPine 100 mg Tablet 200 MG PO (20:13)
[2019-11-28 21:09] VITALS: BP 138/76; PULSE 90; RESP 18; TEMP 36.8; O2SAT 97
--- NOTE | 2019-11-28 21:11 | PC.NURSE ---
pt given scheduled clozaril.
[2019-11-29 06:00] VITALS: BP 141/93; PULSE 78; RESP 17; TEMP 36.8; O2SAT 93
[2019-11-29] MEDS: pantoprazole DR 40 mg Tablet PO (08:37)
[2019-11-29] MEDS: cloZAPine 100 mg Tablet PO (08:37)
[2019-11-29] MEDS: acetaminophen 325 mg Tablet 650 MG PO ×2 (08:38→18:20)
[2019-11-29 14:00] VITALS: BP 143/97; PULSE 76; RESP 20; TEMP 36.8; O2SAT 95
--- NOTE | 2019-11-29 17:27 | P.PN_ITS ---
Subjective NPU Subjective: Interval history: Joann presents today continuing to show stability for the most part. She is frustrated because she wants to be discharged, but has been in general understanding of the goals that we are trying to achieve, which is that she is discharged and does not come back for some time hopefully, because we have created a safety net outside of the hospital that will ensure that she gets her medication, her blood draws and overall follow-up effectively. Hopefully, someone coming to her home to verify things will help as well, and that has been the plan. We have been very persistent in working with the legal system to try to get a date for her guardianship hearing which will give us some clear indications of logistically how we should manage her discharge and she understands. We discussed the risks, benefits, and alternatives of proceeding this way, and she understood and agreed to proceed as is documented in this note. However, she did have an outburst today out of frustration because she wants to be discharged, which was the first kind of step backwards towards her angry outbursts that she was having regularly, but this had a clear nidus and was an outlier based on how she has been recently. Mental Status Exam MSE Comments: This is a morbidly obese white female with adequate dress, but limited grooming and improving eye contact. No abnormal movements except for mild psychomotor retardation, Cooperative with exam in no acute distress. Spee ch was more normal rate and volume. Mood described as I'm good, affect calmer/slightly subdued. Thought process more organized. Thought content: Patient denied suicidal or homicidal ideation, no delusions reported and none noted it is unclear whether her almost fantasizing about the status of rel ationships with people represents delusions or poor insight, she denied auditory or visual hallucinations. Attention and concentration were improving and memory was more reliable but none were formally tested. She is alert and oriented times 3. Insight and judgment were impaired, but improving and impulse control was improving. Vitals/I&O/Wt Last Vital Signs Temp 98.8 F 11/29/19 21:22 Pulse 108 H 11/29/19 21:22 Resp 22 H 11/29/19 21:22 BP 172/84 11/29/19 21:22 Pulse Ox 96 11/29/19 21:22 Data NPU : 11/27/19 10:05 11/17/19 01:25 A&P Additional A&P Information (1) Acute psychosis: (2) Unspecified personality disorder: (3) Schizoaffective disorder: This is a 49-year-old white female with florid psychosis lives schizoaffective disorder bipolar type versus bipolar disorder fresh off of her second discharge in a week's time and her fourth admission since 10/03/2019 with no signs of stability and limited continuity of care and no real sense that her home support scan assist her in getting back on track. 1. Continue current medication. Consider increasing clozaril evening dose. 2. Continue every 15 minutes exercising. 3. Encourage individual group and milieu therapy. 4. awaiting guardianship. We have significant concerns that not understanding the logistics of guardianship will make discharge decision making too ambiguous. Awaiting court date. Our expectation is that possibly today or tomorrow we will know the date of the hearing. If it soon and would likely make sense to keep her through to that date. If it's distant, then we will likely need to discharge her and try to put appropriate pieces in place until guardianship is determined. Involuntary Hold Information 96 Hour Hold: 96 Hour Involuntary Admission: No Attestations NPU Medical Necessity Statement*: Inpatient hospitalization is medically necessary and the clinically appropriate intervention at this time. We will monitor medications and make changes as indicated. Likely length of stay 3-5 days. Coding Level of Care Code Acute Cutting Table Operator First for Mandie Wei
[2019-11-29] MEDS: cloZAPine 100 mg Tablet 200 MG PO (20:21)
[2019-11-29 21:22] VITALS: BP 172/84; PULSE 108; RESP 22; TEMP 37.1; O2SAT 96
[2019-11-30 06:00] VITALS: BP 150/91; PULSE 83; RESP 21; TEMP 36.6; O2SAT 95
[2019-11-30] MEDS: cloZAPine 100 mg Tablet PO (08:14)
[2019-11-30] MEDS: pantoprazole DR 40 mg Tablet PO (08:14)
[2019-11-30] MEDS: loperamide 2 mg Capsule PO ×2 (11:06→20:23)
--- NOTE | 2019-11-30 11:07 | PC.NURSE ---
PRN IMODIUM 2 MG GIVEN PO PER PT C/O LOOSE STOOLS. WILL CONT TO MONITOR
--- NOTE | 2019-11-30 11:46 | PM.NPN ---
Subjective NPU Subjective: Interval history: Joann presents today reporting that she feels good and she is optimistic about discharge. We did find out today that her hearing for guardianship is December 04. This was discussed with her and she was wishing that she could leave prior. However, we are working on the possibility of getting her a detention setting in the next few days. She has an interview with one facility, and our hope is that she might even be able to go just prior to the hearing, and we will hopefully have a guardian in place in the event that things were not going in the way that is in her best interest. She denies any major issues and reports that she is sleeping okay and eating fine. Mental Status Exam MSE Comments: This is a morbidly obese white female with adequate dress, but limited grooming and improving eye contact. No abnormal movements except for mild psychomotor retardation, Cooperative with exam in no acute distress. Speech was more normal rate and volume. Mood described as better, affect calmer. Thought process more organized. Thought content: Patient denied suicidal or homicidal ideation, no delusions reported and none noted, she denied auditory or visual hallucinations. Attention and concentration were improving and memory was more reliable but none were formally tested. She is alert and oriented times 3. Insight and judgment were impaired, but improving and impulse control was improving. Vitals/I&O/Wt Last Vital Signs Temp 97.9 F 11/30/19 06:00 Pulse 83 11/30/19 06:00 Resp 21 H 11/30/19 06:00 BP 150/91 11/30/19 06:00 Pulse Ox 95 11/30/19 06:00 Data NPU : 11/27/19 10:05 11/17/19 01:25 A&P Additional A&P Information (1) Acute psychosis: (2) Unspecified personality disorder: (3) Schizoaffective disorder: This is a 49-year-old white female with florid psychosis lives schizoaffective disorder bipolar type versus bipolar disorder fresh off of her second discharge in a week's time and her fourth admission since 10/03/2019 with no signs of stability and limited continuity of care and no real sense that her home support scan assist her in getting back on track. 1. Continue current medication. Consider increasing clozaril evening dose. 2. Continue every 15 minutes exercising. 3. Encourage individual group and milieu therapy. 4. awaiting guardianship. Court date 12/05/2019. Involuntary Hold Information 96 Hour Hold: 96 Hour Involuntary Admission: No Attestations NPU Medical Necessity Statement*: Inpatient hospitalization is medically necessary and the clinically appropriate intervention at this time. We will monitor medications and make changes as indicated. Likely length of stay 3-5 days. Coding Level of Care Code Acute Shearer Screen Measurer And Trimmer for Mandie Wei
--- NOTE | 2019-11-30 11:56 | PC.SOCIAL ---
patient reported that she has an upset stomach. this was reported to nurse
[2019-11-30 14:00] VITALS: BP 133/83; PULSE 91; RESP 20; O2SAT 98
[2019-11-30 20:12] VITALS: BP 125/83; PULSE 85; RESP 21; TEMP 37.2; O2SAT 94
[2019-11-30] MEDS: acetaminophen 325 mg Tablet 650 MG PO (20:22)
[2019-11-30] MEDS: cloZAPine 100 mg Tablet 200 MG PO (20:23)
[2019-12-01 06:00] VITALS: BP 131/80; PULSE 83; RESP 16; TEMP 36.9; O2SAT 93
[2019-12-01] MEDS: pantoprazole DR 40 mg Tablet PO (08:29)
[2019-12-01] MEDS: cloZAPine 100 mg Tablet PO (08:29)
--- NOTE | 2019-12-01 13:49 | PC.NUTR ---
NUTR EDU: Spoke with pt about food choices. Provided pt with 1800 calorie 5 day menu. Discussed low fat options and provided low fat cooking techniques. Discussed behavior changes and goal setting.
[2019-12-01 14:00] VITALS: BP 162/71; PULSE 90; RESP 22; TEMP 36.3; O2SAT 96
--- NOTE | 2019-12-01 15:44 | PM.NPN ---
Subjective NPU Subjective: Interval history: Joann presents today continuing to progress in her functionality. She continues to have some limitations in her insight, and we continue to discuss the need for guardianship with the guardianship hearing being on December 04. We had a productive meeting with [facility] that appears likely take her. Unfortunately, they had a positive COVID test and are going to retest everyone on Wednesday, and if the retest on Wednesday is negative all around, they should be able to start admitting people again, once the results are back. We continue to review with her the critical importance of her taking her medications as prescribed. We talked about some medical considerations to explore prior to her discharge, and additionally there should be a mounting machine operator coming to see her to try to develop a plan for her obesity and overall health, moving forward. She is eating fine and sleeping okay. Mental Status Exam MSE Comments: This is a morbidly obese white female with adequate dress, but limited grooming and improving eye contact. No abnormal movements except for mild psychomotor retardation, Cooperative with exam in no acute distress. Speech was more normal rate and volume. Mood described as better, affect calmer. Thought process more organized. Thought content: Patient denied suicidal or homicidal ideation, no delusions reported and none noted, she denied auditory or visual hallucinations. Attention and concentration were improving and memory was more reliable but none were formally tested. She is alert and oriented times 3. Insight and judgment are limited, but improving and impulse control was improving. Vitals/I&O/Wt Last Vital Signs Temp 97.4 F L 12/01/19 14:00 Pulse 90 12/01/19 14:00 Resp 22 H 12/01/19 14:00 BP 162/71 12/01/19 14:00 Pulse Ox 96 12/01/19 14:00 Data NPU : 11/27/19 10:05 11/17/19 01:25 A&P Additional A&P Information (1) Acute psychosis: (2) Unspecified personality disorder: (3) Schizoaffective disorder: This is a 49-year-old white female with resolving psychosis with schizoaffective disorder bipolar type versus bipolar disorder here on her fourth admission since 10/03/2019 with clear improvement over the past several days. 1. Continue current medication. 2. Continue every 15 minutes exercising. 3. Encourage individual group and milieu therapy. 4. awaiting guardianship. Court date 12/05/2019. 5. Lamp light eval went well. Likely dc to their facility in a week due to Covid concerns. Involuntary Hold Information 96 Hour Hold: 96 Hour Involuntary Admission: No Attestations NPU Medical Necessity Statement*: Inpatient hospitalization is medically necessary and the clinically appropriate intervention at this time. We will monitor medications and make changes as indicated. Likely length of stay 5-7 days. Coding Level of Care Code Acute Pre K Special Education Teacher for Mandie Wei
[2019-12-01 20:23] VITALS: BP 156/98; PULSE 100; RESP 21; TEMP 36.7; O2SAT 96
[2019-12-01] MEDS: cloZAPine 100 mg Tablet 200 MG PO (20:38)
[2019-12-02 06:00] VITALS: BP 154/107; PULSE 93; RESP 14; TEMP 35.8; O2SAT 95
[2019-12-02] MEDS: pantoprazole DR 40 mg Tablet PO (09:02)
[2019-12-02] MEDS: cloZAPine 100 mg Tablet PO (09:02)
--- NOTE | 2019-12-02 13:31 | PM.NPN ---
Mental Status Exam MSE Comments: This is a morbidly obese white female with adequate dress, but limited grooming and improving eye contact. No abnormal movements except for mild psychomotor retardation, Cooperative with exam in no acute distress. Speech was more normal rate and volume. Mood described as better, affect calmer. Thought process more organized. Thought content: Patient denied suicidal or homicidal ideation, no delusions reported and none noted, she denied auditory or visual hallucinations. Attention and concentration were improving and memory was more reliable but none were formally tested. She is alert and oriented times 3. Insight and judgment are limited, but improving and impulse control was improving. Vitals/I&O/Wt Last Vital Signs Temp 98.1 F 12/02/19 13:37 Pulse 64 12/02/19 13:37 Resp 18 12/02/19 13:37 BP 130/80 12/02/19 13:37 Pulse Ox 97 12/02/19 13:37 Data NPU : 11/27/19 10:05 11/17/19 01:25 A&P Additional A&P Information (1) Acute psychosis: (2) Unspecified personality disorder: (3) Schizoaffective disorder: This is a 49-year-old white female with resolving psychosis with schizoaffective disorder bipolar type versus bipolar disorder here on her fourth admission since 10/03/2019 with clear improvement over the past several days. 1. Continue current medication. 2. Continue every 15 minutes exercising. 3. Encourage individual group and milieu therapy. 4. awaiting guardianship. Court date 12/05/2019. 5. Lamp light eval went well. Likely dc to their facility in a week due to Covid concerns. Involuntary Hold Information 96 Hour Hold: 96 Hour Involuntary Admission: No Attestations NPU Medical Necessity Statement*: Inpatient hospitalization is medically necessary and the clinically appropriate intervention at this time. We will monitor medications and make changes as indicated. Likely length of stay 4-6 days. Coding Level of Care Code Acute Services Coordinator for Mandie Wei
[2019-12-02 13:37] VITALS: BP 130/80; PULSE 64; RESP 18; TEMP 36.7; O2SAT 97
[2019-12-02] MEDS: cloZAPine 100 mg Tablet 200 MG PO (21:28)
[2019-12-02] MEDS: hyDROXYzine 25 mg Capsule 50 MG PO (21:28)
--- NOTE | 2019-12-02 21:31 | PC.NURSE ---
PRN VISTARIL PT ON THE PHONE CRYING AND YELLING AT HER MOM. ADMINISTERED VISTARIL 50MG PO FOR ANXIETY. WILL MONITOR FOR MEDICATION EFFECTIVENESS.
[2019-12-02 21:33] VITALS: BP 145/101; PULSE 106; RESP 19; TEMP 36.5; O2SAT 94
[2019-12-03 06:00] VITALS: BP 138/92; PULSE 92; RESP 19; TEMP 36.3; O2SAT 94
[2019-12-03] MEDS: pantoprazole DR 40 mg Tablet PO (08:37)
[2019-12-03] MEDS: cloZAPine 100 mg Tablet PO (08:37)
--- NOTE | 2019-12-03 13:09 | PM.NPN ---
Subjective NPU Subjective: Interval history: Interval history: Joann presents today with no significant changes. She continues to have some limitations in her insight, and we continue to discuss the need for guardianship with the guardianship hearing being on December 04. Jhon is reporting she is a likely admission after results of 2nd wave of COVID testing Wednesday, and if the retest on Wednesday is negative all around, they will start admitting people again, once the results are back. We continue to review with her the critical importance of her taking her medications as prescribed. We talked about some medical considerations to explore prior to her discharge, and additionally the semiconductor packages sealer is coming to see her to try to develop a plan for her obesity and overall health, moving forward. She is eating fine and sleeping okay. Mental Status Exam MSE Comments: This is a morbidly obese white female with adequate dress, but limited grooming and improving eye contact. No abnormal movements except for mild psychomotor retardation, Cooperative with exam in no acute distress. Speech was more normal rate and volume. Mood described as good, affect calmer. Thought process more organized. Thought content: Patient denied suicidal or homicidal ideation, no delusions reported and none noted, she denied auditory or visual hallucinations. Attention and concentration were improving and memory was more reliable but none were formally tested. She is alert and oriented times 3. Insight and judgment are limited, but improving and impulse control was improving. Vitals/I&O/Wt Last Vital Signs Temp 97.7 F 12/03/19 21:24 Pulse 88 12/03/19 21:24 Resp 22 H 12/03/19 21:24 BP 172/102 12/03/19 21:24 Pulse Ox 97 12/03/19 21:24 Weight last 48 hrs Weight 132.959 kg Data NPU : 11/27/19 10:05 11/17/19 01:25 A&P Additional A&P Information (1) Acute psychosis: (2) Unspecified personality disorder: (3) Schizoaffective disorder: This is a 49-year-old white female with resolving psychosis with schizoaffective disorder bipolar type versus bipolar disorder here on her fourth admission since 10/03/2019 with clear improvement over the past several days. 1. Continue current medication. 2. Continue every 15 minutes exercising. 3. Encourage individual group and milieu therapy. 4. awaiting guardianship. Court date 12/05/2019. 5. Lamp light davie went well. Likely dc to their facility in a week due to Covid concerns. Involuntary Hold Information 96 Hour Hold: 96 Hour Involuntary Admission: No Attestations NPU Medical Necessity Statement*: Inpatient hospitalization is medically necessary and the clinically appropriate intervention at this time. We will monitor medications and make changes as indicated. Likely length of stay 3-5 days. Coding Level of Care Code Acute Build Master for Mandie Wei
[2019-12-03 14:00] VITALS: BP 154/99; PULSE 97; RESP 16; TEMP 37.1; O2SAT 92
[2019-12-03] MEDS: hyDROXYzine 25 mg Capsule 50 MG PO ×2 (17:31→17:34)
[2019-12-03] MEDS: acetaminophen 325 mg Tablet 650 MG PO (18:11)
[2019-12-03] MEDS: cloZAPine 100 mg Tablet 200 MG PO (21:07)
[2019-12-03 21:24] VITALS: BP 172/102; PULSE 88; RESP 22; TEMP 36.5; O2SAT 97
--- NOTE | 2019-12-03 22:18 | PC.NURSE ---
Pt given scheduled HS clozaril.
[2019-12-04 06:00] VITALS: BP 148/91; PULSE 80; RESP 18; TEMP 37; O2SAT 95
[2019-12-04] MEDS: cloZAPine 100 mg Tablet PO (08:56)
[2019-12-04] MEDS: pantoprazole DR 40 mg Tablet PO (08:57)
--- NOTE | 2019-12-04 10:29 | PM.NPN ---
Subjective NPU Subjective: Interval history: Interval history: Patient continues to do well on current medications. Mental Status Exam MSE Comments: This is a morbidly obese white female with adequate dress, but limited grooming and improving eye contact. No abnormal movements except for mild psychomotor retardation, Cooperative with exam in no acute distress. Speech was more normal rate and volume. Mood described as better, affect calmer. Thought process more organized. Thought content: Patient denied suicidal or homicidal ideation, no delusions reported and none noted, she denied auditory or visual hallucinations. Attention and concentration were improving and memory was more reliable but none were formally tested. She is alert and oriented times 3. Insight and judgment are limited, but improving and impulse control was improving. Cognition: Patient Appearance: Appropriate Level of Consciousness: Awake and Follows Commands Patient Cognition Impaired: Yes Ability to Follow Directions: Good Patient Orientation (long list): Person, Place and Name Hallucination Type: None Delusion Description: Not Present Thought Process: Appropriate Affect: Affect Description: Calm Depressive Symptoms: Difficulty Sleeping and Insomnia Behavior: Patient Behavior: Cooperative Speech Pattern: Clear Vitals/I&O/Wt Last Vital Signs Temp 98.6 F 12/04/19 06:00 Pulse 80 12/04/19 06:00 Resp 18 12/04/19 06:00 BP 148/91 12/04/19 06:00 Pulse Ox 95 12/04/19 06:00 Weight last 48 hrs Weight 132.959 kg Data NPU : 11/27/19 10:05 11/17/19 01:25 A&P Assessment and plan (1) Acute psychosis: Status: Acute (2) Unspecified personality disorder: Status: Chronic (3) Schizoaffective disorder: Status: Acute Additional A&P Information (1) Acute psychosis: (2) Unspecified personality disorder: (3) Schizoaffective disorder: This is a 49-year-old white female with resolving psychosis with schizoaffective disorder bipolar type versus bipolar disorder here on her fourth admission since 10/03/2019 with clear improvement over the past several days. Hospital day #18: 1. Continue current medication. 2. Continue every 15 minutes exercising. 3. Encourage individual group and milieu therapy. Patient is stable on current medications. She has a court hearing tomorrow for guardianship. If that is successful, she will be discharged to the [facility] residential treatment as soon as they are ready to accept her. Involuntary Hold Information 96 Hour Hold: 96 Hour Involuntary Admission: No Attestations NPU Medical Necessity Statement*: Patient will remain in the hospital another 3-4 nights until her placement can be verified. Coding Level of Care Code Acute Roving Department End Finder for Mandie Wei Diagnoses Acute psychosis F23 Unspecified personality disorder F60.9 Schizoaffective disorder F25.9
[2019-12-04 14:00] VITALS: BP 169/110; PULSE 98; RESP 16; TEMP 36.8; O2SAT 93
[2019-12-04] MEDS: cloZAPine 100 mg Tablet 200 MG PO (20:39)
[2019-12-04 22:00] VITALS: BP 128/85; PULSE 95; RESP 18; TEMP 36.8; O2SAT 97
--- NOTE | 2019-12-04 22:20 | NUR.SHIFT ---
Pt is very talkative robert. She is very adamant that she wants to return to live with her exhusband Romie instead of going to [place]. Joann seems anxious about her relationship with her mother, stating she is mad at me that I am alive and my sister is . She is mad at me for going to live with Romie. She said she does not want a guardian appointed for her and she can make up her own mind where she wants to live. She has been on the phone several times with Romie jones. She is somewhat uncertain what it will be like to be back with him but is convinced that it is the right decision. She expressed that she is tired of her mom running her life and treating her like a child.
--- NOTE | 2019-12-04 23:25 | PC.NURSE ---
Patient was excited and worked up when Katerina RIVAS) took her blood pressure. It was 164/115 both manually and with monitor. Monitored the patient and did another blood pressure once she had her night medications and had time to calm down. It was much improved at 128/85.
[2019-12-05 06:00] VITALS: BP 105/74; PULSE 85; RESP 15; TEMP 36.8; O2SAT 90
[2019-12-05] MEDS: pantoprazole DR 40 mg Tablet PO (08:27)
[2019-12-05] MEDS: cloZAPine 100 mg Tablet PO (08:27)
--- NOTE | 2019-12-05 11:21 | P.PN_ITS ---
Subjective NPU Subjective: Interval history: Joann presents today claiming that her mother called her and told her that she was bleeding internally Joann was insisting that she be discharged so that she can go take care of her mother and that lives with her boyfriend. She was informed that we have a plan in place and she was accepting of that explanation as to why she would not be allowed to go home. However she made the same claim about an hour later. Mental Status Exam MSE Comments: This is a morbidly obese white female with adequate dress, but limited grooming and improving eye contact. No abnormal movements except for mild psychomotor retardation, Cooperative with exam in no acute distress. Speech was more normal rate and volume. Mood described as good, affect calmer. Thought process more organized. Thought content: Patient denied suicidal or homicidal ideation, no delusions reported and none noted, she denied auditory or visual hallucinations. Attention and concentration were improving and memory was more reliable but none were formally tested. She is alert and oriented times 3. Insight and judgment are limited, but improving and impulse control was improving. Cognition: Patient Appearance: Appropriate Level of Consciousness: Awake and Follows Commands Patient Cognition Impaired: Yes Ability to Follow Directions: Good Patient Orientation (long list): Person, Place and Name Hallucination Type: None Delusion Description: Not Present Thought Process: Appropriate Affect: Affect Description: Calm Depressive Symptoms: Difficulty Sleeping and Insomnia Behavior: Patient Behavior: Cooperative Speech Pattern: Clear Vitals/I&O/Wt Last Vital Signs Temp 98.3 F 12/05/19 06:00 Pulse 85 12/05/19 06:00 Resp 15 12/05/19 06:00 BP 105/74 12/05/19 06:00 Pulse Ox 90 12/05/19 06:00 Data NPU : 11/27/19 10:05 11/17/19 01:25 A&P Assessment and plan (1) Acute psychosis: Status: Acute (2) Unspecified personality disorder: Status: Chronic (3) Schizoaffective disorder: Status: Acute Additional A&P Information (1) Acute psychosis: (2) Unspecified personality disorder: (3) Schizoaffective disorder: This is a 49-year-old white female with resolving psychosis with schizoaffective disorder bipolar type versus bipolar disorder here on her fourth admission since 10/03/2019 with clear improvement over the past several days. Hospital day #18: 1. Continue current medication. 2. Continue every 15 minutes exercising. 3. Encourage individual group and milieu therapy. Patient is stable on current medications. She has a court hearing tomorrow for guardianship. If that is successful, she will be discharged to the [facility] treatment as soon as they are ready to accept her. Hospital day #19: Patient is stable on current medications. Awaiting results of court hearing for guardianship. If that is successful, she will be discharged to the [facility] treatment as soon as they are ready to accept her. Involuntary Hold Information 96 Hour Hold: 96 Hour Involuntary Admission: No Attestations U Medical Necessity Statement*: Patient will remain in hospital until she can be transferred to placement safely. Coding Level of Care Code Acute Quartz Orientator for Mandie Wei Diagnoses Acute psychosis F23 Unspecified personality disorder F60.9 Schizoaffective disorder F25.9
[2019-12-05 14:00] VITALS: BP 167/108; PULSE 91; RESP 20; TEMP 36.5; O2SAT 96
[2019-12-05] MEDS: cloZAPine 100 mg Tablet 200 MG PO (20:38)
[2019-12-05] MEDS: hyDROXYzine 25 mg Capsule 50 MG PO (20:38)
[2019-12-05] MEDS: acetaminophen 325 mg Tablet 650 MG PO (20:39)
--- NOTE | 2019-12-05 21:17 | PC.NURSE ---
PRNs given @2038 Tylenol 650 mg PO for generalized pain Visteril 50mg PO for anxiety
[2019-12-05 22:00] VITALS: BP 133/85; PULSE 93; RESP 18; TEMP 36.8; O2SAT 96
[2019-12-06 06:00] VITALS: BP 138/89; PULSE 74; RESP 16; TEMP 36.8; O2SAT 95
[2019-12-06] MEDS: pantoprazole DR 40 mg Tablet PO (07:57)
[2019-12-06] MEDS: cloZAPine 100 mg Tablet PO (07:57)
[2019-12-06 13:24] VITALS: BP 143/104; PULSE 96; RESP 20; TEMP 36.7; O2SAT 96
[2019-12-06] MEDS: cloZAPine 100 mg Tablet 200 MG PO (20:57)
[2019-12-06] MEDS: hyDROXYzine 25 mg Capsule 50 MG PO (20:57)
--- NOTE | 2019-12-06 21:07 | PC.NURSE ---
PRN GIVEN @2056: VISTERIL 50MG PO FOR ANXIETY WILL CONTINUE TO MONITOR PATIENTS PROGRESS
[2019-12-06 21:34] VITALS: BP 129/89; PULSE 100; RESP 19; TEMP 36.6; O2SAT 97
[2019-12-07 06:00] VITALS: BP 138/85; PULSE 81; RESP 17; TEMP 36.9; O2SAT 92
--- NOTE | 2019-12-07 06:15 | PC.NURSE ---
Blood pressure has been high. last 4 readings have been 133/85, 138/89, 143/104, and after visteril tonight she was reevaluated and the number came down to 129/89. patient states that she normally takes Lisinopril but this medication is not on her reconciliation.
[2019-12-07] MEDS: cloZAPine 100 mg Tablet PO (08:18)
[2019-12-07] MEDS: pantoprazole DR 40 mg Tablet PO (08:18)
[2019-12-07 09:11] VITALS: BP 138/85; PULSE 81; RESP 17; TEMP 36.9; O2SAT 92
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
--- NOTE | 2019-12-07 13:51 | PC.NURSE ---
DISCHARGE MEDS CALLED INTO [phone]. SPOKE TO [facility]URPRE[facility]. CLOZARIL 100 MG DAILY & 200 MG HS PROTONIX 40 MG DAILY
[2019-12-07 14:00] VITALS: BP 145/104; PULSE 91; RESP 15; TEMP 36.8; O2SAT 95
[2019-12-07 14:27] LABS: Basophils # 0.1 10^3/uL (0.0-0.1); Basophils % 0.8 %; Eosinophils # 0.2 10^3/uL (0.0-0.8); Eosinophils % 2.5 %; Hematocrit 42.3 % (37.0-47.0); Lymphocytes # 1.9 10^3/uL (0.8-4.8); Lymphocytes % 30.8 %; Mean Corpuscular HGB Conc 30.7 g/dL (30.0-36.0); Mean Corpuscular Volume 97.5 fL (81-99); Mean Platelet Volume 9.3 fL (7.4-10.4); Monocytes # 0.5 10^3/uL (0.2-0.9); Monocytes % 7.8 %; Neutrophils # 3.46 10^3/uL (1.8-7.7); Neutrophils % 57.8 %; Nucleated Red Blood Cells % 0 %; Platelet Count 254 10^3/cmm (130-400); Red Blood Count 4.34 10^6/uL (4.1-5.3); Red Cell Distribution Width 12.6 % (12.1-15.1)
== END 2019-12-07 14:58 | disposition home or self-care (01) | DRG 885 ==
LOC: ER 02:17 → NP 02:40
PROVIDERS: Physician Assistant; Psychiatry & Neurology Psychiatry; Admitting Provider Psychiatry & Neurology Psychiatry; PCP Nurse Practitioner Family; Visit Provider Psychiatry & Neurology Psychiatry
DX: F23 Brief psychotic disorder (principal); Z68.43 Body mass index [BMI] 50.0-59.9, adult; Z87.891 Personal history of nicotine dependence; F60.9 Personality disorder, unspecified; F25.0 Schizoaffective disorder, bipolar type; E66.01 Morbid (severe) obesity due to excess calories
CPT/HCPCS: 12345; 36415; 80053; 80306; 80307; 85025; 96372; 99284; J1200; J2060; J3486; J3490; Q0162

== ENCOUNTER 2019-12-14 18:32 | Inpatient (IN) | payer MEDICAID, SELFPAY ==
[2019-10-12 09:30] VITALS: BP 170/101; BMI 55.8
--- NOTE | 2019-12-14 18:34 | W.ED.PSYCH ---
HPI - Psych General: Chief Complaint: Psychiatric Symptoms Stated Complaint: SI Time Seen by Provider: 12/14/19 18:32 Source: patient and EMS Mode of arrival: EMS Limitations: no limitations History of Present Illness: HPI Narrative: Patient is a 49-year-old female who presents to ED today via EMS for complaints of feeling suicidal. Patient was just released from NPU less than a week ago. She tells me since that time she has felt hopeless and feeling like life is not worth living. She tells me she is suicidal with a plan to jump out in front of traffic. Patient is well-known to our facility and has been here countless times for mental illness. She is not homicidal. On exam her mental status much more competent than when I have seen her on previous visits. She is not presenting acutely psychotic. Associated symptoms: Reports depression and suicidal ideation; Deny homicidal ideation Review of Systems Const: Denies: fever(s) or chills Card: Denies: chest pain, palpitations, lightheadedness or syncope Resp: Denies: dyspnea GI: Denies: abdominal pain, nausea, vomiting or diarrhea Skin/Breast: Denies: rash Neuro: Denies: headache(s) Psych: Reports: anxiety, depression, hopelessness, loss of interest and suicidal ideation; Denies: homicidal ideation [facility] ED PFSH: Family History Mother Hypertension Hyperlipidemia Diabetes Grandmother Diabetes Grandfather Diabetes Father , due to complications of colon cancer Cancer Colon Social History Smoking and tobacco status: never smoked Quit status (tobacco): has quit using tobacco Year quit tobacco: 2017 Second hand smoke exposure: Yes Smoking risk assessment/counseling performed?: Yes Tobacco counseling given: counseling >3 minutes Alcohol intake: never Desire information about substance/drug rehabilitation?: No Adopted: No Lives independently: Yes Household members: significant other Marital status: Number of children: 1 Current occupational status: disabled Current gender identity: Female Female Reproductive History: Para: 1 Spontaneous abortions: No Physical Exam Const: COMMON NORMALS: no acute distress, patient oriented x3, no limitations and alert GENERAL APPEARANCE: cooperative NUTRITIONAL APPEARANCE: obese ORIENTATION/CONSCIOUSNESS: Yes oriented to person, Yes oriented to place and Yes oriented to time HENMT: COMMON NORMALS: normocephalic and atraumatic HEAD & SCALP: normocephalic and atraumatic Resp: COMMON NORMALS: normal respiratory effort and clear to auscultation bilaterally AUSCULTATION: clear to auscultation bilaterally Cardio: COMMON NORMALS: regular rate and regular rhythm RATE: regular rate RHYTHM: regular rhythm Neuro: ROBERTO COMA SCALE: document GCS findings Aragon coma scale eye opening: Spontaneous Roberto coma scale verbal response: Orientated Aragon coma scale motor response: Obey commands Aragon coma scale total score: 15 COMMON NORMALS: patient oriented x3 SENSORIUM/ORIENTATION: Yes alert, Yes oriented to person, Yes oriented to place and Yes oriented to time Psych: COMMON NORMALS: mental status grossly normal, Normal thought process present, cooperative, normal affect, speech normal, activity/motor behavior normal and denies homicidal ideation APPEARANCE: Yes grossly normal ATTITUDE: Yes calm ACTIVITY/MOTOR BEHAVIOR: Yes appropriate eye contact SPEECH: Yes normal speech MOOD & AFFECT: Yes depressed mood THOUGHT PROCESS: Normal thought process present THOUGHT CONTENT: Yes Normal thought content present ATTENTION/CONCENTRATION: Yes attention grossly intact and Yes concentration grossly intact MEMORY/COGNITION: Yes memory grossly intact and Yes cognition grossly intact INSIGHT: Good insight present (Psych) JUDGEMENT: Good judgement present (Psych) Skin: COMMON NORMALS: no rashes or lesions noted GENERAL SKIN EXAM: no rashes or lesions noted MDM - Psych MDM Narrative: Medical decision making narrative: Patient's guardian was contacted and gave verbal consent for treatment. We will admit to Dr. Shea to NPU. Lab Data: Labs: Lab Results 12/14/19 12/14/19 12/14/19 Range/Units 18:45 18:55 18:55 WBC 7.3 (4.0-10.0) 10^3/ uL RBC 4.30 (4.1-5.3) 10^6/u L Hgb 12.9 (11.5-15.3) g/dL Hct 40.3 (37.0-47.0) % MCV 93.7 (81-99) fL MCH 30.0 (28.0-34.0) pg MCHC 32.0 (30.0-36.0) g/dL RDW 12.7 (12.1-15.1) % Plt Count 254 (130-400) 10^3/c mm MPV 9.1 (7.4-10.4) fL Neut % (Auto) 54.4 % Lymph % (Auto) 34.1 % [place] % (Auto) 7.8 % Eos % (Auto) 2.5 % Baso % (Auto) 0.8 % Neut # (Auto) 3.98 (1.8-7.7) 10^3/u L Lymph # (Auto) 2.5 (0.8-4.8) 10^3/u L [place] # (Auto) 0.6 (0.2-0.9) 10^3/u L Eos # (Auto) 0.2 (0.0-0.8) 10^3/u L Baso # (Auto) 0.1 (0.0-0.1) 10^3/u L Nucleated RBC % (a uto) 0 % Nucleated RBCs # 0.0 /100WBC Sodium 139 (136-145) mmol/L Potassium 3.7 (3.5-5.1) mmol/L Chloride 103 (98-107) mmol/L Carbon Dioxide 24 (22-29) mmol/L Anion Gap 15.7 (5-19) BUN 12 (6-20) mg/dL Creatinine 0.6 (0.5-0.9) mg/dL GFR Calculation 106.7 (90-130) mL/min Glucose 158 H (65-115) mg/dL Calculated Osmolal ity 287 (285-295) mOsm/k g Calcium 9.3 (8.5-10.5) mg/dL Total Bilirubin 0.3 (0.15-1.2) mg/dL AST 18 (0-32) U/L ALT 25 (0-33) U/L Alkaline Phosphata se 54 (35-105) IU/L Total Protein 7.5 (6.6-8.7) g/dL Albumin 4.3 (3.5-5.2) g/dL Globulin 3.2 (1.3-4.6) g/dL Salicylates < 0.3 L (3-10) mg/dL Urine Opiates Scre en Negative (Negative) ng/mL Acetaminophen < 5.0 L (10-30) ug/mL Ur Barbiturates Sc reen Negative (Negative) ng/mL Ur Phencyclidine S crn Negative (Negative) ng/mL Ur Amphetamines Sc reen Negative (Negative) ng/mL U Benzodiazepines Scrn Negative (Negative) ng/mL Urine Cocaine Scre en Negative (Negative) ng/mL U Marijuana (THC) Screen Negative (Negative) ng/mL Ethyl Alcohol < 10 (0-10) mg/dL Discharge Plan Discharge Patient Disposition: Placed in Observation Admit Provider: Jeremias Shea Clinical Impression: Suicidal ideation Schizoaffective disorder Qualifiers: Schizoaffective disorder type: unspecified Qualified Code(s): F25.9 - Schizoaffective disorder, unspecified Condition: Stable Referrals: Evonne Vicente FNP [Primary Care Provider] - Discharge Date/Time: 12/14/19 20:59 Coding Level of Care Code ED Children'S Service Worker for [facility] Fwd Exam Detailed
[2019-12-14 18:50] VITALS: BP 148/92; PULSE 72; RESP 17; TEMP 36.8; O2SAT 94; BMI 50.6
[2019-12-14 19:03] LABS: Basophils # 0.1 10^3/uL (0.0-0.1); Basophils % 0.8 %; Eosinophils # 0.2 10^3/uL (0.0-0.8); Eosinophils % 2.5 %; Hematocrit 40.3 % (37.0-47.0); Hemoglobin 12.9 g/dL (11.5-15.3); Lymphocytes # 2.5 10^3/uL (0.8-4.8); Lymphocytes % 34.1 %; Mean Corpuscular Volume 93.7 fL (81-99); Mean Platelet Volume 9.1 fL (7.4-10.4); Monocytes # 0.6 10^3/uL (0.2-0.9); Monocytes % 7.8 %; Neutrophils # 3.98 10^3/uL (1.8-7.7); Neutrophils % 54.4 %; Nucleated Red Blood Cells % 0 %; Platelet Count 254 10^3/cmm (130-400); Red Cell Distribution Width 12.7 % (12.1-15.1); White Blood Count 7.3 10^3/uL (4.0-10.0)
[2019-12-14 19:05] VITALS: BP 166/111; PULSE 98; RESP 16; TEMP 36.4; O2SAT 94; BMI 57.6
[2019-12-14 19:11] VITALS: RESP 18
[2019-12-14 19:24] LABS: Amphetamines Screen Urine Negative (Negative); Barbiturates Screen Urine Negative (Negative); Benzodiazepines Screen Urine Negative (Negative); Cocaine Screen Urine Negative (Negative); Opiate Screen Urine Negative (Negative); PCP Screen Urine Negative (Negative); THC Screen Urine Negative (Negative)
[2019-12-14 19:26] LABS: Alanine Aminotransferase 25 U/L (0-33); Albumin Level 4.3 g/dL (3.5-5.2); Alkaline Phosphatase 54 IU/L (35-105); Aspartate Amino Transferase 18 U/L (0-32); Blood Urea Nitrogen 12 mg/dL (6-20); Calcium 9.3 mg/dL (8.5-10.5); Carbon Dioxide 24 mmol/L (22-29); Chloride 103 mmol/L (98-107); Globulin 3.2 g/dL (1.3-4.6); Glomerular Filtration Rate 106.7 mL/min (90-130); Glucose 158 mg/dL (65-115); Osmolality Calculated 287 mOsm/kg (285-295); Sodium 139 mmol/L (136-145); Total Bilirubin 0.3 mg/dL (0.15-1.2); Total Protein 7.5 g/dL (6.6-8.7)
[2019-12-14 19:29] LABS: Acetaminophen < 5.0 ug/mL (10-30); Alcohol Level < 10 mg/dL (0-10); Salicylate < 0.3 mg/dL (3-10)
[2019-12-14 19:30] LABS: Anion Gap 15.7 (5-19); Potassium 3.7 mmol/L (3.5-5.1)
[2019-12-14 20:27] VITALS: BP 149/99; PULSE 82; RESP 16; O2SAT 97
[2019-12-14 20:54] VITALS: BP 149/99; PULSE 82; RESP 16; TEMP 36.4
[2019-12-14 22:00] VITALS: BP 163/104; PULSE 78; RESP 15; TEMP 37.5; O2SAT 99
[2019-12-14] MEDS: cloZAPine 100 mg Tablet 200 MG PO (22:50)
[2019-12-15 06:00] VITALS: BP 127/81; PULSE 77; RESP 15; TEMP 36.9; O2SAT 94
[2019-12-15] MEDS: pantoprazole DR 40 mg Tablet PO (08:39)
[2019-12-15] MEDS: cloZAPine 100 mg Tablet PO (08:39)
[2019-12-15 13:16] VITALS: BP 106/69; PULSE 87; RESP 20; TEMP 36.6; O2SAT 97
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
[2019-12-15] MEDS: cloZAPine 100 mg Tablet 200 MG PO (21:36)
[2019-12-15 22:00] VITALS: BP 130/85; PULSE 74; RESP 17; TEMP 36.6; O2SAT 94
[2019-12-16 06:00] VITALS: BP 129/85; PULSE 77; RESP 17; TEMP 36.6; O2SAT 96
[2019-12-16] MEDS: pantoprazole DR 40 mg Tablet PO (07:55)
[2019-12-16] MEDS: cloZAPine 100 mg Tablet PO (07:55)
--- NOTE | 2019-12-16 11:07 | P.PN_ITS ---
Subjective NPU Subjective: Interval history: Joann presented today reporting that she is sad because she stuck here and she doesn't know how this is going to work out. We discussed the plan to work with her in treatment team and hopefully get her into [facility] or a like functioning facility by Wednesday. She was sad but cooperative she reports she is eating and sleeping fine and denied any major issues. Mental Status Exam MSE Comments: This is a morbidly obese, white female, with adequate grooming and eye contact. No abnormal movements, except for mild psychomotor retardation. Cooperative with exam in no acute distress. Speech was normal rate and volume. Mood described as sad; affect congruent. Thought process, organized. Thought content: patient denied any suicidal or homicidal ideation, there were no delusions reported or noted, patient denied any auditory or visual hallucinations. Attention, concentration, and memory appear intact but none were formally tested. She is alert and oriented times three. Insight and judgment are limited. Impulse control is limited but improving. Vitals/I&O/Wt Last Vital Signs Temp 97.8 F 12/16/19 06:00 Pulse 77 12/16/19 06:00 Resp 17 12/16/19 06:00 BP 129/85 12/16/19 06:00 Pulse Ox 96 12/16/19 06:00 Weight last 48 hrs Weight 133.81 kg Weight 133.81 kg Data NPU : 12/14/19 18:55 12/14/19 18:55 A&P Additional A&P Information (1) Schizoaffective disorder: (2) Unspecified personality disorder: (3) Suicidal ideation: This is a 49 year old, white female, with schizoaffective disorder, and limited ability for independent functioning, who recently had a guardian placed, who presents needing stable placement for successful functioning outside of the hospital. Continue current medication. Encourage individual, group, and milieu therapy. Continue q-15 minute checks for safety. We will work with the social work team to try to find a location to discharge her to. We are hopeful that she might have an opening at [facility], which has been the place she is supposed to be going to, but we have not heard back from them even after multiple calls. We will try to get her out as soon as possible, however, discharging her without a clear location is asking to push back months of successful treatment. This is as stable as she has presented but her ability to be independent is just not there, hence the guardian. Involuntary Hold Information 96 Hour Hold: 96 Hour Involuntary Admission: No Attestations NPU Medical Necessity Statement*: Inpatient hospitalization is medically necessary and the clinically appropriate intervention, at this time, absent a clear outpatient location that would have structure and ability to assist her in medication administration etc. We will monitor medications, but at this point, there is no plan for medication changes. Likely length of stay is 2-4 days. Coding Level of Care Code Acute Dental Instrument Maker for Mandie Wei
[2019-12-16 14:00] VITALS: BP 131/79; PULSE 76; RESP 18; TEMP 36.3
[2019-12-16] MEDS: cloZAPine 100 mg Tablet 200 MG PO (20:17)
[2019-12-16 21:59] VITALS: BP 129/75; PULSE 68; RESP 18; TEMP 36.4; O2SAT 94
[2019-12-17] MEDS: acetaminophen 325 mg Tablet 650 MG PO (00:40)
--- NOTE | 2019-12-17 00:41 | PC.NURSE ---
Prn tylenol 650mg po given for ankle and foot pain rated a 7 on a 1-10 pain scale. will continue to monitor pain control for this patient
--- NOTE | 2019-12-17 01:59 | PC.NURSE ---
Patient is been up and down out of bed tonight. She is not resting well. She had a headache that was relieved by tylenol and her pain is reduced in her feet/knees to a 1 on a 1-10 pain scale. Offered some water, we talked for a few minutes, and she returned to bed
[2019-12-17 06:00] VITALS: BP 133/98; PULSE 84; RESP 17; TEMP 36.7; O2SAT 95
[2019-12-17] MEDS: pantoprazole DR 40 mg Tablet PO (09:40)
[2019-12-17] MEDS: cloZAPine 100 mg Tablet PO (09:40)
--- NOTE | 2019-12-17 10:49 | PM.NPN ---
Subjective NPU Subjective: Interval history: Joann presents today continuing to do well, but continuing to show limited insight into the disastrous outcomes that have occurred from her leaving the hospital without a definitive placement, leading to her returning post hast. Last time they were going to manage her at her mother?s house until this bed came open, and in less than a week she was back. We are continuing to work hard to get the time frame for the bed availability, but for now we will work with her to manage here in the hospital while this is being figured out. We did discuss the lethargy and tiredness that she is getting from the Clozaril, and we may consider stepping back on one of the doses, or moving the dose to bedtime altogether. We agreed that we would look at the risks, benefits, and alternatives of this, and she understood and agreed to proceed as is documented in this note. Mental Status Exam MSE Comments: This is a morbidly obese, white female, with adequate grooming and eye contact. No abnormal movements, except for mild psychomotor retardation. Cooperative with exam in no acute distress. Speech was normal rate and volume. Mood described as OK; affect congruent. Thought process, organized. Thought content: patient denied any suicidal or homicidal ideation, there were no delusions reported or noted, patient denied any auditory or visual hallucinations. Attention, concentration, and memory appear intact but none were formally tested. She is alert and oriented times three. Insight and judgment are limited. Impulse control is limited but improving. Vitals/I&O/Wt Last Vital Signs Temp 98.0 F 12/17/19 06:00 Pulse 84 12/17/19 06:00 Resp 17 12/17/19 06:00 BP 133/98 12/17/19 06:00 Pulse Ox 95 12/17/19 06:00 Weight last 48 hrs Weight 142.882 kg Weight 68.492 kg Data NPU : 12/14/19 18:55 12/14/19 18:55 A&P Additional A&P Information (1) Schizoaffective disorder: (2) Unspecified personality disorder: (3) Suicidal ideation: This is a 49 year old, white female, with schizoaffective disorder, and limited ability for independent functioning, who recently had a guardian placed, who presents needing stable placement for successful functioning outside of the hospital. Continue current medication. Encourage individual, group, and milieu therapy. Continue q-15 minute checks for safety. We will work with the social work team to try to find a location to discharge her to. We are hopeful that she might have an opening at [facility], which has been the place she is supposed to be going to, but we have not heard back from them even after multiple calls. We will try to get her out as soon as possible, however, discharging her without a clear location is asking to push back months of successful treatment. This is as stable as she has presented but her ability to be independent is just not there, hence the guardian. Involuntary Hold Information 96 Hour Hold: 96 Hour Involuntary Admission: No Attestations NPU Medical Necessity Statement*: Inpatient hospitalization is medically necessary and the clinically appropriate intervention, at this time, absent a clear outpatient location that would have structure and ability to assist her in medication administration etc. We will monitor medications, but at this point, there is no plan for medication changes. Likely length of stay is 1-3 days. Coding Level of Care Code Acute Wire Bound Box Machine Operator for Mandie Wei
[2019-12-17 14:00] VITALS: BP 119/79; PULSE 83; RESP 16; TEMP 37.1; O2SAT 97
[2019-12-17] MEDS: ondansetron 4 MG Tablet PO (18:46)
[2019-12-17] MEDS: cloZAPine 100 mg Tablet 200 MG PO (21:40)
[2019-12-17 22:00] VITALS: BP 131/84; PULSE 91; RESP 18; TEMP 37.1; O2SAT 98
--- NOTE | 2019-12-17 22:30 | PC.NURSE ---
pt given scheduled clozaril without difficulty.
--- NOTE | 2019-12-18 02:30 | PC.NURSE ---
Patient has been out of bed twice. She is not comfortable in her bed and is tossing and turning. She states that she just wants to go back to her moms house.
[2019-12-18 06:00] VITALS: BP 106/71; PULSE 85; RESP 16; TEMP 36.8; O2SAT 95
--- NOTE | 2019-12-18 06:06 | PC.NURSE ---
pt has slept well this night. no outburst episodes noted.
[2019-12-18] MEDS: pantoprazole DR 40 mg Tablet PO (09:07)
[2019-12-18] MEDS: cloZAPine 100 mg Tablet PO (09:08)
[2019-12-18 13:44] VITALS: BP 139/90; PULSE 95; RESP 18; TEMP 36.6; O2SAT 97
--- NOTE | 2019-12-18 16:07 | P.PN_ITS ---
Subjective NPU Subjective: Interval history: Joann presents today continuing to be somewhat saddened by the fact that there isn't a place to go for her this very moment. Unfortunately the suggestions and solution she brings up Do nothave a lot of stability related to them. Suggestion that we find her apartment in [place] or [place] where she reportedly has family. We continue to discuss sticking to the plan and working with her guardian to get appropriate placement. We assured her that we are working from close to further away in an attempt toGet a replacement. We discussed that we've been turned down by most nursing homes but we are possibly getting some leverage with some places like [facility] within 2 hours from here. Discussed the risks benefits and alternatives of this plan and regarding communication with her guardian and they understand and agreed to proceed as is documented in his note. Mental Status Exam MSE Comments: This is a morbidly obese, white female, with adequate grooming and eye contact. No abnormal movements, except for mild psychomotor retardation. Cooperative with exam in no acute distress. Speech was normal rate and volume. Mood described as frustrated; affect congruent. Thought process, organized. Thought content: patient denied any suicidal or homicidal ideation, there were no delusions reported or noted, patient denied any auditory or visual h allucinations. Attention, concentration, and memory appear intact but none were formally tested. She is alert and oriented times three. Insight and judgment are limited. Impulse control is limited but improving. Vitals/I&O/Wt Last Vital Signs Temp 97.7 F 12/18/19 22:00 Pulse 90 12/18/19 22:00 Resp 17 12/18/19 22:00 BP 115/83 12/18/19 22:00 Pulse Ox 96 12/18/19 22:00 Weight last 48 hrs Weight 142.882 kg Weight 68.492 kg Data NPU : 12/14/19 18:55 12/14/19 18:55 A&P Additional A&P Information (1) Schizoaffective disorder: (2) Unspecified personality disorder: (3) Suicidal ideation: This is a 49 year old, white female, with schizoaffective disorder, and limited ability for independent functioning, who recently had a guardian placed, who presents needing stable placement for successful functioning outside of the hospital. Continue current medication.We will explore shifting around her dosing of Clozaril for optimal daytime alertness. Encourage individual, group, and milieu therapy. Continue q-15 minute checks for safety. We will work with the social work team to try to find a location to discharge her to. We are hopeful that she might have an opening at [facility], which has been the place she is supposed to be going to, but we have not heard back from them even after multiple calls. We will try to get her out as soon as possible, however, discharging her without a clear location is asking to push back months of successful treatment. This is as stable as she has presented but her ability to be independent is just not there, hence the guardian. Involuntary Hold Information 96 Hour Hold: 96 Hour Involuntary Admission: No Attestations NPU Medical Necessity Statement*: Inpatient hospitalization is medically necessary and the clinically appropriate intervention, at this time, absent a clear outpatient location that would have structure and ability to assist her in medication administration etc. We will monitor medications, but at this point, there is no plan for medication changes. Likely length of stay is 1-3 days. Coding Level of Care Code Acute Certified Maintenance Welder for Mandie Wei
[2019-12-18] MEDS: hyDROXYzine 25 mg Capsule 50 MG PO (20:40)
[2019-12-18] MEDS: cloZAPine 100 mg Tablet 200 MG PO (20:40)
[2019-12-18 22:00] VITALS: BP 115/83; PULSE 90; RESP 17; TEMP 36.5; O2SAT 96
--- NOTE | 2019-12-18 22:00 | PC.NURSE ---
PT WAS GIVEN SCHEDULED CLOZARIL AND PRN VISTARIL PER PT REQUEST.
[2019-12-19 06:00] VITALS: BP 148/94; PULSE 87; RESP 16; TEMP 36.7; O2SAT 95
[2019-12-19] MEDS: cloZAPine 100 mg Tablet PO (08:57)
[2019-12-19] MEDS: pantoprazole DR 40 mg Tablet PO (08:57)
[2019-12-19 14:00] VITALS: BP 128/80; PULSE 85; RESP 18; TEMP 36.7; O2SAT 97
--- NOTE | 2019-12-19 16:58 | PM.NPN ---
Subjective NPU Subjective: Interval history: Joann presents today reporting that still having some lethargy from the medication. However we had good news that she has been accepted at [facility] and therefore we will allow the outpatient psychiatrist to possibly tweak down the Clozaril to balance the clear effectiveness and some of this sleepiness she is experiencing. She had questions about where It was located and things of that nature and clearly had some anxiety about the unknown but otherwise was happy to have finally found a place. She reports eating fine and sleeping too much. Mental Status Exam MSE Comments: This is a morbidly obese, white female, with adequate grooming and eye contact. No abnormal movements, except for mild psychomotor retardation. Cooperative with exam in no acute distress. Speech was normal rate and volume. Mood described as OK, anxious; affect congruent. Thought process, organized. Thought content: patient denied any suicidal or homicidal ideation, there were no delusions reported or noted, patient denied any auditory or visual hallucinations. Attention, concentration, and memory appear intact but none were formally tested. She is alert and oriented times three. Insight and judgment are limited, But improving. Impulse control is limited but improving. Vitals/I&O/Wt Last Vital Signs Temp 98.0 F 12/19/19 14:00 Pulse 85 12/19/19 14:00 Resp 18 12/19/19 14:00 BP 128/80 12/19/19 14:00 Pulse Ox 97 12/19/19 14:00 Data NPU : 12/14/19 18:55 12/14/19 18:55 A&P Additional A&P Information (1) Schizoaffective disorder: (2) Unspecified personality disorder: (3) Suicidal ideation: This is a 49 year old, white female, with schizoaffective disorder, and limited ability for independent functioning, who recently had a guardian placed, who presents needing stable placement for successful functioning outside of the hospital. Continue current medication.We will explore shifting around her dosing of Clozaril for optimal daytime alertness. Encourage individual, group, and milieu therapy. Continue q-15 minute checks for safety. She has been accepted at the [facility]. Working with guardian with plan to discharge tomorrow. Involuntary Hold Information 96 Hour Hold: 96 Hour Involuntary Admission: No Attestations NPU Medical Necessity Statement*: Inpatient hospitalization is medically necessary and the clinically appropriate intervention, at this time, absent a clear outpatient location that would have structure and ability to assist her in medication administration etc. We will monitor medications, but at this point, there is no plan for medication changes. Likely Discharge tomorrow. Coding Level of Care Code Acute Tower Hoist Operator for Mandie Wei
[2019-12-19] MEDS: hyDROXYzine 25 mg Capsule 50 MG PO (20:51)
[2019-12-19] MEDS: cloZAPine 100 mg Tablet 200 MG PO (20:52)
[2019-12-19 21:04] VITALS: BP 145/92; PULSE 96; RESP 17; TEMP 37; O2SAT 96
[2019-12-20 06:00] VITALS: BP 153/101; PULSE 89; RESP 16; TEMP 37.1; O2SAT 93
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
[2019-12-20 07:36] LABS: Basophils # 0.1 10^3/uL (0.0-0.1); Basophils % 0.7 %; Eosinophils # 0.2 10^3/uL (0.0-0.8); Eosinophils % 2.6 %; Hematocrit 38.8 % (37.0-47.0); Hemoglobin 12.2 g/dL (11.5-15.3); Lymphocytes % 25.8 %; Mean Corpuscular HGB Conc 31.4 g/dL (30.0-36.0); Mean Corpuscular Hemoglobin 29.8 pg (28.0-34.0); Mean Corpuscular Volume 94.9 fL (81-99); Mean Platelet Volume 9.7 fL (7.4-10.4); Monocytes # 0.5 10^3/uL (0.2-0.9); Monocytes % 6.6 %; Neutrophils # 4.89 10^3/uL (1.8-7.7); Neutrophils % 63.8 %; Nucleated Red Blood Cells % 0 %; Platelet Count 239 10^3/cmm (130-400); Red Blood Count 4.09 10^6/uL (4.1-5.3); Red Cell Distribution Width 12.7 % (12.1-15.1); White Blood Count 7.7 10^3/uL (4.0-10.0)
[2019-12-20] MEDS: cloZAPine 100 mg Tablet PO (07:48)
[2019-12-20] MEDS: pantoprazole DR 40 mg Tablet PO (07:49)
[2019-12-20 08:08] VITALS: BP 153/101; PULSE 89; RESP 16; TEMP 37.1; O2SAT 93
--- NOTE | 2019-12-21 12:43 | PC.SOCIAL ---
received call from mom Kacy Lynn [phone] mom was upset because she received call from a Crystal from [facility] ([phone]) who said that patient had not arrived. Later this worker learned that Gabi did say that to mom but she had been asked that from the mom. Gabi had called to get more information from the mom in order to possibly accept patient and in that conversation mom was not understanding if patient was in [place] or [place]. She is in [place]. As for the [place] facility, [facility] was a potential home but there was no confirmed arrangement that patient was going to [facility]. Regardless, before this worker provided the number for [place] [facility] and the [facility] to mom ([phone] [facility]), this worker said that she was going to call the facility and the guardian to provide the information that would help communication with mom once mom did call the facility. This worker said she would call mom right back. Dalia at [facility] and the [facility] took this worker's call and said that she was so appreciative of the heads up and gave the advice of calling the unit directly. She asked this worker to give the [facility] staff the news of mom being upset so that they could better address patient's mom. Mom had been confused about patient being in [place] vs. [place]. However, when this worker called, mom was already on the other line at the [place] facility. Evidently, she did have the phone number for the [facility] [facility] and [facility]. Also, this worker clarified that patient did also have acceptance at [place] and informed Mike Suh, patient's legal guardian. It is noteworthy that patient's guardian had said the day of discharge that he had spoken to patient's mom about the discharge plan and getting her belongings to the hospital so she could go to [place].
--- NOTE | 2020-01-11 10:54 | PC.SOCIAL ---
This morning this medical underwriter called and checked on the patient at the [facility] in [facility]. According to the charge nurse, the patient is doing well, she is still having bouts of crying spells missing her mother. Today was court for guardianship. The tactical response group officer found that there should be a full guardianship granted at this time.
== END 2019-12-20 09:10 | disposition home or self-care (01) | DRG 885 ==
LOC: ER 19:14 → NP 12-19 11:13
PROVIDERS: Physician Assistant; Admitting Provider Psychiatry & Neurology Psychiatry; PCP Nurse Practitioner Family; Visit Provider Psychiatry & Neurology Psychiatry
DX: F25.9 Schizoaffective disorder, unspecified (principal); R45.851 Suicidal ideations; F60.9 Personality disorder, unspecified; Z87.891 Personal history of nicotine dependence
CPT/HCPCS: 12345; 36415; 80053; 80306; 80307; 85025; 99284; G0378; Q0162